=== PATIENT | female | born 1970 | race African-American/Black ===

== ENCOUNTER 2023-01-16 00:21 | Emergency (ER) | payer MEDICAID ==
[~2023-01-16] VITALS: Ht 162.6 cm; Wt 96.1 kg
[2023-01-16 01:05] LABS: Basophils # (auto) 0.1 10 ^3/uL (0-0.2); Eosinophils # (auto) 0.2 10 ^3/uL (0-0.8); Eosinophils % (auto) 2.4 % (0.0-7.0); Hematocrit 39.3 % (36.0-46.0); Hemoglobin 13.2 g/dL (12.2-16.2); Lymphocytes # (auto) 3.9 10 ^3/uL (0.4-5.4); Lymphocytes % (auto) 50.2 % (10.0-50.0); Mean Corpuscular Hemoglobin 31.1 pg (28.0-32.0); Mean Corpuscular Hgb Conc. 33.5 g/dL (32.0-36.0); Mean Corpuscular Volume 92.9 fL (80.0-100.0); Monocytes # (auto) 0.5 10 ^3/uL (0-1.3); Neutrophils # (auto) 3.2 10 ^3/uL (1.6-8.6); Neutrophils % (auto) 40.4 % (37.0-80.0); Nucleated Red Blood Cells % 0.2 %; Red Blood Cells 4.23 10^6/uL (4.0-5.20); Red Cell Distribution Width 13.4 % (11.8-14.3); White Blood Cell 7.8 10^3/uL (4.4-10.8)
[2023-01-16 01:20] LABS: Urine Bacteria FEW /hpf (None Seen); Urine Blood Negative /uL (Negative); Urine Specific Gravity 1.006 (1.001-1.035); Urine WBC <1 /hpf (0 - 5)
[2023-01-16 01:30] LABS: Albumin 3.7 g/dL (3.4-5.0); Calcium 9.8 mg/dL (8.5-10.1); Potassium 3.7 mmol/L (3.5-5.1)
[2023-01-16 01:33] LABS: BUN/Creatinine Ratio 14.3 (10.0-20.0); Magnesium 2.1 mg/dL (1.6-2.6)
[2023-01-16 02:08] LABS: Bilirubin, Total 0.4 mg/dL (0.2-1.0)
[2023-01-16 02:13] LABS: Total Protein 7.2 g/dL (6.4-8.2)
[2023-01-16] MEDS ORDERED: MORPHINE SULFATE INJ 2 MG/ml SYRG IM ONE (05:15)
[2023-01-16] MEDS ORDERED: ONDANSETRON ODT 4 MG TAB PO ONE (05:15)
[2023-01-16 05:49] VITALS: BP 140/88; PULSE 61; RESP 16; TEMP 98.1; O2SAT 99
== END 2023-01-16 06:32 | disposition home or self-care (01) ==
LOC: ER 00:21
DX: R07.89 Other chest pain (principal); J45.909 Unspecified asthma, uncomplicated; I10 Essential (primary) hypertension; F20.9 Schizophrenia, unspecified; Z88.5 Allergy status to narcotic agent; Z98.51 Tubal ligation status; Z98.890 Other specified postprocedural states
CPT/HCPCS: 36415; 71045; 80053; 81001; 83735; 84484; 85025; 93005; 96372; 99285; J2270; Q0162

== ENCOUNTER 2023-03-06 22:28 | Emergency (ER) | payer MEDICAID ==
[~2023-03-06] VITALS: Ht 160 cm; Wt 98.1 kg
[2023-03-06] MEDS ORDERED: diphenhdrAMINE HCL 25 MG CAP PO ONE (23:15)
[2023-03-06] MEDS ORDERED: DexAMETHasone SOD PHOS 10MG/1ML VIAL INJ IM ONE (23:15)
[2023-03-06] MEDS ORDERED: CEPH500C PO ×3 (23:15→23:34)
[2023-03-06] MEDS ORDERED: MUPI2OIN2 EX ×3 (23:15→23:34)
[2023-03-06] MEDS ORDERED: FAMOTIDINE 20 MG TAB PO ONE (23:15)
[2023-03-06] MEDS ORDERED: DIPH25CA66 PO ×3 (23:15→23:34)
[2023-03-06 23:30] VITALS: BP 133/88; PULSE 87; RESP 20; TEMP 97.9; O2SAT 99
== END 2023-03-06 23:38 | disposition home or self-care (01) ==
LOC: ER 22:28
DX: S60.562A Insect bite (nonvenomous) of left hand, initial encounter (principal); S60.561A Insect bite (nonvenomous) of right hand, initial encounter; S80.862A Insect bite (nonvenomous), left lower leg, initial encounter; S80.861A Insect bite (nonvenomous), right lower leg, initial encounter; B96.89 Other specified bacterial agents as the cause of diseases classified elsewhere; J45.909 Unspecified asthma, uncomplicated; I10 Essential (primary) hypertension; F20.9 Schizophrenia, unspecified; Z79.899 Other long term (current) drug therapy; Z98.51 Tubal ligation status; Z98.890 Other specified postprocedural states; W57.XXXA Bitten or stung by nonvenomous insect and other nonvenomous arthropods, initial encounter; Y93.89 Activity, other specified; Y92.89 Other specified places as the place of occurrence of the external cause; Y99.8 Other external cause status; Z88.5 Allergy status to narcotic agent
CPT/HCPCS: 96372; 99283; J1100

== ENCOUNTER 2023-05-17 00:07 | Emergency (ER) | payer MEDICAID ==
[~2023-05-17] VITALS: Ht 162.6 cm; Wt 95.0 kg
[~2023-05-17 00:07] MED LIST: CEPH500C PO; DIPH25CA66 PO; MUPI2OIN2 EX
[2023-05-17 00:36] LABS: Basophils # (auto) 0.1 10 ^3/uL (0-0.2); Eosinophils # (auto) 0.2 10 ^3/uL (0-0.8); Eosinophils % (auto) 1.9 % (0.0-7.0); Hematocrit 40.1 % (36.0-46.0); Hemoglobin 13.7 g/dL (12.2-16.2); Lymphocytes # (auto) 3.8 10 ^3/uL (0.4-5.4); Lymphocytes % (auto) 46.4 % (10.0-50.0); Mean Corpuscular Hemoglobin 31.3 pg (28.0-32.0); Mean Corpuscular Hgb Conc. 34.1 g/dL (32.0-36.0); Mean Corpuscular Volume 91.9 fL (80.0-100.0); Monocytes # (auto) 0.4 10 ^3/uL (0-1.3); Monocytes % (auto) 5.3 % (0.0-12.0); Neutrophils # (auto) 3.7 10 ^3/uL (1.6-8.6); Neutrophils % (auto) 45.4 % (37.0-80.0); Nucleated Red Blood Cells % 0.2 %; Red Blood Cells 4.36 10^6/uL (4.0-5.20); Red Cell Distribution Width 13.8 % (11.8-14.3); White Blood Cell 8.2 10^3/uL (4.4-10.8)
[2023-05-17 00:50] LABS: INR 0.94 (0.9-1.15); Partial Thromboplastin Time 26.2 SEC (24.5-34.5); Prothrombin Time 9.9 sec (9.3-11.8)
[2023-05-17 00:54] LABS: Alanine Aminotransferase 23 U/L (7-40); Albumin 4.5 g/dL (3.2-4.8); Alkaline Phosphatase 98 U/L (46-116); Anion Gap 4 (5-15); Aspartate Aminotransferase 20 U/L (13-40); BUN/Creatinine Ratio 8.4 (10.0-20.0); Blood Urea Nitrogen 7 mg/dL (9-23); Calcium 9.5 mg/dL (8.7-10.4); Carbon Dioxide 29 mmol/L (20-30); Chloride 107 mmol/L (98-107); Glucose 110 mg/dL (74-106); Magnesium 1.6 mg/dL (1.6-2.6); Potassium 3.5 mmol/L (3.5-5.1); Sodium 140 mmol/L (136-145)
[2023-05-17 00:55] LABS: Bilirubin, Total 0.5 mg/dL (0.2-1.0); Total Protein 7.1 g/dL (5.7-8.2)
[2023-05-17 03:50] VITALS: BP 131/85; PULSE 75; RESP 18; TEMP 98.2; O2SAT 98
== END 2023-05-17 03:55 | disposition home or self-care (01) ==
LOC: ER 00:07
DX: R07.89 Other chest pain (principal); I10 Essential (primary) hypertension; J44.9 Chronic obstructive pulmonary disease, unspecified; F17.210 Nicotine dependence, cigarettes, uncomplicated; Z98.890 Other specified postprocedural states; Z88.8 Allergy status to other drugs, medicaments and biological substances; Z79.899 Other long term (current) drug therapy
CPT/HCPCS: 36415; 71045; 80053; 83735; 83880; 84484; 85025; 85610; 85730; 93005

== ENCOUNTER 2023-07-25 21:54 | Emergency (ER) | payer MEDICAID ==
[~2023-07-25] VITALS: Ht 162.6 cm; Wt 97.3 kg
[2023-07-25 22:31] LABS: Basophils # (auto) 0.1 10 ^3/uL (0-0.2); Basophils % (auto) 1.3 % (0.0-2.0); Eosinophils # (auto) 0.1 10 ^3/uL (0-0.8); Eosinophils % (auto) 1.6 % (0.0-7.0); Hematocrit 40.7 % (36.0-46.0); Hemoglobin 13.7 g/dL (12.2-16.2); Lymphocytes # (auto) 3.4 10 ^3/uL (0.4-5.4); Lymphocytes % (auto) 41.5 % (10.0-50.0); Mean Corpuscular Hemoglobin 31.1 pg (28.0-32.0); Mean Corpuscular Hgb Conc. 33.7 g/dL (32.0-36.0); Mean Corpuscular Volume 92.2 fL (80.0-100.0); Monocytes # (auto) 0.4 10 ^3/uL (0-1.3); Monocytes % (auto) 5.1 % (0.0-12.0); Neutrophils # (auto) 4.1 10 ^3/uL (1.6-8.6); Neutrophils % (auto) 50.5 % (37.0-80.0); Nucleated Red Blood Cells % 0.1 %; Red Blood Cells 4.41 10^6/uL (4.0-5.20); Red Cell Distribution Width 13.5 % (11.8-14.3); White Blood Cell 8.2 10^3/uL (4.4-10.8)
[2023-07-25 22:48] LABS: Alanine Aminotransferase 31 U/L (7-40); Albumin 4.5 g/dL (3.2-4.8); Alkaline Phosphatase 103 U/L (46-116); Anion Gap 5 (5-15); Aspartate Aminotransferase 23 U/L (13-40); BUN/Creatinine Ratio 9.1 (10.0-20.0); Blood Urea Nitrogen 7 mg/dL (9-23); Calcium 10.2 mg/dL (8.5-10.1); Carbon Dioxide 28 mmol/L (20-30); Chloride 106 mmol/L (98-107); Glucose 115 mg/dL (74-106); Potassium 3.4 mmol/L (3.5-5.1); Sodium 139 mmol/L (136-145)
[2023-07-25 22:49] LABS: Bilirubin, Total 0.4 mg/dL (0.2-1.0); Total Protein 7.1 g/dL (5.7-8.2)
[2023-07-26 02:00] VITALS: BP 105/72; PULSE 80; RESP 18; TEMP 98; O2SAT 97
== END 2023-07-26 02:14 | disposition home or self-care (01) ==
LOC: ER 21:54
DX: R07.89 Other chest pain (principal); I10 Essential (primary) hypertension; J44.9 Chronic obstructive pulmonary disease, unspecified; F17.210 Nicotine dependence, cigarettes, uncomplicated; Z79.899 Other long term (current) drug therapy
CPT/HCPCS: 36415; 71045; 80053; 83880; 84484; 85025; 93005

== ENCOUNTER 2023-08-23 01:59 | Emergency (ER) | payer MEDICAID ==
[~2023-08-23] VITALS: Ht 162.6 cm; Wt 95.0 kg
[2023-08-23 01:59] VITALS: BP 128/87; PULSE 68; RESP 20; O2SAT 98
[2023-08-23] MEDS: KETOROLAC TROMETH 60MG/2ML VIAL IM ONE (03:43)
== END 2023-08-23 03:51 | disposition home or self-care (01) ==
LOC: ER 01:59
DX: S46.912A Strain of unspecified muscle, fascia and tendon at shoulder and upper arm level, left arm, initial encounter (principal); J44.9 Chronic obstructive pulmonary disease, unspecified; I10 Essential (primary) hypertension; F17.210 Nicotine dependence, cigarettes, uncomplicated; Z98.51 Tubal ligation status; Z88.6 Allergy status to analgesic agent; X50.0XXA Overexertion from strenuous movement or load, initial encounter; Y93.89 Activity, other specified; Y92.89 Other specified places as the place of occurrence of the external cause; Y99.8 Other external cause status
CPT/HCPCS: 73030; 96372; 99283; J1885

== ENCOUNTER 2023-10-10 22:19 | Emergency (ER) | payer MEDICAID ==
[~2023-10-10] VITALS: Ht 162.6 cm; Wt 97.5 kg
[2023-10-11 00:33] VITALS: BP 131/74; PULSE 91; RESP 16; TEMP 98.4; O2SAT 98
[2023-10-11] MEDS: HYDROcodone-ACET 10/325MG TAB PO ONE (01:13)
== END 2023-10-11 01:37 | disposition home or self-care (01) ==
LOC: ER 22:19
DX: S83.92XA Sprain of unspecified site of left knee, initial encounter (principal); M17.12 Unilateral primary osteoarthritis, left knee; J44.9 Chronic obstructive pulmonary disease, unspecified; I10 Essential (primary) hypertension; M54.30 Sciatica, unspecified side; F17.210 Nicotine dependence, cigarettes, uncomplicated; Z88.6 Allergy status to analgesic agent; Z98.51 Tubal ligation status; X58.XXXA Exposure to other specified factors, initial encounter; Y93.89 Activity, other specified; Y92.89 Other specified places as the place of occurrence of the external cause; Y99.8 Other external cause status
CPT/HCPCS: 29505; 73562

== ENCOUNTER 2023-12-27 03:31 | Inpatient (IN) | payer MEDICAID ==
[~2023-12-27] VITALS: Ht 160 cm; Wt 93.0 kg
[2023-12-27 04:19] LABS: Anion Gap 9 (5-15); Carbon Dioxide 24 mmol/L (20-30); Chloride 106 mmol/L (98-107); Potassium 3.7 mmol/L (3.5-5.1); Sodium 139 mmol/L (136-145)
[2023-12-27 04:20] LABS: Basophils # (auto) 0.1 10 ^3/uL (0-0.2); Basophils % (auto) 1.1 % (0.0-2.0); Calcium 10.9 mg/dL (8.7-10.4); Eosinophils # (auto) 0.2 10 ^3/uL (0-0.8); Eosinophils % (auto) 2.6 % (0.0-7.0); Hematocrit 41.3 % (36.0-46.0); Hemoglobin 14.1 g/dL (12.2-16.2); Lymphocytes # (auto) 3.9 10 ^3/uL (0.4-5.4); Mean Corpuscular Hemoglobin 31.2 pg (28.0-32.0); Mean Corpuscular Hgb Conc. 34.1 g/dL (32.0-36.0); Mean Corpuscular Volume 91.6 fL (80.0-100.0); Monocytes # (auto) 0.4 10 ^3/uL (0-1.3); Monocytes % (auto) 4.2 % (0.0-12.0); Neutrophils # (auto) 4.3 10 ^3/uL (1.6-8.6); Neutrophils % (auto) 48.1 % (37.0-80.0); Nucleated Red Blood Cells % 0.1 %; Red Blood Cells 4.51 10^6/uL (4.0-5.20); Red Cell Distribution Width 13.5 % (11.8-14.3); White Blood Cell 8.9 10^3/uL (4.4-10.8)
[2023-12-27 04:25] LABS: BUN/Creatinine Ratio 8.8 (10.0-20.0); Blood Urea Nitrogen 6 mg/dL (9-23); Glucose 100 mg/dL (74-106)
[2023-12-27] MEDS: ASPirin 81 mg TAB PO ONE (05:43)
[2023-12-27 06:45] VITALS: PULSE 73; RESP 16; O2SAT 98
[2023-12-27 07:35] VITALS: PULSE 69; RESP 13; O2SAT 99
[2023-12-27] MEDS: MORPHINE SULFATE 4 MG/ML SYR/VIAL IV ONE (07:40)
[2023-12-27] MEDS ORDERED: diphenhdrAMINE HCL 50 MG/1 ML VL IV PRN (09:15)
[2023-12-27] MEDS ORDERED: ACETAMINOPHEN 325 MG TAB PO PRN (09:15)
[2023-12-27] MEDS ORDERED: MORPHINE SULFATE INJ 2 MG/ml SYRG IV PRN (09:15)
[2023-12-27] MEDS ORDERED: FLUO40CA (10:13)
[2023-12-27] MEDS ORDERED: OXCA300T50 (10:13)
[2023-12-27] MEDS ORDERED: QUET300T24 PO (10:13)
[2023-12-27] MEDS ORDERED: RISP2TAB62 (10:13)
[2023-12-27] MEDS ORDERED: NITR0.4S29 (10:13)
[2023-12-27] MEDS ORDERED: GABA-1250 PO (10:13)
[2023-12-27] MEDS ORDERED: NICO14DI29 TOP (10:13)
[2023-12-27] MEDS ORDERED: CHOL20003 PO (10:13)
[2023-12-27] MEDS ORDERED: FLUT110A8 INH (10:13)
[2023-12-27] MEDS: ENOXAPARIN SOD 40 MG/0.4 ML SYRINGE SC SCH (10:33)
[2023-12-27] MEDS: InsuLIN REG 1unit/0.01ml Soln (100units/ml) SC ONE (10:58)
[2023-12-27] MEDS: ACCU-CHEK COMFORT CURVE STRIP VI ONE (10:58)
[2023-12-27] MEDS: DEXTROSE (50%) 50ML SYRG IV ONE (11:00)
[2023-12-27 11:30] LABS: LDL Cholesterol 69 mg/dL (< 100); Triglycerides 57 mg/dL (< 150)
[2023-12-27 11:32] LABS: Cholesterol 134 mg/dL (< 200); HDL Cholesterol 50 mg/dL (40-59)
[2023-12-27] MEDS: FLUoxetine HCL 20 MG CAP PO SCH (12:17)
[2023-12-27] MEDS: NITROGLYCERIN 0.4 MG SL TAB SL PRN (12:18)
[2023-12-27] MEDS: CHOLECALCIFEROL (VITD3) 1,000UNIT=25mCg TAB PO SCH (12:18)
[2023-12-27 18:40] VITALS: PULSE 74
[2023-12-27 18:45] VITALS: PULSE 76; RESP 16; O2SAT 98
[2023-12-27 20:00] VITALS: PULSE 71; PULSE 74; RESP 18; O2SAT 97
[2023-12-27] MEDS: LOSARTAN POTASSIUM 50 MG TAB PO SCH (21:14)
[2023-12-27] MEDS: QUEtiapine FUMARATE 100 MG TAB PO SCH (21:16)
[2023-12-27] MEDS: HYDROcodone-ACET 5/325MG TAB PO PRN (21:16)
[2023-12-27] MEDS: risperiDONE 1 MG TAB PO SCH (21:16)
[2023-12-27] MEDS ORDERED: METF-370 PO (21:25)
[2023-12-27] MEDS ORDERED: HYDR-4798 PO (21:25)
[2023-12-27] MEDS ORDERED: LOSA100T25 PO (21:25)
[2023-12-27 22:00] VITALS: BP 111/72; PULSE 68; RESP 19; TEMP 98.4; O2SAT 94
[2023-12-27] MEDS ORDERED: BUDESONIDE (INHALATION) 0.5 MG/2 ML NEB NEB SCH (22:00)
[2023-12-28] VITALS (10 sets, daily range): BP systolic 109–116; BP diastolic 58–70; PULSE 61–68; RESP 16–19; TEMP 37.1; O2SAT 95–100
[2023-12-28] MEDS: MORPHINE SULFATE INJ 2 MG/ml SYRG IV PRN (08:28)
[2023-12-28] MEDS: GABAPENTIN 300 MG CAP PO SCH (08:59)
[2023-12-28] MEDS: NICOTINE 14 MG/24HR TOPICAL PATCH TD SCH (10:00)
== END 2023-12-28 15:00 | disposition home or self-care (01) | DRG 203 ==
LOC: ER 03:31 → TELE 09:11 → TELE-EAST 18:41
PROVIDERS: ADMIT Nurse Practitioner; ATTEND Nurse Practitioner
DX: M94.0 Chondrocostal junction syndrome [Tietze] (principal); E11.65 Type 2 diabetes mellitus with hyperglycemia; E66.01 Morbid (severe) obesity due to excess calories; F17.210 Nicotine dependence, cigarettes, uncomplicated; I10 Essential (primary) hypertension; J44.9 Chronic obstructive pulmonary disease, unspecified; F31.9 Bipolar disorder, unspecified; Z88.5 Allergy status to narcotic agent; Z98.51 Tubal ligation status; Z98.891 History of uterine scar from previous surgery; Z79.899 Other long term (current) drug therapy; Z82.49 Family history of ischemic heart disease and other diseases of the circulatory system; Z68.36 Body mass index [BMI] 36.0-36.9, adult
CPT/HCPCS: 36415; 71046; 80048; 80061; 82962; 83036; 83880; 84484; 85025; 93005; 93306; 94640; 96372; 96374; G0378

== ENCOUNTER 2024-01-30 01:31 | Inpatient (IN) | payer MEDICAID ==
[~2024-01-30] VITALS: Ht 160 cm; Wt 91.3 kg
[~2024-01-30 01:31] MED LIST changes: -CEPH500C PO; +CHOL20003 PO; -DIPH25CA66 PO; +FLUO40CA; +GABA-1250 PO; +HYDR-4798 PO; +LOSA100T25 PO; +METF-370 PO; -MUPI2OIN2 EX; +NITR0.4S29; +OXCA300T50; +QUET300T24 PO; +RISP2TAB62
[2024-01-30 02:15] LABS: Chloride 107 mmol/L (98-107); Potassium 3.9 mmol/L (3.5-5.1); Sodium 140 mmol/L (136-145)
[2024-01-30 02:16] LABS: Anion Gap 5 (5-15); Calcium 10.2 mg/dL (8.7-10.4); Carbon Dioxide 28 mmol/L (20-30)
[2024-01-30 02:21] LABS: Glucose 105 mg/dL (74-106)
[2024-01-30 02:32] LABS: BUN/Creatinine Ratio 6.8 (10.0-20.0); Blood Urea Nitrogen < 5 mg/dL (9-23)
[2024-01-30 02:38] LABS: Basophils # (auto) 0.1 10 ^3/uL (0-0.2); Basophils % (auto) 0.9 % (0.0-2.0); Eosinophils # (auto) 0.2 10 ^3/uL (0-0.8); Eosinophils % (auto) 2.2 % (0.0-7.0); Hematocrit 43.2 % (36.0-46.0); Hemoglobin 14.2 g/dL (12.2-16.2); Lymphocytes # (auto) 4.7 10 ^3/uL (0.4-5.4); Lymphocytes % (auto) 53.6 % (10.0-50.0); Mean Corpuscular Hemoglobin 31.1 pg (28.0-32.0); Mean Corpuscular Hgb Conc. 32.9 g/dL (32.0-36.0); Mean Corpuscular Volume 94.5 fL (80.0-100.0); Monocytes # (auto) 0.4 10 ^3/uL (0-1.3); Monocytes % (auto) 4.5 % (0.0-12.0); Neutrophils # (auto) 3.4 10 ^3/uL (1.6-8.6); Neutrophils % (auto) 38.8 % (37.0-80.0); Nucleated Red Blood Cells % 0.2 %; Platelet Count (auto) 329 10^3/uL (140-450); Red Blood Cells 4.57 10^6/uL (4.0-5.20); Red Cell Distribution Width 13.9 % (11.8-14.3); White Blood Cell 8.8 10^3/uL (4.4-10.8)
[2024-01-30 04:09] VITALS: PULSE 66; RESP 16; O2SAT 97
[2024-01-30] MEDS: ACETAMINOPHEN 325 MG TAB PO ONE (04:25)
[2024-01-30] MEDS: NITROGLYCERIN 0.4 MG SL TAB SL ONE (04:25)
[2024-01-30 05:41] LABS: Urine Bacteria None Seen /hpf (None Seen)
[2024-01-30 05:48] LABS: Urine Blood Negative /uL (Negative); Urine Clarity Clear (Clear); Urine Color Colorless (Yellow); Urine Protein, UAD Negative (Negative); Urine Specific Gravity 1.005 (1.001-1.035); Urine Urobilinogen Normal (Negative); Urine WBC <1 /hpf (0 - 5); Urine pH 6.5 (5.0-9.0)
[2024-01-30] MEDS: IBUPROFEN 600 MG TAB PO ONE (06:23)
[2024-01-30] MEDS ORDERED: HYDROcodone-ACET 5/325MG TAB PO PRN (07:30)
[2024-01-30] MEDS ORDERED: NITROGLYCERIN 0.4 MG SL TAB SL PRN ×2 (07:30)
[2024-01-30] MEDS ORDERED: DEXTROSE (50%) 50ML SYRG IV PRN (07:30)
[2024-01-30] MEDS ORDERED: ONDANSETRON HCL 4 MG/2 ML VIAL IV PRN (07:30)
[2024-01-30] MEDS ORDERED: MORPHINE SULFATE INJ 2 MG/ml SYRG IV PRN ×2 (07:30)
[2024-01-30] MEDS ORDERED: TEMAZEPAM 15 MG CAP PO PRN (07:30)
[2024-01-30] MEDS ORDERED: ACETAMINOPHEN 325 MG TAB PO PRN (07:30)
[2024-01-30] MEDS ORDERED: DOCUSATE SOD 100 MG CAP PO PRN (07:30)
[2024-01-30 07:57] LABS: Triglycerides 101 mg/dL (< 150)
[2024-01-30 07:58] LABS: LDL Cholesterol 98 mg/dL (< 100)
[2024-01-30 07:59] LABS: Cholesterol 164 mg/dL (< 200); HDL Cholesterol 55 mg/dL (40-59)
[2024-01-30] MEDS: LOSARTAN POTASSIUM PO SCH (10:00)
[2024-01-30] MEDS: HYDROCHLO PO SCH (10:00)
[2024-01-30] MEDS: ENOXAPARIN SOD 40 MG/0.4 ML SYRINGE SC SCH (10:00)
[2024-01-30] MEDS: GABAPENTIN 300 MG CAP PO SCH (10:37)
[2024-01-30] MEDS: metFORMIN HYDROCHLORIDE 500 MG TAB PO SCH (10:37)
[2024-01-30] MEDS: risperiDONE 1 MG TAB PO SCH (10:38)
[2024-01-30] MEDS: FLUoxetine HCL 20 MG CAP PO SCH (10:38)
[2024-01-30] MEDS: CHOLECALCIFEROL (VITD3) 1,000UNIT=25mCg TAB PO SCH (10:39)
[2024-01-30 10:59] VITALS: BP 94/52; PULSE 66; RESP 18; TEMP 97.3; O2SAT 99
[2024-01-30] MEDS: PANTOPRAZOLE 40 MG/10 ML VIAL INJ IV SCH (11:00)
[2024-01-30] MEDS ORDERED: InsuLIN REG 1unit/0.01ml Soln (100units/ml) SC SCH ×2 (11:30→22:00)
[2024-01-30] MEDS ORDERED: ACCU-CHEK COMFORT CURVE STRIP VI SCH (11:30)
== END 2024-01-30 23:33 | disposition left against medical advice (07) | DRG 203 ==
LOC: ER 01:31 → TELE 07:20
PROVIDERS: ADMIT Nurse Practitioner; ATTEND Nurse Practitioner
DX: R07.89 Other chest pain (principal); E11.65 Type 2 diabetes mellitus with hyperglycemia; F17.210 Nicotine dependence, cigarettes, uncomplicated; F41.9 Anxiety disorder, unspecified; Z53.29 Procedure and treatment not carried out because of patient's decision for other reasons; I10 Essential (primary) hypertension; R55 Syncope and collapse; J44.89 Other specified chronic obstructive pulmonary disease
CPT/HCPCS: 36415; 71045; 80048; 80061; 81001; 83036; 84484; 85025; 93005; 93886; 96374; G0378; J2470

== ENCOUNTER 2024-02-16 00:25 | Emergency (ER) | payer MEDICAID ==
[~2024-02-16] VITALS: Ht 160 cm; Wt 88.2 kg
[2024-02-16 01:09] LABS: Basophils # (auto) 0.1 10 ^3/uL (0-0.2); Basophils % (auto) 1.1 % (0.0-2.0); Eosinophils # (auto) 0.2 10 ^3/uL (0-0.8); Hematocrit 40.7 % (36.0-46.0); Hemoglobin 14.1 g/dL (12.2-16.2); Lymphocytes % (auto) 41.9 % (10.0-50.0); Mean Corpuscular Hemoglobin 31.7 pg (28.0-32.0); Mean Corpuscular Hgb Conc. 34.6 g/dL (32.0-36.0); Mean Corpuscular Volume 91.7 fL (80.0-100.0); Monocytes # (auto) 0.5 10 ^3/uL (0-1.3); Monocytes % (auto) 5.3 % (0.0-12.0); Neutrophils # (auto) 4.8 10 ^3/uL (1.6-8.6); Neutrophils % (auto) 49.7 % (37.0-80.0); Platelet Count (auto) 330 10^3/uL (140-450); Red Blood Cells 4.44 10^6/uL (4.0-5.20); Red Cell Distribution Width 13.8 % (11.8-14.3); White Blood Cell 9.6 10^3/uL (4.4-10.8)
[2024-02-16 01:24] LABS: Alanine Aminotransferase 26 U/L (7-40); Albumin 4.5 g/dL (3.2-4.8); Alkaline Phosphatase 88 U/L (46-116); Anion Gap 6 (5-15); Aspartate Aminotransferase 16 U/L (13-40); BUN/Creatinine Ratio 8.4 (10.0-20.0); Bilirubin, Total 0.4 mg/dL (0.2-1.0); Blood Urea Nitrogen 7 mg/dL (9-23); Calcium 10.3 mg/dL (8.7-10.4); Carbon Dioxide 29 mmol/L (20-30); Chloride 105 mmol/L (98-107); Glucose 119 mg/dL (74-106); Potassium 3.4 mmol/L (3.5-5.1); Sodium 140 mmol/L (136-145)
[2024-02-16 01:29] LABS: INR 0.94 (0.9-1.15); Partial Thromboplastin Time 25.6 SEC (24.5-34.5)
[2024-02-16 03:11] VITALS: O2SAT 97
[2024-02-16 03:21] VITALS: BP 120/74; PULSE 78; RESP 16; TEMP 97.6; O2SAT 97
== END 2024-02-16 03:21 | disposition home or self-care (01) ==
LOC: ER 00:25
DX: R07.9 Chest pain, unspecified (principal); J44.9 Chronic obstructive pulmonary disease, unspecified; I10 Essential (primary) hypertension; E78.5 Hyperlipidemia, unspecified; E11.9 Type 2 diabetes mellitus without complications; F17.210 Nicotine dependence, cigarettes, uncomplicated; Z98.51 Tubal ligation status
CPT/HCPCS: 36415; 71045; 80053; 83880; 84484; 85025; 85610; 85730; 93005

== ENCOUNTER 2024-03-19 00:10 | Inpatient (IN) | payer MEDICAID ==
[~2024-03-19] VITALS: Ht 160 cm; Wt 88.2 kg
[2024-03-19] MEDS: NITROGLYCERIN 2% OINT 1GM PKG TD STA (00:28)
[2024-03-19 00:45] LABS: Basophils # (auto) 0.1 10 ^3/uL (0-0.2); Eosinophils # (auto) 0.2 10 ^3/uL (0-0.8); Eosinophils % (auto) 2.3 % (0.0-7.0); Hematocrit 40.8 % (36.0-46.0); Hemoglobin 13.9 g/dL (12.2-16.2); Lymphocytes % (auto) 49.4 % (10.0-50.0); Mean Corpuscular Hemoglobin 31.3 pg (28.0-32.0); Mean Corpuscular Volume 91.9 fL (80.0-100.0); Monocytes # (auto) 0.5 10 ^3/uL (0-1.3); Monocytes % (auto) 5.8 % (0.0-12.0); Neutrophils # (auto) 3.4 10 ^3/uL (1.6-8.6); Neutrophils % (auto) 41.5 % (37.0-80.0); Platelet Count (auto) 372 10^3/uL (140-450); Red Blood Cells 4.44 10^6/uL (4.0-5.20); Red Cell Distribution Width 13.5 % (11.8-14.3); White Blood Cell 8.2 10^3/uL (4.4-10.8)
[2024-03-19 00:55] LABS: Alanine Aminotransferase 21 U/L (7-40); Albumin 4.6 g/dL (3.2-4.8); Alkaline Phosphatase 96 U/L (46-116); Anion Gap 3 (5-15); Aspartate Aminotransferase 14 U/L (13-40); BUN/Creatinine Ratio 7.4 (10.0-20.0); Bilirubin, Total 0.5 mg/dL (0.2-1.0); Blood Urea Nitrogen 6 mg/dL (9-23); Calcium 10.3 mg/dL (8.7-10.4); Carbon Dioxide 30 mmol/L (20-31); Chloride 107 mmol/L (98-107); Glucose 109 mg/dL (74-106); Potassium 3.7 mmol/L (3.5-5.1); Sodium 140 mmol/L (136-145)
[2024-03-19 00:56] LABS: Total Protein 7.3 g/dL (5.7-8.2)
[2024-03-19 03:45] LABS: INR 0.91 (0.9-1.15); Partial Thromboplastin Time 26.4 SEC (24.5-34.5); Prothrombin Time 9.7 sec (9.3-11.8)
[2024-03-19 04:54] VITALS: BP 116/76; PULSE 79; RESP 18; TEMP 98.2; O2SAT 99
[2024-03-19] MEDS: ASPirin 81 mg TAB PO ONE (05:01)
[2024-03-19] MEDS ORDERED: NITROGLYCERIN 0.4 MG SL TAB SL PRN (05:45)
[2024-03-19] MEDS ORDERED: HYDROcodone-ACET 5/325MG TAB PO PRN (05:45)
[2024-03-19] MEDS ORDERED: TEMAZEPAM 15 MG CAP PO PRN (05:45)
[2024-03-19] MEDS ORDERED: ACETAMINOPHEN 325 MG TAB PO PRN (05:45)
[2024-03-19] MEDS ORDERED: ONDANSETRON HCL 4 MG/2 ML VIAL IV PRN (05:45)
[2024-03-19] MEDS ORDERED: MORPHINE SULFATE INJ 2 MG/ml SYRG IV PRN ×2 (05:45)
[2024-03-19] MEDS ORDERED: ENOXAPARIN SOD 40 MG/0.4 ML SYRINGE SC SCH (10:00)
== END 2024-03-19 07:21 | disposition left against medical advice (07) | DRG 203 ==
LOC: ER 00:10 → TELE 05:41
PROVIDERS: ADMIT Internal Medicine; ATTEND Internal Medicine
DX: R07.9 Chest pain, unspecified (principal); E11.9 Type 2 diabetes mellitus without complications; J44.89 Other specified chronic obstructive pulmonary disease; I10 Essential (primary) hypertension; F17.210 Nicotine dependence, cigarettes, uncomplicated; M17.12 Unilateral primary osteoarthritis, left knee; Z53.29 Procedure and treatment not carried out because of patient's decision for other reasons; Z98.51 Tubal ligation status; Z82.49 Family history of ischemic heart disease and other diseases of the circulatory system
CPT/HCPCS: 36415; 71045; 80053; 83880; 84484; 85025; 85610; 85730; G0378

== ENCOUNTER 2024-04-02 21:22 | Inpatient (IN) | payer MEDICAID ==
[~2024-04-02] VITALS: Ht 160 cm; Wt 87.7 kg
[2024-04-02 22:01] LABS: Basophils # (auto) 0.1 10 ^3/uL (0-0.2); Basophils % (auto) 1.1 % (0.0-2.0); Eosinophils # (auto) 0.2 10 ^3/uL (0-0.8); Eosinophils % (auto) 1.7 % (0.0-7.0); Hematocrit 41.5 % (36.0-46.0); Lymphocytes % (auto) 43.8 % (10.0-50.0); Mean Corpuscular Hemoglobin 31.2 pg (28.0-32.0); Mean Corpuscular Hgb Conc. 33.8 g/dL (32.0-36.0); Mean Corpuscular Volume 92.3 fL (80.0-100.0); Monocytes # (auto) 0.3 10 ^3/uL (0-1.3); Monocytes % (auto) 3.7 % (0.0-12.0); Neutrophils # (auto) 4.5 10 ^3/uL (1.6-8.6); Neutrophils % (auto) 49.7 % (37.0-80.0); Nucleated Red Blood Cells % 0.1 %; Platelet Count (auto) 343 10^3/uL (140-450); Red Blood Cells 4.49 10^6/uL (4.0-5.20); Red Cell Distribution Width 13.7 % (11.8-14.3); White Blood Cell 9.1 10^3/uL (4.4-10.8)
[2024-04-02] MEDS ORDERED: ACETAMINOPHEN 325 MG TAB PO PRN (23:15)
[2024-04-02] MEDS ORDERED: MORPHINE SULFATE INJ 2 MG/ml SYRG IV PRN ×2 (23:15)
[2024-04-02] MEDS ORDERED: DOCUSATE SOD 100 MG CAP PO PRN (23:15)
[2024-04-02] MEDS ORDERED: NITROGLYCERIN 0.4 MG SL TAB SL PRN (23:15)
[2024-04-02] MEDS ORDERED: TEMAZEPAM 15 MG CAP PO PRN (23:15)
[2024-04-02] MEDS ORDERED: ONDANSETRON HCL 4 MG/2 ML VIAL IV PRN (23:15)
[2024-04-02 23:22] LABS: Alanine Aminotransferase 27 U/L (7-40); Albumin 4.6 g/dL (3.2-4.8); Alkaline Phosphatase 85 U/L (46-116); Anion Gap 6 (5-15); Aspartate Aminotransferase 19 U/L (13-40); Bilirubin, Total 0.4 mg/dL (0.2-1.0); Blood Urea Nitrogen 9 mg/dL (9-23); Calcium 10.4 mg/dL (8.7-10.4); Carbon Dioxide 28 mmol/L (20-31); Chloride 108 mmol/L (98-107); Glucose 90 mg/dL (74-106); Potassium 3.7 mmol/L (3.5-5.1); Sodium 142 mmol/L (136-145)
[2024-04-02 23:23] LABS: Total Protein 7.1 g/dL (5.7-8.2)
[2024-04-02 23:30] LABS: Triglycerides 101 mg/dL (< 150)
[2024-04-02 23:31] LABS: LDL Cholesterol 92 mg/dL (< 100)
[2024-04-02 23:32] LABS: Cholesterol 163 mg/dL (< 200); HDL Cholesterol 57 mg/dL (40-59)
[2024-04-03] VITALS (8 sets, daily range): BP systolic 98–130; BP diastolic 58–75; PULSE 61–79; RESP 15–19; TEMP 36.7; O2SAT 93–98
[2024-04-03] MEDS: ONDANSETRON HCL 4 MG/2 ML VIAL IV ONE (00:04)
[2024-04-03] MEDS: ASPirin 81 mg TAB PO ONE (00:07)
[2024-04-03] MEDS: MORPHINE SULFATE 4 MG/ML SYR/VIAL IV ONE (00:07)
[2024-04-03] MEDS: HYDROcodone-ACET 5/325MG TAB PO PRN (03:15)
[2024-04-03 05:46] LABS: Basophils # (auto) 0.1 10 ^3/uL (0-0.2); Basophils % (auto) 1.3 % (0.0-2.0); Eosinophils # (auto) 0.2 10 ^3/uL (0-0.8); Eosinophils % (auto) 2.2 % (0.0-7.0); Hematocrit 38.7 % (36.0-46.0); Hemoglobin 13.3 g/dL (12.2-16.2); Lymphocytes # (auto) 4.2 10 ^3/uL (0.4-5.4); Lymphocytes % (auto) 49.4 % (10.0-50.0); Mean Corpuscular Hemoglobin 31.7 pg (28.0-32.0); Mean Corpuscular Hgb Conc. 34.4 g/dL (32.0-36.0); Mean Corpuscular Volume 92.1 fL (80.0-100.0); Monocytes # (auto) 0.3 10 ^3/uL (0-1.3); Monocytes % (auto) 3.5 % (0.0-12.0); Neutrophils # (auto) 3.7 10 ^3/uL (1.6-8.6); Neutrophils % (auto) 43.6 % (37.0-80.0); Nucleated Red Blood Cells % 0.2 %; Platelet Count (auto) 313 10^3/uL (140-450); Red Blood Cells 4.21 10^6/uL (4.0-5.20); Red Cell Distribution Width 13.7 % (11.8-14.3); White Blood Cell 8.4 10^3/uL (4.4-10.8)
[2024-04-03 06:25] LABS: Alanine Aminotransferase 25 U/L (7-40); Albumin 4.3 g/dL (3.2-4.8); Alkaline Phosphatase 83 U/L (46-116); Anion Gap 6 (5-15); Aspartate Aminotransferase 18 U/L (13-40); BUN/Creatinine Ratio 11.8 (10.0-20.0); Blood Urea Nitrogen 8 mg/dL (9-23); Carbon Dioxide 27 mmol/L (20-31); Chloride 108 mmol/L (98-107); Glucose 81 mg/dL (74-106); Potassium 3.5 mmol/L (3.5-5.1); Sodium 141 mmol/L (136-145)
[2024-04-03 06:26] LABS: Bilirubin, Total 0.5 mg/dL (0.2-1.0); Total Protein 6.7 g/dL (5.7-8.2)
[2024-04-03] MEDS: ENOXAPARIN SOD 40 MG/0.4 ML SYRINGE SC SCH (08:41)
[2024-04-03] MEDS ORDERED: PANT40TA2 PO (15:10)
== END 2024-04-03 17:15 | disposition home or self-care (01) | DRG 203 ==
LOC: ER 21:22 → TELE 23:05 → TELE-WESTW 04-03 02:02
PROVIDERS: ADMIT Nurse Practitioner; ATTEND Nurse Practitioner
DX: M94.0 Chondrocostal junction syndrome [Tietze] (principal); E11.9 Type 2 diabetes mellitus without complications; I25.9 Chronic ischemic heart disease, unspecified; J44.9 Chronic obstructive pulmonary disease, unspecified; R42 Dizziness and giddiness; J45.909 Unspecified asthma, uncomplicated; I10 Essential (primary) hypertension; J44.89 Other specified chronic obstructive pulmonary disease; F17.210 Nicotine dependence, cigarettes, uncomplicated; E66.01 Morbid (severe) obesity due to excess calories; Z95.0 Presence of cardiac pacemaker; Z98.51 Tubal ligation status; Z82.49 Family history of ischemic heart disease and other diseases of the circulatory system; Z98.891 History of uterine scar from previous surgery; Z79.84 Long term (current) use of oral hypoglycemic drugs; Z79.899 Other long term (current) drug therapy; Z68.34 Body mass index [BMI] 34.0-34.9, adult
CPT/HCPCS: 36415; 71046; 80053; 80061; 83880; 84484; 85025; 87081; 93005; 93306; 99291; G0378; J2405

== ENCOUNTER 2024-05-13 23:10 | Emergency (ER) | payer MEDICAID ==
[~2024-05-13] VITALS: Ht 160 cm; Wt 87.0 kg
[~2024-05-13 23:10] MED LIST changes: +PANT40TA2 PO
[2024-05-13 23:21] VITALS: BP 130/91; PULSE 89; RESP 16; TEMP 98.1; O2SAT 98
[2024-05-13] MEDS ORDERED: IBUP-1456 PO (23:49)
[2024-05-13] MEDS ORDERED: PRED20TA2 PO (23:49)
--- NOTE | 2024-05-13 23:49 | ED.PDOC ---
Musculoskeletal HPI Comments 53 year old female presents to ER with complaints of left shoulder pain x 2 days. Patient with PMH of chronic left shoulder pain states she has been experiencing worsening left shoulder pain x 2 days. Denies any trauma/injury/heavy lifting and states she does have history of left shoulder surgery in 2020. She rates her current pain a tender 10/10 to left shoulder with radiation towards left side of neck. Reports that she has been taking [place] and tizanidine as prescribed for chronic left shoulder pain with slight relief. States her pain is worse with movement and better with rest. Denies skin changes, sob, chest pain, numbness/tingling or any further symptoms/complaints Chief Complaint: Upper Extremity Time Seen by MD: 23:27 Primary Care Provider: EJT Wei Notes: Nurses Notes, Medications, Allergies Allergies: Coded Allergies: No Known Drug Allergy (Verified Allergy, Unknown, 12/27/23) Home Meds Active Scripts Ibuprofen (Ibuprofen) 800 Mg Tab, 1 TAB PO TID PRN, #30 TAB 0 Refills Prov:CHARLINE NIEVES 05/13/24 Prednisone (Prednisone) 20 Mg Tab, 20 MG PO BID for 5 Days, #10 TAB 0 Refills Prov:CHARLINE NIEVES 05/13/24 Pantoprazole Sodium Sesquihydr (Protonix) 40 Mg Tab, 40 MG PO DAILY, #30 TAB Prov:JAVY BOSE NP 04/03/24 Reported Medications Hydrocodone-Acetaminophen (Hydrocodone Bitartrate/AC 10-325 mg) 1 Tab Tab, 1 TAB PO, TAB 12/27/23 Hydrocodone-Acetaminophen (Hydrocodone Bitartrate/AC 10-325 mg) 1 Tab Tab, 1 TAB PO, TAB 12/27/23 Losartan Potassium & Hydrochlo (Hyzaar) 1 Tab Tab, 1 TAB PO DAILY, #30 TAB 5 Refills 12/27/23 Metformin Hydrochloride (Metformin Hcl) 500 Mg Tab, 1 TAB PO BID, #60 TAB 3 Refills 12/27/23 Nitroglycerin (NTROSTAT SUBLINGUAL) 0.4 Mg Sl 12/27/23 Gabapentin (Gabapentin) 300 Mg Cap, 1 CAP PO DAILY 12/27/23 Cholecalciferol (Vitamin D-3 Super Strengt) 2,000 Unit Tab, 1 TAB PO DAILY 12/27/23 Oxcarbazepine (OXTELLAR XR) 300 Mg Tab 12/27/23 Quetiapine Fumerate (QUETIAPINE FUMARATE) 300 Mg Tab, 2 TAB PO 12/27/23 Risperidone (Risperidone) 2 Mg Tab, 1 TAB BID 12/27/23 Fluoxetine Hcl (Fluoxetine Hcl) 40 Mg Cap, 1 TAB DAILY 12/27/23 Mode of Arrival: Ambulatory Past Medical History PAST MEDICAL HISTORY: Asthma, COPD, HTN Past Medical History (Other): Chronic left shoulder pain Surgical History: , Tubal Ligation Surgical History (Other): Bilateral shoulder surgery 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 PLASTIC TUBING INSULATION SUPERVISOR History Family History Family History: No family hx of Cancer, No family hx of DM, No family hx of HTN, No family hx ofKidney veronica, No family hx of Liver veronica, No family hx of Lung veronica, No family hx of Stroke, Family hx of heart veronica Social History Smoker: Cigarettes, Less Than 1 Pack/Day Alcohol: Denies ETOH Use Drugs: Denies Drug Use Lives In: Home Constitutional: denies: chills, diaphoresis, fatigue, fever, malaise, sweats, weakness, others EENTM: denies: blurred vision, double vision, ear bleeding, ear discharge, ear drainage, ear pain, ear ringing, eye pain, eye redness, hearing loss, mouth pain, mouth swelling, nasal discharge, nose bleeding, nose congestion, nose p ain, photophobia, tearing, throat pain, throat swelling, voice changes, others Respiratory: denies: cough, hemoptysis, orthopnea, SOB at rest, shortness of breath, SOB with excertion, stridor, wheezing, others Cardiovascular: denies: chest pain, dizzy spells, diaphoresis, Dyspnea on exertion, edema, irregular heart beat, left arm pain, lightheadedness, palpitations, PND, syncope, others Gastrointestinal: denies: abdomen distended, abdominal pain, blood streaked bowels, constipated, diarrhea, dysphagia, difficulty swallowing, hematemesis, melena, nausea, poor appetite, poor fluid intake, rectal bleeding, rectal pain, vomiting, others Genitourinary: denies: abnormal vagina bleeding, burning, dyspareunia, dysuria, flank pain, frequency, hematuria, incontinence, pain, , vagina discharge, urgency, others Neurological: denies: dizziness, fainting, headache, left sided numbness, left sided weakness, numbness, paresthesia, pre-existing deficit, right sided numbness, right sided weakness, seizure, speech problems, tingling, tremors, weakness, others Musculoskeletal: reports: others (As stated in HPI) Integumetry: denies: bruises, change in color, change in hair/nails, dryness, laceration, lesions, lumps, rash, wounds, others Allergic/Immunocompromised: denies: Difficulty Healing, Frequent Infections, Hives, Itching, others Hematologic/Lymphatic: denies: anemia, blood clots, easy bleeding, easy bruising, swollen glands, others Endocrine: denies: excessive hunger, excessive sweating, excessive thirst, excessive urination, flushing, intolerance to cold, intolerance to heat, unexplained weight gain, unexplained weight loss, others Psychiatric: denies: anxiety, bipolar disorder, depression, hopeless, panic disorder, schizophrenia, sleepless, suicidal, others Physical Exam General Appearance: No Apparent Distress, Obese HEENT: PERRL/EOMI Neck: Full Range of Motion, Other (Slight TTP to left cervical paraspinals noted. No skin changes appreciated) Respiratory: Chest Non-Tender, Lungs Clear, No Accessory Muscle Use, No Respiratory Distress, Normal Breath Sounds Cardiovascular: No Murmur, No Gallop, Regular Rate/Rhythm Breast Exam: Deferred Gastrointestinal: NOT DONE Genitalia: Deferred Pelvic: Deferred Rectal: Deferred Extremities: Normal capillary refill, Normal range of motion Musculoskeletal : Extremity Location: Shoulder (Slight TTP to left GH joint noted. Scars noted to left shoulder from previous/shoulder surgery. No deformity/further skin changes noted. Negative Apley scratch test left shoulder. Pulses intact) Neurologic: Alert, manager performance II-XII nml as Tested, No Motor Deficits, Normal Affect, Normal Mood, No Sensory Deficits Cerebellar Function: Normal Reflexes: Normal Skin: Dry, Normal Color, Warm Peripheral Pulses: 2+ Radial (R), 2+ Radial (L), 2+ Brachial (R), 2+ Brachial (L) Lymphatic: No Adenopathy Was a procedure done? Was a procedure done?: No Sedation Sedation?: No Differential Diagnosis EXT Differential Diagnosis: Fracture, Dislocation, Neurovascular injury X-Ray, Labs, Meds, VS Vital Signs Date Time Temp Pulse Resp B/P (MAP) Pulse Ox O2 Delivery O2 Flow Rate FiO2 05/13/24 23:21 98.1 89 16 130/91 (104) 98 Toradol 60 mg IM ordered Solu-Medrol 125 mg IM ordered Smoking cessation discussed and advised Patient neurovascularly intact and reported improvement in symptoms prior to discharge Advised to continue [place] as currently prescribed p.r.n. pain Advised on rest/ no strenuous activity Advised to follow up with PCP and orthopedics in 1-2 days Patient verbalized understanding and agreeable with current plan of care Advised to return to ER immediately if symptoms worsen Time of 1ST Reevaluation: 23:20 Reevaluation 1ST: N/A Patient Education/Counseling: Diagnosis, Treatment, Prognosis, Need For Follow Up Family Education/Counseling: No Family Present Departure 1 Departure Time of Disposition: 23:42 Impression: Primary Impression: Chronic left shoulder pain Additional Impression: Cervical strain Qualified Codes: S16.1XXA - Strain of muscle, fascia and tendon at neck level, initial encounter Disposition: HOME / SELF CARE / HOMELESS Condition: Stable e-Prescriptions Ibuprofen (Ibuprofen) 800 Mg Tab 1 TAB PO TID PRN, #30 TAB 0 Refills Prov: CHARLINE NIEVES 05/13/24 Prednisone (Prednisone) 20 Mg Tab 20 MG PO BID for 5 Days, #10 TAB 0 Refills Prov: CHARLINE NIEVES 05/13/24 Discharged With: Self Critical Care Note Critical Care Time?: No Stability Stability form required: No Heart Score Heart Score: Heart Score Response (Comments) Value History N/A 0 EKG N/A 0 Age N/A 0 Risk Factors N/A 0 Troponin N/A 0 Total 0 CHARLINE NIEVES May 13, 2024 23:49
[2024-05-14] MEDS: KETOROLAC TROMETH 60MG/2ML VIAL IM ONE (00:41)
[2024-05-14] MEDS: methylPREDNISolone SOD SUCC 125 MG/2 ML VL IM ONE (00:41)
== END 2024-05-14 00:49 | disposition home or self-care (01) ==
LOC: ER 23:10
DX: S16.1XXA Strain of muscle, fascia and tendon at neck level, initial encounter (principal); G89.29 Other chronic pain; M25.512 Pain in left shoulder; J44.89 Other specified chronic obstructive pulmonary disease; F17.210 Nicotine dependence, cigarettes, uncomplicated; I10 Essential (primary) hypertension; Z79.52 Long term (current) use of systemic steroids; Z79.84 Long term (current) use of oral hypoglycemic drugs; Z79.899 Other long term (current) drug therapy; Z98.51 Tubal ligation status
CPT/HCPCS: 96372; 99284; J1885; J2919

== ENCOUNTER 2024-06-14 21:05 | Emergency (ER) | payer MEDICAID ==
[~2024-06-14] VITALS: Ht 160 cm; Wt 87.2 kg
[~2024-06-14 21:05] MED LIST changes: +IBUP-1456 PO; +PRED20TA2 PO
--- NOTE | 2024-06-14 22:02 | ED.PDOC ---
History of Present Illness HPI Comments 53 y/o F, Hx of asthma, COPD, HTN, and obesity, presents with c/o right-flank pain and nausea, today. Patient endorses on unprovoked onset of progressively worsening right-sided flank pain that radiates his RLQ abdominal area for the past 2x days. Patient denies any injuries, sick contact, Hx of kidney stones, or other additional relevant or pertinent Hx. He denies having any vomiting, diarrhea, urinary symptoms, fever, chills, or other associated symptoms or modifiers at this time. Vital signs were stable at arrival. Chief Complaint: Flank Pain Time Seen by MD: 21:50 Primary Care Provider: JET Reviewed Notes: Nurses Notes, Medications, Allergies Allergies: Coded Allergies: No Known Drug Allergy (Verified Allergy, Unknown, 12/27/23) Home Meds Active Scripts Ibuprofen (Ibuprofen) 800 Mg Tab, 1 TAB PO TID PRN, #30 TAB 0 Refills Prov:CHARLINE NIEVES 05/13/24 Prednisone (Prednisone) 20 Mg Tab, 20 MG PO BID for 5 Days, #10 TAB 0 Refills Prov:CHARLINE NIEVES 05/13/24 Pantoprazole Sodium Sesquihydr (Protonix) 40 Mg Tab, 40 MG PO DAILY, #30 TAB Prov:JAVY BOSE NP 04/03/24 Reported Medications Hydrocodone-Acetaminophen (Hydrocodone Bitartrate/AC 10-325 mg) 1 Tab Tab, 1 TAB PO, TAB 12/27/23 Hydrocodone-Acetaminophen (Hydrocodone Bitartrate/AC 10-325 mg) 1 Tab Tab, 1 TAB PO, TAB 12/27/23 Losartan Potassium & Hydrochlo (Hyzaar) 1 Tab Tab, 1 TAB PO DAILY, #30 TAB 5 Refills 12/27/23 Metformin Hydrochloride (Metformin Hcl) 500 Mg Tab, 1 TAB PO BID, #60 TAB 3 Refills 12/27/23 Nitroglycerin (NTROSTAT SUBLINGUAL) 0.4 Mg Sl 12/27/23 Gabapentin (Gabapentin) 300 Mg Cap, 1 CAP PO DAILY 12/27/23 Cholecalciferol (Vitamin D-3 Super Strengt) 2,000 Unit Tab, 1 TAB PO DAILY 12/27/23 Oxcarbazepine (OXTELLAR XR) 300 Mg Tab 12/27/23 Quetiapine Fumerate (QUETIAPINE FUMARATE) 300 Mg Tab, 2 TAB PO 12/27/23 Risperidone (Risperidone) 2 Mg Tab, 1 TAB BID 12/27/23 Fluoxetine Hcl (Fluoxetine Hcl) 40 Mg Cap, 1 TAB DAILY 12/27/23 Information Source: Patient Mode of Arrival: Ambulatory Severity: Moderate Timing: Days Duration: Since onset Prehospital treatment: None Past Medical History PAST MEDICAL HISTORY: Asthma, COPD, HTN Past Medical History (Other): obesity Surgical History: , Tubal Ligation 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 Pertinent JAVA APPLICATION DEVELOPER History Family History Family History: No family hx of Cancer, No family hx of DM, No family hx of HTN, No family hx ofKidney veronica, No family hx of Liver veronica, No family hx of Lung veronica, No family hx of Stroke, Family hx of heart veronica Social History Smoker: Cigarettes, Less Than 1 Pack/Day Alcohol: Denies ETOH Use Drugs: Denies Drug Use Lives In: Home Constitutional: denies: chills, diaphoresis, fatigue, fever, malaise, sweats, weakness, others EENTM: denies: blurred vision, double vision, ear bleeding, ear discharge, ear drainage, ear pain, ear ringing, eye pain, eye redness, hearing loss, mouth pain, mouth swelling, nasal discharge, nose bleeding, nose congestion, nose pain, photophobia, tearing, throat pain, throat swelling, voice changes, others Respiratory: denies: cough, hemoptysis, orthopnea, SOB at rest, shortness of breath, SOB with excertion, stridor, wheezing, others Cardiovascular: denies: chest pain, dizzy spells, diaphoresis, Dyspnea on exertion, edema, irregular heart beat, left arm pain, lightheadedness, palpita tions, PND, syncope, others Gastrointestinal: reports: abdominal pain, nausea; denies: abdomen distended, blood streaked bowels, constipated, diarrhea, dysphagia, difficulty swallowing, hematemesis, melena, poor appetite, poor fluid intake, rectal bleeding, rectal pain, vomiting, others Genitourinary: reports: flank pain; denies: abnormal vagina bleeding, burning, dyspareunia, dysuria, frequency, hematuria, incontinence, pain, , vagina discharge, urgency, others Neurological: denies: dizziness, fainting, headache, left sided numbness, left sided weakness, numbness, paresthesia, pre-existing deficit, right sided numbness, right sided weakness, seizure, speech problems, tingling, tremors, weakness, others Musculoskeletal: denies: back pain, gout, joint pain, joint swelling, muscle pain, muscle stiffness, neck pain, others Integumetry: denies: bruises, change in color, change in hair/nails, dryness, laceration, lesions, lumps, rash, wounds, others Allergic/Immunocompromised: denies: Difficulty Healing, Frequent Infections, Hives, Itching, others Hematologic/Lymphatic: denies: anemia, blood clots, easy bleeding, easy bruising, swollen glands, others Endocrine: denies: excessive hunger, excessive sweating, excessive thirst, excessive urination, flushing, intolerance to cold, intolerance to heat, unexplained weight gain, unexplained weight loss, others Psychiatric: denies: anxiety, bipolar disorder, depression, hopeless, panic disorder, schizophrenia, sleepless, suicidal, others All Other Systems: Reviewed and Negative (negative unless otherwise stated above or in HPI) Physical Exam General Appearance: Moderate Distress (Due to right-sided flank pain concerns.), Normal HEENT: Normal ENT Inspection, Pharynx Normal, TMs Normal Neck: Full Range of Motion, Non-Tender, Normal, Normal Inspection Respiratory: Chest Non-Tender, Lungs Clear, No Accessory Muscle Use, No Respiratory Distress, Normal Breath Sounds Cardiovascular: No Edema, No JVD, No Murmur, No Gallop, Normal Peripheral Pulses, Regular Rate/Rhythm Breast Exam: Deferred Gastrointestinal: Other (Diffuse right-sided flank pain he was not specific to the CVA region and extends actually towards this finding. Patient complains the pain radiating towards the abdomen, but unable to elicit any additional pain on palpation. Difficult to assess due to body habitus. No signs of trauma.) Genitalia: Deferred Pelvic: Deferred Rectal: Deferred Extremities: No calf tenderness, Normal capillary refill, Normal inspection, Normal range of motion, Non-tender, No pedal edema Neurologic: Alert, butadiene converter utility operator II-XII nml as Tested, No Motor Deficits, Normal Affect, Normal Mood, No Sensory Deficits Cerebellar Function: Normal Reflexes: Normal Skin: Dry, Normal Color, Warm Lymphatic: No Adenopathy Was a procedure done? Was a procedure done?: No Differential Dx Considerations may include: nephrolithiasis, cystitis, pyelonephritis, ovarian cysts, ovarian torsion , intra-abdominal process X-Ray, Labs, Meds, VS Vital Signs Date Time Temp Pulse Resp B/P (MAP) Pulse Ox O2 Delivery O2 Flow Rate FiO2 06/14/24 23:40 98.4 79 16 122/77 (92) 99 98.4 06/14/24 23:40 79 16 99 Room Air 06/14/24 21:12 98.1 84 18 125/85 (98) 100 Lab Test 06/14/24 21:44 Range/Units Urine Color Light-yellow Yellow Urine Clarity Turbid H Clear Urine pH 6.5 5.0-9.0 Urine Specific [place] 1.017 1.001-1.035 Urine Protein Negative Negative Urine Ketones Negative Negative Urine Blood Negative Negative /uL Urine Nitrite Negative Negative Urine Bilirubin Negative Negative Urine Urobilinogen Normal Negative mg/dL Urine Leukocyte Esterase Negative Negative /uL Urine RBC 1 0 - 4 /hpf Urine WBC <1 0 - 5 /hpf Urine Squamous Epithelial Cells Few <5 /hpf Urine Bacteria Few H None Seen /hpf Urine Hyaline Casts Few 0 - 2 /lpf Urine Glucose Normal Normal mg/dL Current Medications Medications (Trade) Dose Ordered Sig/Jose J Route Start Time Stop Time Status Last Admin Acetaminophen/ Hydrocodone Bitart ([place] 10/325MG Tab) 1 tab ONCE ONCE PO 06/14/24 22:00 06/14/24 22:01 DC 06/14/24 23:34 Ketorolac Tromethamine (Toradol Injection) 30 mg ONCE ONCE IM 06/14/24 22:00 06/14/24 22:01 DC 06/14/24 23:34 Ondansetron HCl (Zofran Po) 4 mg ONCE ONCE PO 06/14/24 22:00 06/14/24 22:01 DC 06/14/24 23:34 X-Ray, Labs, Meds, VS Comment While studies performed the ED today were evaluated by me personally. Urine was unremarkable for any urinary tract infection or signs of kidney stone. The CT without contrast as ordered to evaluate kidney function. Results ruled out any kidney involvement or hydronephrosis, but did display diffuse annular bulge of the disc at L5-S1 with moderately severe spinal stenosis. Patient may be suffering some referred pain from that concern. Advised patient to follow up with her primary care provider for continued conversation is related to today's finding. Patient may require an orthopedic referral and evaluation. Time of 1ST Reevaluation: 23:49 Reevaluation 1ST: Improved Consultation: PCP, Other (Orthopedist) Patient Education/Counseling: Diagnosis, Treatment Family Education/Counseling: Diagnosis, Treatment, No Family Present Departure 1 Departure Time of Disposition: 23:49 Impression: Primary Impression: Flank pain Additional Impression: Spinal stenosis Disposition: HOME / SELF CARE / HOMELESS Condition: Stable Additional Instructions: Advised patient utilize medication as needed for pain relief and additionally, patient should follow up with the primary care provider for continued evaluation and possible orthopedic referral. e-Prescriptions Hydrocodone-Acetaminophen (Hydrocodone Bitartrate/AC 5-325 mg) 1 Tab Tab 1 TAB PO Q6HP PRN, #15 TAB Prov: JOSE QUINTERO PAC 06/14/24 Ibuprofen Micronized (Ibuprofen) 800 Mg Tab 800 MG PO Q8HP PRN, #20 TAB Prov: JOSE QUINTERO PAC 06/14/24 Discharged With: Self, Friend Critical Care Note Critical Care Time?: No Stability Stability form required: No Heart Score Heart Score: Heart Score Response (Comments) Value History N/A 0 EKG N/A 0 Age N/A 0 Risk Factors N/A 0 Troponin N/A 0 Total 0 I personally scribed for JOSE QUINTERO PAC ([email or web address]) on 06/14/24 at 22:02. Electronically submitted by Orlin Chua ([email or web address]). I personally scribed for JOSE QUINTERO PAC ([email or web address]) on 06/14/24 at 22:09. Electronically submitted by Orlin Chua ([email or web address]). JOSE QUINTERO PAC Jun 14, 2024 22:02
[2024-06-14 22:08] LABS: Urine Bacteria FEW /hpf (None Seen); Urine Blood Negative /uL (Negative); Urine Clarity Turbid (Clear); Urine Color Light-Yellow (Yellow); Urine Hyaline Cast FEW /lpf (0 - 2); Urine Protein, UAD Negative (Negative); Urine Specific Gravity 1.017 (1.001-1.035); Urine Urobilinogen Normal (Negative); Urine WBC <1 /hpf (0 - 5); Urine pH 6.5 (5.0-9.0)
--- NOTE | 2024-06-14 23:23 | DVH ---
Exam: CT CT AB PEL WO CON-NO ORAL OR IV History: flank pain radiating to abdomen Comparison Study: None available at time of dictation. TECHNIQUE: Multidetector CT of the abdomen was performed from lung bases to pubic symphysis. Imaging was performed without IV contrast. Axial, coronal and sagittal multiplanar reformats were obtained fr om the axial data set by the technologist. Radiation Dose Information: CT Dose: CTDI volume is 13.68 mGy. Dose-length product is 783 0.4 mGy*cm FINDINGS: Evaluation of solid organs is limited due to lack of intravenous contrast use. Findings: Lung Bases: No acute or significant lung base finding. Normal heart size. No pleural or pericardial effusion. Liver: The liver is normal in size. No focal lesions. Gallbladder and Biliary Tree: Unremarkable Spleen: Unremarkable Pancreas: The pancreas is grossly normal in appearance. Adrenal Glands: Unremarkable Kidneys: Kidneys are grossly normal without calculi or hydronephrosis. Bladder: Grossly unremarkable for degree of distention. Bowel: The stomach is grossly normal in appearance. Small bowel and colon are normal in caliber and d istribution. The appendix is not visualized; however, no secondary findings of acute appendicitis id entified. Ascites: Absent Lymphadenopathy: No mesenteric, retroperitoneal or periportal lymphadenopathy. Abdominal Wall and Mesentery: Unremarkable. Vasculature: The visualized abdominal aorta is normal in size and caliber. Evaluation of abdominal a nd pelvic vessels is limited due to lack of intravenous contrast. Pelvic Organs: Unremarkable Musculoskeletal: No aggressive focal bony lesions, acute fractures or dislocation. Soft tissues: Unremarkable IMPRESSION: 1. No calcified gallstones 2. No nephrolithiasis or hydronephrosis. 3. No CT findings to suggest bowel obstruction. 4. No free air or free fluid. 5. Diffuse annular bulge of the disc at L5-S1 with moderately severe spinal stenosis.. Radiation optimization: All CT scans at this facility use at least one of these dose optimization marilynn hniques: automated exposure control mA and/or kV adjustment per patient size (includes targeted exam s where dose is matched to clinical indication) or iterative reconstruction. HS:Y
[2024-06-14] MEDS: HYDROcodone-ACET 10/325MG TAB PO ONE (23:34)
[2024-06-14] MEDS: ONDANSETRON ODT 4 MG TAB PO ONE (23:34)
[2024-06-14] MEDS: KETOROLAC TROMETH 60MG/2ML VIAL IM ONE (23:34)
[2024-06-14 23:40] VITALS: BP 122/77; PULSE 79; RESP 16; TEMP 98.4; O2SAT 99
[2024-06-14] MEDS ORDERED: IBUP-1455 PO (23:51)
[2024-06-14] MEDS ORDERED: HYDR-4902 PO (23:51)
== END 2024-06-15 00:13 | disposition home or self-care (01) ==
LOC: ER 21:05
DX: M48.061 Spinal stenosis, lumbar region without neurogenic claudication (principal); R10.9 Unspecified abdominal pain; I10 Essential (primary) hypertension; J44.9 Chronic obstructive pulmonary disease, unspecified; E66.9 Obesity, unspecified; F17.210 Nicotine dependence, cigarettes, uncomplicated; Z68.34 Body mass index [BMI] 34.0-34.9, adult; Z98.890 Other specified postprocedural states; Z79.52 Long term (current) use of systemic steroids; Z79.84 Long term (current) use of oral hypoglycemic drugs; Z79.899 Other long term (current) drug therapy
CPT/HCPCS: 74176; 81001; 96372; 99285; J1885; Q0162

== ENCOUNTER 2024-06-24 17:48 | Emergency (ER) | payer MEDICAID ==
[~2024-06-24] VITALS: Ht 160 cm; Wt 90.0 kg
[~2024-06-24 17:48] MED LIST changes: +HYDR-4902 PO; +IBUP-1455 PO
[2024-06-24 18:18] LABS: Basophils # (auto) 0.1 10 ^3/uL (0-0.2); Basophils % (auto) 0.9 % (0.0-2.0); Eosinophils # (auto) 0.1 10 ^3/uL (0-0.8); Eosinophils % (auto) 1.7 % (0.0-7.0); Hematocrit 43.3 % (36.0-46.0); Hemoglobin 14.7 g/dL (12.2-16.2); Lymphocytes % (auto) 43.2 % (10.0-50.0); Mean Corpuscular Hemoglobin 31.2 pg (28.0-32.0); Mean Corpuscular Hgb Conc. 33.9 g/dL (32.0-36.0); Mean Corpuscular Volume 91.9 fL (80.0-100.0); Monocytes # (auto) 0.4 10 ^3/uL (0-1.3); Monocytes % (auto) 5.2 % (0.0-12.0); Neutrophils # (auto) 3.4 10 ^3/uL (1.6-8.6); Nucleated Red Blood Cells % 0.1 %; Platelet Count (auto) 358 10^3/uL (140-450); Red Blood Cells 4.71 10^6/uL (4.0-5.20); Red Cell Distribution Width 13.6 % (11.8-14.3)
[2024-06-24 18:38] LABS: Alanine Aminotransferase 22 U/L (7-40); Albumin 4.7 g/dL (3.2-4.8); Alkaline Phosphatase 99 U/L (46-116); Anion Gap 5 (5-15); Aspartate Aminotransferase 19 U/L (13-40); Bilirubin, Total 0.7 mg/dL (0.2-1.0); Carbon Dioxide 31 mmol/L (20-31); Chloride 106 mmol/L (98-107); Glucose 92 mg/dL (74-106); Potassium 3.7 mmol/L (3.5-5.1); Sodium 142 mmol/L (136-145); Total Protein 7.6 g/dL (5.7-8.2)
[2024-06-24 18:40] LABS: Blood Urea Nitrogen 9 mg/dL (9-23)
--- NOTE | 2024-06-24 18:48 | ED.PDOC ---
HPI Comments 53 y.o female with PMHx of COPD, sciatica, HTN, DM, and pacemaker, presents to the ED for a chief complaint of left sided chest pain radiating to her left shoulder that started today around 1545. Patient describes pain as a pressure sensation, states it is constant, and rating a 8/10 on the pain scale. Patient denies any nausea, vomiting, SOB, fever or chills. Patient has had similar pain in the past. Chief Complaint: Chest Pain Time Seen by MD: 18:39 Primary Care Provider: MANDI Reviewed Notes: Nurses Notes, Medications, Allergies Allergies: Coded Allergies: No Known Drug Allergy (Verified Allergy, Unknown, 12/27/23) Home Meds Active Scripts Hydrocodone-Acetaminophen (Hydrocodone Bitartrate/AC 5-325 mg) 1 Tab Tab, 1 TAB PO Q6HP PRN, #15 TAB Prov:JOSE QUINTERO PAC 06/14/24 Ibuprofen Micronized (Ibuprofen) 800 Mg Tab, 800 MG PO Q8HP PRN, #20 TAB Prov:JOSE QUINTERO PAC 06/14/24 Ibuprofen (Ibuprofen) 800 Mg Tab, 1 TAB PO TID PRN, #30 TAB 0 Refills Prov:CHARLINE NIEVES 05/13/24 Prednisone (Prednisone) 20 Mg Tab, 20 MG PO BID for 5 Days, #10 TAB 0 Refills Prov:CHARLINE NIEVES 05/13/24 Pantoprazole Sodium Sesquihydr (Protonix) 40 Mg Tab, 40 MG PO DAILY, #30 TAB Prov:JAVY BOSE DIE DRAWING CHECKER 04/03/24 Reported Medications Hydrocodone-Acetaminophen (Hydrocodone Bitartrate/AC 10-325 mg) 1 Tab Tab, 1 TAB PO, TAB 12/27/23 Hydrocodone-Acetaminophen (Hydrocodone Bitartrate/AC 10-325 mg) 1 Tab Tab, 1 TAB PO, TAB 12/27/23 Losartan Potassium & Hydrochlo (Hyzaar) 1 Tab Tab, 1 TAB PO DAILY, #30 TAB 5 Refills 12/27/23 Metformin Hydrochloride (Metformin Hcl) 500 Mg Tab, 1 TAB PO BID, #60 TAB 3 Refills 12/27/23 Nitroglycerin (NTROSTAT SUBLINGUAL) 0.4 Mg Sl 12/27/23 Gabapentin (Gabapentin) 300 Mg Cap, 1 CAP PO DAILY 12/27/23 Cholecalciferol (Vitamin D-3 Super Strengt) 2,000 Unit Tab, 1 TAB PO DAILY 12/27/23 Oxcarbazepine (OXTELLAR XR) 300 Mg Tab 12/27/23 Quetiapine Fumerate (QUETIAPINE FUMARATE) 300 Mg Tab, 2 TAB PO 12/27/23 Risperidone (Risperidone) 2 Mg Tab, 1 TAB BID 12/27/23 Fluoxetine Hcl (Fluoxetine Hcl) 40 Mg Cap, 1 TAB DAILY 12/27/23 Information Source: Patient Mode of Arrival: Ambulatory Severity: Moderate Timing: Hours Duration: Since onset Location: Chest (L) Radiation: Shoulder (L) Quality: Pressure Onset: At Rest Cardiac Risk Factors: HTN, Diabetes PE Risk Factors: None History of: Similar pain in past Modifying Factors: Nothing Past Medical History PAST MEDICAL HISTORY: Asthma, COPD, DM, HTN Past Medical History (Other): sciatica Surgical History: , Pacemaker, Tubal Ligation IT 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 AND ASSURANCE MANAGER History: No Pertinent IT RISK AND ASSURANCE MANAGER History Family History Family History: No family hx of Cancer, No family hx of DM, No family hx of HTN, No family hx ofKidney veronica, No family hx of Liver veronica, No family hx of Lung veornica, No family hx of Stroke, Family hx of heart veronica Social History Smoker: Cigarettes, Less Than 1 Pack/Day Alcohol: Denies ETOH Use Drugs: Denies Drug Use Lives In: Home Constitutional: denies: chills, diaphoresis, fatigue, fever, malaise, sweats, weakness, others EENTM: denies: blurred vision, double vision, ear bleeding, ear discharge, ear drainage, ear pain, ear ringing, eye pain, eye redness, hearing loss, mouth pain, mouth swelling, nasal discharge, nose bleeding, nose congestion, nose pain, photophobia, tearing, throat pain, throat swelling, voice changes, others Respiratory: denies: cough, hemoptysis, orthopnea, SOB at rest, shortness of breath, SOB with excertion, stridor, wheezing, others Cardiovascular: reports: chest pain; denies: dizzy spells, diaphoresis, Dyspnea on exertion, edema, irregular heart beat, left arm pain, lightheadedness, palpitations, PND, syncope, others Gastrointestinal: denies: abdomen distended, abdominal pain, blood streaked bowels, constipated, diarrhea, dysphagia, difficulty swallowing, hematemesis, melena, nausea, poor appetite, poor fluid intake, rectal bleeding, rectal pain, vomiting, others Genitourinary: denies: abnormal vagina bleeding, burning, dyspareunia, dysuria, flank pain, frequency, hematuria, incontinence, pain, , vagina discharge, urgency, others Neurological: denies: dizziness, fainting, headache, left sided numbness, left sided weakness, numbness, paresthesia, pre-existing deficit, right sided numbness, right sided weakness, seizure, speech problems, tingling, tremors, weakness, others Musculoskeletal: denies: back pain, gout, joint pain, joint swelling, muscle pain, muscle stiffness, neck pain, others Integumetry: denies: bruises, change in color, change in hair/nails, dryness, laceration, lesions, lumps, rash, wounds, others Allergic/Immunocompromised: denies: Difficulty Healing, Frequent Infections, Hives, Itching, others Hematologic/Lymphatic: denies: anemia, blood clots, easy bleeding, easy bruising, swollen glands, others Endocrine: denies: excessive hunger, excessive sweating, excessive thirst, excessive urination, flushing, intolerance to cold, intolerance to heat, unexplained weight gain, unexplained weight loss, others Psychiatric: denies: anxiety, bipolar disorder, depression, hopeless, panic disorder, schizophrenia, sleepless, suicidal, others All Other Systems: Reviewed and Negative Physical Exam General Appearance: No Apparent Distress HEENT: Normal ENT Inspection, Pharynx Normal, TMs Normal Neck: Full Range of Motion, Non-Tender, Normal, Normal Inspection Respiratory: Chest Non-Tender, Lungs Clear, No Accessory Muscle Use, No Respiratory Distress, Normal Breath Sounds Cardiovascular: No Edema, No JVD, No Murmur, No Gallop, Normal Peripheral Pulses, Regular Rate/Rhythm Breast Exam: Deferred Gastrointestinal: No Organomegaly, Non Tender, No Pulsatile Mass, Normal Bowel Sounds, Soft Genitalia: Deferred Pelvic: Deferred Rectal: Deferred Extremities: No calf tenderness, Normal capillary refill, Normal inspection, Normal range of motion, Non-tender, No pedal edema Musculoskeletal : Apperance: Normal Neurologic: Alert, section chief II-XII nml as Tested, No Motor Deficits, Normal Affect, Normal Mood, No Sensory Deficits Cerebellar Function: Normal Reflexes: Normal Skin: Dry, Normal Color, Warm Lymphatic: No Adenopathy EKG EKG : Pulse Rate (adult): 85 Cardiac Rhythm: NSR Was a procedure done? Was a procedure done?: No CP Differential Dx Differential Diagnosis: N/A Differential Diagnosis: Angina, Chest Wall Pain, Costochondritis, Myocardial Infarction, Pericarditis X-Ray, Labs, Meds, VS Vital Signs Date Time Temp Pulse Resp B/P (MAP) Pulse Ox O2 Delivery O2 Flow Rate FiO2 06/24/24 18:47 85 06/24/24 17:56 85 06/24/24 17:48 97.0 95 15 127/85 (99) 97 Lab Test 06/24/24 18:40 06/24/24 17:55 Range/Units Troponin I High Sensitivity < 3 L < 3 L </=34 ng/L White Blood Count 7.0 4.4-10.8 10^3/uL Red Blood Count 4.71 4.0-5.20 10^6/uL Hemoglobin 14.7 12.2-16.2 g/dL Hematocrit 43.3 36.0-46.0 % Mean Corpuscular Volume 91.9 80.0-100.0 fL Mean Corpuscular Hemoglobin 31.2 28.0-32.0 pg Mean Corpuscular Hemoglobin Concent 33.9 32.0-36.0 g/dL Red Cell Distribution Width 13.6 11.8-14.3 % Platelet Count 358 140-450 10^3/uL Mean Platelet Volume 7.8 6.9-10.8 fL Neutrophils (%) (Auto) 49.0 37.0-80.0 % Lymphocytes (%) (Auto) 43.2 10.0-50.0 % Monocytes (%) (Auto) 5.2 0.0-12.0 % Eosinophils (%) (Auto) 1.7 0.0-7.0 % Basophils (%) (Auto) 0.9 0.0-2.0 % Neutrophils # (Auto) 3.4 1.6-8.6 10 ^3/uL Lymphocytes # (Auto) 3.0 0.4-5.4 10 ^3/uL Monocytes # (Auto) 0.4 0-1.3 10 ^3/uL Eosinophils # (Auto) 0.1 0-0.8 10 ^3/uL Basophils # (Auto) 0.1 0-0.2 10 ^3/uL Nucleated Red Blood Cells 0.1 % Sodium Level 142 136-145 mmol/L Potassium Level 3.7 3.5-5.1 mmol/L Chloride Level 106 98-107 mmol/L Carbon Dioxide Level 31 20-31 mmol/L Anion Gap 5 5-15 Blood Urea Nitrogen 9 9-23 mg/dL Creatinine 0.82 0.550-1.02 mg/dL Glomerular Filtration Rate Calc 85 >90 mL/min BUN/Creatinine Ratio 11.0 10.0-20.0 Serum Glucose 92 74-106 mg/dL Calcium Level 11.0 H 8.7-10.4 mg/dL Total Bilirubin 0.7 0.2-1.0 mg/dL Aspartate Amino Transferase (AST) 19 13-40 U/L Alanine Aminotransferase (ALT) 22 7-40 U/L Alkaline Phosphatase 99 46-116 U/L Total Protein 7.6 5.7-8.2 g/dL Albumin 4.7 3.2-4.8 g/dL The chest x-ray is negative The CBC and chemistry panel is within normal limits The troponin level x2 is negative The patient was being discharged at this time The patient will follow up with the primary care doctor The patient will return to the emergency department's the condition worsens. Images Reviewed?: Images reviewed and evaluated by me Time of 1ST Reevaluation: 18:47 Reevaluation 1ST: Unchanged Patient Education/Counseling: Diagnosis, Treatment, Prognosis, Need For Follow Up Family Education/Counseling: No Family Present Departure 1 Departure Time of Disposition: 20:44 Impression: Primary Impression: Non-cardiac chest pain Disposition: 01 HOME / SELF CARE / HOMELESS Condition: Fair Discharged With: Self Critical Care Note Critical Care Time?: No Stability Stability form required: No Heart Score Heart Score: Heart Score Response (Comments) Value History Slightly Suspicious 0 EKG Normal 0 Age 45-64 1 Risk Factors >3 or Hx ASHD 2 Troponin Normal limit 0 Total 3 I personally scribed for CUONG PARRISH MD ([email or web address]) on 06/24/24 at 18:47. Electronically submitted by Irina Duran ([facility]). CUONG PARRISH MD Jun 24, 2024 18:47
--- NOTE | 2024-06-24 20:13 | DVH ---
CHEST RADIOGRAPH Indication: cp Technique: Frontal and lateral view of the chest was obtained Comparison: XY CHEST TWO VIEWS ROUTINE on DOS: 04/02/24, XY CHEST TWO VIEWS ROUTINE on DOS: 12/27/23 FINDINGS: Lines and Tubes: None Lungs: Clear Pleura: No effusion. No pneumothorax. Cardiomediastinal contours: Unremarkable Bones: Unremarkable IMPRESSION: No evidence of acute disease.
[2024-06-24] MEDS: ASPirin 81 mg TAB PO ONE (20:43)
[2024-06-24] MEDS: MORPHINE SULFATE 4 MG/ML SYR/VIAL IV ONE (20:44)
[2024-06-24] MEDS: ONDANSETRON HCL 4 MG/2 ML VIAL IV ONE (20:44)
[2024-06-24 21:10] VITALS: TEMP 98.4; O2SAT 99
[2024-06-24 21:11] VITALS: PULSE 77
[2024-06-24 21:12] VITALS: BP 129/77; PULSE 77; RESP 20
--- NOTE | 2024-06-27 09:41 | ECG ---
[facility] Test Date: 2024-06-24 Test Time: 17:56:08 Pat Name: EDUAR HERRERA Department: ER Room: Gender: F Windows Desktop Support: GP : 1970 Requested By: CUONG PARRISH Order Number: [id number] Reading MD: Jorge Perry Measurements Intervals [place] Rate: 85 P: 73 MO: 159 QRS: 83 QRSD: 87 T: 10 QT: 356 QTc: 424 Interpretive Statements Sinus rhythm Low voltage, precordial leads abnormal ST segment changes consider inferior lateral ischemia Electronically Signed On 06-28-2024 10:15:37 PST by Jorge Perry Please click the below link to view image of tracing.
== END 2024-06-24 21:13 | disposition home or self-care (01) ==
LOC: ER 17:48
DX: R07.89 Other chest pain (principal); E11.9 Type 2 diabetes mellitus without complications; F17.210 Nicotine dependence, cigarettes, uncomplicated; I10 Essential (primary) hypertension; J44.9 Chronic obstructive pulmonary disease, unspecified; Z79.52 Long term (current) use of systemic steroids; Z79.84 Long term (current) use of oral hypoglycemic drugs; Z79.899 Other long term (current) drug therapy; Z98.890 Other specified postprocedural states; Z95.0 Presence of cardiac pacemaker; Z98.51 Tubal ligation status
CPT/HCPCS: 36415; 71046; 80053; 84484; 85025; 93005; 96374; 96375; 99285; J2270; J2405

== ENCOUNTER 2024-07-04 21:17 | Emergency (ER) | payer MEDICAID ==
[~2024-07-04] VITALS: Ht 160 cm; Wt 87.9 kg
[2024-07-04] MEDS: ONDANSETRON HCL 4 MG/2 ML VIAL IV ONE (00:08)
[2024-07-04] MEDS: MORPHINE SULFATE 4 MG/ML SYR/VIAL IV ONE (00:08)
--- NOTE | 2024-07-04 21:41 | ED.PDOC ---
History of Present Illness HPI Comments 53 year old female presents to the ED with a chief complaint of LLQ pain onset today. Patient states she began experiencing LLQ pain that radiates to her back as well as bilateral thigh pain, constipation, nausea and urinary difficulty. Patient states she has Sciatica and thigh and back pain is similar to previous sciatica pain but LLQ pain is new. She states she was seen in this ED 06/14/2024, had CT scan and was told she had bulging disc. PMHx asthma, HTN, COPD sciatica. Denies chest pain, shortness of breath, dizziness, headache, dysuria, hematuria, fever, vomiting, diarrhea. No other symptoms or modifying factors present at this time. Chief Complaint: Abdominal Pain Time Seen by MD: 21:30 Primary Care Provider: MANDI Reviewed Notes: Medications, Allergies Allergies: Coded Allergies: No Known Drug Allergy (Verified Allergy, Unknown, 12/27/23) Home Meds Active Scripts Ibuprofen Micronized (Ibuprofen) 800 Mg Tab, 800 MG PO Q8HP PRN, #30 TAB prn pain, take with food Prov:YEHUDA CONTRERAS MD 07/04/24 Dicyclomine Hcl (BENTYL CAPSULE) 10 Mg Cp, 2 CAP PO Q6HP PRN, #30 CAP 11 Refills prn abdominal pain Prov:YEHUDA CONTRERAS MD 07/04/24 Ondansetron Odt 4MG Tab (ZOFRAN PO) 4 Mg Tb, 4 MG PO TID PRN, #30 TAB prn nausea/vomiting ODT TAB-DISSOLVE IN MOUTH, THEN SWALLOW Prov:YEHUDA CONTRERAS MD 07/04/24 Gabapentin (Gabapentin) 300 Mg Cap, 1 CAP PO TID PRN, #30 CAP prn sciatic nerve pain Prov:YEHUDA CONTRERAS MD 07/04/24 Hydrocodone-Acetaminophen (Hydrocodone Bitartrate/AC 5-325 mg) 1 Tab Tab, 1 TAB PO Q6HP PRN, #15 TAB Prov:JOSE QIUNTERO PAC 06/14/24 Ibuprofen Micronized (Ibuprofen) 800 Mg Tab, 800 MG PO Q8HP PRN, #20 TAB Prov:JOSE QUINTERO PAC 06/14/24 Ibuprofen (Ibuprofen) 800 Mg Tab, 1 TAB PO TID PRN, #30 TAB 0 Refills Prov:CHARLINE NIEVES 05/13/24 Prednisone (Prednisone) 20 Mg Tab, 20 MG PO BID for 5 Days, #10 TAB 0 Refills Prov:CHARLINE NIEVES 05/13/24 Pantoprazole Sodium Sesquihydr (Protonix) 40 Mg Tab, 40 MG PO DAILY, #30 TAB Prov:JAVY BOES LUCIEN 04/03/24 Reported Medications Hydrocodone-Acetaminophen (Hydrocodone Bitartrate/AC 10-325 mg) 1 Tab Tab, 1 TAB PO, TAB 12/27/23 Hydrocodone-Acetaminophen (Hydrocodone Bitartrate/AC 10-325 mg) 1 Tab Tab, 1 TAB PO, TAB 12/27/23 Losartan Potassium & Hydrochlo (Hyzaar) 1 Tab Tab, 1 TAB PO DAILY, #30 TAB 5 Refills 12/27/23 Metformin Hydrochloride (Metformin Hcl) 500 Mg Tab, 1 TAB PO BID, #60 TAB 3 Refills 12/27/23 Nitroglycerin (NTROSTAT SUBLINGUAL) 0.4 Mg Sl 12/27/23 Cholecalciferol (Vitamin D-3 Super Strengt) 2,000 Unit Tab, 1 TAB PO DAILY 12/27/23 Oxcarbazepine (OXTELLAR XR) 300 Mg Tab 12/27/23 Quetiapine Fumerate (QUETIAPINE FUMARATE) 300 Mg Tab, 2 TAB PO 12/27/23 Risperidone (Risperidone) 2 Mg Tab, 1 TAB BID 12/27/23 Fluoxetine Hcl (Fluoxetine Hcl) 40 Mg Cap, 1 TAB DAILY 12/27/23 Information Source: Patient Mode of Arrival: Ambulatory Severity: Moderate Timing: Hours Duration: Since onset Prehospital treatment: None Past Medical History PAST MEDICAL HISTORY: Asthma, COPD, DM, HTN Past Medical History (Other): sciatica Surgical History: , Pacemaker, Tubal Ligation Surgical History (Other): knee replacement, ankle surgery, bilateral shoulders surgery BUGGY RUNNER History: No Pertinent BUGGY RUNNER History Family History Family History: No family hx of Cancer, No family hx of DM, No family hx of HTN, No family hx ofKidney veronica, No family hx of Liver veronica, No family hx of Lung veronica, No family hx of Stroke, Family hx of heart veronica Social History Smoker: Cigarettes, Less Than 1 Pack/Day Alcohol: Denies ETOH Use Drugs: Denies Drug Use Lives In: Home Constitutional: denies: chills, diaphoresis, fatigue, fever, malaise, sweats, weakness, others Respiratory: denies: cough, hemoptysis, orthopnea, SOB at rest, shortness of breath, SOB with excertion, stridor, wheezing, others Cardiovascular: denies: chest pain, dizzy spells, diaphoresis, Dyspnea on exertion, edema, irregular heart beat, left arm pain, lightheadedness, palpitations, PND, syncope, others Gastrointestinal: reports: abdominal pain, constipated; denies: abdomen distended, blood streaked bowels, diarrhea, dysphagia, difficulty swallowing, hematemesis, melena, nausea, poor appetite, poor fluid intake, rectal bleeding, rectal pain, vomiting, others Genitourinary: reports: others (retention ); denies: abnormal vagina bleeding, burning, dyspareunia, dysuria, flank pain, frequency, hematuria, incontinence, pain, , vagina discharge, urgency Neurological: denies: dizziness, fainting, headache, left sided numbness, left sided weakness, numbness, paresthesia, pre-existing deficit, right sided numbness, right sided weakness, seizure, speech problems, tingling, tremors, weakness, others Musculoskeletal: reports: back pain, others (bilateral thigh pain); denies: gout, joint pain, joint swelling, muscle pain, muscle stiffness, neck pain Integumetry: denies: bruises, change in color, change in hair/nails, dryness, laceration, lesions, lumps, rash, wounds, others Allergic/Immunocompromised: denies: Difficulty Healing, Frequent Infections, Hives, Itching, others Hematologic/Lymphatic: denies: anemia, blood clots, easy bleeding, easy bruising, swollen glands, others Endocrine: denies: excessive hunger, excessive sweating, excessive thirst, excessive urination, flushing, intolerance to cold, intolerance to heat, unexplained weight gain, unexplained weight loss, others Psychiatric: denies: anxiety, bipolar disorder, depression, hopeless, panic disorder, schizophrenia, sleepless, suicidal, others All Other Systems: Reviewed and Negative Physical Exam General Appearance: Mild Distress HEENT: Other (Pupils symmetric, moist mucous membranes) Neck: Full Range of Motion, Normal Inspection Respiratory: Lungs Clear, No Accessory Muscle Use, No Respiratory Distress, Normal Breath Sounds Cardiovascular: No Edema, No JVD, Regular Rate/Rhythm Breast Exam: Deferred Gastrointestinal: LLQ, Soft, Tenderness Genitalia: Deferred Pelvic: Deferred Rectal: Deferred Extremities: Normal inspection, Normal range of motion, Non-tender, No pedal edema Neurologic: Alert (Oriented x4), No Motor Deficits, Normal Affect, Normal Mood, No Sensory Deficits Cerebellar Function: NOT DONE Reflexes: NOT DONE Skin: Dry, Normal Color, Warm Lymphatic: NOT DONE (Ambulatory without difficulty. No gross focal deficit.) Was a procedure done? Was a procedure done?: No Differential Dx Considerations may include: Diverticulitis, colitis, enteritis, bowel obstruction, UTI, kidney stone, sciatica, viral syndrome, among others X-Ray, Labs, Meds, VS Vital Signs Date Time Temp Pulse Resp B/P (MAP) Pulse Ox O2 Delivery O2 Flow Rate FiO2 07/05/24 01:10 75 18 112/79 07/05/24 00:03 98.1 77 16 125/78 (94) 99 98.1 07/05/24 00:03 77 16 99 Room Air* 0 21 07/04/24 21:18 98.0 92 16 132/79 (96) 94 07/04/24 00:08 77 16 125/78 Lab Test 07/04/24 21:45 07/04/24 21:34 Range/Units White Blood Count 7.7 4.4-10.8 10^3/uL Red Blood Count 4.63 4.0-5.20 10^6/uL Hemoglobin 14.5 12.2-16.2 g/dL Hematocrit 42.4 36.0-46.0 % Mean Corpuscular Volume 91.7 80.0-100.0 fL Mean Corpuscular Hemoglobin 31.5 28.0-32.0 pg Mean Corpuscular Hemoglobin Concent 34.3 32.0-36.0 g/dL Red Cell Distribution Width 13.6 11.8-14.3 % Platelet Count 360 140-450 10^3/uL Mean Platelet Volume 8.0 6.9-10.8 fL Neutrophils (%) (Auto) 42.6 37.0-80.0 % Lymphocytes (%) (Auto) 48.2 10.0-50.0 % Monocytes (%) (Auto) 5.9 0.0-12.0 % Eosinophils (%) (Auto) 1.9 0.0-7.0 % Basophils (%) (Auto) 1.4 0.0-2.0 % Neutrophils # (Auto) 3.3 1.6-8.6 10 ^3/uL Lymphocytes # (Auto) 3.7 0.4-5.4 10 ^3/uL Monocytes # (Auto) 0.5 0-1.3 10 ^3/uL Eosinophils # (Auto) 0.1 0-0.8 10 ^3/uL Basophils # (Auto) 0.1 0-0.2 10 ^3/uL Nucleated Red Blood Cells 0.1 % Sodium Level 143 136-145 mmol/L Potassium Level 3.9 3.5-5.1 mmol/L Chloride Level 109 H 98-107 mmol/L Carbon Dioxide Level 30 20-31 mmol/L Anion Gap 4 L 5-15 Blood Urea Nitrogen 10 9-23 mg/dL Creatinine 0.82 0.550-1.02 mg/dL Glomerular Filtration Rate Calc 85 >90 mL/min BUN/Creatinine Ratio 12.2 10.0-20.0 Serum Glucose 133 H 74-106 mg/dL Lactic Acid Level 1.4 0.4-2.0 mmol/L Calcium Level 10.5 H 8.7-10.4 mg/dL Beta HCG, Quantitative 0.5 L 1.5-4.2 mIU/mL Urine Color Light-yellow Yellow Urine Clarity Clear Clear Urine pH 6.5 5.0-9.0 Urine Specific [place] 1.019 1.001-1.035 Urine Protein Negative Negative Urine Ketones Negative Negative Urine Blood Negative Negative /uL Urine Nitrite Negative Negative Urine Bilirubin Negative Negative Urine Urobilinogen 2 H Negative mg/dL Urine Leukocyte Esterase Negative Negative /uL Urine RBC 2 0 - 4 /hpf Urine WBC 1 0 - 5 /hpf Urine Squamous Epithelial Cells Few <5 /hpf Urine Bacteria None seen None Seen /hpf Urine Glucose Normal Normal mg/dL Current Medications Medications (Trade) Dose Ordered Sig/Jose J Route Start Time Stop Time Status Last Admin Morphine Sulfate 4 mg ONCE ONCE IV 07/04/24 21:45 07/04/24 21:46 DC 07/04/24 00:08 Ondansetron HCl (Zofran) 4 mg ONCE ONCE IV 07/04/24 21:45 07/04/24 21:46 DC 07/04/24 00:08 PROCEDURE(s): ABPL - CT AB PEL WO CON-NO ORAL OR IV REASON: LLQ pain ORDER NUMBER(s): [id number], ACCESSION NUMBER(s): [id number] Exam: CT CT AB PEL WO CON-NO ORAL OR IV History: LLQ pain Comparison Study: CT CT AB PEL WO CON-NO ORAL OR IV on DOS: 06/14/24 Technique: Multidetector spiral CT of the abdomen was performed from lung bases to pubic symphysis. Imaging was performed without IV contrast. Axial, coronal and sagittal multiplanar reformats were obtained from the axial data set by the technologist. Radiation Dose : 1. Abdomen/Pelvis: CTDIvol 12.7 mGy, DLP 684.84 mGy*cm. Findings: Evaluation of solid organs is limited due to lack of intravenous contrast use. Lung Bases: No acute or significant lung base finding. Normal heart size. No p leural or pericardial effusion. Liver: The liver is normal in size. No focal lesions. Gallbladder and Biliary Tree: Unremarkable Spleen: Unremarkable Pancreas: The pancreas is grossly normal in appearance. Adrenal Glands: Unremarkable Kidneys: Kidneys are grossly normal without calculi or hydronephrosis. Bladder: Grossly unremarkable for degree of distention. Bowel: The stomach is grossly normal in appearance. Mild wall thickening of multiple loops of small bowel in the mid abdomen may reflect mild enteritis. Normal appendix is visualized in the right lower quadrant without findings of appendicitis. Ascites: Absent Lymphadenopathy: No mesenteric, retroperitoneal or periportal lymphadenopathy. Abdominal Wall and Mesentery: Unremarkable. Vasculature: The visualized abdominal aorta is normal in size and caliber. Evaluation of abdominal and pelvic vessels is limited due to lack of intravenous contrast. Pelvic Organs: Unremarkable Musculoskeletal: No aggressive focal bony lesions, acute fractures or dislocation. IMPRESSION: 1. Mild wall thickening of multiple loops of small bowel in the mid abdomen may reflect mild enteritis. 2. Normal appendix Radiation optimization: All CT scans at this facility use at least one of these dose optimization techniques: automated exposure control mA and/or kV adjustment per patient size (includes targeted exams where dose is matched to clinical indication) or iterative reconstruction. ATED BY: EDWIN OVALLES MD DICTATED DATE/TIME: 07/04/242156 SIGNED BY: EDWIN OVALLES MD SIGNED DATE/TIME: 07/04/242156 CC: X-Ray, Labs, Meds, VS Comment 53-year-old female with a history of hypertension, prediabetes, sciatica and COPD complaining of left lower quadrant pain and bilateral thigh and low back pain consistent with prior episodes of sciatic nerve pain. Vitals remarkable for oxygen saturation 94% on room air Exam remarkable for left lower quadrant tenderness to palpation Rhythm strip independently interpreted by me: Sinus rhythm, rate 92, no ectopy. CT abdomen and pelvis: IMPRESSION: 1. Mild wall thickening of multiple loops of small bowel in the mid abdomen may reflect mild enteritis. 2. Normal appendix CBC unremarkable, metabolic panel unremarkable, lactate normal, hCG negative , UA unremarkable Patient treated with the following in the ED: 1 L 0.9 normal saline IV bolus, morphine 4 mg IV, Zofran 4 mg IV On re-evaluation, patient states pain has improved. Vitals are stable. Abdominal exam benign. Hospitalization was considered, however patient had rapid improvement of symptoms with treatment in the ED, and I no longer feel hospitalization is necessary. Patient appears stable for outpatient treatment with close follow-up with her primary physician. Rx Zofran, Bentyl, ibuprofen Time of 1ST Reevaluation: 22:00 Reevaluation 1ST: Unchanged Patient Education/Counseling: Diagnosis, Treatment, Prognosis Family Education/Counseling: No Family Present Additional Information I reviewed the following notes from patient's past medical encounters: The following tests were ordered, and results were reviewed by me: CBC, BETA HCG, UA, CT ABD PEL WO CON, URINE BACTERIAL CULTURE, BMP, LA W/ REFLEX I reviewed and agreed with the following test results read by other providers: CT ABD PEL WO CON, I discussed treatment and results with medical personnel and: patient Departure 1 Departure Time of Disposition: 22:29 Impression: Primary Impression: Enteritis Additional Impression: Sciatic nerve pain Qualified Codes: M54.30 - Sciatica, unspecified side Disposition: HOME / SELF CARE / HOMELESS Condition: Stable Additional Instructions: Your blood tests were unremarkable. Your urine test was normal. Your CT scan was unremarkable. Your symptoms may be due to a viral illness. I have prescribed medication for pain and nausea. Follow-up with your primary doctor in 1-2 days. e-Prescriptions Ibuprofen Micronized (Ibuprofen) 800 Mg Tab 800 MG PO Q8HP PRN, #30 TAB prn pain, take with food Prov: YEHUDA CONTRERAS MD 07/04/24 Dicyclomine Hcl (BENTYL CAPSULE) 10 Mg Cp 2 CAP PO Q6HP PRN, #30 CAP 11 Refills prn abdominal pain Prov: YEHUDA CONTRERSA MD 07/04/24 Ondansetron Odt 4MG Tab (ZOFRAN PO) 4 Mg Tb 4 MG PO TID PRN, #30 TAB prn nausea/vomiting ODT TAB-DISSOLVE IN MOUTH, THEN SWALLOW Prov: YEHUDA CONTRERAS MD 07/04/24 Gabapentin (Gabapentin) 300 Mg Cap 1 CAP PO TID PRN, #30 CAP prn sciatic nerve pain Prov: YEHUDA CONTRERAS MD 07/04/24 Discharged With: Relative Critical Care Note Critical Care Time?: No Stability Stability form required: No I personally scribed for YEHUDA CONTRERAS MD ([email or web address]) on 07/04/24 at 21:41. Electronically submitted by Delilah Watt ([email or web address]). I personally scribed for YEHUDA CONTRERAS MD ([email or web address]) on 07/04/24 at 21:43. Electronically submitted by Delilah Watt ([email or web address]). I personally scribed for YEHUDA CONTRERAS MD ([email or web address]) on 07/04/24 at 22:01. Electronically submitted by Delilah Watt ([email or web address]). YEHUDA CONTRERAS MD Jul 04, 2024 21:41
[2024-07-04 21:46] LABS: Urine Bacteria None Seen /hpf (None Seen)
[2024-07-04 21:59] LABS: Urine Blood Negative /uL (Negative); Urine Clarity Clear (Clear); Urine Color Light-Yellow (Yellow); Urine Protein, UAD Negative (Negative); Urine Specific Gravity 1.019 (1.001-1.035); Urine Squamous Epithelial Cell FEW /hpf (<5); Urine Urobilinogen 2 mg/dL (Negative); Urine WBC 1 /hpf (0 - 5); Urine pH 6.5 (5.0-9.0)
--- NOTE | 2024-07-04 21:59 | DVH ---
Exam: CT CT AB PEL WO CON-NO ORAL OR IV History: LLQ pain Comparison Study: CT CT AB PEL WO CON-NO ORAL OR IV on DOS: 06/14/24 Technique: Multidetector spiral CT of the abdomen was performed from lung bases to pubic symphysis. Imaging was performed without IV contrast. Axial, coronal and sagittal multiplanar reformats were ob tained from the axial data set by the technologist. Radiation Dose : 1. Abdomen/Pelvis: CTDIvol 12.7 mGy, DLP 684.84 mGy*cm. Findings: Evaluation of solid organs is limited due to lack of intravenous contrast use. Lung Bases: No acute or significant lung base finding. Normal heart size. No pleural or pericardial effusion. Liver: The liver is normal in size. No focal lesions. Gallbladder and Biliary Tree: Unremarkable Spleen: Unremarkable Pancreas: The pancreas is grossly normal in appearance. Adrenal Glands: Unremarkable Kidneys: Kidneys are grossly normal without calculi or hydronephrosis. Bladder: Grossly unremarkable for degree of distention. Bowel: The stomach is grossly normal in appearance. Mild wall thickening of multiple loops of small b owel in the mid abdomen may reflect mild enteritis. Normal appendix is visualized in the right lower quadrant without findings of appendicitis. Ascites: Absent Lymphadenopathy: No mesenteric, retroperitoneal or periportal lymphadenopathy. Abdominal Wall and Mesentery: Unremarkable. Vasculature: The visualized abdominal aorta is normal in size and caliber. Evaluation of abdominal a nd pelvic vessels is limited due to lack of intravenous contrast. Pelvic Organs: Unremarkable Musculoskeletal: No aggressive focal bony lesions, acute fractures or dislocation. IMPRESSION: 1. Mild wall thickening of multiple loops of small bowel in the mid abdomen may reflect mild enteriti s. 2. Normal appendix Radiation optimization: All CT scans at this facility use at least one of these dose optimization marilynn hniques: automated exposure control mA and/or kV adjustment per patient size (includes targeted exam s where dose is matched to clinical indication) or iterative reconstruction.
[2024-07-04 22:04] LABS: Basophils # (auto) 0.1 10 ^3/uL (0-0.2); Basophils % (auto) 1.4 % (0.0-2.0); Eosinophils # (auto) 0.1 10 ^3/uL (0-0.8); Eosinophils % (auto) 1.9 % (0.0-7.0); Hematocrit 42.4 % (36.0-46.0); Hemoglobin 14.5 g/dL (12.2-16.2); Lymphocytes # (auto) 3.7 10 ^3/uL (0.4-5.4); Lymphocytes % (auto) 48.2 % (10.0-50.0); Mean Corpuscular Hemoglobin 31.5 pg (28.0-32.0); Mean Corpuscular Hgb Conc. 34.3 g/dL (32.0-36.0); Mean Corpuscular Volume 91.7 fL (80.0-100.0); Monocytes # (auto) 0.5 10 ^3/uL (0-1.3); Monocytes % (auto) 5.9 % (0.0-12.0); Neutrophils # (auto) 3.3 10 ^3/uL (1.6-8.6); Neutrophils % (auto) 42.6 % (37.0-80.0); Nucleated Red Blood Cells % 0.1 %; Platelet Count (auto) 360 10^3/uL (140-450); Red Blood Cells 4.63 10^6/uL (4.0-5.20); Red Cell Distribution Width 13.6 % (11.8-14.3); White Blood Cell 7.7 10^3/uL (4.4-10.8)
[2024-07-04 22:14] LABS: Potassium 3.9 mmol/L (3.5-5.1); Sodium 143 mmol/L (136-145)
[2024-07-04 22:15] LABS: Anion Gap 4 (5-15); Carbon Dioxide 30 mmol/L (20-31)
[2024-07-04 22:20] LABS: BUN/Creatinine Ratio 12.2 (10.0-20.0); Blood Urea Nitrogen 10 mg/dL (9-23)
[2024-07-04] MEDS ORDERED: GABA-1250 PO (22:35)
[2024-07-04] MEDS ORDERED: DICY10CA PO (22:35)
[2024-07-04] MEDS ORDERED: IBUP-1455 PO (22:35)
[2024-07-04] MEDS ORDERED: ZOFR4T PO (22:35)
[2024-07-04 22:43] LABS: Calcium 10.5 mg/dL (8.7-10.4); Chloride 109 mmol/L (98-107); Glucose 133 mg/dL (74-106)
[2024-07-05 00:03] VITALS: PULSE 77; RESP 16; TEMP 98.1; O2SAT 99
[2024-07-05] MEDS: SODIUM CHLORIDE 0.9% 1,000 ML IV ONE (00:08)
[2024-07-05 01:10] VITALS: BP 112/79; PULSE 75; RESP 18
== END 2024-07-05 00:30 | disposition home or self-care (01) ==
LOC: ER 21:17
DX: K52.9 Noninfective gastroenteritis and colitis, unspecified (principal); R10.2 Pelvic and perineal pain; M54.30 Sciatica, unspecified side; J45.909 Unspecified asthma, uncomplicated; E11.9 Type 2 diabetes mellitus without complications; I10 Essential (primary) hypertension; F17.210 Nicotine dependence, cigarettes, uncomplicated; Z79.899 Other long term (current) drug therapy; Z98.890 Other specified postprocedural states
CPT/HCPCS: 36415; 74176; 80048; 81001; 83605; 84702; 85025; 87086; 96374; 96375; 99285; J2270; J2405

== ENCOUNTER 2024-07-23 03:10 | Emergency (ER) | payer MEDICAID ==
[~2024-07-23] VITALS: Ht 160 cm; Wt 88.8 kg
[~2024-07-23 03:10] MED LIST changes: +DICY10CA PO; +ZOFR4T PO
--- NOTE | 2024-07-23 03:57 | ED.PDOC ---
Back pain HPI HPI Comments This is a 54-year-old female presents to the ED chief complaint right shoulder pain that starting last night while laying down denies any injury but reports having surgery on that shoulder in 2022. Denies numbness, weakness or known injury. Chief Complaint: Upper Extremity Time Seen by MD: 03:12 Primary Care Provider: MANDI Reviewed Notes: Nurses Notes, Medications, Allergies Allergies: Coded Allergies: No Known Drug Allergy (Verified Allergy, Unknown, 12/27/23) Home Meds Active Scripts Ibuprofen Micronized (Ibuprofen) 800 Mg Tab, 800 MG PO Q8HP PRN, #30 TAB prn pain, take with food Prov:YEHUDA CONTRERAS MD 07/04/24 Dicyclomine Hcl (BENTYL CAPSULE) 10 Mg Cp, 2 CAP PO Q6HP PRN, #30 CAP 11 Refills prn abdominal pain Prov:YEHUDA CONTRERAS MD 07/04/24 Ondansetron Odt 4MG Tab (ZOFRAN PO) 4 Mg Tb, 4 MG PO TID PRN, #30 TAB prn nausea/vomiting ODT TAB-DISSOLVE IN MOUTH, THEN SWALLOW Prov:YEHUDA CONTRERAS MD 07/04/24 Gabapentin (Gabapentin) 300 Mg Cap, 1 CAP PO TID PRN, #30 CAP prn sciatic nerve pain Prov:YEHUDA CONTRERAS MD 07/04/24 Hydrocodone-Acetaminophen (Hydrocodone Bitartrate/AC 5-325 mg) 1 Tab Tab, 1 TAB PO Q6HP PRN, #15 TAB Prov:JOSE QUINTERO PAC 06/14/24 Ibuprofen Micronized (Ibuprofen) 800 Mg Tab, 800 MG PO Q8HP PRN, #20 TAB Prov:JOSE QUINTERO PAC 06/14/24 Ibuprofen (Ibuprofen) 800 Mg Tab, 1 TAB PO TID PRN, #30 TAB 0 Refills Prov:CHARLINE NIEVES 05/13/24 Prednisone (Prednisone) 20 Mg Tab, 20 MG PO BID for 5 Days, #10 TAB 0 Refills Prov:CHARLINE NIEVES 05/13/24 Pantoprazole Sodium Sesquihydr (Protonix) 40 Mg Tab, 40 MG PO DAILY, #30 TAB Prov:JAVY BOSE NP 04/03/24 Reported Medications Hydrocodone-Acetaminophen (Hydrocodone Bitartrate/AC 10-325 mg) 1 Tab Tab, 1 TAB PO, TAB 12/27/23 Hydrocodone-Acetaminophen (Hydrocodone Bitartrate/AC 10-325 mg) 1 Tab Tab, 1 TAB PO, TAB 12/27/23 Losartan Potassium & Hydrochlo (Hyzaar) 1 Tab Tab, 1 TAB PO DAILY, #30 TAB 5 Refills 12/27/23 Metformin Hydrochloride (Metformin Hcl) 500 Mg Tab, 1 TAB PO BID, #60 TAB 3 Refills 12/27/23 Nitroglycerin (NTROSTAT SUBLINGUAL) 0.4 Mg Sl 12/27/23 Cholecalciferol (Vitamin D-3 Super Strengt) 2,000 Unit Tab, 1 TAB PO DAILY 12/27/23 Oxcarbazepine (OXTELLAR XR) 300 Mg Tab 12/27/23 Quetiapine Fumerate (QUETIAPINE FUMARATE) 300 Mg Tab, 2 TAB PO 12/27/23 Risperidone (Risperidone) 2 Mg Tab, 1 TAB BID 12/27/23 Fluoxetine Hcl (Fluoxetine Hcl) 40 Mg Cap, 1 TAB DAILY 12/27/23 Mode of Arrival: Ambulatory Past Medical History PAST MEDICAL HISTORY: Asthma, COPD, DM, HTN Surgical History: , Pacemaker, Tubal Ligation DRAW STRING KNOTTER History: No Pertinent DRAW STRING KNOTTER History Family History Family History: No family hx of Cancer, No family hx of DM, No family hx of HTN, No family hx ofKidney veronica, No family hx of Liver veronica, No family hx of Lung veronica, No family hx of Stroke, Family hx of heart veronica Social History Smoker: Cigarettes, Less Than 1 Pack/Day Alcohol: Denies ETOH Use Drugs: Denies Drug Use Lives In: Home Constitutional: denies: chills, diaphoresis, fatigue, fever, malaise, sweats, weakness, others EENTM: denies: blurred vision, double vision, ear bleeding, ear discharge, ear drainage, ear pain, ear ringing, eye pain, eye redness, hearing loss, mouth pain, mouth swelling, nasal discharge, nose bleeding, nose congestion, nose pain, photophobia, tearing, throat pain, throat swelling, voice changes, others Respiratory: denies: cough, hemoptysis, orthopnea, SOB at rest, shortness of breath, SOB with excertion, stridor, wheezing, others Cardiovascular: denies: chest pain, dizzy spells, diaphoresis, Dyspnea on exertion, edema, irregular heart beat, left arm pain, lightheadedness, palpitations, PND, syncope, others Gastrointestinal: denies: abdomen distended, abdominal pain, blood streaked bowels, constipated, diarrhea, dysphagia, difficulty swallowing, hematemesis, melena, nausea, poor appetite, poor fluid intake, rectal bleeding, rectal pain, vomiting, others Genitourinary: denies: abnormal vagina bleeding, burning, dyspareunia, dysuria, flank pain, frequency, hematuria, incontinence, pain, , vagina discharge, urgency, others Neurological: denies: dizziness, fainting, headache, left sided numbness, left sided weakness, numbness, paresthesia, pre-existing deficit, right sided numbness, right sided weakness, seizure, speech problems, tingling, tremors, weakness, others Musculoskeletal: denies: back pain, gout, joint pain, joint swelling, muscle pain, muscle stiffness, neck pain, others Integumetry: denies: bruises, change in color, change in hair/nails, dryness, laceration, lesions, lumps, rash, wounds, others Allergic/Immunocompromised: denies: Difficulty Healing, Frequent Infections, Hives, Itching, others Hematologic/Lymphatic: denies: anemia, blood clots, easy bleeding, easy bruising, swollen glands, others Endocrine: denies: excessive hunger, excessive sweating, excessive thirst, excessive urination, flushing, intolerance to cold, intolerance to heat, unexplained weight gain, unexplained weight loss, others Psychiatric: denies: anxiety, bipolar disorder, depression, hopeless, panic disorder, schizophrenia, sleepless, suicidal, others Physical Exam General Appearance: No Apparent Distress, Normal HEENT: Pharynx Normal Neck: Full Range of Motion, Non-Tender Respiratory: Lungs Clear, No Respiratory Distress, Normal Breath Sounds Cardiovascular: No Murmur, Normal Peripheral Pulses, Regular Rate/Rhythm Breast Exam: Deferred Gastrointestinal: Non Tender, Soft Genitalia: Deferred Pelvic: Deferred Rectal: Deferred Extremities: Normal capillary refill, Normal inspection, Normal range of motion, Non-tender, No pedal edema Musculoskeletal : Location: Right Extremity Location: Shoulder (Tenderness palpated along right shoulder girdle. Strength sensory and motion intact no noted crepitus on full range of motion with mild discomfort. Positive radial pulse) Apperance: Normal Neurologic: Alert, media production manager II-XII nml as Tested, No Motor Deficits, Normal Affect, Normal Mood, No Sensory Deficits Cerebellar Function: Normal Reflexes: Normal Skin: Dry, Normal Color, Warm Lymphatic: No Adenopathy Was a procedure done? Was a procedure done?: No Back Pain Differential Dx Differential Diagnosis: Fracture, Musculoskeletal Pain X-Ray, Labs, Meds, VS Vital Signs Date Time Temp Pulse Resp B/P (MAP) Pulse Ox O2 Delivery O2 Flow Rate FiO2 07/23/24 05:14 98.2 89 12 133/85 (101) 99 98.2 07/23/24 04:34 93 18 98 Room Air 07/23/24 04:34 98.0 93 18 151/101 (118) 98 98.0 07/23/24 03:22 98.0 93 18 151/101 (118) 98 X-Ray, Labs, Meds, VS Comment Right shoulder x-ray shows no acute fractures osseous lesions. Patient placed i n arm sling for comfort. Patient given morphine 1 mg IM and Toradol 60 mg IM reports improvement in pain and function requesting discharge at this time. Advised to follow up with her primary care doctor in 2-3 days as necessary, and follow up with pain management consider MRI for continued symptoms. ER return precautions given patient indicates understanding agrees with discharge plan of care. Time of 1ST Reevaluation: 05:21 Reevaluation 1ST: Improved Patient Education/Counseling: Diagnosis, Treatment, Prognosis, Need For Follow Up Family Education/Counseling: No Family Present Departure 1 Departure Time of Disposition: 05:21 Impression: Primary Impression: Strain of shoulder, right Qualified Codes: S46.911A - Strain of unspecified muscle, fascia and tendon at shoulder and upper arm level, right arm, initial encounter Disposition: HOME / SELF CARE / HOMELESS Condition: Stable Discharged With: Self Critical Care Note Critical Care Time?: No Stability Stability form required: KATELYNN Yeh Jul 23, 2024 03:57
--- NOTE | 2024-07-23 05:10 | DVH ---
EXAM: XR Right Shoulder Complete, 2 or More Views CLINICAL INDICATION: pain/hx of surgery TECHNIQUE: Two or more views of the right shoulder. COMPARISON: XY L SHOULDER 2+ VIEW XRAY on DOS: 08/23/23 FINDINGS: BONES/JOINTS: Unremarkable. No acute fracture. No dislocation. SOFT TISSUES: Unremarkable. OTHER FINDINGS: . None. . IMPRESSION: No acute fracture.
[2024-07-23 05:14] VITALS: TEMP 98.2
[2024-07-23] MEDS ORDERED: MORPHINE SULFATE INJ 2 MG/ml SYRG IM ONE (05:15)
[2024-07-23] MEDS: KETOROLAC TROMETH 60MG/2ML VIAL IM ONE (05:24)
[2024-07-23] MEDS: MORPHINE SULFATE INJ 2 MG/ml SYRG IM ONE (05:26)
[2024-07-23 05:59] VITALS: BP 108/73; PULSE 79; RESP 22; O2SAT 97
== END 2024-07-23 06:00 | disposition home or self-care (01) ==
LOC: ER 03:10
DX: S46.911A Strain of unspecified muscle, fascia and tendon at shoulder and upper arm level, right arm, initial encounter (principal); E11.9 Type 2 diabetes mellitus without complications; J44.9 Chronic obstructive pulmonary disease, unspecified; I10 Essential (primary) hypertension; Z98.890 Other specified postprocedural states; Z95.0 Presence of cardiac pacemaker; F17.210 Nicotine dependence, cigarettes, uncomplicated; X58.XXXA Exposure to other specified factors, initial encounter; Y93.89 Activity, other specified; Y92.89 Other specified places as the place of occurrence of the external cause; Y99.8 Other external cause status
CPT/HCPCS: 73030; 96372; 99285; J1885; J2270

== ENCOUNTER 2024-08-05 21:30 | Emergency (ER) | payer MEDICAID ==
[~2024-08-05] VITALS: Ht 160 cm; Wt 89.8 kg
--- NOTE | 2024-08-05 22:30 | DVH ---
INDICATION: PAIN R/O COMPRESSION FX COMPARISON: None TECHNIQUE:2 views of the thoracic spine were obtained. FINDINGS: The thoracic vertebral alignment is normal. The intervertebral disc spaces are well-maintained. No significant facet arthropathy is noted. No acute fracture, vertebral compression deformity or aggressive osseous lesions. The imaged thorax and abdomen are grossly unremarkable. IMPRESSION: No acute fracture.
--- NOTE | 2024-08-05 23:22 | ED.PDOC ---
Back pain HPI HPI Comments 64-YEAR-OLD FEMALE PRESENTS IN THE ED ACUTE ON CHRONIC MID BACK PAIN. PATIENT STATES HAS A PENDING REFERRAL FOR PAIN MANAGEMENT. PATIENT WAS SEEN HERE APPROXIMATELY TWO WEEKS AGO BY THIS PROVIDER WAS GIVING SOME INJECTIONS FOR THE PAIN AND SHE STATED RELIEF FOR APPROXIMATELY TWO WEEKS AND PAIN HAS STARTED TO CREEP BACK THE PAST THREE DAYS. SHE REPORTS NO NEW INJURY. REQUESTING MEDICATION FOR PAIN RELIEF. DENIES NUMBNESS, WEAKNESS, FEVER, CHILLS, DIFFICULTY BREATHING, CHEST PAIN, SHORTNESS OF BREATH, NAUSEA, VOMITING, WEAKNESS/NUMBNESS, SADDLE ANESTHESIA, LOSS OF BOWEL BLADDER CONTROL. Chief Complaint: Back Pain Time Seen by MD: 21:48 Primary Care Provider: MANDI Reviewed Notes: Nurses Notes, Medications, Allergies Allergies: Coded Allergies: No Known Drug Allergy (Verified Allergy, Unknown, 12/27/23) Home Meds Active Scripts Ibuprofen Micronized (Ibuprofen) 800 Mg Tab, 800 MG PO Q8HP PRN, #30 TAB prn pain, take with food Prov:YEHUDA CONTRERAS MD 07/04/24 Dicyclomine Hcl (BENTYL CAPSULE) 10 Mg Cp, 2 CAP PO Q6HP PRN, #30 CAP 11 Refills prn abdominal pain Prov:YEHUDA CONTRERAS MD 07/04/24 Ondansetron Odt 4MG Tab (ZOFRAN PO) 4 Mg Tb, 4 MG PO TID PRN, #30 TAB prn nausea/vomiting ODT TAB-DISSOLVE IN MOUTH, THEN SWALLOW Prov:YEHUDA CONTRERAS MD 07/04/24 Gabapentin (Gabapentin) 300 Mg Cap, 1 CAP PO TID PRN, #30 CAP prn sciatic nerve pain Prov:YEHUDA CONTRERAS MD 07/04/24 Hydrocodone-Acetaminophen (Hydrocodone Bitartrate/AC 5-325 mg) 1 Tab Tab, 1 TAB PO Q6HP PRN, #15 TAB Prov:JOSE QUINTERO PAC 06/14/24 Ibuprofen Micronized (Ibuprofen) 800 Mg Tab, 800 MG PO Q8HP PRN, #20 TAB Prov:JOSE QUINTERO PAC 06/14/24 Ibuprofen (Ibuprofen) 800 Mg Tab, 1 TAB PO TID PRN, #30 TAB 0 Refills Prov:CHARLINE NIEVES 05/13/24 Prednisone (Prednisone) 20 Mg Tab, 20 MG PO BID for 5 Days, #10 TAB 0 Refills Prov:CHARLINE NIEVES 05/13/24 Pantoprazole Sodium Sesquihydr (Protonix) 40 Mg Tab, 40 MG PO DAILY, #30 TAB Prov:JAVY BOSE Jeanmarie LOCKSTITCH WAISTBAND SETTER 04/03/24 Reported Medications Hydrocodone-Acetaminophen (Hydrocodone Bitartrate/AC 10-325 mg) 1 Tab Tab, 1 TAB PO, TAB 12/27/23 Hydrocodone-Acetaminophen (Hydrocodone Bitartrate/AC 10-325 mg) 1 Tab Tab, 1 TAB PO, TAB 12/27/23 Losartan Potassium & Hydrochlo (Hyzaar) 1 Tab Tab, 1 TAB PO DAILY, #30 TAB 5 Refills 12/27/23 Metformin Hydrochloride (Metformin Hcl) 500 Mg Tab, 1 TAB PO BID, #60 TAB 3 Refills 12/27/23 Nitroglycerin (NTROSTAT SUBLINGUAL) 0.4 Mg Sl 12/27/23 Cholecalciferol (Vitamin D-3 Super Strengt) 2,000 Unit Tab, 1 TAB PO DAILY 12/27/23 Oxcarbazepine (OXTELLAR XR) 300 Mg Tab 12/27/23 Quetiapine Fumerate (QUETIAPINE FUMARATE) 300 Mg Tab, 2 TAB PO 12/27/23 Risperidone (Risperidone) 2 Mg Tab, 1 TAB BID 12/27/23 Fluoxetine Hcl (Fluoxetine Hcl) 40 Mg Cap, 1 TAB DAILY 12/27/23 Mode of Arrival: Ambulatory Past Medical History PAST MEDICAL HISTORY: Asthma, COPD, DM, HTN Surgical History: , Pacemaker, Tubal Ligation REAL ESTATE SPECIALIST History: No Pertinent REAL ESTATE SPECIALIST History Family History Family History: No family hx of Cancer, No family hx of DM, No family hx of HTN, No family hx ofKidney veronica, No family hx of Liver veronica, No family hx of Lung veronica, No family hx of Stroke, Family hx of heart veronica Social History Smoker: Cigarettes, Less Than 1 Pack/Day Alcohol: Denies ETOH Use Drugs: Denies Drug Use Lives In: Home Constitutional: denies: chills, diaphoresis, fatigue, fever, malaise, sweats, w eakness, others EENTM: denies: blurred vision, double vision, ear bleeding, ear discharge, ear drainage, ear pain, ear ringing, eye pain, eye redness, hearing loss, mouth pain, mouth swelling, nasal discharge, nose bleeding, nose congestion, nose pain, photophobia, tearing, throat pain, throat swelling, voice changes, others Respiratory: denies: cough, hemoptysis, orthopnea, SOB at rest, shortness of breath, SOB with excertion, stridor, wheezing, others Cardiovascular: denies: chest pain, dizzy spells, diaphoresis, Dyspnea on exertion, edema, irregular heart beat, left arm pain, lightheadedness, palpitations, PND, syncope, others Gastrointestinal: denies: abdomen distended, abdominal pain, blood streaked bowels, constipated, diarrhea, dysphagia, difficulty swallowing, hematemesis, melena, nausea, poor appetite, poor fluid intake, rectal bleeding, rectal pain, vomiting, others Genitourinary: denies: abnormal vagina bleeding, burning, dyspareunia, dysuria, flank pain, frequency, hematuria, incontinence, pain, , vagina di scharge, urgency, others Neurological: denies: dizziness, fainting, headache, left sided numbness, left sided weakness, numbness, paresthesia, pre-existing deficit, right sided numbness, right sided weakness, seizure, speech problems, tingling, tremors, weakness, others Musculoskeletal: reports: back pain; denies: gout, joint pain, joint swelling, muscle pain, muscle stiffness, neck pain, others Integumetry: denies: bruises, change in color, change in hair/nails, dryness, laceration, lesions, lumps, rash, wounds, others Allergic/Immunocompromised: denies: Difficulty Healing, Frequent Infections, Hives, Itching, others Hematologic/Lymphatic: denies: anemia, blood clots, easy bleeding, easy bruising, swollen glands, others Endocrine: denies: excessive hunger, excessive sweating, excessive thirst, excessive urination, flushing, intolerance to cold, intolerance to heat, unexplained weight gain, unexplained weight loss, others Psychiatric: denies: anxiety, bipolar disorder, depression, hopeless, panic disorder, schizophrenia, sleepless, suicidal, others Physical Exam General Appearance: No Apparent Distress, Normal HEENT: Pharynx Normal Neck: Full Range of Motion, Non-Tender Respiratory: Lungs Clear, No Respiratory Distress, Normal Breath Sounds Cardiovascular: No Edema, No JVD, No Murmur, No Gallop, Normal Peripheral Pulses, Regular Rate/Rhythm Breast Exam: Deferred Gastrointestinal: No Organomegaly, Non Tender, No Pulsatile Mass, Normal Bowel Sounds, Soft Genitalia: Deferred Pelvic: Deferred Rectal: Deferred Extremities: Normal capillary refill, Normal inspection, Normal range of motion, Non-tender, No pedal edema Musculoskeletal : Location: Left Extremity Location: Back (TENDERNESS PALPATED T8 THROUGH l5 SPINE WITHOUT CREPITUS OR STEP-OFFS. NEGATIVE STRAIGHT LEG RAISE BILATERAL. STRENGTH SENSORY MOTION INTACT POSITIVE PEDAL PULSES) Apperance: Normal Neurologic: Alert, program specialist II-XII nml as Tested, No Motor Deficits, Normal Affect, Normal Mood, No Sensory Deficits Cerebellar Function: Normal Reflexes: Normal Skin: Dry, Normal Color, Warm Lymphatic: No Adenopathy Was a procedure done? Was a procedure done?: No Back Pain Differential Dx Differential Diagnosis: Fracture, Musculoskeletal Pain, Strain X-Ray, Labs, Meds, VS Vital Signs Date Time Temp Pulse Resp B/P (MAP) Pulse Ox O2 Delivery O2 Flow Rate FiO2 08/05/24 23:46 83 20 138/81 08/05/24 23:25 98.8 83 20 138/81 (100) 98 98.8 08/05/24 23:25 83 20 98 Room Air 08/05/24 21:45 98.8 86 18 145/90 (108) 98 Current Medications Medications (Trade) Dose Ordered Sig/Jose J Route Start Time Stop Time Status Last Admin Morphine Sulfate 1 mg ONCE ONCE IM 08/05/24 23:30 08/05/24 23:31 DC 08/05/24 23:46 Ketorolac Tromethamine (Toradol Injection) 60 mg ONCE ONCE IM 08/05/24 23:30 08/05/24 23:31 DC 08/05/24 23:45 Dexamethasone Sodium Phosphate (Decadron Injection) 10 mg ONCE ONCE IM 08/05/24 23:30 08/05/24 23:31 DC 08/05/24 23:46 X-Ray, Labs, Meds, VS Comment THORACIC SPINE X-RAY SHOWS NO ACUTE FINDINGS OSSEOUS LESIONS. LUMBAR SPINE. BASED ON THE PATIENT'S PERSISTENCE OF SYMPTOMS, THE PATIENT SOUGHT OUT ED CONSULT. BASED ON MY PHYSICAL EXAMINATION AND PATIENT'S HISTORY OF CHRONIC BACK PAIN, THERE IS NO NEW INJURY TO THE PATIENT'S LOWER BACK. THE PATIENT DENIES ANY NUMBNESS, WEAKNESS, TINGLING SENSATION, URINARY/BOWEL INCONTINENCE. THERE ARE NO SIGNS AND SYMPTOMS OF CAUDA EQUINA. THE PATIENT STATES THAT THE PAIN IS THE SAME WHEN THEY HAVE BACK PAIN FLARE-UP AND THAT THEY ONLY NEED PAIN MEDICATION IN THE ER. AT THIS POINT, THERE IS NO INDICATION FOR ANY IMAGING. THE PATIENT WAS ADVISED TO FOLLOW UP WITH ORTHO SPECIALIST FOR THEIR CHRONIC LOWER BACK PAIN AND PAIN MANAGEMENT DOCTOR FOR PAIN CONTROL. PATIENT WAS GIVEN MORPHINE 1 MG IM, TORADOL 60 MG IM, AND DECADRON 10 MG IM FOR PAIN MEDICATION WITH IMPROVEMENT IN PAIN AND FUNCTION PATIENT REQUESTING DISCHARGE AT THIS TIME. OVERALL PATIENT'S VITAL SIGNS ARE STABLE AND THE PATIENT WILL BE DISCHARGED HOME. Time of 1ST Reevaluation: 00:16 Reevaluation 1ST: Improved Patient Education/Counseling: Diagnosis, Treatment, Prognosis, Need For Follow Up Family Education/Counseling: Diagnosis, Treatment, Prognosis, Need For Follow Up Departure 1 Departure Time of Disposition: 00:16 Impression: Primary Impression: Lumbar sprain Qualified Codes: S33.5XXA - Sprain of ligaments of lumbar spine, initial encounter Additional Impressions: Musculoskeletal pain Lumbar radiculopathy Strain of muscle and tendon of back wall of thorax, initial encounter Disposition: 01 HOME / SELF CARE / HOMELESS Condition: Stable Discharged With: Significant Other Critical Care Note Critical Care Time?: No Stability Stability form required: KATELYNN Yeh Aug 05, 2024 23:22
[2024-08-05 23:25] VITALS: TEMP 98.8; O2SAT 98
[2024-08-05] MEDS: KETOROLAC TROMETH 60MG/2ML VIAL IM ONE (23:45)
[2024-08-05] MEDS: MORPHINE SULFATE INJ 2 MG/ml SYRG IM ONE (23:46)
[2024-08-05] MEDS: DexAMETHasone SOD PHOS 10MG/1ML VIAL INJ IM ONE (23:46)
[2024-08-06 00:20] VITALS: BP 141/89; PULSE 81; RESP 20
== END 2024-08-06 00:24 | disposition home or self-care (01) ==
LOC: ER 21:30
DX: S33.5XXA Sprain of ligaments of lumbar spine, initial encounter (principal); S29.012A Strain of muscle and tendon of back wall of thorax, initial encounter; M54.16 Radiculopathy, lumbar region; M54.6 Pain in thoracic spine; I10 Essential (primary) hypertension; E11.9 Type 2 diabetes mellitus without complications; J44.9 Chronic obstructive pulmonary disease, unspecified; F17.210 Nicotine dependence, cigarettes, uncomplicated; Z95.0 Presence of cardiac pacemaker; Z98.890 Other specified postprocedural states; Z79.52 Long term (current) use of systemic steroids; Z79.84 Long term (current) use of oral hypoglycemic drugs; Z79.899 Other long term (current) drug therapy; X58.XXXA Exposure to other specified factors, initial encounter; Y93.89 Activity, other specified; Y92.89 Other specified places as the place of occurrence of the external cause; Y99.8 Other external cause status
CPT/HCPCS: 72070; 96372; 99284; J1100; J1885; J2270

== ENCOUNTER 2024-09-14 10:27 | Emergency (ER) | payer MEDICAID ==
[~2024-09-14] VITALS: Ht 172.7 cm; Wt 91.0 kg
[2024-09-14 11:05] VITALS: PULSE 64; RESP 17; O2SAT 96
--- NOTE | 2024-09-14 11:26 | ED.PDOC ---
Back pain HPI HPI Comments 54Y F with PMHx DM, HTN, COPD, scoliosis, and chronic back pain presents to ED via EMS for chief complaint back pain s/p interlaminar lumbar epidural steroid injection of L5/S1 at a surgery center. Pt states she woke up with 10/10 pain to the right buttock. She denies numbness, tingling or weakness to either lower extremity. Sensation continues to be intact and normal to bilateral lower extremity. EMS provided pt with Fentanyl 50mcg and Dilaudid 0.5mg but pt did not experience relief from symptoms. No other symptoms reported. Chief Complaint: Back Pain Time Seen by MD: 10:55 Primary Care Provider: MANDI Reviewed Notes: Nurses Notes, Transfer Agent Notes, Medications, Allergies Allergies: Coded Allergies: No Known Drug Allergy (Verified Allergy, Unknown, 12/27/23) Home Meds Active Scripts Ibuprofen Micronized (Ibuprofen) 800 Mg Tab, 800 MG PO Q8HP PRN, #30 TAB prn pain, take with food Prov:YEUHDA CONTRERAS MD 07/04/24 Dicyclomine Hcl (BENTYL CAPSULE) 10 Mg Cp, 2 CAP PO Q6HP PRN, #30 CAP 11 Refills prn abdominal pain Prov:YEHUDA CONTRERAS MD 07/04/24 Ondansetron Odt 4MG Tab (ZOFRAN PO) 4 Mg Tb, 4 MG PO TID PRN, #30 TAB prn nausea/vomiting ODT TAB-DISSOLVE IN MOUTH, THEN SWALLOW Prov:YEHUDA CONTRERAS MD 07/04/24 Gabapentin (Gabapentin) 300 Mg Cap, 1 CAP PO TID PRN, #30 CAP prn sciatic nerve pain Prov:YEHUDA CONTRERAS MD 07/04/24 Hydrocodone-Acetaminophen (Hydrocodone Bitartrate/AC 5-325 mg) 1 Tab Tab, 1 TAB PO Q6HP PRN, #15 TAB Prov:JOSE QUINTERO PAC 06/14/24 Ibuprofen Micronized (Ibuprofen) 800 Mg Tab, 800 MG PO Q8HP PRN, #20 TAB Prov:JOSE QUINTERO PAC 06/14/24 Ibuprofen (Ibuprofen) 800 Mg Tab, 1 TAB PO TID PRN, #30 TAB 0 Refills Prov:CHARLINE NIEVES 05/13/24 Prednisone (Prednisone) 20 Mg Tab, 20 MG PO BID for 5 Days, #10 TAB 0 Refills Prov:CHARLINE NIEVES 05/13/24 Pantoprazole Sodium Sesquihydr (Protonix) 40 Mg Tab, 40 MG PO DAILY, #30 TAB Prov:JAVY BOSE Jeanmarie AIRPLANE DESIGNER 04/03/24 Reported Medications Hydrocodone-Acetaminophen (Hydrocodone Bitartrate/AC 10-325 mg) 1 Tab Tab, 1 TAB PO, TAB 12/27/23 Hydrocodone-Acetaminophen (Hydrocodone Bitartrate/AC 10-325 mg) 1 Tab Tab, 1 TAB PO, TAB 12/27/23 Losartan Potassium & Hydrochlo (Hyzaar) 1 Tab Tab, 1 TAB PO DAILY, #30 TAB 5 Refills 12/27/23 Metformin Hydrochloride (Metformin Hcl) 500 Mg Tab, 1 TAB PO BID, #60 TAB 3 Refills 12/27/23 Nitroglycerin (NTROSTAT SUBLINGUAL) 0.4 Mg Sl 12/27/23 Cholecalciferol (Vitamin D-3 Super Strengt) 2,000 Unit Tab, 1 TAB PO DAILY 12/27/23 Oxcarbazepine (OXTELLAR XR) 300 Mg Tab 12/27/23 Quetiapine Fumerate (QUETIAPINE FUMARATE) 300 Mg Tab, 2 TAB PO 12/27/23 Risperidone (Risperidone) 2 Mg Tab, 1 TAB BID 12/27/23 Fluoxetine Hcl (Fluoxetine Hcl) 40 Mg Cap, 1 TAB DAILY 12/27/23 Information Source: Patient, Emergency Med Personnel Mode of Arrival: EMS Brought in by: EMS Timing: Hours Duration: Since onset Location of Back pain: (R) Buttocks, (R) Lower back Severity: Severe Prehospital treatment: Pain Meds Quality: Other Onset: Other (post op) Circumstance: Other (post op) History of: Chronic Back Pain Modifying Factors: Nothing Associated signs and symptoms: Other Past Medical History PAST MEDICAL HISTORY: Asthma, COPD, DM, HTN Surgical History: , Pacemaker, Tubal Ligation SR. MEDIA MANAGER History: No Pertinent SR. MEDIA MANAGER History Family History Family History: No family hx of Cancer, No family hx of DM, No family hx of HTN, No family hx ofKidney veronica, No family hx of Liver veronica, No family hx of Lung veronica, No family hx of Stroke, Family hx of heart veronica Social History Smoker: Cigarettes, Less Than 1 Pack/Day Alcohol: Denies ETOH Use Drugs: Denies Drug Use Lives In: Home Constitutional: denies: chills, diaphoresis, fatigue, fever, malaise, sweats, weakness, others EENTM: denies: blurred vision, double vision, ear bleeding, ear discharge, ear drainage, ear pain, ear ringing, eye pain, eye redness, hearing loss, mouth pain, mouth swelling, nasal discharge, nose bleeding, nose congestion, nose pain, photophobia, tearing, throat pain, throat swelling, voice changes, others Respiratory: denies: cough, hemoptysis, orthopnea, SOB at rest, shortness of breath, SOB with excertion, stridor, wheezing, others Cardiovascular: denies: chest pain, dizzy spells, diaphoresis, Dyspnea on exertion, edema, irregular heart beat, left arm pain, lightheadedness, palpitations, PND, syncope, others Gastrointestinal: denies: abdomen distended, abdominal pain, blood streaked bowels, constipated, diarrhea, dysphagia, difficulty swallowing, hematemesis, melena, nausea, poor appetite, poor fluid intake, rectal bleeding, rectal pain, vomiting, others Genitourinary: denies: abnormal vagina bleeding, burning, dyspareunia, dysuria, flank pain, frequency, hematuria, incontinence, pain, , vagina discharge, urgency, others Neurological: denies: dizziness, fainting, headache, left sided numbness, left sided weakness, numbness, paresthesia, pre-existing deficit, right sided numbness, right sided weakness, seizure, speech problems, tingling, tremors, weakness, others Musculoskeletal: reports: back pain, others (rt buttock pain); denies: gout, joint pain, joint swelling, muscle pain, muscle stiffness, neck pain Integumetry: denies: bruises, change in color, change in hair/nails, dryness, laceration, lesions, lumps, rash, wounds, others Allergic/Immunocompromised: denies: Difficulty Healing, Frequent Infections, Hives, Itching, others Hematologic/Lymphatic: denies: anemia, blood clots, easy bleeding, easy bruising, swollen glands, others Endocrine: denies: excessive hunger, excessive sweating, excessive thirst, excessive urination, flushing, intolerance to cold, intolerance to heat, unexpl ained weight gain, unexplained weight loss, others Psychiatric: denies: anxiety, bipolar disorder, depression, hopeless, panic disorder, schizophrenia, sleepless, suicidal, others All Other Systems: Reviewed and Negative Physical Exam General Appearance: Moderate Distress, Obese HEENT: Normal ENT Inspection, Pharynx Normal, TMs Normal Neck: Full Range of Motion, Non-Tender, Normal, Normal Inspection Respiratory: Chest Non-Tender, Lungs Clear, No Accessory Muscle Use, No Respiratory Distress, Normal Breath Sounds Cardiovascular: No Edema, No Murmur, No Gallop, Normal Peripheral Pulses, Regular Rate/Rhythm Breast Exam: Deferred Gastrointestinal: No Organomegaly, Non Tender, Normal Bowel Sounds, Soft Genitalia: Deferred Pelvic: Deferred Rectal: Deferred Extremities: No calf tenderness, Normal capillary refill, Normal inspection, Normal range of motion, Non-tender Musculoskeletal : Location: Right Extremity Location: Back, Other (buttock) Apperance: Tenderness: Severe Neurologic: Alert, business broker II-XII nml as Tested, No Motor Deficits, Normal Affect, Normal Mood, No Sensory Deficits Cerebellar Function: NOT DONE Reflexes: NOT DONE Skin: Dry, Normal Color, Warm Lymphatic: No Adenopathy Was a procedure done? Was a procedure done?: No Back Pain Differential Dx Differential Diagnosis: Musculoskeletal Pain X-Ray, Labs, Meds, VS Vital Signs Date Time Temp Pulse Resp B/P (MAP) Pulse Ox O2 Delivery O2 Flow Rate FiO2 09/14/24 12:00 76 09/14/24 11:05 97.3 64 17 119/68 (85) 96 97.3 09/14/24 11:05 64 17 96 Room Air* 0 21 09/14/24 10:42 98.0 63 20 134/78 (96) 97 98.0 Lab Test 09/14/24 12:54 Range/Units White Blood Count Pending Red Blood Count Pending Hemoglobin Pending Hematocrit Pending Mean Corpuscular Volume Pending Mean Corpuscular Hemoglobin Pending Mean Corpuscular Hemoglobin Concent Pending Red Cell Distribution Width Pending Platelet Count Pending Mean Platelet Volume Pending Neutrophils (%) (Auto) Pending Lymphocytes (%) (Auto) Pending Monocytes (%) (Auto) Pending Basophils (%) (Auto) Pending Neutrophils # (Auto) Pending Lymphocytes # (Auto) Pending Monocytes # (Auto) Pending Sodium Level Pending Potassium Level Pending Chloride Level Pending Carbon Dioxide Level Pending Anion Gap Pending Blood Urea Nitrogen Pending Creatinine Pending Glomerular Filtration Rate Calc Pending BUN/Creatinine Ratio Pending Serum Glucose Pending Calcium Level Pending Total Bilirubin Pending Aspartate Amino Transferase (AST) Pending Alanine Aminotransferase (ALT) Pending Alkaline Phosphatase Pending Total Protein Pending Albumin Pending [place] [id number] Ph: [phone] DIAGNOSTIC IMAGING Diagnostic Imaging Report : [id number] Signed PATIENT: EDUAR HERRERA ACCT: [id number] UNIT: [id number] : 1970 LOC: ER ROOM / BED: / AGE / SEX: 54 / F ADM STATUS: REG ER SERVICE 1136 ORDERING PHYSICIAN: WILLIAM ARMAS MD PROCEDURE(s): LS2CT - LS SPINE WO CONTRAST REASON: back pain s/p steriod injection ORDER NUMBER(s): [id number], ACCESSION NUMBER(s): [id number] EXAM: CT LS SPINE WO CONTRAST INDICATION: back pain s/p steriod injection COMPARISON: None TECHNIQUE: Multiple axial CT images of the lumbar spine were obtained using bone algorithm. Axial and coronal reformatting was done. Bone and soft tissue windows were reviewed. Radiation Dose Information: CT Dose: CTDI volume is 26.98 mGy. Dose-length product is 826.14 mGy*cm FINDINGS: No CT evidence of acute fracture or traumatic mal-alignment. The visualized paraspinal soft tissues are grossly unremarkable. There is multilevel degenerative change of the spine, with disc space narrowing, subchondral sclerosis, and marginal osteophyte formation worse at L4-L5 and L5- S1. IMPRESSION: No CT evidence of acute fracture or traumatic mal-alignment of the bony lumbar spine. There is multilevel degenerative change of the spine, with disc space narrowing, subchondral sclerosis, and marginal osteophyte formation worse at L4-L5 and L5- S1. Radiation optimization: All CT scans at this facility use at least one of these dose optimization techniques: automated exposure control mA and/or kV adjustment per patient size (includes targeted exams where dose is matched to clinical indication) or iterative reconstruction. ATED BY: ABDIRIZAK RIVERA MD DICTATED DATE/TIME: 09/14/24 1250 SIGNED BY: ABDIRIZAK RIVERA MD SIGNED DATE/TIME: 09/14/24 1250 CC: X-Ray, Labs, Meds, VS Comment This 54-year-old female presents secondary to right gluteal pain after having a lumbar injection. She denies any numbness, tingling or weakness to her extremities. Denies incontinence retention feces or urine. The patient had a CT of the lumbar spine which was negative. Upon reassessment at 1:20 p.m., she states her pain has largely resolved. She continues to have no neurological complaints. As such, she will be discharged home. She was asked to very well hydrated. She will follow up with PCP in 1 2 days. She was to return to the ER for any new/worse/worsening symptoms. She states her understanding. is at bedside who also agrees. Time of 1ST Reevaluation: 11:25 Reevaluation 1ST: Unchanged Time of 2ND Reevaluation: 13:25 Reevaluation 2ND: Improved Patient Education/Counseling: Diagnosis, Treatment, Need For Follow Up Family Education/Counseling: Diagnosis, Treatment, Need For Follow Up Departure 1 Departure Time of Disposition: 13:22 Impression: Primary Impression: Lumbar sprain Disposition: 01 HOME / SELF CARE / HOMELESS Condition: Good Critical Care Note Critical Care Time?: No Stability Stability form required: No Heart Score Heart Score: Heart Score Response (Comments) Value History N/A 0 EKG N/A 0 Age N/A 0 Risk Factors N/A 0 Troponin N/A 0 Total 0 I personally scribed for WILLIAM ARMAS MD ([email or web address]) on 09/14/24 at 11:26. Electronically submitted by Lorna Tapia ([facility]). I personally scribed for WILLIAM ARMAS MD ([email or web address]) on 09/14/24 at 13:00. Electr onically submitted by Lorna Tapia ([facility]). WILLIAM ARMAS MD Sep 14, 2024 11:26
--- NOTE | 2024-09-14 12:52 | DVH ---
EXAM: CT LS SPINE WO CONTRAST INDICATION: back pain s/p steriod injection COMPARISON: None TECHNIQUE: Multiple axial CT images of the lumbar spine were obtained using bone algorithm. Axial an d coronal reformatting was done. Bone and soft tissue windows were reviewed. Radiation Dose Information: CT Dose: CTDI volume is 26.98 mGy. Dose-length product is 826.14 mGy*cm FINDINGS: No CT evidence of acute fracture or traumatic mal-alignment. The visualized paraspinal soft tissues a re grossly unremarkable. There is multilevel degenerative change of the spine, with disc space narrowing, subchondral sclerosi s, and marginal osteophyte formation worse at L4-L5 and L5-S1. IMPRESSION: No CT evidence of acute fracture or traumatic mal-alignment of the bony lumbar spine. There is multilevel degenerative change of the spine, with disc space narrowing, subchondral sclerosi s, and marginal osteophyte formation worse at L4-L5 and L5-S1. Radiation optimization: All CT scans at this facility use at least one of these dose optimization marilynn hniques: automated exposure control mA and/or kV adjustment per patient size (includes targeted exam s where dose is matched to clinical indication) or iterative reconstruction.
[2024-09-14 13:32] LABS: Basophils # (auto) 0 10 ^3/uL (0-0.2); Basophils % (auto) 0.5 % (0.0-2.0); Eosinophils # (auto) 0 10 ^3/uL (0-0.8); Eosinophils % (auto) 0.2 % (0.0-7.0); Hematocrit 43.5 % (36.0-46.0); Hemoglobin 14.8 g/dL (12.2-16.2); Lymphocytes % (auto) 17.5 % (10.0-50.0); Mean Corpuscular Hemoglobin 31.7 pg (28.0-32.0); Mean Corpuscular Hgb Conc. 34.1 g/dL (32.0-36.0); Monocytes # (auto) 0.1 10 ^3/uL (0-1.3); Monocytes % (auto) 1.3 % (0.0-12.0); Neutrophils # (auto) 4.7 10 ^3/uL (1.6-8.6); Neutrophils % (auto) 80.5 % (37.0-80.0); Nucleated Red Blood Cells % 0.2 %; Platelet Count (auto) 335 10^3/uL (140-450); Red Blood Cells 4.67 10^6/uL (4.0-5.20); Red Cell Distribution Width 13.5 % (11.8-14.3); White Blood Cell 5.8 10^3/uL (4.4-10.8)
[2024-09-14 13:42] LABS: Alanine Aminotransferase 17 U/L (7-40); Alkaline Phosphatase 89 U/L (46-116); Anion Gap 2 (5-15); Aspartate Aminotransferase 16 U/L (13-40); BUN/Creatinine Ratio 12.5 (10.0-20.0); Bilirubin, Total 0.6 mg/dL (0.2-1.0); Blood Urea Nitrogen 10 mg/dL (9-23); Potassium 4.2 mmol/L (3.5-5.1); Sodium 142 mmol/L (136-145); Total Protein 7.7 g/dL (5.7-8.2)
[2024-09-14 13:43] LABS: Albumin 4.9 g/dL (3.2-4.8); Calcium 10.8 mg/dL (8.7-10.4); Carbon Dioxide 32 mmol/L (20-31); Chloride 108 mmol/L (98-107); Glucose 118 mg/dL (74-106)
[2024-09-14 13:48] VITALS: BP 116/76; PULSE 75; RESP 15; TEMP 97.6; O2SAT 98
== END 2024-09-14 13:52 | disposition home or self-care (01) ==
LOC: EDBD 10:27 → ER 10:32
DX: S33.5XXA Sprain of ligaments of lumbar spine, initial encounter (principal); I10 Essential (primary) hypertension; E11.9 Type 2 diabetes mellitus without complications; J44.9 Chronic obstructive pulmonary disease, unspecified; F17.210 Nicotine dependence, cigarettes, uncomplicated; Z95.0 Presence of cardiac pacemaker; Z98.51 Tubal ligation status; Z79.84 Long term (current) use of oral hypoglycemic drugs; Z79.52 Long term (current) use of systemic steroids; Z79.899 Other long term (current) drug therapy; X58.XXXA Exposure to other specified factors, initial encounter; Y93.89 Activity, other specified; Y92.89 Other specified places as the place of occurrence of the external cause; Y99.8 Other external cause status
CPT/HCPCS: 36415; 72131; 80053; 85025

== ENCOUNTER 2024-09-20 02:28 | Inpatient (IN) | payer MEDICAID ==
[~2024-09-20] VITALS: Ht 160 cm; Wt 86.4 kg
[2024-09-20] MEDS: MORPHINE SULFATE 4 MG/ML SYR/VIAL IV ONE (02:45)
[2024-09-20] MEDS: ONDANSETRON HCL 4 MG/2 ML VIAL IV ONE (02:45)
--- NOTE | 2024-09-20 02:49 | ED.PDOC ---
HPI Comments 54-year-old female with PMHx COPD, DM, HTN, Asthma presents with a chief complaint of chest pain x onset 2200 this evening. Patient states that her pain is localized to her left chest wall, radiates to her left shoulder and left arm, describes as sharp/burning sensation. Patient reports that she is seeing driller's offsider about a possible pacemaker, but has to have a sleep study done prior to that. Patient is anxious appearing in bed at this time. No other symptoms or modifying factors present at this time. Chief Complaint: Chest Pain Time Seen by MD: 02:42 Primary Care Provider: MANDI Reviewed Notes: Medications, Allergies Allergies: Coded Allergies: No Known Drug Allergy (Verified Allergy, Unknown, 12/27/23) Home Meds Active Scripts Ibuprofen Micronized (Ibuprofen) 800 Mg Tab, 800 MG PO Q8HP PRN, #30 TAB prn pain, take with food Prov:YEHUDA CONTRERAS MD 07/04/24 Dicyclomine Hcl (BENTYL CAPSULE) 10 Mg Cp, 2 CAP PO Q6HP PRN, #30 CAP 11 Refills prn abdominal pain Prov:YEHUDA CONTRERAS MD 07/04/24 Ondansetron Odt 4MG Tab (ZOFRAN PO) 4 Mg Tb, 4 MG PO TID PRN, #30 TAB prn nausea/vomiting ODT TAB-DISSOLVE IN MOUTH, THEN SWALLOW Prov:YEHUDA CONTRERAS MD 07/04/24 Gabapentin (Gabapentin) 300 Mg Cap, 1 CAP PO TID PRN, #30 CAP prn sciatic nerve pain Prov:YEHUDA CONTRERAS MD 07/04/24 Hydrocodone-Acetaminophen (Hydrocodone Bitartrate/AC 5-325 mg) 1 Tab Tab, 1 TAB PO Q6HP PRN, #15 TAB Prov:JOSE QUINTERO PAC 06/14/24 Ibuprofen Micronized (Ibuprofen) 800 Mg Tab, 800 MG PO Q8HP PRN, #20 TAB Prov:JOSE QUINTERO PAC 06/14/24 Ibuprofen (Ibuprofen) 800 Mg Tab, 1 TAB PO TID PRN, #30 TAB 0 Refills Prov:CHARLINE NIEVES 05/13/24 Prednisone (Prednisone) 20 Mg Tab, 20 MG PO BID for 5 Days, #10 TAB 0 Refills Prov:CHARLINE NIEVES 05/13/24 Pantoprazole Sodium Sesquihydr (Protonix) 40 Mg Tab, 40 MG PO DAILY, #30 TAB Prov:JAVY BOSE Jeanmarie HOGSHEAD STOCK CLERK 04/03/24 Reported Medications Hydrocodone-Acetaminophen (Hydrocodone Bitartrate/AC 10-325 mg) 1 Tab Tab, 1 TAB PO, TAB 12/27/23 Hydrocodone-Acetaminophen (Hydrocodone Bitartrate/AC 10-325 mg) 1 Tab Tab, 1 TAB PO, TAB 12/27/23 Losartan Potassium & Hydrochlo (Hyzaar) 1 Tab Tab, 1 TAB PO DAILY, #30 TAB 5 Refills 12/27/23 Metformin Hydrochloride (Metformin Hcl) 500 Mg Tab, 1 TAB PO BID, #60 TAB 3 Refills 12/27/23 Nitroglycerin (NTROSTAT SUBLINGUAL) 0.4 Mg Sl 12/27/23 Cholecalciferol (Vitamin D-3 Super Strengt) 2,000 Unit Tab, 1 TAB PO DAILY 12/27/23 Oxcarbazepine (OXTELLAR XR) 300 Mg Tab 12/27/23 Quetiapine Fumerate (QUETIAPINE FUMARATE) 300 Mg Tab, 2 TAB PO 12/27/23 Risperidone (Risperidone) 2 Mg Tab, 1 TAB BID 12/27/23 Fluoxetine Hcl (Fluoxetine Hcl) 40 Mg Cap, 1 TAB DAILY 12/27/23 Information Source: Patient Mode of Arrival: Ambulatory Severity: Moderate Timing: Hours Duration: Since onset Prehospital treatment: None Location: Chest (L) Radiation: Shoulder (L), Arm (L) Quality: Sharp, Burning Onset: At Rest Cardiac Risk Factors: None PE Risk Factors: None History of: None Past Medical History PAST MEDICAL HISTORY: Asthma, COPD, DM, HTN Surgical History: , Pacemaker, Tubal Ligation SCHOOL BUS ATTENDANT History: No Pertinent SCHOOL BUS ATTENDANT History Family History Family History: No family hx of Cancer, No family hx of DM, No family hx of HTN, No family hx ofKidney veronica, No family hx of Liver veronica, No family hx of Lung veronica, No family hx of Stroke, Family hx of heart veronica Social History Smoker: Cigarettes, Less Than 1 Pack/Day Alcohol: Denies ETOH Use Drugs: Denies Drug Use Lives In: Home Constitutional: denies: chills, diaphoresis, fatigue, fever, malaise, sweats, weakness, others EENTM: denies: blurred vision, double vision, ear bleeding, ear discharge, ear drainage, ear pain, ear ringing, eye pain, eye redness, hearing loss, mouth pain, mouth swelling, nasal discharge, nose bleeding, nose congestion, nose pain, photophobia, tearing, throat pain, throat swelling, voice changes, others Respiratory: denies: cough, hemoptysis, orthopnea, SOB at rest, shortness of breath, SOB with excertion, stridor, wheezing, others Cardiovascular: reports: chest pain; denies: dizzy spells, diaphoresis, Dyspnea on exertion, edema, irregular heart beat, left arm pain, lightheadedness, palpitations, PND, syncope, others Gastrointestinal: denies: abdomen distended, abdominal pain, blood streaked bowels, constipated, diarrhea, dysphagia, difficulty swallowing, hematemesis, melena, nausea, poor appetite, poor fluid intake, rectal bleeding, rectal pain, vomiting, others Genitourinary: denies: abnormal vagina bleeding, burning, dyspareunia, dysuria, flank pain, frequency, hematuria, incontinence, pain, , vagina discharge, urgency, others Neurological: denies: dizziness, fainting, headache, left sided numbness, left sided weakness, numbness, paresthesia, pre-existing deficit, right sided num bness, right sided weakness, seizure, speech problems, tingling, tremors, weakness, others Musculoskeletal: denies: back pain, gout, joint pain, joint swelling, muscle pain, muscle stiffness, neck pain, others Integumetry: denies: bruises, change in color, change in hair/nails, dryness, laceration, lesions, lumps, rash, wounds, others Allergic/Immunocompromised: denies: Difficulty Healing, Frequent Infections, Hives, Itching, others Hematologic/Lymphatic: denies: anemia, blood clots, easy bleeding, easy bruising, swollen glands, others Endocrine: denies: excessive hunger, excessive sweating, excessive thirst, excessive urination, flushing, intolerance to cold, intolerance to heat, unexplained weight gain, unexplained weight loss, others Psychiatric: denies: anxiety, bipolar disorder, depression, hopeless, panic disorder, schizophrenia, sleepless, suicidal, others All Other Systems: Reviewed and Negative Physical Exam General Appearance: No Apparent Distress, Normal HEENT: Normal ENT Inspection, Pharynx Normal, TMs Normal Neck: Full Range of Motion, Non-Tender, Normal, Normal Inspection Respiratory: Chest Non-Tender, Lungs Clear, No Accessory Muscle Use, No Respiratory Distress, Normal Breath Sounds Cardiovascular: No Edema, No JVD, No Murmur, No Gallop, Normal Peripheral Pulses, Regular Rate/Rhythm Breast Exam: Deferred Gastrointestinal: No Organomegaly, Non Tender, No Pulsatile Mass, Normal Bowel Sounds, Soft Genitalia: Deferred Pelvic: Deferred Rectal: Deferred Extremities: No calf tenderness, Normal capillary refill, Normal inspection, Normal range of motion, Non-tender, No pedal edema Musculoskeletal : Apperance: Normal Neurologic: Alert, drum drier operator II-XII nml as Tested, No Motor Deficits, Normal Affect, Normal Mood, No Sensory Deficits Cerebellar Function: Normal Reflexes: Normal Skin: Dry, Normal Color, Warm Lymphatic: No Adenopathy Was a procedure done? Was a procedure done?: No CP Differential Dx Differential Diagnosis: A-Flutter, Angina, PAC's, Pacemaker Malfunction, Ventricular Dysrhythmia, V-Fib, V-Tach Differential Diagnosis: Other X-Ray, Labs, Meds, VS Vital Signs Date Time Temp Pulse Resp B/P (MAP) Pulse Ox O2 Delivery O2 Flow Rate FiO2 09/20/24 03:23 98.4 78 22 110/70 (83) 99 98.4 09/20/24 02:45 78 22 110/70 09/20/24 02:44 98.4 86 18 124/73 (90) 99 98.4 Lab Test 09/20/24 03:30 09/20/24 03:14 09/20/24 02:35 Range/Units Troponin I High Sensitivity Pending < 3 L </=34 ng/L Urine Color Light-yellow Yellow Urine Clarity Clear Clear Urine pH 5.0 5.0-9.0 Urine Specific [place] 1.008 1.001-1.035 Urine Protein Negative Negative Urine Ketones Negative Negative Urine Blood Negative Negative /uL Urine Nitrite Negative Negative Urine Bilirubin Negative Negative Urine Urobilinogen Normal Negative mg/dL Urine Leukocyte Esterase Negative Negative /uL Urine RBC <1 0 - 4 /hpf Urine Microscopic WBC < 1 0-5 /HPF Urine Squamous Epithelial Cells Few <5 /hpf Urine Bacteria None seen None Seen /hpf Urine Glucose Normal Normal mg/dL White Blood Count 9.9 # 4.4-10.8 10^3/uL Red Blood Count 4.29 4.0-5.20 10^6/uL Hemoglobin 13.5 12.2-16.2 g/dL Hematocrit 39.9 36.0-46.0 % Mean Corpuscular Volume 93.0 80.0-100.0 fL Mean Corpuscular Hemoglobin 31.6 28.0-32.0 pg Mean Corpuscular Hemoglobin Concent 33.9 32.0-36.0 g/dL Red Cell Distribution Width 13.1 11.8-14.3 % Platelet Count 324 140-450 10^3/uL Mean Platelet Volume 7.6 6.9-10.8 fL Neutrophils (%) (Auto) 49.2 37.0-80.0 % Lymphocytes (%) (Auto) 43.1 10.0-50.0 % Monocytes (%) (Auto) 4.0 0.0-12.0 % Eosinophils (%) (Auto) 2.1 0.0-7.0 % Basophils (%) (Auto) 1.6 0.0-2.0 % Neutrophils # (Auto) 4.9 1.6-8.6 10 ^3/uL Lymphocytes # (Auto) 4.3 0.4-5.4 10 ^3/uL Monocytes # (Auto) 0.4 0-1.3 10 ^3/uL Eosinophils # (Auto) 0.2 0-0.8 10 ^3/uL Basophils # (Auto) 0.2 0-0.2 10 ^3/uL Nucleated Red Blood Cells 0.1 % Prothrombin Time 9.9 9.3-11.8 sec Prothrombin Time INR 0.93 0.9-1.15 Activated Partial Thromboplast Time 25.1 24.5-34.5 SEC Sodium Level 141 136-145 mmol/L Potassium Level 3.3 L 3.5-5.1 mmol/L Chloride Level 107 98-107 mmol/L Carbon Dioxide Level 28 20-31 mmol/L Anion Gap 6 5-15 Blood Urea Nitrogen 9 9-23 mg/dL Creatinine 0.76 0.550-1.02 mg/dL Glomerular Filtration Rate Calc 93 >90 mL/min BUN/Creatinine Ratio 11.8 10.0-20.0 Serum Glucose 132 H 74-106 mg/dL Calcium Level 10.2 8.7-10.4 mg/dL Total Bilirubin 0.5 0.2-1.0 mg/dL Aspartate Amino Transferase (AST) 12 L 13-40 U/L Alanine Aminotransferase (ALT) 19 7-40 U/L Alkaline Phosphatase 90 46-116 U/L Total Protein 6.9 5.7-8.2 g/dL Albumin 4.4 3.2-4.8 g/dL Current Medications Medications (Trade) Dose Ordered Sig/Jose J Route Start Time Stop Time Status Last Admin Ondansetron HCl (Zofran) 4 mg ONCE ONCE IV 09/20/24 02:45 09/20/24 02:46 DC 09/20/24 02:45 Morphine Sulfate 4 mg ONCE ONCE IV 09/20/24 02:45 09/20/24 02:46 DC 09/20/24 02:45 Time of 1ST Reevaluation: 03:12 Reevaluation 1ST: Unchanged Patient Education/Counseling: Diagnosis, Treatment Family Education/Counseling: No Family Present Departure 1 Departure Time of Disposition: 04:00 Impression: Primary Impression: Chest pain Disposition: 01 HOME / SELF CARE / HOMELESS Condition: Stable Discharged With: Self Critical Care Note Critical Care Time?: No Stability Stability form required: No Heart Score Heart Score: Heart Score Response (Comments) Value History Slightly Suspicious 0 EKG Normal 0 Age 45-64 1 Risk Factors 1 or 2 risk factors 1 Troponin Normal limit 0 Total 2 I personally scribed for CHARLES BIRMINGHAM MD ([email or web address]) on 09/20/24 at 02:49. Electronically submitted by Marcial Cardona ([email or web address]). CHARLES BIRMINGHAM MD Sep 20, 2024 02:49
[2024-09-20 02:57] LABS: Basophils # (auto) 0.2 10 ^3/uL (0-0.2); Basophils % (auto) 1.6 % (0.0-2.0); Eosinophils # (auto) 0.2 10 ^3/uL (0-0.8); Eosinophils % (auto) 2.1 % (0.0-7.0); Hematocrit 39.9 % (36.0-46.0); Hemoglobin 13.5 g/dL (12.2-16.2); Lymphocytes # (auto) 4.3 10 ^3/uL (0.4-5.4); Lymphocytes % (auto) 43.1 % (10.0-50.0); Mean Corpuscular Hemoglobin 31.6 pg (28.0-32.0); Mean Corpuscular Hgb Conc. 33.9 g/dL (32.0-36.0); Monocytes # (auto) 0.4 10 ^3/uL (0-1.3); Neutrophils # (auto) 4.9 10 ^3/uL (1.6-8.6); Neutrophils % (auto) 49.2 % (37.0-80.0); Nucleated Red Blood Cells % 0.1 %; Platelet Count (auto) 324 10^3/uL (140-450); Red Blood Cells 4.29 10^6/uL (4.0-5.20); Red Cell Distribution Width 13.1 % (11.8-14.3); White Blood Cell 9.9 10^3/uL (4.4-10.8)
[2024-09-20 03:14] LABS: Alanine Aminotransferase 19 U/L (7-40); Albumin 4.4 g/dL (3.2-4.8); Alkaline Phosphatase 90 U/L (46-116); Anion Gap 6 (5-15); BUN/Creatinine Ratio 11.8 (10.0-20.0); Calcium 10.2 mg/dL (8.7-10.4); Carbon Dioxide 28 mmol/L (20-31); Sodium 141 mmol/L (136-145); Total Protein 6.9 g/dL (5.7-8.2)
[2024-09-20 03:15] LABS: Bilirubin, Total 0.5 mg/dL (0.2-1.0)
[2024-09-20 03:17] LABS: Aspartate Aminotransferase 12 U/L (13-40); Blood Urea Nitrogen 9 mg/dL (9-23); Chloride 107 mmol/L (98-107); Glucose 132 mg/dL (74-106); Potassium 3.3 mmol/L (3.5-5.1)
[2024-09-20 03:20] LABS: INR 0.93 (0.9-1.15); Partial Thromboplastin Time 25.1 SEC (24.5-34.5); Prothrombin Time 9.9 sec (9.3-11.8)
[2024-09-20 03:21] LABS: Urine Bacteria None Seen /hpf (None Seen)
[2024-09-20 03:26] LABS: Urine Blood Negative /uL (Negative); Urine Clarity Clear (Clear); Urine Color Light-Yellow (Yellow); Urine Protein, UAD Negative (Negative); Urine Specific Gravity 1.008 (1.001-1.035); Urine Squamous Epithelial Cell FEW /hpf (<5); Urine Urobilinogen Normal (Negative); Urine WBC < 1 /HPF (0-5)
--- NOTE | 2024-09-20 04:23 | DVH ---
CHEST RADIOGRAPH Indication: chest pain Technique: Single frontal view of the chest was obtained Comparison: 06/24/24 FINDINGS: Lines and Tubes: None Lungs: No focal consolidation. Pleura: No effusion. No pneumothorax. Cardiomediastinal contours: Unremarkable Bones: No acute osseous abnormality. IMPRESSION: 1. No acute cardiopulmonary disease.
[2024-09-20] MEDS: POTASSIUM CHL 20 Meq TABLET PO ONE (05:00)
[2024-09-20] MEDS: ASPirin 81 mg TAB PO ONE (05:33)
--- NOTE | 2024-09-20 05:51 | DVHHP2 ---
Admitting Diagnosis: L sided chest pain History of Present Illness Patient is a 54-year-old female with numerous cardiovascular risk such as diabetes, COPD, and hypertension who presents for left-sided chest pain. During the ED observation the patient's pain improved. Patient was administered aspirin during the evaluation. While in the emergency department the patient was evaluated by the provider, As per provider: Labs, vital signs, and imagining monitored. Patient will be admitted for further evaluation and treatment. I discussed admission with the patient/family and is in agreement to treatment plan Patient Family History: Hypertension G8 MOTHER Allergies: Coded Allergies: No Known Drug Allergy (Verified Allergy, Unknown, 12/27/23) Home Meds Active Scripts Dicyclomine Hcl (BENTYL CAPSULE) 10 Mg Cp, 2 CAP PO Q6HP PRN, #30 CAP 11 Refills prn abdominal pain Prov:YEHUDA CONTRERAS MD 07/04/24 Gabapentin (Gabapentin) 300 Mg Cap, 1 CAP PO TID PRN, #30 CAP prn sciatic nerve pain Prov:YEHUDA CONTRERAS MD 07/04/24 Pantoprazole Sodium Sesquihydr (Protonix) 40 Mg Tab, 40 MG PO DAILY, #30 TAB Prov:JAVY BOSE HAND BRAILLE TRANSCRIBER 04/03/24 Reported Medications Losartan Potassium & Hydrochlo (Hyzaar) 1 Tab Tab, 1 TAB PO DAILY, #30 TAB 5 Refills 12/27/23 Metformin Hydrochloride (Metformin Hcl) 500 Mg Tab, 1 TAB PO BID, #60 TAB 3 Refills 12/27/23 Nitroglycerin (NTROSTAT SUBLINGUAL) 0.4 Mg Sl 12/27/23 Cholecalciferol (Vitamin D-3 Super Strengt) 2,000 Unit Tab, 1 TAB PO DAILY 12/27/23 Oxcarbazepine (OXTELLAR XR) 300 Mg Tab 12/27/23 Quetiapine Fumerate (QUETIAPINE FUMARATE) 300 Mg Tab, 2 TAB PO 12/27/23 Risperidone (Risperidone) 2 Mg Tab, 1 TAB BID 12/27/23 Fluoxetine Hcl (Fluoxetine Hcl) 40 Mg Cap, 1 TAB DAILY 12/27/23 Discontinued Reported Medications Hydrocodone-Acetaminophen (Hydrocodone Bitartrate/AC 10-325 mg) 1 Tab Tab, 1 TAB PO, TAB 12/27/23 Hydrocodone-Acetaminophen (Hydrocodone Bitartrate/AC 10-325 mg) 1 Tab Tab, 1 TAB PO, TAB 12/27/23 Discontinued Scripts Ibuprofen Micronized (Ibuprofen) 800 Mg Tab, 800 MG PO Q8HP PRN, #30 TAB prn pain, take with food Prov:YEHUDA CONTRERAS MD 07/04/24 Ondansetron Odt 4MG Tab (ZOFRAN PO) 4 Mg Tb, 4 MG PO TID PRN, #30 TAB prn nausea/vomiting ODT TAB-DISSOLVE IN MOUTH, THEN SWALLOW Prov:YEHUDA CONTRERAS MD 07/04/24 Hydrocodone-Acetaminophen (Hydrocodone Bitartrate/AC 5-325 mg) 1 Tab Tab, 1 TAB PO Q6HP PRN, #15 TAB Prov:JOSE QUINTERO PAC 06/14/24 Ibuprofen Micronized (Ibuprofen) 800 Mg Tab, 800 MG PO Q8HP PRN, #20 TAB Prov:JOSE QUINTERO PAC 06/14/24 Ibuprofen (Ibuprofen) 800 Mg Tab, 1 TAB PO TID PRN, #30 TAB 0 Refills Prov:CHARLINE NIEVES 05/13/24 Prednisone (Prednisone) 20 Mg Tab, 20 MG PO BID for 5 Days, #10 TAB 0 Refills Prov:CHARLINE NIEVES 05/13/24 Current Medications Current Medications Medications (Trade) Dose Ordered Sig/Jose J Route PRN Reason Start Time Stop Time Status Last Admin Acetaminophen/ Hydrocodone Bitart (Paron 5/325MG Tab) 1 tab Q4HP PRN PO MODERATE PAIN (4-6 PAIN SCALE) 09/20/24 06:00 09/20/24 12:43 DC Temazepam (Restoril) 15 mg QHSP PRN PO FOR INSOMNIA 09/20/24 06:00 09/20/24 12:43 DC Ondansetron HCl (Zofran) 4 mg Q4HP PRN IV NAUSEA / VOMITING 09/20/24 06:00 09/20/24 12:43 DC 09/20/24 07:17 Docusate Sodium (Colace Capsule) 100 mg BIDPRN PRN PO FOR CONSTIPATION 09/20/24 06:00 09/20/24 12:43 DC Enoxaparin Sodium (Lovenox) 40 mg DAILY SC 09/20/24 10:00 09/20/24 12:43 DC Acetaminophen (Tylenol Tablet) 650 mg Q6HP PRN PO PAIN SCALE 1-3 OR TEMP>100.4 09/20/24 06:00 09/20/24 12:43 DC Morphine Sulfate 2 mg Q4HPRN PRN IV SEVERE PAIN (7-10 PAIN SCALE) 09/20/24 06:00 09/20/24 12:43 DC 09/20/24 07:18 Nitroglycerin (Ntrostat Sublingual) 0.4 mg Q5MINP PRN SL FOR CHEST PAIN 09/20/24 06:00 09/20/24 12:43 DC Morphine Sulfate 2 mg Q30M PRN IV FOR CHEST PAIN 09/20/24 06:00 09/20/24 12:43 DC Review of Systems Constitutional: denies chills, denies fever, denies malaise Eyes: denies eye pain, denies vision change ENT: denies ear pain, denies headache, denies nasal congestion, denies painful swallowing, denies voice change Cardiovascular: denies chest pain, denies edema, denies orthopnea, denies palpitations, denies paroxysmal nocturnal dyspnea Respiratory: denies cough, denies shortness of breath Gastrointestinal: denies constipation, denies diarrhea, denies nausea, denies vomiting Genitourinary: denies dysuria, denies frequent urination, denies urethral discharge Musculoskeletal: denies back pain, denies joint pain, denies muscle pain Skin: denies bruising, denies itching, denies rash Neurological: denies focal weakness, denies headache, denies sensory changes Psychiatric: denies anxiety, denies depression Endocrine: denies polydipsia, denies polyuria Hematologic/Lymphatic: denies easy bleeding, denies easy bruising, denies enlarged lymph nodes Allergic/Immunologic: denies allergy, denies hives Vital Signs Vital Signs Date Time Temp Pulse Resp B/P (MAP) Pulse Ox O2 Delivery O2 Flow Rate FiO2 09/20/24 10:49 97.9 64 19 97 09/20/24 09:26 111/67 (82) 09/20/24 09:26 Room Air* 0 21 Physical Exam General Appearance: alert, no distress HEENT: EOMI, PERRLA, normal external inspect of ears, no icterus, no nasal drainage Neck: no carotid bruit, no jugular venous distention (JVD), no lymphadenopathy Chest: normal thorax Respiratory: clear to auscultation, normal air movement Cardiovascular: regular rate and rhythm, no diastolic murmur, no jugular venous distention (JVD), no rub, no systolic murmur Abdominal: soft, no hepatomegaly, no mass, no splenomegaly, no tenderness Genitourinary: grossly normal external Musculoskeletal: no joint tenderness, no swelling Extremities: normal pulses, no calf tenderness, no clubbing, no cyanosis, no edema Skin: no bruising, no jaundice, no rash Neurological: alert, No focal deficit Results Labs Test 09/20/24 05:14 09/20/24 03:14 09/20/24 02:35 Range/Units Troponin I High Sensitivity < 3 L </=34 ng/L Urine Color Light-yellow Yellow Urine Clarity Clear Clear Urine pH 5.0 5.0-9.0 Urine Specific [place] 1.008 1.001-1.035 Urine Protein Negative Negative Urine Ketones Negative Negative Urine Blood Negative Negative /uL Urine Nitrite Negative Negative Urine Bilirubin Negative Negative Urine Urobilinogen Normal Negative mg/dL Urine Leukocyte Esterase Negative Negative /uL Urine RBC <1 0 - 4 /hpf Urine Microscopic WBC < 1 0-5 /HPF Urine Squamous Epithelial Cells Few <5 /hpf Urine Bacteria None seen None Seen /hpf Urine Glucose Normal Normal mg/dL White Blood Count 9.9 # 4.4-10.8 10^3/uL Red Blood Count 4.29 4.0-5.20 10^6/uL Hemoglobin 13.5 12.2-16.2 g/dL Hematocrit 39.9 36.0-46.0 % Mean Corpuscular Volume 93.0 80.0-100.0 fL Mean Corpuscular Hemoglobin 31.6 28.0-32.0 pg Mean Corpuscular Hemoglobin Concent 33.9 32.0-36.0 g/dL Red Cell Distribution Width 13.1 11.8-14.3 % Platelet Count 324 140-450 10^3/uL Mean Platelet Volume 7.6 6.9-10.8 fL Neutrophils (%) (Auto) 49.2 37.0-80.0 % Lymphocytes (%) (Auto) 43.1 10.0-50.0 % Monocytes (%) (Auto) 4.0 0.0-12.0 % Eosinophils (%) (Auto) 2.1 0.0-7.0 % Basophils (%) (Auto) 1.6 0.0-2.0 % Neutrophils # (Auto) 4.9 1.6-8.6 10 ^3/uL Lymphocytes # (Auto) 4.3 0.4-5.4 10 ^3/uL Monocytes # (Auto) 0.4 0-1.3 10 ^3/uL Eosinophils # (Auto) 0.2 0-0.8 10 ^3/uL Basophils # (Auto) 0.2 0-0.2 10 ^3/uL Nucleated Red Blood Cells 0.1 % Prothrombin Time 9.9 9.3-11.8 sec Prothrombin Time INR 0.93 0.9-1.15 Activated Partial Thromboplast Time 25.1 24.5-34.5 SEC Sodium Level 141 136-145 mmol/L Potassium Level 3.3 L 3.5-5.1 mmol/L Chloride Level 107 98-107 mmol/L Carbon Dioxide Level 28 20-31 mmol/L Anion Gap 6 5-15 Blood Urea Nitrogen 9 9-23 mg/dL Creatinine 0.76 0.550-1.02 mg/dL Glomerular Filtration Rate Calc 93 >90 mL/min BUN/Creatinine Ratio 11.8 10.0-20.0 Serum Glucose 132 H 74-106 mg/dL Calcium Level 10.2 8.7-10.4 mg/dL Total Bilirubin 0.5 0.2-1.0 mg/dL Aspartate Amino Transferase (AST) 12 L 13-40 U/L Alanine Aminotransferase (ALT) 19 7-40 U/L Alkaline Phosphatase 90 46-116 U/L Total Protein 6.9 5.7-8.2 g/dL Albumin 4.4 3.2-4.8 g/dL Plan 1. Atypical chest pain Monitor, cardiology consult, monitor EKG 2. DM 2+ hyperglycemia Monitor, PPI, DVT prophylaxis 3. Benign essential hypertension Monitor, antihypertensives 4. Smoker Monitor 5. COPD Monitor 6. Hypokalemia Monitor, replace electrolytes Plan discussed with: Patient, Other LIDYAJAVYJUDITH Murry NP Sep 20, 2024 05:51
[2024-09-20] MEDS ORDERED: TEMAZEPAM 15 MG CAP PO PRN (06:00)
[2024-09-20] MEDS ORDERED: ACETAMINOPHEN 325 MG TAB PO PRN (06:00)
[2024-09-20] MEDS ORDERED: MORPHINE SULFATE INJ 2 MG/ml SYRG IV PRN (06:00)
[2024-09-20] MEDS ORDERED: NITROGLYCERIN 0.4 MG SL TAB SL PRN (06:00)
[2024-09-20] MEDS ORDERED: DOCUSATE SOD 100 MG CAP PO PRN (06:00)
[2024-09-20] MEDS ORDERED: HYDROcodone-ACET 5/325MG TAB PO PRN (06:00)
[2024-09-20] MEDS: ONDANSETRON HCL 4 MG/2 ML VIAL IV PRN (07:17)
[2024-09-20] MEDS: MORPHINE SULFATE INJ 2 MG/ml SYRG IV PRN (07:18)
[2024-09-20 08:00] VITALS: PULSE 66; RESP 14; O2SAT 97
--- NOTE | 2024-09-20 08:14 | DVHINCON2 ---
Date of service: Sep 20, 2024 History of Present Illness HPI Patient is a 54-year-old female who presented to the hospital with atypical chest discomfort. Cardiology is involved for cardiac aspects of care. Patient is known to our practice from before. Serial troponin has been negative. Does have reproducible chest discomfort by pressing the chest. Home Meds Active Scripts Ibuprofen Micronized (Ibuprofen) 800 Mg Tab, 800 MG PO Q8HP PRN, #30 TAB prn pain, take with food Prov:YEHUDA CONTRERAS MD 07/04/24 Dicyclomine Hcl (BENTYL CAPSULE) 10 Mg Cp, 2 CAP PO Q6HP PRN, #30 CAP 11 Refills prn abdominal pain Prov:YEHUDA CONTRERAS MD 07/04/24 Ondansetron Odt 4MG Tab (ZOFRAN PO) 4 Mg Tb, 4 MG PO TID PRN, #30 TAB prn nausea/vomiting ODT TAB-DISSOLVE IN MOUTH, THEN SWALLOW Prov:YEHUDA CONTRERAS MD 07/04/24 Gabapentin (Gabapentin) 300 Mg Cap, 1 CAP PO TID PRN, #30 CAP prn sciatic nerve pain Prov:YEHUDA CONTRERAS MD 07/04/24 Hydrocodone-Acetaminophen (Hydrocodone Bitartrate/AC 5-325 mg) 1 Tab Tab, 1 TAB PO Q6HP PRN, #15 TAB Prov:JOSE QUINTERO PAC 06/14/24 Ibuprofen Micronized (Ibuprofen) 800 Mg Tab, 800 MG PO Q8HP PRN, #20 TAB Prov:JOSE QUINTERO PAC 06/14/24 Ibuprofen (Ibuprofen) 800 Mg Tab, 1 TAB PO TID PRN, #30 TAB 0 Refills Prov:CHARLINE NIEVES 05/13/24 Prednisone (Prednisone) 20 Mg Tab, 20 MG PO BID for 5 Days, #10 TAB 0 Refills Prov:HCARLINE NIEVES 05/13/24 Pantoprazole Sodium Sesquihydr (Protonix) 40 Mg Tab, 40 MG PO DAILY, #30 TAB Prov:JAVY BOSE NP 04/03/24 Reported Medications Hydrocodone-Acetaminophen (Hydrocodone Bitartrate/AC 10-325 mg) 1 Tab Tab, 1 TAB PO, TAB 12/27/23 Hydrocodone-Acetaminophen (Hydrocodone Bitartrate/AC 10-325 mg) 1 Tab Tab, 1 TAB PO, TAB 12/27/23 Losartan Potassium & Hydrochlo (Hyzaar) 1 Tab Tab, 1 TAB PO DAILY, #30 TAB 5 Refills 12/27/23 Metformin Hydrochloride (Metformin Hcl) 500 Mg Tab, 1 TAB PO BID, #60 TAB 3 Refills 12/27/23 Nitroglycerin (NTROSTAT SUBLINGUAL) 0.4 Mg Sl 12/27/23 Cholecalciferol (Vitamin D-3 Super Strengt) 2,000 Unit Tab, 1 TAB PO DAILY 12/27/23 Oxcarbazepine (OXTELLAR XR) 300 Mg Tab 12/27/23 Quetiapine Fumerate (QUETIAPINE FUMARATE) 300 Mg Tab, 2 TAB PO 12/27/23 Risperidone (Risperidone) 2 Mg Tab, 1 TAB BID 12/27/23 Fluoxetine Hcl (Fluoxetine Hcl) 40 Mg Cap, 1 TAB DAILY 12/27/23 Past Medical History Others Past medical history includes hypertension, diabetes mellitus, COPD/Asthma, obesity, history of sciatica, history of hernia, old history of /tubal ligation and shoulder/knee surgeries. She smokes cigarettes. Brother of VT at age of 45. Father of VT at age of 67. There is question about MARCO A and Arrhythmia at night during sleep. Patient Family History: Hypertension G8 MOTHER Alocohol: None Drugs: None Lives with: With family Review of Systems Constitutional: No symptom reported Ears, Nose, & Throat: No symptom reported Eyes: No symptom reported Cardiovascular: Chest Pain Gastrointestinal: No symptom reported Genitourinary: No symptom reported All Other Systems Fourteen point review of system was performed. Relevant findings as per above and as per HPI. Otherwise negative . H&P Exam Vital Signs Vital Signs Date Time Temp Pulse Resp B/P (MAP) Pulse Ox O2 Delivery O2 Flow Rate FiO2 09/20/24 07:18 82 16 116/64 09/20/24 03:23 98.4 99 98.4 General Appeara: Well developed, Well nourished Head Exam: Normal inspection Neck Exam: Normal inspection Eye Exam: bilateral eye PERRL Nasal Exam: Normal inspection Mouth: Normal Inspection Pulmonary/Respiratory: Lungs clear Cardiovascular/Chest: Normal inspection, Regular rate, Normal Rhythm Peripheral Pulses: 2+ carotid (R), 2+ carotid (L), 2+ femoral (R), 2+ femoral (L), 2+ dorsalis pedis (R), 2+ dorsalis pedis (L), 2+ Radial (R), 2+ Radial (L) Abdominal Exam: Normal bowel sounds, Soft Neuro/Mental St: Alert, Oriented Appearance: Appropriate appearance Eye contact/ Speech: Cooperative Labs/Xrays Labs Test 09/20/24 05:14 09/20/24 03:14 09/20/24 02:35 Range/Units Troponin I High Sensitivity < 3 L </=34 ng/L Urine Color Light-yellow Yellow Urine Clarity Clear Clear Urine pH 5.0 5.0-9.0 Urine Specific [place] 1.008 1.001-1.035 Urine Protein Negative Negative Urine Ketones Negative Negative Urine Blood Negative Negative /uL Urine Nitrite Negative Negative Urine Bilirubin Negative Negative Urine Urobilinogen Normal Negative mg/dL Urine Leukocyte Esterase Negative Negative /uL Urine RBC <1 0 - 4 /hpf Urine Microscopic WBC < 1 0-5 /HPF Urine Squamous Epithelial Cells Few <5 /hpf Urine Bacteria None seen None Seen /hpf Urine Glucose Normal Normal mg/dL White Blood Count 9.9 # 4.4-10.8 10^3/uL Red Blood Count 4.29 4.0-5.20 10^6/uL Hemoglobin 13.5 12.2-16.2 g/dL Hematocrit 39.9 36.0-46.0 % Mean Corpuscular Volume 93.0 80.0-100.0 fL Mean Corpuscular Hemoglobin 31.6 28.0-32.0 pg Mean Corpuscular Hemoglobin Concent 33.9 32.0-36.0 g/dL Red Cell Distribution Width 13.1 11.8-14.3 % Platelet Count 324 140-450 10^3/uL Mean Platelet Volume 7.6 6.9-10.8 fL Neutrophils (%) (Auto) 49.2 37.0-80.0 % Lymphocytes (%) (Auto) 43.1 10.0-50.0 % Monocytes (%) (Auto) 4.0 0.0-12.0 % Eosinophils (%) (Auto) 2.1 0.0-7.0 % Basophils (%) (Auto) 1.6 0.0-2.0 % Neutrophils # (Auto) 4.9 1.6-8.6 10 ^3/uL Lymphocytes # (Auto) 4.3 0.4-5.4 10 ^3/uL Monocytes # (Auto) 0.4 0-1.3 10 ^3/uL Eosinophils # (Auto) 0.2 0-0.8 10 ^3/uL Basophils # (Auto) 0.2 0-0.2 10 ^3/uL Nucleated Red Blood Cells 0.1 % Prothrombin Time 9.9 9.3-11.8 sec Prothrombin Time INR 0.93 0.9-1.15 Activated Partial Thromboplast Time 25.1 24.5-34.5 SEC Sodium Level 141 136-145 mmol/L Potassium Level 3.3 L 3.5-5.1 mmol/L Chloride Level 107 98-107 mmol/L Carbon Dioxide Level 28 20-31 mmol/L Anion Gap 6 5-15 Blood Urea Nitrogen 9 9-23 mg/dL Creatinine 0.76 0.550-1.02 mg/dL Glomerular Filtration Rate Calc 93 >90 mL/min BUN/Creatinine Ratio 11.8 10.0-20.0 Serum Glucose 132 H 74-106 mg/dL Calcium Level 10.2 8.7-10.4 mg/dL Total Bilirubin 0.5 0.2-1.0 mg/dL Aspartate Amino Transferase (AST) 12 L 13-40 U/L Alanine Aminotransferase (ALT) 19 7-40 U/L Alkaline Phosphatase 90 46-116 U/L Total Protein 6.9 5.7-8.2 g/dL Albumin 4.4 3.2-4.8 g/dL Assessment/Plan Plan Patient is a 54-year-old female who presented to the hospital with atypical chest discomfort. Cardiology is involved for cardiac aspects of care. Patient is known to our practice from before. Serial troponin has been negative. Does have reproducible chest discomfort by pressing the chest. female, not in acute distress. Lying comfortably be flattened bed. No JVD. Not using accessory muscles of breathing. There is no goiter. There is no carotid bruit. Mucosa is pink and wet. Lungs are clear to auscultation. Cardiac: Regular, no thrill/gallop/murmur. Mild chest tenderness is elicited. Abdomen is soft and obese. There is no gross mass/hepatomegaly. Bowel sounds is positive. Extremities to not reveal edema. Dorsalis pedis is 2+ bilateral Past medical history includes hypertension, diabetes mellitus, COPD/Asthma, obesity, history of sciatica, history of hernia, old history of /tubal ligation and shoulder/knee surgeries. She smokes cigarettes. Brother of VT at age of 45. Father of VT at age of 67. There is question about MARCO A and Arrhythmia at night during sleep. Echocardiogram performed in the office on December 15, 2023 revealed technically limited study, ejection fraction of 65 to 70%, no wall motion abnormality, trace MR/TR and right ventricular systolic pressure of less than 35 mm Hg. Echocardiogram of 12/27/2023 (performed in [facility]) revealed: LVEF of 60 to 65%, no wall motion abnormality, normal diastolic function, trace MR/TR and RVSP of 28 mmHg. Echocardiogram of April 03, 2024 had reported ejection fraction of 60-65%, normal diastolic, no significant valvular disease and right ventricular systolic pressure of 39 mm Hg Creatinine: 0.76 Potassium: 3.3 Troponin (high sensitive): <3 - <3 - <3 Chest x-ray revealed: IMPRESSION: 1. No acute cardiopulmonary disease. EKG (reviewed by self) revealed: sinus rhythm, No specific ST-T changes, normal EKG Tele reveals sinus rhythm Patient is a 54-year-old female who presented with atypical chest pains. Pains are reproducible by touching the mid sternal area. Serial high sensitive troponin has been negative. EKG has been unrevealing. Acute coronary syndrome is not considered at this point. Atypical chest pain Hypertension Diabetes Obesity COPD/asthma Active cigarette smoker Cardiac situation of management: Manage on telemetry Follow up electrolytes and kidney function test and correct abnormalities Stress test can be arranged as outpatient Long-term monitoring can be arranged as outpatient Sleep study can be arranged as outpatient. Patient was counseled to quit / stop smoking Cardiac quintana, can be followed as outpatient Further evaluation and management depends on the above and clinical course Thank you for consultation A total of 75 minutes was spent reviewing the patient record, examining the p atient, making a diagnostic and therapeutic plan, discussing this plan with medical personnel, following up on diagnostic studies and following the patient for clinical stability excluding any and all procedures. At least 50% of this time was spent in direct, [id number] contact. Thank you for allowing me to participate in this patient's care. Further recommendations will depend on patient's clinical course. Please do not hesitate to contact me if you have any questions or concerns. This medical document was created using electronic medical record system with [employer] computerized dictation system. Although this document has been carefully reviewed, there may still be some phonetic and typographical errors. These areas are purely typographical due to the imperfection of the software programs, and do not reflect any compromise in the patient's medical care. Plan discussed with: Patient, Other (nurse) JOSE FLAHERTY MD Sep 20, 2024 08:14
--- NOTE | 2024-09-20 09:21 | DVHDS2 ---
Discharge Summary Date of Admission Sep 20, 2024 at 05:47 Date of Discharge: Sep 20, 2024 Labs/Diagnostic Data: Laboratory Results Test 09/20/24 05:14 09/20/24 03:14 09/20/24 02:35 Troponin I High Sensitivity < 3 ng/L (</=34) Urine Color Light-yellow (Yellow) Urine Clarity Clear (Clear) Urine pH 5.0 (5.0-9.0) Urine Specific [place] 1.008 (1.001-1.035) Urine Protein Negative (Negative) Urine Ketones Negative (Negative) Urine Blood Negative /uL (Negative) Urine Nitrite Negative (Negative) Urine Bilirubin Negative (Negative) Urine Urobilinogen Normal mg/dL (Negative) Urine Leukocyte Esterase Negative /uL (Negative) Urine RBC <1 /hpf (0 - 4) Urine Microscopic WBC < 1 /HPF (0-5) Urine Squamous Epithelial Cells Few /hpf (<5) Urine Bacteria None seen /hpf (None Seen) Urine Glucose Normal mg/dL (Normal) White Blood Count 9.9 10^3/uL (4.4-10.8) Red Blood Count 4.29 10^6/uL (4.0-5.20) Hemoglobin 13.5 g/dL (12.2-16.2) Hematocrit 39.9 % (36.0-46.0) Mean Corpuscular Volume 93.0 fL (80.0-100.0) Mean Corpuscular Hemoglobin 31.6 pg (28.0-32.0) Mean Corpuscular Hemoglobin Concent 33.9 g/dL (32.0-36.0) Red Cell Distribution Width 13.1 % (11.8-14.3) Platelet Count 324 10^3/uL (140-450) Mean Platelet Volume 7.6 fL (6.9-10.8) Neutrophils (%) (Auto) 49.2 % (37.0-80.0) Lymphocytes (%) (Auto) 43.1 % (10.0-50.0) Monocytes (%) (Auto) 4.0 % (0.0-12.0) Eosinophils (%) (Auto) 2.1 % (0.0-7.0) Basophils (%) (Auto) 1.6 % (0.0-2.0) Neutrophils # (Auto) 4.9 10 ^3/uL (1.6-8.6) Lymphocytes # (Auto) 4.3 10 ^3/uL (0.4-5.4) Monocytes # (Auto) 0.4 10 ^3/uL (0-1.3) Eosinophils # (Auto) 0.2 10 ^3/uL (0-0.8) Basophils # (Auto) 0.2 10 ^3/uL (0-0.2) Nucleated Red Blood Cells 0.1 % Prothrombin Time 9.9 sec (9.3-11.8) Prothrombin Time INR 0.93 (0.9-1.15) Activated Partial Thromboplast Time 25.1 SEC (24.5-34.5) Sodium Level 141 mmol/L (136-145) Potassium Level 3.3 mmol/L (3.5-5.1) Chloride Level 107 mmol/L (98-107) Carbon Dioxide Level 28 mmol/L (20-31) Anion Gap 6 (5-15) Blood Urea Nitrogen 9 mg/dL (9-23) Creatinine 0.76 mg/dL (0.550-1.02) Glomerular Filtration Rate Calc 93 mL/min (>90) BUN/Creatinine Ratio 11.8 (10.0-20.0) Serum Glucose 132 mg/dL (74-106) Calcium Level 10.2 mg/dL (8.7-10.4) Total Bilirubin 0.5 mg/dL (0.2-1.0) Aspartate Amino Transferase (AST) 12 U/L (13-40) Alanine Aminotransferase (ALT) 19 U/L (7-40) Alkaline Phosphatase 90 U/L (46-116) Total Protein 6.9 g/dL (5.7-8.2) Albumin 4.4 g/dL (3.2-4.8) Other Laboratory Tests 09/20/24 02:35 Brief Hx & Hospital Course: Patient is a 54-year-old female with numerous cardiovascular risk such as diabetes, COPD, and hypertension who presents for left-sided chest pain. During the ED observation the patient's pain improved. Patient was administered aspirin during the evaluation. While in the emergency department the patient was evaluated by the provider, As per provider: Labs, vital signs, and imagining monitored. Patient was admitted for atypical chest pain. Patient does have a history of hypertension and diabetes. Patient was seen and evaluated by cardiology. Chest pain was not cardiac in nature most likely GERD. Patient was cleared for discharge by cardiology. They'll follow up with their PCP in one week. They'll continue all their current home medications. There were no complaints or new complaints upon discharge, all questions and concerns were answered. Patient was advised to return to the ER or call 911 if any headaches, dizziness, shortness of breath, chest pain, bleeding, fevers, or worsening of medical condition. Patient/Family was counseled about treatment plan, medications, possible side effects, patientverbalized understanding. All questions were answered to the best of my ability. The patient symptoms improved and they are okay to be DC. Condition at Discharge: Stable Final Diagnosis/Problems List Chest pain-atypical and non cardiac, acs ruled out Discharge Disposition: Home Discharge Instruct/Medications Diet: Consistent carbohydrate, Cardiac 2g Na,low cholest Activity: No Restrictions, As Tolerated Follow Up/Referral: pcp 1 week Discharge Statement: "Patient was advised to return to the ER or call 911 if any headaches, dizziness, shortness of breath, chest pain, abdominal pain, bleeding, fevers, or worsening of medical condition. Patient was counseled about treatment plan, medications, possible side effects, patientverbalized understanding. All questions were answered to the best of my ability. This discharge took greater then 30 minutes in planning, reviewing documentation, counseling the patient, and discussing with other team members." ASSESSMENT ASSESSMENT Assessment Chest pain-atypical and non cardiac, acs ruled out JAVY BOSE NP Sep 20, 2024 09:21
[2024-09-20 09:26] VITALS: BP 111/67; PULSE 64; RESP 19; TEMP 97.9; O2SAT 97
[2024-09-20] MEDS: ENOXAPARIN SOD 40 MG/0.4 ML SYRINGE SC SCH (10:00)
[2024-09-20 10:49] VITALS: BP 111/67; PULSE 64; RESP 19; TEMP 97.9; O2SAT 97
[2024-09-20] MEDS: POTASSIUM EFFERVESENT TAB 25 MEQ PO ONE (11:05)
--- NOTE | 2024-09-21 10:05 | ECG ---
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
== END 2024-09-20 12:21 | disposition home or self-care (01) | DRG 243 ==
LOC: ER 02:28 → OVERFLOW 05:47 → TELE-EAST 08:52
PROVIDERS: ADMIT Nurse Practitioner; ATTEND Nurse Practitioner
DX: K21.9 Gastro-esophageal reflux disease without esophagitis (principal); E11.9 Type 2 diabetes mellitus without complications; I10 Essential (primary) hypertension; J44.89 Other specified chronic obstructive pulmonary disease; F17.210 Nicotine dependence, cigarettes, uncomplicated; E87.6 Hypokalemia; Z79.899 Other long term (current) drug therapy; Z82.49 Family history of ischemic heart disease and other diseases of the circulatory system; Z98.891 History of uterine scar from previous surgery; Z98.51 Tubal ligation status; Z79.84 Long term (current) use of oral hypoglycemic drugs; Z79.1 Long term (current) use of non-steroidal anti-inflammatories (NSAID)
CPT/HCPCS: 36415; 71045; 80053; 81001; 84484; 85025; 85610; 85730; 93005; 96374; 96375; G0378; J2405

== ENCOUNTER 2024-10-27 18:32 | Emergency (ER) | payer MEDICAID ==
[~2024-10-27] VITALS: Ht 160 cm; Wt 87.1 kg
[~2024-10-27 18:32] MED LIST changes: -HYDR-4798 PO; -HYDR-4902 PO; -IBUP-1455 PO; -IBUP-1456 PO; -PRED20TA2 PO; -ZOFR4T PO
[2024-10-27 20:30] LABS: Urine Bacteria None Seen /hpf (None Seen)
[2024-10-27] MEDS: SODIUM CHLORIDE 0.9% 1,000 ML IV ONE (20:30)
--- NOTE | 2024-10-27 20:41 | ED.PDOC ---
GI ASSESSMENT HPI Comments C/C of right sided flank pain x2 hours. Pt denies dysuria, admits to feeling bloated and nausea. Pt states she has had a normal BM in two days. Reports intermittent nausea with the pain does deny diarrhea, vomiting, fever, chills, chest pain, shortness breath or difficulty breathing. No dysuria, burning or frequency or urgency. Chief Complaint: Flank Pain Time Seen by MD: 18:38 Primary Care Provider: MANDI Wei Notes: Nurses Notes, Medications, Allergies Allergies: Coded Allergies: No Known Drug Allergy (Verified Allergy, Unknown, 12/27/23) Home Meds Active Scripts Dicyclomine Hcl (BENTYL CAPSULE) 10 Mg Cp, 2 CAP PO Q6HP PRN, #30 CAP 11 Refills prn abdominal pain Prov:YEHUDA CONTRERAS MD 07/04/24 Gabapentin (Gabapentin) 300 Mg Cap, 1 CAP PO TID PRN, #30 CAP prn sciatic nerve pain Prov:YEHUDA CONTRERAS MD 07/04/24 Pantoprazole Sodium Sesquihydr (Protonix) 40 Mg Tab, 40 MG PO DAILY, #30 TAB Prov:JAVY BOSE REPAIRER SWITCHGEAR 04/03/24 Reported Medications Losartan Potassium & Hydrochlo (Hyzaar) 1 Tab Tab, 1 TAB PO DAILY, #30 TAB 5 Refills 12/27/23 Metformin Hydrochloride (Metformin Hcl) 500 Mg Tab, 1 TAB PO BID, #60 TAB 3 Refills 12/27/23 Nitroglycerin (NTROSTAT SUBLINGUAL) 0.4 Mg Sl 12/27/23 Cholecalciferol (Vitamin D-3 Super Strengt) 2,000 Unit Tab, 1 TAB PO DAILY 12/27/23 Oxcarbazepine (OXTELLAR XR) 300 Mg Tab 12/27/23 Quetiapine Fumerate (QUETIAPINE FUMARATE) 300 Mg Tab, 2 TAB PO 12/27/23 Risperidone (Risperidone) 2 Mg Tab, 1 TAB BID 12/27/23 Fluoxetine Hcl (Fluoxetine Hcl) 40 Mg Cap, 1 TAB DAILY 12/27/23 Information Source: Patient Mode of Arrival: Ambulatory Past Medical History PAST MEDICAL HISTORY: Asthma, COPD, DM, HTN Surgical History: , Pacemaker, Tubal Ligation MINISTER History: No Pertinent MINISTER History Family History Family History: No family hx of Cancer, No family hx of DM, No family hx of HTN, No family hx ofKidney veronica, No family hx of Liver veronica, No family hx of Lung veronica, No family hx of Stroke, Family hx of heart veronica Social History Smoker: Cigarettes, Less Than 1 Pack/Day Alcohol: Denies ETOH Use Drugs: Denies Drug Use Lives In: Home Constitutional: denies: chills, diaphoresis, fatigue, fever, malaise, sweats, weakness, others EENTM: denies: blurred vision, double vision, ear bleeding, ear discharge, ear drainage, ear pain, ear ringing, eye pain, eye redness, hearing loss, mouth pain, mouth swelling, nasal discharge, nose bleeding, nose congestion, nose pain, photophobia, tearing, throat pain, throat swelling, voice changes, others Respiratory: denies: cough, hemoptysis, orthopnea, SOB at rest, shortness of breath, SOB with excertion, stridor, wheezing, others Cardiovascular: denies: chest pain, dizzy spells, diaphoresis, Dyspnea on exertion, edema, irregular heart beat, left arm pain, lightheadedness, palpitations, PND, syncope, others Gastrointestinal: reports: abdomen distended, abdominal pain, nausea; denies: blood streaked bowels, constipated, diarrhea, dysphagia, difficulty swallowing, hematemesis, melena, poor appetite, poor fluid intake, rectal bleeding, rectal pain, vomiting, others Genitourinary: reports: flank pain; denies: abnormal vagina bleeding, burning, dyspareunia, dysuria, frequency, hematuria, incontinence, pain, , vagina discharge, urgency, others Neurological: denies: dizziness, fainting, headache, left sided numbness, left sided weakness, numbness, paresthesia, pre-existing deficit, right sided numbness, right sided weakness, seizure, speech problems, tingling, tremors, weakness, others Musculoskeletal: denies: back pain, gout, joint pain, joint swelling, muscle pain, muscle stiffness, neck pain, others Integumetry: denies: bruises, change in color, change in hair/nails, dryness, laceration, lesions, lumps, rash, wounds, others Allergic/Immunocompromised: denies: Difficulty Healing, Frequent Infections, Hives, Itching, others Hematologic/Lymphatic: denies: anemia, blood clots, easy bleeding, easy bruising, swollen glands, others Endocrine: denies: excessive hunger, excessive sweating, excessive thirst, excessive urination, flushing, intolerance to cold, intolerance to heat, u nexplained weight gain, unexplained weight loss, others Psychiatric: denies: anxiety, bipolar disorder, depression, hopeless, panic disorder, schizophrenia, sleepless, suicidal, others Physical Exam General Appearance: No Apparent Distress, Normal HEENT: Pharynx Normal Neck: Full Range of Motion, Non-Tender Respiratory: Lungs Clear, No Respiratory Distress, Normal Breath Sounds Cardiovascular: No Edema, No JVD, No Murmur, No Gallop, Normal Peripheral Pulses, Regular Rate/Rhythm Breast Exam: Deferred Gastrointestinal: Distended, Guarding, No Organomegaly, No Pulsatile Mass, Normal Bowel Sounds, Soft, Tenderness (Lower mid abdomen and right upper quadrant/flank aspect) Genitalia: Deferred Pelvic: Deferred Rectal: Deferred Extremities: No calf tenderness, Normal capillary refill, Normal inspection, Normal range of motion, Non-tender, No pedal edema Musculoskeletal : Apperance: Normal Neurologic: Alert, manager academic II-XII nml as Tested, No Motor Deficits, Normal Affect, Normal Mood, No Sensory Deficits Cerebellar Function: Normal Reflexes: Normal Skin: Dry, Normal Color, Warm Lymphatic: No Adenopathy Was a procedure done? Was a procedure done?: No GI differential Dx Differential Diagnosis: Bowel Obstruction, Cholangitis, Cholecystitis, Constipation, Pancreatitis, Urinary Obstruction, Urolithiasis X-Ray, Labs, Meds, VS Vital Signs Date Time Temp Pulse Resp B/P (MAP) Pulse Ox O2 Delivery O2 Flow Rate FiO2 10/27/24 22:47 80 22 98 Room Air* 0 21 21 10/27/24 22:30 76 18 116/72 10/27/24 22:30 76 18 116/72 10/27/24 21:10 80 22 110/75 10/27/24 21:00 98.5 80 22 110/75 (87) 98 98.5 10/27/24 19:24 97.2 97 18 142/85 (104) 98 97.2 Lab Test 10/27/24 21:00 10/27/24 20:30 Range/Units White Blood Count 8.3 4.4-10.8 10^3/uL Red Blood Count 4.50 4.0-5.20 10^6/uL Hemoglobin 14.2 12.2-16.2 g/dL Hematocrit 41.5 36.0-46.0 % Mean Corpuscular Volume 92.3 80.0-100.0 fL Mean Corpuscular Hemoglobin 31.6 28.0-32.0 pg Mean Corpuscular Hemoglobin Concent 34.3 32.0-36.0 g/dL Red Cell Distribution Width 13.5 11.8-14.3 % Platelet Count 322 140-450 10^3/uL Mean Platelet Volume 7.7 6.9-10.8 fL Neutrophils (%) (Auto) 43.3 37.0-80.0 % Lymphocytes (%) (Auto) 48.0 10.0-50.0 % Monocytes (%) (Auto) 5.9 0.0-12.0 % Eosinophils (%) (Auto) 1.8 0.0-7.0 % Basophils (%) (Auto) 1.0 0.0-2.0 % Neutrophils # (Auto) 3.6 1.6-8.6 10 ^3/uL Lymphocytes # (Auto) 4.0 0.4-5.4 10 ^3/uL Monocytes # (Auto) 0.5 0-1.3 10 ^3/uL Eosinophils # (Auto) 0.1 0-0.8 10 ^3/uL Basophils # (Auto) 0.1 0-0.2 10 ^3/uL Nucleated Red Blood Cells 0.1 % Sodium Level 142 136-145 mmol/L Potassium Level 3.7 3.5-5.1 mmol/L Chloride Level 108 H 98-107 mmol/L Carbon Dioxide Level 29 20-31 mmol/L Anion Gap 5 5-15 Blood Urea Nitrogen 8 L 9-23 mg/dL Creatinine 0.79 0.550-1.02 mg/dL Glomerular Filtration Rate Calc 89 >90 mL/min BUN/Creatinine Ratio 10.1 10.0-20.0 Serum Glucose 91 74-106 mg/dL Calcium Level 10.4 8.7-10.4 mg/dL Total Bilirubin 0.5 0.2-1.0 mg/dL Aspartate Amino Transferase (AST) 17 13-40 U/L Alanine Aminotransferase (ALT) 16 7-40 U/L Alkaline Phosphatase 84 46-116 U/L Total Protein 7.2 5.7-8.2 g/dL Albumin 4.5 3.2-4.8 g/dL Lipase 65 H 12-53 U/L Urine Color Light-yellow Yellow Urine Clarity Clear Clear Urine pH 5.5 5.0-9.0 Urine Specific [place] 1.014 1.001-1.035 Urine Protein Negative Negative Urine Ketones Negative Negative Urine Blood Negative Negative /uL Urine Nitrite Negative Negative Urine Bilirubin Negative Negative Urine Urobilinogen Normal Negative mg/dL Urine Leukocyte Esterase Negative Negative /uL Urine RBC 1 0 - 4 /hpf Urine Microscopic WBC 1 0-5 /HPF Urine Squamous Epithelial Cells Few <5 /hpf Urine Bacteria None seen None Seen /hpf Urine Glucose Normal Normal mg/dL Current Medications Medications (Trade) Dose Ordered Sig/Jose J Route Start Time Stop Time Status Last Admin Sodium Chloride 1,000 ml @ 250 mls/hr Q4H ONCE IV 10/27/24 20:15 10/28/24 00:14 10/27/24 20:30 Ketorolac Tromethamine (Toradol Injection) 30 mg ONCE ONCE IV 10/27/24 20:15 10/27/24 20:16 DC 10/27/24 21:10 Ondansetron HCl (Zofran) 4 mg ONCE ONCE IV 10/27/24 20:15 10/27/24 20:16 DC 10/27/24 21:10 Morphine Sulfate 1 mg ONCE ONCE IV 10/27/24 21:00 10/27/24 21:01 DC 10/27/24 21:10 Methylprednisolone Sodium Succinate (Solu Medrol) 125 mg ONCE ONCE IV 10/27/24 22:00 10/27/24 22:01 DC 10/27/24 22:29 Morphine Sulfate 2 mg ONCE ONCE IV 10/27/24 22:00 10/27/24 22:01 DC 10/27/24 22:30 X-Ray, Labs, Meds, VS Comment CT abdomen and pelvis Musculoskeletal: No bony lesions or fracture. Multilevel thoracolumbar spondylosis with evidence of uzsvymyv-[id number] spinal canal stenosis at L5-S1 and from T8-T9 to T10-T11. IMPRESSION: No acute abdominal or pelvic findings. Likely secondary to patient's chronic low back pain she states 2 months ago she received an epidural for the pain her lower back. History of moderate to severe spinal canal stenosis at L5-S1 and also at T8, through T11. Patient was given morphine a total of 3 mg IV, Solu-Medrol 125 mg IV push and Toradol 30 mg IV push. Does state improvement in her pain is requesting discharge at this time. Lab work CBC, CMP as well as the UA were within normal limits. Her lipase slight increase a 60, negative on CT scan. Advised patient to follow up with her PCP in 2 days we discussed ER return precautions patient indicates understanding and agrees with discharge plan of care. Time of 1ST Reevaluation: 19:20 Reevaluation 1ST: Unchanged Time of 2ND Reevaluation: 23:11 Reevaluation 2ND: Improved Patient Education/Counseling: Diagnosis, Treatment, Prognosis, Need For Follow Up Family Education/Counseling: No Family Present Departure 1 Departure Time of Disposition: 23:11 Impression: Primary Impression: Central stenosis of spinal canal Additional Impression: Abdominal pain Qualified Codes: R10.84 - Generalized abdominal pain Disposition: 01 HOME / SELF CARE / HOMELESS Condition: Stable Discharged With: Self Critical Care Note Critical Care Time?: No Stability Stability form required: KATELYNN Yeh October 27, 2024 20:41
[2024-10-27 20:46] LABS: Urine Blood Negative /uL (Negative); Urine Clarity Clear (Clear); Urine Color Light-Yellow (Yellow); Urine Protein, UAD Negative (Negative); Urine Specific Gravity 1.014 (1.001-1.035); Urine Squamous Epithelial Cell FEW /hpf (<5); Urine Urobilinogen Normal (Negative); Urine WBC 1 /HPF (0-5); Urine pH 5.5 (5.0-9.0)
[2024-10-27 21:00] VITALS: TEMP 98.5
[2024-10-27] MEDS: KETOROLAC TROMETH 30 MG/ML 1ML VIAL IV ONE (21:10)
[2024-10-27] MEDS: ONDANSETRON HCL 4 MG/2 ML VIAL IV ONE (21:10)
[2024-10-27] MEDS: MORPHINE SULFATE INJ 2 MG/ml SYRG IV ONE ×2 (21:10→22:30)
[2024-10-27 21:29] LABS: Basophils # (auto) 0.1 10 ^3/uL (0-0.2); Eosinophils # (auto) 0.1 10 ^3/uL (0-0.8); Eosinophils % (auto) 1.8 % (0.0-7.0); Hematocrit 41.5 % (36.0-46.0); Hemoglobin 14.2 g/dL (12.2-16.2); Mean Corpuscular Hemoglobin 31.6 pg (28.0-32.0); Mean Corpuscular Hgb Conc. 34.3 g/dL (32.0-36.0); Mean Corpuscular Volume 92.3 fL (80.0-100.0); Monocytes # (auto) 0.5 10 ^3/uL (0-1.3); Monocytes % (auto) 5.9 % (0.0-12.0); Neutrophils # (auto) 3.6 10 ^3/uL (1.6-8.6); Neutrophils % (auto) 43.3 % (37.0-80.0); Nucleated Red Blood Cells % 0.1 %; Platelet Count (auto) 322 10^3/uL (140-450); Red Cell Distribution Width 13.5 % (11.8-14.3); White Blood Cell 8.3 10^3/uL (4.4-10.8)
[2024-10-27 21:41] LABS: Alanine Aminotransferase 16 U/L (7-40); Albumin 4.5 g/dL (3.2-4.8); Alkaline Phosphatase 84 U/L (46-116); Anion Gap 5 (5-15); Aspartate Aminotransferase 17 U/L (13-40); BUN/Creatinine Ratio 10.1 (10.0-20.0); Bilirubin, Total 0.5 mg/dL (0.2-1.0); Carbon Dioxide 29 mmol/L (20-31); Glucose 91 mg/dL (74-106); Potassium 3.7 mmol/L (3.5-5.1); Sodium 142 mmol/L (136-145); Total Protein 7.2 g/dL (5.7-8.2)
[2024-10-27 21:42] LABS: Blood Urea Nitrogen 8 mg/dL (9-23); Calcium 10.4 mg/dL (8.7-10.4); Chloride 108 mmol/L (98-107)
--- NOTE | 2024-10-27 21:46 | DVH ---
Exam: CT CT AB PEL WO CON-NO ORAL OR IV History: RIGHT FLANK PAIN Comparison Study: CT CT AB PEL WO CON-NO ORAL OR IV on DOS: 07/04/24, CT CT AB PEL WO CON-NO ORAL OR I V on DOS: 06/14/24 Technique: Multidetector spiral CT of the abdomen was performed from lung bases to pubic symphysis. Imaging was performed without IV contrast. Axial, coronal and sagittal multiplanar reformats were ob tained from the axial data set by the technologist. Radiation Dose : 1. Abdomen/Pelvis: CTDIvol mGy, DLP mGy*cm. Findings: Evaluation of solid organs is limited due to lack of intravenous contrast use. Lung Bases: No abnormality demonstrated. Liver: Liver is normal in size. No focal lesions noted. Gallbladder and Biliary Tree: No abnormality demonstrated. Spleen: No abnormality demonstrated. Pancreas: No abnormality demonstrated. Adrenal Glands: No abnormality demonstrated. Kidneys: No abnormality demonstrated. Bladder: Grossly unremarkable for degree of distention. Bowel: Stomach appears grossly unremarkable. No abnormally dilated loops of large or small bowel note d. Appendix is not visualized; however, no secondary findings of acute appendicitis identified. Ascites: Absent Lymphadenopathy: No evidence of lymphadenopathy. Abdominal Wall and Mesentery: Unremarkable. Vasculature: Unremarkable given lack of intravenous contrast. Pelvic Organs: Unremarkable Musculoskeletal: No bony lesions or fracture. Multilevel thoracolumbar spondylosis with evidence of m [id number]-[id number] spinal canal stenosis at L5-S1 and from T8-T9 to T10-T11. IMPRESSION: No acute abdominal or pelvic findings. Radiation optimization: All CT scans at this facility use at least one of these dose optimization marilynn hniques: automated exposure control mA and/or kV adjustment per patient size (includes targeted exam s where dose is matched to clinical indication) or iterative reconstruction.
[2024-10-27] MEDS: methylPREDNISolone SOD SUCC 125 MG/2 ML VL IV ONE (22:29)
[2024-10-27 22:47] VITALS: PULSE 80; RESP 22; O2SAT 98
[2024-10-27 23:43] VITALS: BP 124/79; PULSE 104; RESP 16; O2SAT 100
== END 2024-10-27 23:46 | disposition home or self-care (01) ==
LOC: ER 18:32
DX: M48.00 Spinal stenosis, site unspecified (principal); R10.84 Generalized abdominal pain; I10 Essential (primary) hypertension; J44.89 Other specified chronic obstructive pulmonary disease; E11.9 Type 2 diabetes mellitus without complications; F17.210 Nicotine dependence, cigarettes, uncomplicated; Z79.84 Long term (current) use of oral hypoglycemic drugs; Z79.899 Other long term (current) drug therapy; Z95.0 Presence of cardiac pacemaker; Z98.51 Tubal ligation status
CPT/HCPCS: 36415; 74176; 80053; 81001; 83690; 85025; 96361; 96374; 96375; 96376; 99285; J1885; J2270; J2405; J2919; J7030

== ENCOUNTER 2024-11-14 00:25 | Emergency (ER) | payer MEDICAID ==
[~2024-11-14] VITALS: Ht 160 cm; Wt 86.9 kg
[2024-11-14 01:06] VITALS: BP 121/85; PULSE 94; RESP 16; TEMP 97.3; O2SAT 98
[2024-11-14] MEDS: ONDANSETRON ODT 4 MG TAB PO ONE (01:30)
[2024-11-14] MEDS: HYDROcodone-ACET 5/325MG TAB PO ONE (01:30)
--- NOTE | 2024-11-14 01:57 | ED.PDOC ---
Musculoskeletal HPI Comments 54 year old female presents to ER with complaints of left ankle pain x 3 days. Patient states she had left ankle surgery with pin placement in 2022 and x 3 days has been experiencing pain/swelling to left lateral ankle. She rates her current pain a 8/10 to left lateral ankle with radiation towards left foot and notes she has been taking [place] 10/325 mg for her pain with some relief. Patient presents to ER ambulatory, favoring right leg on ambulation and reports she does have chronic numbness/tingling to left leg from "sciatica". Denies any recent trauma/falls, calf pain, fever or any further symptoms/complaints Chief Complaint: Lower Extremity Time Seen by MD: 00:44 Primary Care Provider: MANDI Wei Notes: Nurses Notes, Medications, Allergies Allergies: Coded Allergies: No Known Drug Allergy (Verified Allergy, Unknown, 12/27/23) Home Meds Active Scripts Dicyclomine Hcl (BENTYL CAPSULE) 10 Mg Cp, 2 CAP PO Q6HP PRN, #30 CAP 11 Refills prn abdominal pain Prov:YEHUDA CONTRERAS MD 07/04/24 Gabapentin (Gabapentin) 300 Mg Cap, 1 CAP PO TID PRN, #30 CAP prn sciatic nerve pain Prov:YEHUDA CONTRERAS MD 07/04/24 Pantoprazole Sodium Sesquihydr (Protonix) 40 Mg Tab, 40 MG PO DAILY, #30 TAB Prov:JAYV BOSE SOLE PAINTER 04/03/24 Reported Medications Losartan Potassium & Hydrochlo (Hyzaar) 1 Tab Tab, 1 TAB PO DAILY, #30 TAB 5 Refills 12/27/23 Metformin Hydrochloride (Metformin Hcl) 500 Mg Tab, 1 TAB PO BID, #60 TAB 3 Refills 12/27/23 Nitroglycerin (NTROSTAT SUBLINGUAL) 0.4 Mg Sl 12/27/23 Cholecalciferol (Vitamin D-3 Super Strengt) 2,000 Unit Tab, 1 TAB PO DAILY 12/27/23 Oxcarbazepine (OXTELLAR XR) 300 Mg Tab 12/27/23 Quetiapine Fumerate (QUETIAPINE FUMARATE) 300 Mg Tab, 2 TAB PO 12/27/23 Risperidone (Risperidone) 2 Mg Tab, 1 TAB BID 12/27/23 Fluoxetine Hcl (Fluoxetine Hcl) 40 Mg Cap, 1 TAB DAILY 12/27/23 Information Source: Patient Mode of Arrival: Ambulatory Past Medical History PAST MEDICAL HISTORY: Asthma, COPD, DM, HTN Past Medical History (Other): Chronic back pain/sciatica Surgical History: , Pacemaker, Tubal Ligation Surgical History (Other): Left ankle surgery with pin placement - 2022 STITCHING MACHINE FEEDER OR OFFBEARER History: No Pertinent STITCHING MACHINE FEEDER OR OFFBEARER History Family History Family History: No family hx of Cancer, No family hx of DM, No family hx of HTN, No family hx ofKidney veronica, No family hx of Liver veronica, No family hx of Lung veronica, No family hx of Stroke, Family hx of heart veronica Social History Smoker: Cigarettes, Less Than 1 Pack/Day Alcohol: Denies ETOH Use Drugs: Denies Drug Use Lives In: Home Constitutional: denies: chills, diaphoresis, fatigue, fever, malaise, sweats, weakness, others EENTM: denies: blurred vision, double vision, ear bleeding, ear discharge, ear drainage, ear pain, ear ringing, eye pain, eye redness, hearing loss, mouth pain, mouth swelling, nasal discharge, nose bleeding, nose congestion, nose pain, photophobia, tearing, throat pain, throat swelling, voice changes, others Respiratory: denies: cough, hemoptysis, orthopnea, SOB at rest, shortness of breath, SOB with excertion, stridor, wheezing, others Cardiovascular: denies: chest pain, dizzy spells, diaphoresis, Dyspnea on exertion, edema, irregular heart beat, left arm pain, lightheadedness, palpitations, PND, syncope, others Gastrointestinal: denies: abdomen distended, abdominal pain, blood streaked bowels, constipated, diarrhea, dysphagia, difficulty swallowing, hematemesis, melena, nausea, poor appetite, poor fluid intake, rectal bleeding, rectal pain, vomiting, others Genitourinary: denies: abnormal vagina bleeding, burning, dyspareunia, dysuria, flank pain, frequency, hematuria, incontinence, pain, , vagina discharge, urgency, others Neurological: denies: dizziness, fainting, headache, left sided numbness, left sided weakness, numbness, paresthesia, pre-existing deficit, right sided numbness, right sided weakness, seizure, speech problems, tingling, tremors, weakness, others Musculoskeletal: reports: others (As stated in HPI) Integumetry: reports: others (As stated in HPI) Allergic/Immunocompromised: denies: Difficulty Healing, Frequent Infections, Hives, Itching, others Hematologic/Lymphatic: denies: anemia, blood clots, easy bleeding, easy bruising, swollen glands, others Endocrine: denies: excessive hunger, excessive sweating, excessive thirst, excessive urination, flushing, intolerance to cold, intolerance to heat, unexplained weight gain, unexplained weight loss, others Psychiatric: denies: anxiety, bipolar disorder, depression, hopeless, panic disorder, schizophrenia, sleepless, suicidal, others Physical Exam General Appearance: Mild Distress (Due to left ankle pain) HEENT: PERRL/EOMI Neck: Full Range of Motion, Non-Tender, Normal Respiratory: Chest Non-Tender, Lungs Clear, No Accessory Muscle Use, No Respiratory Distress, Normal Breath Sounds Cardiovascular: No Murmur, No Gallop, Regular Rate/Rhythm Breast Exam: Deferred Gastrointestinal: NOT DONE Genitalia: Deferred Pelvic: Deferred Rectal: Deferred Extremities: No calf tenderness, Normal capillary refill, Normal range of motion Musculoskeletal : Extremity Location: Ankle (TTP/mild swelling noted to left lateral malleolus, no other TTP to left ankle noted. Scars noted to left ankle from previous left ankle surgery. No erythema/further skin changes noted. No TTP to left foot noted. Patient favors right leg on ambulation due to pain localized to left lateral malleolus) Neurologic: Alert, learning support services director II-XII nml as Tested, No Motor Deficits, No Sensory Deficits Cerebellar Function: Normal Reflexes: Normal Skin: Dry, Normal Color, Warm Peripheral Pulses: 2+ femoral (R), 2+ femoral (L), 2+ dorsalis pedis (R), 2+ dorsalis pedis (L), 2+ Radial (R), 2+ Radial (L), 2+ Brachial (R), 2+ Brachial (L) Lymphatic: No Adenopathy Was a procedure done? Was a procedure done?: No Sedation Sedation?: No Differential Diagnosis EXT Differential Diagnosis: Cellulitis, Deep Vein Thrombosis, Fracture, Dislocation, Neurovascular injury X-Ray, Labs, Meds, VS Vital Signs Date Time Temp Pulse Resp B/P (MAP) Pulse Ox O2 Delivery O2 Flow Rate FiO2 11/14/24 01:06 98 Room Air* 0 21 11/14/24 01:06 97.3 94 16 121/85 (97) 98 97.3 11/14/24 00:40 97.3 94 16 121/85 (97) 98 97.3 Current Medications Medications (Trade) Dose Ordered Sig/Jose J Route Start Time Stop Time Status Last Admin Acetaminophen/ Hydrocodone Bitart ([place] 5/325MG Tab) 1 tab ONCE ONCE PO 11/14/24 01:30 11/14/24 01:31 DC 11/14/24 01:30 Ondansetron HCl (Zofran Po) 4 mg ONCE ONCE PO 11/14/24 01:30 11/14/24 01:31 DC 11/14/24 01:30 PATIENT: EDUAR HERRERACCT: [id number]: [id number] : 1970 LOC: ER ROOM / BED: / AGE / SEX: 54 / F ADM STATUS: REG ER SERVICE 8 ORDERING PHYSICIAN: CHARLINE NIEVES PROCEDURE(s): LANKL - L ANKLE 3 VIEW REASON: left ankle pain ORDER NUMBER(s): [id number], ACCESSION NUMBER(s): [id number] CLINICAL INDICATION: left ankle pain TECHNIQUE: XY L ANKLE 3 VIEW Comparison: None FINDINGS/IMPRESSION: : There is no evidence of acute fracture or dislocation. Well corticated osseous density projects inferior to the medial malleolus which may be sequelae of remote trauma. Soft tissue swelling overlies the lateral malleolus. Hardware are anchors in the distal fibula and in the talus. ATED BY: FANI HANNA MD DICTATED DATE/TIME: 11/14/24223 SIGNED BY: FANI HANNA MD SIGNED DATE/TIME: 11/14/24223 CC: Left ankle x-ray reviewed [place] 5/325 mg p.o. ordered Zofran 4 mg p.o. ordered Patient neurovascularly intact and reported improvement in symptoms prior to discharge Advised on rest/no strenuous activity, elevation and alternate ice on/off as needed for pain/swelling Edward wrap applied Crutches ordered - patient refused Advised to continue [place] as currently prescribed p.r.n. pain Advised to follow up with PCP and orthopedics in 1-2 days Patient verbalized understanding and agreeable with current plan of care Advised to return to ER immediately if symptoms worsen Images Reviewed?: Images reviewed and evaluated by me Time of 1ST Reevaluation: 01:32 Reevaluation 1ST: N/A Patient Education/Counseling: Diagnosis, Treatment, Prognosis, Need For Follow Up Family Education/Counseling: No Family Present Departure 1 Departure Time of Disposition: 02:30 Impression: Primary Impression: Left ankle sprain Qualified Codes: S93.402A - Sprain of unspecified ligament of left ankle, initial encounter Disposition: 01 HOME / SELF CARE / HOMELESS Condition: Stable Discharged With: Friend Critical Care Note Critical Care Time?: No Stability Stability form required: No Heart Score Heart Score: Heart Score Response (Comments) Value History N/A 0 EKG N/A 0 Age N/A 0 Risk Factors N/A 0 Troponin N/A 0 Total 0 CHARLINE NIEVES November 14, 2024 01:57
--- NOTE | 2024-11-14 02:26 | DVH ---
CLINICAL INDICATION: left ankle pain TECHNIQUE: XY L ANKLE 3 VIEW Comparison: None FINDINGS/IMPRESSION: : There is no evidence of acute fracture or dislocation. Well corticated osseous density projects inferior to the medial malleolus which may be sequelae of re mote trauma. Soft tissue swelling overlies the lateral malleolus. Hardware are anchors in the distal fibula and in the talus.
== END 2024-11-14 02:40 | disposition home or self-care (01) ==
LOC: ER 00:30
DX: S93.402A Sprain of unspecified ligament of left ankle, initial encounter (principal); J44.9 Chronic obstructive pulmonary disease, unspecified; I10 Essential (primary) hypertension; E11.9 Type 2 diabetes mellitus without complications; F17.210 Nicotine dependence, cigarettes, uncomplicated; Z98.51 Tubal ligation status; Z95.0 Presence of cardiac pacemaker; Z98.890 Other specified postprocedural states; Z79.84 Long term (current) use of oral hypoglycemic drugs; Z79.899 Other long term (current) drug therapy; X58.XXXA Exposure to other specified factors, initial encounter; Y93.89 Activity, other specified; Y92.89 Other specified places as the place of occurrence of the external cause; Y99.8 Other external cause status
CPT/HCPCS: 73610; 99283; Q0162

== ENCOUNTER 2024-11-25 19:14 | Inpatient (IN) | payer MEDICAID ==
[~2024-11-25] VITALS: Ht 161.3 cm; Wt 88.0 kg
[2024-11-25 19:38] LABS: Basophils # (auto) 0.1 10 ^3/uL (0-0.2); Eosinophils # (auto) 0.1 10 ^3/uL (0-0.8); Eosinophils % (auto) 1.7 % (0.0-7.0); Hematocrit 40.3 % (36.0-46.0); Lymphocytes # (auto) 3.4 10 ^3/uL (0.4-5.4); Lymphocytes % (auto) 46.6 % (10.0-50.0); Mean Corpuscular Hemoglobin 31.6 pg (28.0-32.0); Mean Corpuscular Hgb Conc. 34.7 g/dL (32.0-36.0); Mean Corpuscular Volume 90.9 fL (80.0-100.0); Monocytes # (auto) 0.4 10 ^3/uL (0-1.3); Monocytes % (auto) 4.8 % (0.0-12.0); Neutrophils # (auto) 3.4 10 ^3/uL (1.6-8.6); Neutrophils % (auto) 45.9 % (37.0-80.0); Nucleated Red Blood Cells % 0.1 %; Platelet Count (auto) 334 10^3/uL (140-450); Red Blood Cells 4.44 10^6/uL (4.0-5.20); Red Cell Distribution Width 13.6 % (11.8-14.3); White Blood Cell 7.4 10^3/uL (4.4-10.8)
[2024-11-25 19:55] VITALS: PULSE 72; RESP 17; O2SAT 93
--- NOTE | 2024-11-25 19:57 | DVH ---
CHEST RADIOGRAPH Indication: Chest pain Technique: Single frontal view of the chest was obtained Comparison: XY CHEST PORTABLE on DOS: 09/20/24, XY CHEST PORTABLE on DOS: 03/19/24, XY CHEST PORTABLE on DOS: 02/16/24 FINDINGS: Lines and Tubes: None Lungs: No focal consolidation. Pleura: No effusion. No pneumothorax. Cardiomediastinal contours: Unremarkable Bones: No acute osseous abnormality. IMPRESSION: 1. No acute cardiopulmonary disease. HS:Y
[2024-11-25] MEDS: NITROGLYCERIN 0.4 MG SL TAB SL ONE (20:00)
[2024-11-25 20:01] LABS: Alanine Aminotransferase 10 U/L (7-40); Albumin 4.6 g/dL (3.2-4.8); Alkaline Phosphatase 82 U/L (46-116); Anion Gap 9 (5-15); BUN/Creatinine Ratio 12.2 (10.0-20.0); Bilirubin, Total 0.5 mg/dL (0.2-1.0); Blood Urea Nitrogen 10 mg/dL (9-23); Carbon Dioxide 29 mmol/L (20-31); Chloride 105 mmol/L (98-107); Glucose 106 mg/dL (74-106); Potassium 4.2 mmol/L (3.5-5.1); Sodium 143 mmol/L (136-145)
[2024-11-25 20:02] LABS: Aspartate Aminotransferase 10 U/L (13-40); Calcium 10.7 mg/dL (8.7-10.4)
[2024-11-25 20:33] LABS: Lipase 77 U/L (12-53)
[2024-11-25 20:34] LABS: Urine Bacteria FEW /hpf (None Seen); Urine Blood Negative /uL (Negative); Urine Clarity Clear (Clear); Urine Color Light-Yellow (Yellow); Urine Protein, UAD Negative (Negative); Urine Specific Gravity 1.012 (1.001-1.035); Urine Squamous Epithelial Cell FEW /hpf (<5); Urine Urobilinogen Normal (Negative); Urine WBC 1 /HPF (0-5); Urine pH 5.5 (5.0-9.0)
[2024-11-25 20:42] LABS: Opiate Scree,Urine Neg (NEGATIVE)
[2024-11-25 20:44] LABS: Amphetamine Screen, Urine Neg (NEGATIVE); Barbiturate Scree,Urine Neg (NEGATIVE); Benzodiazephine Screen, Urine Neg (NEGATIVE); Cannabinoid Screen, Urine Neg (NEGATIVE); Cocaine Screen, Urine Neg (NEGATIVE); Phencyclidine Screen, Urine Neg (NEGATIVE)
--- NOTE | 2024-11-25 20:53 | ED.PDOC ---
HPI Comments 54 y.o female with PMHx of HTN, COPD, and anxiety, presents to the ED for a chief complaint of left sided chest pain associated with nausea and a headache that started 45 minutes prior to arrival. Patient reports symptoms presented at rest, have been constant and have no alleviating factors. Patient states the pain moves towards her back. Patient mentions awaiting a stress test and echocardiogram with product inspection supervisor. No other symptoms or pain reported. Vital signs were stable at arrival. Chief Complaint: Chest Pain Time Seen by MD: 20:45 Primary Care Provider: MANDI Reviewed Notes: Nurses Notes, Medications, Allergies Allergies: Coded Allergies: No Known Drug Allergy (Verified Allergy, Unknown, 12/27/23) Home Meds Active Scripts Dicyclomine Hcl (BENTYL CAPSULE) 10 Mg Cp, 2 CAP PO Q6HP PRN, #30 CAP 11 Refills prn abdominal pain Prov:YEHUDA CONTRERAS MD 07/04/24 Gabapentin (Gabapentin) 300 Mg Cap, 1 CAP PO TID PRN, #30 CAP prn sciatic nerve pain Prov:YEHUDA CONTRERAS MD 07/04/24 Pantoprazole Sodium Sesquihydr (Protonix) 40 Mg Tab, 40 MG PO DAILY, #30 TAB Prov:JAVY BOSE NP 04/03/24 Reported Medications Losartan Potassium & Hydrochlo (Hyzaar) 1 Tab Tab, 1 TAB PO DAILY, #30 TAB 5 Refills 12/27/23 Metformin Hydrochloride (Metformin Hcl) 500 Mg Tab, 1 TAB PO BID, #60 TAB 3 Refills 12/27/23 Nitroglycerin (NTROSTAT SUBLINGUAL) 0.4 Mg Sl 12/27/23 Cholecalciferol (Vitamin D-3 Super Strengt) 2,000 Unit Tab, 1 TAB PO DAILY 12/27/23 Oxcarbazepine (OXTELLAR XR) 300 Mg Tab 12/27/23 Quetiapine Fumerate (QUETIAPINE FUMARATE) 300 Mg Tab, 2 TAB PO 12/27/23 Risperidone (Risperidone) 2 Mg Tab, 1 TAB BID 12/27/23 Fluoxetine Hcl (Fluoxetine Hcl) 40 Mg Cap, 1 TAB DAILY 12/27/23 Information Source: Patient Mode of Arrival: Ambulatory Severity: Moderate Timing: Minutes Duration: Since onset Location: Chest (L) Radiation: No Radiation Quality: Sharp Onset: At Rest Cardiac Risk Factors: HTN PE Risk Factors: None History of: Similar pain in past Modifying Factors: Nothing Associated Signs and Symptoms: N/V Past Medical History PAST MEDICAL HISTORY: Asthma, COPD, DM, HTN Surgical History: , Pacemaker, Tubal Ligation LAN SUPPORT SPECIALIST History: No Pertinent LAN SUPPORT SPECIALIST History Family History Family History: No family hx of Cancer, No family hx of DM, No family hx of HTN, No family hx ofKidney veronica, No family hx of Liver veronica, No family hx of Lung veronica, No family hx of Stroke, Family hx of heart veronica Social History Smoker: Cigarettes, Less Than 1 Pack/Day Alcohol: Denies ETOH Use Drugs: Denies Drug Use Lives In: Home Constitutional: denies: chills, diaphoresis, fatigue, fever, malaise, sweats, weakness, others EENTM: denies: blurred vision, double vision, ear bleeding, ear discharge, ear drainage, ear pain, ear ringing, eye pain, eye redness, hearing loss, mouth pain, mouth swelling, nasal discharge, nose bleeding, nose congestion, nose pain, photophobia, tearing, throat pain, throat swelling, voice changes, others Respiratory: denies: cough, hemoptysis, orthopnea, SOB at rest, shortness of breath, SOB with excertion, stridor, wheezing, others Cardiovascular: reports: chest pain; denies: dizzy spells, diaphoresis, Dyspnea on exertion, edema, irregular heart beat, left arm pain, lightheadedness, palp itations, PND, syncope, others Gastrointestinal: reports: nausea; denies: abdomen distended, abdominal pain, blood streaked bowels, constipated, diarrhea, dysphagia, difficulty swallowing, hematemesis, melena, poor appetite, poor fluid intake, rectal bleeding, rectal pain, vomiting, others Genitourinary: denies: abnormal vagina bleeding, burning, dyspareunia, dysuria, flank pain, frequency, hematuria, incontinence, pain, , vagina disch arge, urgency, others Neurological: reports: headache; denies: dizziness, fainting, left sided numbness, left sided weakness, numbness, paresthesia, pre-existing deficit, right sided numbness, right sided weakness, seizure, speech problems, tingling, tremors, weakness, others Musculoskeletal: denies: back pain, gout, joint pain, joint swelling, muscle pain, muscle stiffness, neck pain, others Integumetry: denies: bruises, change in color, change in hair/nails, dryness, laceration, lesions, lumps, rash, wounds, others Allergic/Immunocompromised: denies: Difficulty Healing, Frequent Infections, Hives, Itching, others Hematologic/Lymphatic: denies: anemia, blood clots, easy bleeding, easy bruising, swollen glands, others Endocrine: denies: excessive hunger, excessive sweating, excessive thirst, excessive urination, flushing, intolerance to cold, intolerance to heat, unexplained weight gain, unexplained weight loss, others Psychiatric: denies: anxiety, bipolar disorder, depression, hopeless, panic disorder, schizophrenia, sleepless, suicidal, others All Other Systems: Reviewed and Negative Physical Exam General Appearance: Moderate Distress (Patient presents in moderate distress due to chest and radiating pain concerns.), Obese HEENT: Normal ENT Inspection, Pharynx Normal, TMs Normal Neck: Full Range of Motion, Non-Tender, Normal, Normal Inspection Respiratory: Chest Non-Tender, Lungs Clear, No Accessory Muscle Use, No Respiratory Distress, Normal Breath Sounds, Other (Unremarkable auscultation bilateral lung tomlin.) Cardiovascular: No Edema, No JVD, No Murmur, No Gallop, Normal Peripheral Pulses, Regular Rate/Rhythm, Other (Unremarkable cardiac evaluation.) Breast Exam: Deferred Gastrointestinal: Other (Diffuse epigastric tenderness to palpation bilaterally extending towards the back. No pulsatile masses. Difficult to assess due to body habitus.) Genitalia: Deferred Pelvic: Deferred Rectal: Deferred Extremities: No calf tenderness, Normal capillary refill, Normal inspection, Normal range of motion, Non-tender, No pedal edema Neurologic: Alert, No Motor Deficits, Normal Affect, Normal Mood, No Sensory Deficits Cerebellar Function: Normal Reflexes: Normal Skin: Dry, Normal Color, Warm Lymphatic: No Adenopathy Was a procedure done? Was a procedure done?: No CP Differential Dx Differential Diagnosis: A-fib, AV Block 1st Degree, CT, N/A Differential Diagnosis: Angina, Chest Wall Pain, Cholelithiasis, Costochondritis, Myocardial Infarction, Pericarditis, Other (Sepsis, electrolyte abnormality, pancreatitis) X-Ray, Labs, Meds, VS Vital Signs Date Time Temp Pulse Resp B/P (MAP) Pulse Ox O2 Delivery O2 Flow Rate FiO2 6/8/25 21:42 97.9 70 18 126/74 (91) 98 97.9 11/25/24 21:08 107/74 11/25/24 20:00 105/75 11/25/24 19:55 98.2 72 17 105/75 (85) 93 98.2 11/25/24 19:55 72 17 93 Room Air* 0 21 11/25/24 19:15 98.4 80 24 119/73 (88) 97 98.4 Lab Test 11/25/24 20:30 11/25/24 19:30 Range/Units Troponin I High Sensitivity < 3 L < 3 L </=34 ng/L White Blood Count 7.4 4.4-10.8 10^3/uL Red Blood Count 4.44 4.0-5.20 10^6/uL Hemoglobin 14.0 12.2-16.2 g/dL Hematocrit 40.3 36.0-46.0 % Mean Corpuscular Volume 90.9 80.0-100.0 fL Mean Corpuscular Hemoglobin 31.6 28.0-32.0 pg Mean Corpuscular Hemoglobin Concent 34.7 32.0-36.0 g/dL Red Cell Distribution Width 13.6 11.8-14.3 % Platelet Count 334 140-450 10^3/uL Mean Platelet Volume 7.9 6.9-10.8 fL Neutrophils (%) (Auto) 45.9 37.0-80.0 % Lymphocytes (%) (Auto) 46.6 10.0-50.0 % Monocytes (%) (Auto) 4.8 0.0-12.0 % Eosinophils (%) (Auto) 1.7 0.0-7.0 % Basophils (%) (Auto) 1.0 0.0-2.0 % Neutrophils # (Auto) 3.4 1.6-8.6 10 ^3/uL Lymphocytes # (Auto) 3.4 0.4-5.4 10 ^3/uL Monocytes # (Auto) 0.4 0-1.3 10 ^3/uL Eosinophils # (Auto) 0.1 0-0.8 10 ^3/uL Basophils # (Auto) 0.1 0-0.2 10 ^3/uL Nucleated Red Blood Cells 0.1 % Urine Color Light-yellow Yellow Urine Clarity Clear Clear Urine pH 5.5 5.0-9.0 Urine Specific [place] 1.012 1.001-1.035 Urine Protein Negative Negative Urine Ketones Negative Negative Urine Blood Negative Negative /uL Urine Nitrite Negative Negative Urine Bilirubin Negative Negative Urine Urobilinogen Normal Negative mg/dL Urine Leukocyte Esterase Negative Negative /uL Urine RBC <1 0 - 4 /hpf Urine Microscopic WBC 1 0-5 /HPF Urine Squamous Epithelial Cells Few <5 /hpf Urine Bacteria Few H None Seen /hpf Urine Glucose Normal Normal mg/dL Sodium Level 143 136-145 mmol/L Potassium Level 4.2 3.5-5.1 mmol/L Chloride Level 105 98-107 mmol/L Carbon Dioxide Level 29 20-31 mmol/L Anion Gap 9 5-15 Blood Urea Nitrogen 10 9-23 mg/dL Creatinine 0.82 0.550-1.02 mg/dL Glomerular Filtration Rate Calc 85 >90 mL/min BUN/Creatinine Ratio 12.2 10.0-20.0 Serum Glucose 106 74-106 mg/dL Calcium Level 10.7 H 8.7-10.4 mg/dL Total Bilirubin 0.5 0.2-1.0 mg/dL Aspartate Amino Transferase (AST) 10 L 13-40 U/L Alanine Aminotransferase (ALT) 10 7-40 U/L Alkaline Phosphatase 82 46-116 U/L Total Protein 7.0 5.7-8.2 g/dL Albumin 4.6 3.2-4.8 g/dL Lipase 77 H 12-53 U/L Urine Opiates Screen Neg NEGATIVE Urine Fentanyl Screen Neg NEGATIVE Urine Barbiturates Screen Neg NEGATIVE Urine Phencyclidine Screen Neg NEGATIVE Urine Amphetamines Screen Neg NEGATIVE Urine Benzodiazepines Screen Neg NEGATIVE Urine Cocaine Screen Neg NEGATIVE Urine Cannabinoids Screen Neg NEGATIVE Current Medications Medications (Trade) Dose Ordered Sig/Jose J Route Start Time Stop Time Status Last Admin Nitroglycerin (Ntrostat Sublingual) 0.4 mg ONCE ONCE SL 11/25/24 19:30 11/25/24 19:31 DC 11/25/24 20:00 X-Ray, Labs, Meds, VS Comment All studies performed the ED were evaluated by me personally. Patient's laboratories were remarkable for an elevated lipase indicative of a pancreatitis event. Cardiac markers were unremarkable and EKG revealed a sinus rhythm with a rate of 88. Low voltage in precordial leads noted. AK interval 165 and QT interval of 356. Patient had moderate response to medication dispensed. Due to the elevated lipase, patient will be admitted for pain management and continued evaluation. Additional imaging studies will be ordered by hospitalist as mandated by our facility. Dr. Lemus's group contacted the facility and stated they will take over patient care in the a.m.. Patient will be managed by our hospitalist overnight. Time of 1ST Reevaluation: 21:23 Reevaluation 1ST: Improved Consultation: PCP Patient Education/Counseling: Diagnosis, Treatment, Prognosis Family Education/Counseling: Diagnosis, Treatment, No Family Present Departure 1 Departure Time of Disposition: 21:23 Impression: Primary Impression: Pancreatitis Additional Impression: Chest pain Disposition: ADMITTED INPATIENT Condition: Fair Discharged With: Self Critical Care Note Critical Care Time?: No Stability Stability form required: No Heart Score Heart Score: Heart Score Response (Comments) Value History Slightly Suspicious 0 EKG Normal 0 Age 45-64 1 Risk Factors >3 or Hx ASHD 2 Troponin Normal limit 0 Total 3 I personally scribed for JOSE QUINTERO PAC ([email or web address]) on 11/25/24 at 20:53. Electronically submitted by Irina Duran ([facility]). JOSE QUINTERO PAC Nov 25, 2024 20:53
[2024-11-26] VITALS (8 sets, daily range): BP systolic 107–133; BP diastolic 73–85; PULSE 58–72; RESP 16–20; TEMP 97.2–97.8; O2SAT 96–100
[2024-11-26] MEDS ORDERED: NITROGLYCERIN 0.4 MG SL TAB SL PRN
--- NOTE | 2024-11-26 00:28 | DVHHP2 ---
History of Present Illness Reason for Visit: Chest pain History of Present Illness 64-year-old female presents for evaluation of chest pain. Patient reports a one day history of left-sided sharp nonradiating chest pain with associated nausea. Currently denies shortness for breath. Patient reports awaiting a stress test. Past Medical History Hypertension, diabetes mellitus, COPD Past Surgical History Tubal ligation, pacemaker, Family History Noncontributory Smoke: <1 pack per day ALCOHOL: none Drugs: None Lives: with Family Review of Systems Review of Systems Review of systems are currently negative otherwise addressed in HPI. Allergies: Coded Allergies: No Known Drug Allergy (Verified Allergy, Unknown, 12/27/23) Medications Current Medications Medications Dose Ordered Sig/Jose J Route Start Time Stop Time Status Last Admin Dose Admin Nitroglycerin 0.4 mg Q5MINP PRN SL 11/26/24 00:00 Morphine Sulfate 2 mg Q30M PRN IV 11/26/24 00:15 Exam Vital Signs Vital Signs Date Time Temp Pulse Resp B/P (MAP) Pulse Ox O2 Delivery O2 Flow Rate FiO2 11/25/24 23:50 97.6 78 16 116/75 (89) 97 97.6 11/25/24 19:55 Room Air* 0 21 Exam Gen: 57-year-old female in no apparent distress Skin: Warm, dry, normal color and texture, no rash. HEENT: Normocephalic atraumatic, mucous membranes moist and pink. Neck: Cervical and supraclavicular nodes normal without enlargement, trachea is midline, thyroid gland is normal without masses. Pulmonary: Clear to auscultation and percussion bilaterally. Cardiac: Regular rate and rhythm. No murmur Abdomen: Soft, nontender, nondistended, bowel sounds present all 4 quadrants, no guarding, no rigidity, no organomegaly. Extremities: No cyanosis, clubbing, no edema Neuro: Cranial nerves II through XII grossly intact, normal affect and speech, no focal motor deficits. Labs/Xrays ORDERING PHYSICIAN: JAVY BOSE NP PROCEDURE(s): ECIDC - ECHO 2D MODE CARDIAC DOP REASON: eval ORDER NUMBER(s): [id number], ACCESSION NUMBER(s): [id number] APPROVED REPORT EXAM: Two-dimensional and M-mode echocardiogram with Doppler and color Doppler. Blood Pressure: 109/58 mmHg INDICATION Eval RISK FACTORS Height: 63, Weight: 193 DIMENSIONS LVDd 4.1 (3.8-5.7cm) LA (2D) 3.3 (1.9-4.0cm) Aortic Root 2.8 (2.0- 3.7cm) LVDs 2.8 (2.5-4.0cm) LA (MM) (1.9-4.0cm) Aortic Cusp Exc 1.7 (1.5- 2.0cm) EF (%) 60.0 (55-70%) Rt. Atrium 3.7 (1.9-4.0cm) Asc. Aorta cm IVSd 1.0 (0.7-1.1cm) RV (D) (1.8-2.4cm) PWd 1.1 (0.7-1.1cm) Mitral Valve Mitral Mitral Stenosis E wave 0.98m/s MV Mean GR. mmHg A wave 0.78m/s MV Peak GR. mmHg E/A ratio 1.3 2D MVA cm2 DECEL Time 270ms PRESS 1/2 Time 71ms IVRT ms Dop MVA 3.10cm2 Aortic Valve Aortic Valve Aortic Stenosis V1 1.26m/s AO Mean GR. 5mmHg V2 1.53m/s AO Peak GR. 9mmHg LVOT Diameter 1.8 (1.8-2.4cm) Doppler KELSY 2.09cm2 Pulmonic Valve V2 0.94m/s Tricuspid Valve TR Velocity 2.46m/s RVSP 38mmHg Conclusion Left ventricle: Mild concentric left ventricular hypertrophy was seen. LVEF was 60-65%. Diastolic function was considered normal for age. There was no wall motion abnormality. Right ventricle was normal size with normal systolic function. Both atria were normal size. Aortic valve: There was no aortic insufficiency/stenosis. There was mild mitral/tricuspid regurgitation. Pulmonary valve was not well visualized. Right ventricular systolic pressure was assessed at 39 mm Hg. There was no pericardial effusion. ORDERING PHYSICIAN: JOSE QUINTERO PAC PROCEDURE(s): CXRP - CHEST PORTABLE REASON: Chest pain ORDER NUMBER(s): [id number], ACCESSION NUMBER(s): [id number] CHEST RADIOGRAPH Indication: Chest pain Technique: Single frontal view of the chest was obtained Comparison: XY CHEST PORTABLE on DOS: 09/20/24, XY CHEST PORTABLE on DOS: 03/19/24, XY CHEST PORTABLE on DOS: 02/16/24 FINDINGS: Lines and Tubes: None Lungs: No focal consolidation. Pleura: No effusion. No pneumothorax. Cardiomediastinal contours: Unremarkable Bones: No acute osseous abnormality. IMPRESSION: 1. No acute cardiopulmonary disease. HS:Y ATED BY: LENIN GOLDEN Jr. DO Labs Test 11/25/24 20:30 11/25/24 19:30 Range/Units Troponin I High Sensitivity < 3 L </=34 ng/L White Blood Count 7.4 4.4-10.8 10^3/uL Red Blood Count 4.44 4.0-5.20 10^6/uL Hemoglobin 14.0 12.2-16.2 g/dL Hematocrit 40.3 36.0-46.0 % Mean Corpuscular Volume 90.9 80.0-100.0 fL Mean Corpuscular Hemoglobin 31.6 28.0-32.0 pg Mean Corpuscular Hemoglobin Concent 34.7 32.0-36.0 g/dL Red Cell Distribution Width 13.6 11.8-14.3 % Platelet Count 334 140-450 10^3/uL Mean Platelet Volume 7.9 6.9-10.8 fL Neutrophils (%) (Auto) 45.9 37.0-80.0 % Lymphocytes (%) (Auto) 46.6 10.0-50.0 % Monocytes (%) (Auto) 4.8 0.0-12.0 % Eosinophils (%) (Auto) 1.7 0.0-7.0 % Basophils (%) (Auto) 1.0 0.0-2.0 % Neutrophils # (Auto) 3.4 1.6-8.6 10 ^3/uL Lymphocytes # (Auto) 3.4 0.4-5.4 10 ^3/uL Monocytes # (Auto) 0.4 0-1.3 10 ^3/uL Eosinophils # (Auto) 0.1 0-0.8 10 ^3/uL Basophils # (Auto) 0.1 0-0.2 10 ^3/uL Nucleated Red Blood Cells 0.1 % Urine Color Light-yellow Yellow Urine Clarity Clear Clear Urine pH 5.5 5.0-9.0 Urine Specific [place] 1.012 1.001-1.035 Urine Protein Negative Negative Urine Ketones Negative Negative Urine Blood Negative Negative /uL Urine Nitrite Negative Negative Urine Bilirubin Negative Negative Urine Urobilinogen Normal Negative mg/dL Urine Leukocyte Esterase Negative Negative /uL Urine RBC <1 0 - 4 /hpf Urine Microscopic WBC 1 0-5 /HPF Urine Squamous Epithelial Cells Few <5 /hpf Urine Bacteria Few H None Seen /hpf Urine Glucose Normal Normal mg/dL Sodium Level 143 136-145 mmol/L Potassium Level 4.2 3.5-5.1 mmol/L Chloride Level 105 98-107 mmol/L Carbon Dioxide Level 29 20-31 mmol/L Anion Gap 9 5-15 Blood Urea Nitrogen 10 9-23 mg/dL Creatinine 0.82 0.550-1.02 mg/dL Glomerular Filtration Rate Calc 85 >90 mL/min BUN/Creatinine Ratio 12.2 10.0-20.0 Serum Glucose 106 74-106 mg/dL Calcium Level 10.7 H 8.7-10.4 mg/dL Total Bilirubin 0.5 0.2-1.0 mg/dL Aspartate Amino Transferase (AST) 10 L 13-40 U/L Alanine Aminotransferase (ALT) 10 7-40 U/L Alkaline Phosphatase 82 46-116 U/L Total Protein 7.0 5.7-8.2 g/dL Albumin 4.6 3.2-4.8 g/dL Lipase 77 H 12-53 U/L Urine Opiates Screen Neg NEGATIVE Urine Fentanyl Screen Neg NEGATIVE Urine Barbiturates Screen Neg NEGATIVE Urine Phencyclidine Screen Neg NEGATIVE Urine Amphetamines Screen Neg NEGATIVE Urine Benzodiazepines Screen Neg NEGATIVE Urine Cocaine Screen Neg NEGATIVE Urine Cannabinoids Screen Neg NEGATIVE Assessment/Plan Assessment/Plan Assessment Chest pain Diabetes mellitus Hypertension Active smoker Plan Admit the patient to telemetry to the hospitalist Cardiology consultation Resume home medications Continue treatment per orders Plan discussed with: Patient My Orders Orders - GARRETT BONILLA AGACNP Procedure Category Date Status Time Admit ADMIT 11/25/24 Transmitted 23:58 Nitroglycerin PHA 11/26/24 In Process Sublingual (Ntrostat 00:00 Stat Ekg For Chest MEI 11/25/24 In Process Pain 23:58 Notify Md Of Changes [facility] 11/25/24 In Process From Base 23:58 Makeup Artist For [facility] 11/25/24 In Process 24 Hours 23:58 Emergency Dysrhythmia [facility] 11/25/24 In Process Protocol 23:58 Rhythm Strips Once [facility] 11/25/24 In Process Every Shift 23:58 Oxygen By Nasal RT 11/25/24 Transmitted Cannula 23:58 Morphine Sulfate PHA 11/26/24 In Process Injection 00:15 Date of Service: Nov 25, 2024 Billing Provider: GARRETT BONILLA Common Visit Codes: [id number] INP/OBS CARE (HIGH) GARRETT BONILLA Nov 26, 2024 00:28
[2024-11-26 01:32] LABS: LDL Cholesterol 93 mg/dL (< 100)
[2024-11-26 01:33] LABS: HDL Cholesterol 53 mg/dL (40-59)
[2024-11-26 01:34] LABS: Cholesterol 163 mg/dL (< 200)
[2024-11-26] MEDS: MORPHINE SULFATE 4 MG/ML SYR/VIAL IV PRN (01:41)
[2024-11-26 01:46] LABS: Triglycerides 171 mg/dL (< 150)
[2024-11-26] MEDS ORDERED: HYDR-4072 PO (03:24)
[2024-11-26] MEDS ORDERED: LOSA100T33 PO (03:24)
[2024-11-26] MEDS ORDERED: SEMA7TAB2 PO (03:24)
[2024-11-26] MEDS ORDERED: TIZA-142 PO (03:27)
--- NOTE | 2024-11-26 04:58 | ECG ---
[facility] Test Date: 2024-11-25 Test Time: 19:20:47 Pat Name: EDUAR HERRERA Department: ER Room: 0215T A Gender: F Radius Grinder: LUCIEN : 1970 Requested By: JOSE QUINTERO Order Number: [id number] Reading MD: Jorge Perry Measurements Intervals [place] Rate: 88 P: 49 VA: 165 QRS: 79 QRSD: 100 T: 31 QT: 356 QTc: 431 Interpretive Statements Sinus rhythm Low voltage, precordial leads Electronically Signed On 11-28-2024 20:55:59 PDT by Jorge Perry Please click the below link to view image of tracing.
--- NOTE | 2024-11-26 09:39 | DVHINCON2 ---
Date of service: Nov 26, 2024 History of Present Illness HPI Patient is a 54-year-old female who presented to the hospital for abdominal pain/headache/nausea/chest pain. She mentions that she presented few days back for abdominal pain and was discharged. She mentions right abdominal pain with lower abdominal pain. Has had diarrhea in the past few days. Did have some headache accompanied with nausea also. Chest pain has been atypical to the left side. Cardiology is involved for cardiac aspects of care. She comes to our practice from outside. Has not been compliant with followups as outpatient. Home Meds Active Scripts Gabapentin (Gabapentin) 300 Mg Cap, 1 CAP PO TID PRN, #30 CAP prn sciatic nerve pain Prov:YEHUDA CONTRERAS MD 07/04/24 Reported Medications Tizanidine Hydrochloride (Tizanidine Hcl) 4 Mg Tab, 1 TAB PO TID 11/26/24 Losartan Potassium & Hydrochlo (Losartan Potassium/Hydroc) 1 Tab Tab, 1 TAB PO DAILY, TAB 100-25mg tab 11/26/24 Semaglutide (Rybelsus) 7 Mg Tab, PO QAM 11/26/24 Hydrocodone-Acetaminophen (Hydrocodone/Acetaminophen 10-325 mg) 1 Tab Tab, 1 TAB PO Q6HP PRN for PAIN SCALE 7 THRU 10 11/26/24 Cholecalciferol (Vitamin D-3 Super Strengt) 2,000 Unit Tab, 1 TAB PO DAILY 12/27/23 Risperidone (Risperidone) 2 Mg Tab, 1 TAB BID 12/27/23 Past Medical History Others Patient is a 54-year-old female who presented to the hospital for abdominal pain/headache/nausea/chest pain. She mentions that she presented few days back for abdominal pain and was discharged. She mentions right abdominal pain with lower abdominal pain. Has had diarrhea in the past few days. Did have some headache accompanied with nausea also. Chest pain has been atypical to the left side. Cardiology is involved for cardiac aspects of care. She comes to our practice from outside. Has not been compliant with followups as outpatient. Patient Family History: Chronic obstructive pulmonary disease G8 MOTHER FH: CHF (congestive heart failure) G8 MOTHER Hypertension G8 MOTHER Smoker: Positive Alocohol: None Review of Systems Constitutional: No symptom reported Ears, Nose, & Throat: No symptom reported Pulmonary/Respiratory: Pleuritic Chest Pain Gastrointestinal: Nausea, Abdominal Pain, Diarrhea All Other Systems 14 point review of system was performed. Relevant findings as per above and as per HPI. Otherwise negative. H&P Exam Vital Signs Vital Signs Date Time Temp Pulse Resp B/P (MAP) Pulse Ox O2 Delivery O2 Flow Rate FiO2 11/26/24 07:56 67 18 118/85 11/26/24 05:00 97.8 100 97.8 11/26/24 03:30 Room Air* 0 21 General Appeara: Well developed Head Exam: Normal inspection Neck Exam: Normal inspection Eye Exam: bilateral eye PERRL Pulmonary/Respiratory: Normal inspection Cardiovascular/Chest: Normal inspection, Regular rate, Systolic murmur Peripheral Pulses: 2+ carotid (R), 2+ carotid (L), 2+ femoral (R), 2+ femoral (L), 2+ dorsalis pedis (R), 2+ dorsalis pedis (L), 2+ Radial (R), 2+ Radial (L) Abdominal Exam: Normal bowel sounds, Other (Right flank and lower abdominal tenderness is positive. No rebound tenderness.) Neuro/Mental St: Alert, Oriented Appearance: Appropriate appearance Eye contact/ Speech: Cooperative Labs/Xrays Labs Test 11/25/24 20:30 11/25/24 19:30 Range/Units Troponin I High Sensitivity < 3 L </=34 ng/L Triglycerides Level 171 H < 150 mg/dL Cholesterol Level 163 < 200 mg/dL LDL Cholesterol 93 < 100 mg/dL HDL Cholesterol 53 40-59 mg/dL Thyroid Stimulating Hormone (TSH) 0.63 0.55-4.78 uIU/mL White Blood Count 7.4 4.4-10.8 10^3/uL Red Blood Count 4.44 4.0-5.20 10^6/uL Hemoglobin 14.0 12.2-16.2 g/dL Hematocrit 40.3 36.0-46.0 % Mean Corpuscular Volume 90.9 80.0-100.0 fL Mean Corpuscular Hemoglobin 31.6 28.0-32.0 pg Mean Corpuscular Hemoglobin Concent 34.7 32.0-36.0 g/dL Red Cell Distribution Width 13.6 11.8-14.3 % Platelet Count 334 140-450 10^3/uL Mean Platelet Volume 7.9 6.9-10.8 fL Neutrophils (%) (Auto) 45.9 37.0-80.0 % Lymphocytes (%) (Auto) 46.6 10.0-50.0 % Monocytes (%) (Auto) 4.8 0.0-12.0 % Eosinophils (%) (Auto) 1.7 0.0-7.0 % Basophils (%) (Auto) 1.0 0.0-2.0 % Neutrophils # (Auto) 3.4 1.6-8.6 10 ^3/uL Lymphocytes # (Auto) 3.4 0.4-5.4 10 ^3/uL Monocytes # (Auto) 0.4 0-1.3 10 ^3/uL Eosinophils # (Auto) 0.1 0-0.8 10 ^3/uL Basophils # (Auto) 0.1 0-0.2 10 ^3/uL Nucleated Red Blood Cells 0.1 % Urine Color Light-yellow Yellow Urine Clarity Clear Clear Urine pH 5.5 5.0-9.0 Urine Specific [place] 1.012 1.001-1.035 Urine Protein Negative Negative Urine Ketones Negative Negative Urine Blood Negative Negative /uL Urine Nitrite Negative Negative Urine Bilirubin Negative Negative Urine Urobilinogen Normal Negative mg/dL Urine Leukocyte Esterase Negative Negative /uL Urine RBC <1 0 - 4 /hpf Urine Microscopic WBC 1 0-5 /HPF Urine Squamous Epithelial Cells Few <5 /hpf Urine Bacteria Few H None Seen /hpf Urine Glucose Normal Normal mg/dL Sodium Level 143 136-145 mmol/L Potassium Level 4.2 3.5-5.1 mmol/L Chloride Level 105 98-107 mmol/L Carbon Dioxide Level 29 20-31 mmol/L Anion Gap 9 5-15 Blood Urea Nitrogen 10 9-23 mg/dL Creatinine 0.82 0.550-1.02 mg/dL Glomerular Filtration Rate Calc 85 >90 mL/min BUN/Creatinine Ratio 12.2 10.0-20.0 Serum Glucose 106 74-106 mg/dL Calcium Level 10.7 H 8.7-10.4 mg/dL Total Bilirubin 0.5 0.2-1.0 mg/dL Aspartate Amino Transferase (AST) 10 L 13-40 U/L Alanine Aminotransferase (ALT) 10 7-40 U/L Alkaline Phosphatase 82 46-116 U/L Total Protein 7.0 5.7-8.2 g/dL Albumin 4.6 3.2-4.8 g/dL Lipase 77 H 12-53 U/L Urine Opiates Screen Neg NEGATIVE Urine Fentanyl Screen Neg NEGATIVE Urine Barbiturates Screen Neg NEGATIVE Urine Phencyclidine Screen Neg NEGATIVE Urine Amphetamines Screen Neg NEGATIVE Urine Benzodiazepines Screen Neg NEGATIVE Urine Cocaine Screen Neg NEGATIVE Urine Cannabinoids Screen Neg NEGATIVE Assessment/Plan Plan Patient is a 54-year-old female who presented to the hospital for abdominal pain/headache/nausea/chest pain. She mentions that she presented few days back for abdominal pain and was discharged. She mentions right abdominal pain with lower abdominal pain. Has had diarrhea in the past few days. Did have some headache accompanied with nausea also. Chest pain has been atypical to the left side. Cardiology is involved for cardiac aspects of care. She comes to our practice from outside. Has not been compliant with followups as outpatient. Not in acute distress. Not using accessory muscles of breathing. Mucosa is pink and wet. No carotid bruit. Lungs are clear to auscultation. Cardiac: Regular, no thrill/gallop. There is tenderness to the left side. Abdomen is soft. Complains of tenderness in the right flank and lower abdomen. Bowel sound is positive. No gross mass. Extremities do not reveal edema. Dorsalis pedis is 2+ bilateral. Past medical history includes hypertension, diabetes mellitus, COPD/Asthma, obesity, anxiety disorder, history of sciatica, history of hernia, old history of /tubal ligation and shoulder/knee surgeries. She smokes cigarettes. Brother of GA at age of 45. Father of GA at age of 67. There is question about MARCO A and Arrhythmia at night during sleep. Echocardiogram performed in the office on December 15, 2023 revealed technically limited study, ejection fraction of 65 to 70%, no wall motion abnormality, trace MR/TR and right ventricular systolic pressure of less than 35 mm Hg. Echocardiogram of 12/27/2023 (performed in [facility]) revealed: LVEF of 60 to 65%, no wall motion abnormality, normal diastolic function, trace MR/TR and RVSP of 28 mmHg. Echocardiogram of April 03, 2024 reported mild concentric left ventricular hypertrophy, ejection fraction of 60-65%, normal diastolic, mild MR/TR and right ventricular systolic pressure of 39 mm Hg Creatinine: 0.82 Potassium: 4.2 Lipase: 77 TSH: 0.63 Troponin (high sensitive): <3 - <3 Urine toxicology was nonrevealing Chest x-ray reported: IMPRESSION: 1. No acute cardiopulmonary disease. No EKG available to review Tele reveals sinus rhythm Patient is a 54-year-old female who presented with abdominal pain/chest pain/headache/nausea and occasions of diarrhea. Chest pain has been atypical. Serial high sensitive troponin has been negative. Acute coronary syndrome is not considered at this point. It is of note that the patient has presented to the office after missing many visits recently and as outpatient there has been a plan for elective nuclear stress test. Recognizing the presentation, ischemic workup/nuclear stress test can be performed as outpatient. Abdominal pain Abnormal amylase Pancreatitis? Anxiety disorder Obesity Diabetes mellitus Cardiac suggestion for management: Manage on telemetry Follow-up electrolytes and kidney function tests and correct abnormalities Keep potassium above 4 and magnesium above 2 Request for repeat Echocardiogram EKG Consider imaging of the abdomen (CT of the abdomen with contrast) GI evaluation is suggested Ischemic workup/nuclear stress test can be performed as outpatient Lifestyle and risk factor modifications. Patient was counseled to stop/quit smoking Further evaluation and management depends on the above and clinical course Thank you for consultation A total of 75 minutes was spent reviewing the patient record, examining the patient, making a diagnostic and therapeutic plan, discussing this plan with medical personnel, following up on diagnostic studies and following the patient for clinical stability excluding any and all procedures. At least 50% of this time was spent in direct, [id number] contact. Thank you for allowing me to participate in this patient's care. Further recommendations will depend on patient's clinical course. Please do not hesitate to contact me if you have any questions or concerns. This medical document was created using electronic medical record system with [employer] computerized dictation system. Although this document has been carefully reviewed, there may still be some phonetic and typographical errors. These areas are purely typographical due to the imperfection of the software programs, and do not reflect any compromise in the patient's medical care. Plan discussed with: Patient, Other (Nurse) JOSE FLAHERTY MD Nov 26, 2024 09:39
[2024-11-26] MEDS: ASPirin 81 mg TAB PO SCH (09:40)
[2024-11-26] MEDS: LOSARTAN POTASSIUM 50 MG TAB PO SCH (09:40)
[2024-11-26] MEDS: OXcarbazepine 300 MG TAB PO SCH (09:41)
[2024-11-26] MEDS: hydroCHLOROthiazide 25 MG TAB PO SCH (09:41)
[2024-11-26] MEDS: ENOXAPARIN SOD 40 MG/0.4 ML SYRINGE SC ONE (11:33)
--- NOTE | 2024-11-26 12:16 | DVHPN2 ---
Subjective Continues to report having right upper quadrant and intermittent right lower quadrant pain. Reviewed: Care Plan, H&P, Labs Changes from previous H/P or p: No Changes General: Per HPI Objective Vitals Vital Signs Date Time Temp Pulse Resp B/P (MAP) Pulse Ox O2 Delivery O2 Flow Rate FiO2 11/26/24 10:00 115/71 11/26/24 09:00 97.2 67 20 98 97.2 11/26/24 08:00 Room Air* 0 21 Intake/Output Intake and Output 11/26/24 07:00 Intake Total 0 ml Output Total 0 ml Balance 0 ml Intake Oral 0 ml Output Urine Total 0 ml General Appearance: Alert, Oriented X3, Cooperative, mild distress HEENT: Atraumatic, PERRLA Lungs: Clear to auscultation, Normal air movement Cardiovascular: Normal S1, Normal S2 Musculoskeletal: Normal sensory function, Normal motor function Neuro: Normal gait, Normal speech Skin: Dry, Intact Psych/Mental Status: Mental status NL, Mood NL Medications Current Medications Medications Dose Ordered Sig/Jose J Route Start Time Stop Time Status Last Admin Dose Admin Nitroglycerin 0.4 mg Q5MINP PRN SL 11/26/24 00:00 Morphine Sulfate 2 mg Q30M PRN IV 11/26/24 00:15 11/26/24 07:56 2 MG Losartan Potassium 100 mg DAILY PO 11/26/24 10:00 Hydrochlorothiazide 25 mg DAILY PO 11/26/24 10:00 Oxcarbazepine 300 mg Q12HR PO 11/26/24 10:00 Aspirin 81 mg DAILY PO 11/26/24 10:00 Enoxaparin Sodium 40 mg DAILY SC 11/27/24 10:00 Laboratory Results Laboratory Tests 11/25/24 19:30 Chemistry Test 11/25/24 19:30 Albumin 4.6 g/dL (3.2-4.8) Calcium Level 10.7 mg/dL (8.7-10.4) H Total Protein 7.0 g/dL (5.7-8.2) Coagulation Test 11/26/24 10:20 D-Dimer, Quantitative 0.49 mg/L FEU (0.0-0.49) Lipid panel Test 11/25/24 19:30 11/25/24 20:30 Lipase 77 U/L (12-53) H Cholesterol Level 163 mg/dL (< 200) HDL Cholesterol 53 mg/dL (40-59) Triglycerides Level 171 mg/dL (< 150) H Cardiac Markers Test 11/26/24 10:20 B-Type Natriuretic Peptide Pending LFT Test 11/25/24 19:30 Alanine Aminotransferase (ALT) 10 U/L (7-40) Alkaline Phosphatase 82 U/L (46-116) Aspartate Amino Transferase (AST) 10 U/L (13-40) L Total Bilirubin 0.5 mg/dL (0.2-1.0) HgA1c, TSH Test 11/25/24 20:30 Thyroid Stimulating Hormone (TSH) 0.63 uIU/mL (0.55-4.78) Urinalysis Test 11/25/24 19:30 Urine Color Light-yellow (Yellow) Urine Clarity Clear (Clear) Urine pH 5.5 (5.0-9.0) Urine Specific [place] 1.012 (1.001-1.035) Urine Protein Negative (Negative) Urine Ketones Negative (Negative) Urine Blood Negative /uL (Negative) Urine Nitrite Negative (Negative) Urine Bilirubin Negative (Negative) Urine Urobilinogen Normal mg/dL (Negative) Urine Leukocyte Esterase Negative /uL (Negative) Urine RBC <1 /hpf (0 - 4) Urine Microscopic WBC 1 /HPF (0-5) Urine Squamous Epithelial Cells Few /hpf (<5) Urine Bacteria Few /hpf (None Seen) H Urine Glucose Normal mg/dL (Normal) Labs and/or images reviewed: Labs reviewed by me, Image(s) reviewed by me Assessment/Plan Assessment/Plan Impression: -acute abdominal pain -primary hypertension -obesity -diabetes mellitus -COPD Plan: -CT abdomen and pelvis pending -Gallbladder ultrasound pending -advance diet as tolerated after CT scan -continue regular insulin sliding scale -antihypertensives -cardiology consultation for atypical chest pain Total time spent with patient discussing and formulating plan of care: 35 minutes. This medical document was created using an electronic medical record system with [employer] dictation system. Although this document has been carefully reviewed, there may still be some phonetic and typographical errors. These areas are purely typographical due to imperfections of the software programs, and do not reflect any compromise in the patient's medical care. 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
--- NOTE | 2024-11-26 13:10 | DVH ---
INDICATION: RUQ pain. , cholelithiasis TECHNIQUE: Multiple real-time sonographic images were obtained of the right upper quadrant. COMPARISON: None FINDINGS: The liver demonstrates increased echotexture without focal mass lesions. The liver measures 15 cm. There is no intrahepatic or extrahepatic ductal dilatation. The common duct measures 5 mm. The gallbladder is without evidence of stone or sludge. The gallbladder wall measures 2 mm and is wi thin normal limits. The right kidney measures 9.4 cm. The right kidney is normal in contour, size, and shape. The echog enicity is normal. There is no hydronephrosis. The pancreas is not well visualized due to overlying bowel gas. IMPRESSION: No sonographic evidence of gallstones or acute cholecystitis. Hepatic steatosis.
--- NOTE | 2024-11-26 14:52 | DVH ---
CT CT AB PELVIS W WO CON-IV ONLY INDICATION: abdominal pain EXAM DATE: 11/26/2024 01:34 PM COMPARISON: None RADIATION DOSE: CTDIvol: 13.11 mGy, DLP: 1277.72 mGy*cm PROCEDURE: Helical CT images were obtained of the abdomen and pelvis with IV contrast Sagittal and co claudia reconstructions are provided. ORAL CONTRAST: None. ADDITIONAL IMAGES / REFORMATS: None All CT s cans at this medical facility are performed using dose modulation techniques as appropriate to a perf ormed exam including the following: Automated exposure control was utilized; adjustment of the MA and /or KV according to patient size; and use of iterative reconstruction technique. FINDINGS: LUNG BASE: Normal. LIVER: Normal. GALLBLADDER AND BILIARY TREE: No calcified gallstones. Normal caliber wall. No intra- or extrahepatic biliary ductal dilation. PANCREAS: Normal. SPLEEN: Normal. BOWEL: Normal. Normal appendix. ADRENALS: Normal. KIDNEYS AND URETER: Normal. BLADDER: Normal. REPRODUCTIVE ORGANS: Normal. LYMPH NODES:No lymphadenopathy. PERITONEUM: No ascites or free air. No other fluid collection. VESSELS: Scattered atherosclerotic calcifications are noted. RETROPERITONEUM: Normal. ABDOMINAL WALL: Subcutaneous emphysema along the anterior abdominal wall subcutaneous fat. Small fat containing umbilical hernia.q BONES: Scattered osseous degenerative changes are noted. IMPRESSION: No acute intraabdominal abnormality.
--- NOTE | 2024-11-26 17:04 | DVHSR ---
APPROVED REPORT EXAM: Two-dimensional and M-mode echocardiogram with Doppler and color Doppler. Blood Pressure: 118/85 mmHg INDICATION Chest Pain RISK FACTORS Height: 63, Weight: 195 DIMENSIONS LVDd3.9 (3.8-5.7cm)LA (2D)3.5 (1.9-4.0cm)Aortic Root3.1 (2.0-3.7cm) LVDs2.6 (2.5-4.0cm)LA (MM) (1.9-4.0cm)Aortic Cusp Exc1.7 (1.5-2.0cm) EF (%) 65.0 (55-70%)Rt. Atrium3.8 (1.9-4.0cm)Asc. Aorta cm IVSd1.3 (0.7-1.1cm)RV (D) (1.8-2.4cm) PWd1.3 (0.7-1.1cm) Mitral Valve MitralMitral Stenosis E wave0.93m/sMV Mean GR.mmHg A wave0.81m/sMV Peak GR.mmHg E/A ratio1.12D MVAcm2 DECEL [id number] 1/2 [id number] IVRTmsDop MVA3.41cm2 Aortic Valve Aortic ValveAortic Stenosis V11.15m/[place] Mean GR.4mmHg V21.42m/[place] Peak GR.8mmHg LVOT Diameter1.5 (1.8-2.4cm)Doppler AVA1.43cm2 Pulmonic Valve V20.86m/s Tricuspid Valve TR Velocity2.19m/s [id number] Conclusion Left ventricle: Mild concentric left ventricular hypertrophy was seen. LVEF was around 65%. Left v entricular diastolic function was considered normal. Right ventricle was normal-sized with normal systolic function. Both atria were normal-sized. Aortic valve was trileaflet. There was no aortic insufficiency/stenosis. There was trace mitral/tri cuspid regurgitation. Pulmonary valve was not well visualized. Right ventricular systolic pressure was normal at 32 mm Hg. There was no pericardial effusion.
[2024-11-26] MEDS: POLYETHYLENE GLYCOL 17 GM PWDR PO ONE (17:09)
--- NOTE | 2024-11-26 18:02 | DVHINCON2 ---
Date of service: Nov 26, [address] Trejo Reason for Consultation Abdominal pain chest pains nausea History of Present Illness This 54-year-old female with a history of hypertension COPD and anxiety presented to the emergency room with complaints of left-sided chest pain and source nausea anorexia. No hematemesis no melena no diarrhea because of the is the reason for the GI consult because of the nausea and abdominal pain discomfort. Past Medical History Asthma COPD diabetes hypertension Past Surgical History tubal ligation pacemaker Family History: Chronic obstructive pulmonary disease G8 MOTHER FH: CHF (congestive heart failure) G8 MOTHER Hypertension G8 MOTHER Family History Noncontributory Social History history of smoking smoking , denies drinking Allergies: Coded Allergies: No Known Drug Allergy (Verified Allergy, Unknown, 12/27/23) Home Meds Active Scripts Gabapentin (Gabapentin) 300 Mg Cap, 1 CAP PO TID PRN, #30 CAP prn sciatic nerve pain Prov:YEHUDA CONTRERAS MD 07/04/24 Reported Medications Tizanidine Hydrochloride (Tizanidine Hcl) 4 Mg Tab, 1 TAB PO TID 11/26/24 Losartan Potassium & Hydrochlo (Losartan Potassium/Hydroc) 1 Tab Tab, 1 TAB PO DAILY, TAB 100-25mg tab 11/26/24 Semaglutide (Rybelsus) 7 Mg Tab, PO QAM 11/26/24 Hydrocodone-Acetaminophen (Hydrocodone/Acetaminophen 10-325 mg) 1 Tab Tab, 1 TAB PO Q6HP PRN for PAIN SCALE 7 THRU 10 11/26/24 Cholecalciferol (Vitamin D-3 Super Strengt) 2,000 Unit Tab, 1 TAB PO DAILY 12/27/23 Risperidone (Risperidone) 2 Mg Tab, 1 TAB BID 12/27/23 Current Medications Current Medications Medications (Trade) Dose Ordered Sig/Jose J Route PRN Reason Start Time Stop Time Status Last Admin Nitroglycerin (Ntrostat Sublingual) 0.4 mg Q5MINP PRN SL FOR CHEST PAIN 11/26/24 00:00 Morphine Sulfate 2 mg Q30M PRN IV FOR CHEST PAIN 11/26/24 00:15 11/26/24 07:56 Losartan Potassium (Cozaar Tablet) 100 mg DAILY PO 11/26/24 10:00 Hydrochlorothiazide (hydroCHLOROthiazide TABLET) 25 mg DAILY PO 11/26/24 10:00 Oxcarbazepine (Trileptal Tablet) 300 mg Q12HR PO 11/26/24 10:00 Aspirin 81 mg DAILY PO 11/26/24 10:00 Enoxaparin Sodium (Lovenox) 40 mg DAILY SC 11/27/24 10:00 Review of Systems Noncontributory Vital Signs Vital Signs Date Time Temp Pulse Resp B/P (MAP) Pulse Ox O2 Delivery O2 Flow Rate FiO2 11/26/24 13:00 97.6 58 20 107/76 (86) 100 97.6 11/26/24 08:00 Room Air* 0 21 Physical Exam Moderately built and nourished female in no acute distress and anxious and apprehensive Vitals stable Lungs are clear Vascular unremarkable Abdomen is soft no tenderness no rigidity no guarding Bowel sounds normal Extremities no edema no clubbing Neuro grossly intact Labs/Diagnostic Data Labs Test 11/26/24 10:20 11/25/24 20:30 11/25/24 19:30 Range/Units D-Dimer, Quantitative 0.49 0.0-0.49 mg/L FEU B-Type Natriuretic Peptide 17.63 0-100 pg/mL Troponin I High Sensitivity < 3 L </=34 ng/L Triglycerides Level 171 H < 150 mg/dL Cholesterol Level 163 < 200 mg/dL LDL Cholesterol 93 < 100 mg/dL HDL Cholesterol 53 40-59 mg/dL Thyroid Stimulating Hormone (TSH) 0.63 0.55-4.78 uIU/mL White Blood Count 7.4 4.4-10.8 10^3/uL Red Blood Count 4.44 4.0-5.20 10^6/uL Hemoglobin 14.0 12.2-16.2 g/dL Hematocrit 40.3 36.0-46.0 % Mean Corpuscular Volume 90.9 80.0-100.0 fL Mean Corpuscular Hemoglobin 31.6 28.0-32.0 pg Mean Corpuscular Hemoglobin Concent 34.7 32.0-36.0 g/dL Red Cell Distribution Width 13.6 11.8-14.3 % Platelet Count 334 140-450 10^3/uL Mean Platelet Volume 7.9 6.9-10.8 fL Neutrophils (%) (Auto) 45.9 37.0-80.0 % Lymphocytes (%) (Auto) 46.6 10.0-50.0 % Monocytes (%) (Auto) 4.8 0.0-12.0 % Eosinophils (%) (Auto) 1.7 0.0-7.0 % Basophils (%) (Auto) 1.0 0.0-2.0 % Neutrophils # (Auto) 3.4 1.6-8.6 10 ^3/uL Lymphocytes # (Auto) 3.4 0.4-5.4 10 ^3/uL Monocytes # (Auto) 0.4 0-1.3 10 ^3/uL Eosinophils # (Auto) 0.1 0-0.8 10 ^3/uL Basophils # (Auto) 0.1 0-0.2 10 ^3/uL Nucleated Red Blood Cells 0.1 % Urine Color Light-yellow Yellow Urine Clarity Clear Clear Urine pH 5.5 5.0-9.0 Urine Specific [place] 1.012 1.001-1.035 Urine Protein Negative Negative Urine Ketones Negative Negative Urine Blood Negative Negative /uL Urine Nitrite Negative Negative Urine Bilirubin Negative Negative Urine Urobilinogen Normal Negative mg/dL Urine Leukocyte Esterase Negative Negative /uL Urine RBC <1 0 - 4 /hpf Urine Microscopic WBC 1 0-5 /HPF Urine Squamous Epithelial Cells Few <5 /hpf Urine Bacteria Few H None Seen /hpf Urine Glucose Normal Normal mg/dL Sodium Level 143 136-145 mmol/L Potassium Level 4.2 3.5-5.1 mmol/L Chloride Level 105 98-107 mmol/L Carbon Dioxide Level 29 20-31 mmol/L Anion Gap 9 5-15 Blood Urea Nitrogen 10 9-23 mg/dL Creatinine 0.82 0.550-1.02 mg/dL Glomerular Filtration Rate Calc 85 >90 mL/min BUN/Creatinine Ratio 12.2 10.0-20.0 Serum Glucose 106 74-106 mg/dL Calcium Level 10.7 H 8.7-10.4 mg/dL Total Bilirubin 0.5 0.2-1.0 mg/dL Aspartate Amino Transferase (AST) 10 L 13-40 U/L Alanine Aminotransferase (ALT) 10 7-40 U/L Alkaline Phosphatase 82 46-116 U/L Total Protein 7.0 5.7-8.2 g/dL Albumin 4.6 3.2-4.8 g/dL Lipase 77 H 12-53 U/L Urine Opiates Screen Neg NEGATIVE Urine Fentanyl Screen Neg NEGATIVE Urine Barbiturates Screen Neg NEGATIVE Urine Phencyclidine Screen Neg NEGATIVE Urine Amphetamines Screen Neg NEGATIVE Urine Benzodiazepines Screen Neg NEGATIVE Urine Cocaine Screen Neg NEGATIVE Urine Cannabinoids Screen Neg NEGATIVE Assessment 54 year-old with chest pain nausea anorexia Has increased lipase levels Abdomen is soft nonspecific tenderness in the epigastrium No masses Clinical impression possibly mild pancreatitis No gallstones seen on the studies Plan/Recommendation We will treat with PPIs Follow lipase level LFTs and lipase levels keeps going up may have to consider MRCP MRI Thank you Dr. Mcdonald Plan discussed with: Patient KASSIE MCDONALD MD Nov 26, 2024 18:02
[2024-11-26] MEDS: IOHEXOL 300 MG/ML 100ML BOTTLE IJ ONE (18:45)
[2024-11-26] MEDS: HYDROcodone-ACET 5/325MG TAB PO PRN (21:09)
[2024-11-27 01:00] VITALS: BP 104/70; PULSE 66; RESP 18; TEMP 98; O2SAT 99
[2024-11-27 05:00] VITALS: BP 109/68; PULSE 75; RESP 18; TEMP 98; O2SAT 99
[2024-11-27 06:43] LABS: Anion Gap 7 (5-15); Carbon Dioxide 29 mmol/L (20-31); Chloride 107 mmol/L (98-107); Sodium 143 mmol/L (136-145)
[2024-11-27 06:44] LABS: Calcium 9.6 mg/dL (8.7-10.4)
[2024-11-27 06:47] LABS: Potassium 3.5 mmol/L (3.5-5.1)
[2024-11-27 06:49] LABS: BUN/Creatinine Ratio 12.5 (10.0-20.0); Blood Urea Nitrogen 9 mg/dL (9-23); Glucose 82 mg/dL (74-106); Lipase 52 U/L (12-53)
--- NOTE | 2024-11-27 07:22 | DVHPN2 ---
Progress Note - Dictate Date Seen: Nov 27, 2024 Medical Necessity Reason Pt with a Central, PICC or Fol: No vital signs Vital Sign Date Time Temp Pulse Resp B/P (MAP) Pulse Ox O2 Delivery O2 Flow Rate FiO2 11/27/24 05:00 98.0 75 18 109/68 (82) 99 98.0 11/26/24 20:00 Room Air* 0 21 Total Intake and Output 11/26/24 11/26/24 11/27/24 15:00 23:00 07:00 Intake Total 1240 ml 350 ml Balance 1240 ml 350 ml medications Current Medications Medications Dose Ordered Sig/Jose J Route Start Time Stop Time Status Last Admin Dose Admin Nitroglycerin 0.4 mg Q5MINP PRN SL 11/26/24 00:00 Losartan Potassium 100 mg DAILY PO 11/26/24 10:00 Hydrochlorothiazide 25 mg DAILY PO 11/26/24 10:00 Oxcarbazepine 300 mg Q12HR PO 11/26/24 10:00 Aspirin 81 mg DAILY PO 11/26/24 10:00 Enoxaparin Sodium 40 mg DAILY SC 11/27/24 10:00 Acetaminophen/ Hydrocodone Bitart 1 tab Q8HPRN PRN PO 11/26/24 20:30 11/27/24 06:04 1 TAB laboratory and microbiology Laboratory Tests 11/27/24 05:33 11/25/24 19:30 Test 11/27/24 05:33 Range/Units Serum Glucose 82 74-106 mg/dL Assessment/Plan Patient is a 54-year-old female who presented to the hospital for abdominal pain/headache/nausea/chest pain. She mentions that she presented few days back for abdominal pain and was discharged. She mentions right abdominal pain with lower abdominal pain. Has had diarrhea in the past few days. Did have some headache accompanied with nausea also. Chest pain has been atypical to the left side. Cardiology is involved for cardiac aspects of care. She comes to our practice from outside. Has not been compliant with followups as outpatient. Not in acute distress. Not using accessory muscles of breathing. Mucosa is pink and wet. No carotid bruit. Lungs are clear to auscultation. Cardiac: Regular, no thrill/gallop. There is tenderness to the left side. Abdomen is soft. Complains of tenderness in the right flank and lower abdomen. Bowel sound is positive. No gross mass. Extremities do not reveal edema. Dorsalis pedis is 2+ bilateral. Past medical history includes hypertension, diabetes mellitus, COPD/Asthma, obesity, anxiety disorder, history of sciatica, history of hernia, old history of /tubal ligation and shoulder/knee surgeries. She smokes cigarettes. Brother of [place] at age of 45. Father of [place] at age of 67. There is question about MARCO A and Arrhythmia at night during sleep. Echocardiogram performed in the office on December 15, 2023 revealed technically limited study, ejection fraction of 65 to 70%, no wall motion abnormality, trace MR/TR and right ventricular systolic pressure of less than 35 mm Hg. Echocardiogram of 12/27/2023 (performed in [facility]) revealed: LVEF of 60 to 65%, no wall motion abnormality, normal diastolic function, trace MR/TR and RVSP of 28 mmHg. Echocardiogram of April 03, 2024 reported mild concentric left ventricular hypertrophy, ejection fraction of 60-65%, normal diastolic, mild MR/TR and right ventricular systolic pressure of 39 mm Hg Creatinine: 0.82 - 0.72 Potassium: 4.2 - 3.5 Lipase: 77 - 52 TSH: 0.63 Troponin (high sensitive): <3 - <3 BNP: 17.63 D-Dimer: 0.49 Urine toxicology was nonrevealing Chest x-ray reported: IMPRESSION: 1. No acute cardiopulmonary disease. Abdomen and pelvis CT: IMPRESSION: No acute intraabdominal abnormality. Right upper abdomen sonogram revealed: IMPRESSION: No sonographic evidence of gallstones or acute cholecystitis. Hepatic steatosis. No EKG available to review Tele reveals sinus rhythm Echocardiogram revealed: Left ventricle: Mild concentric left ventricular hypertrophy was seen. LVEF was around 65%. Left ventricular diastolic function was considered normal. Right ventricle was normal-sized with normal systolic function. Both atria were normal-sized. Aortic valve was trileaflet. There was no aortic insufficiency/stenosis. There was trace mitral/tricuspid regurgitation. Pulmonary valve was not well visualized. Right ventricular systolic pressure was normal at 32 mm Hg. There was no pericardial effusion. Patient is a 54-year-old female who presented with abdominal pain/chest pain/headache/nausea and occasions of diarrhea. Chest pain has been atypical. Serial high sensitive troponin has been negative. Acute coronary syndrome is not considered at this point. It is of note that the patient has presented to the office after missing many visits recently and as outpatient there has been a plan for elective nuclear stress test. Recognizing the presentation, ischemic workup/nuclear stress test can be performed as outpatient. Seen by GI Abdominal pain Abnormal amylase Pancreatitis? Anxiety disorder Obesity Diabetes mellitus Fatty Liver Cardiac suggestion for management: Manage on telemetry Follow-up electrolytes and kidney function tests and correct abnormalities Keep potassium above 4 and magnesium above 2 EKG Ischemic workup/nuclear stress test can be performed as outpatient Cardiac quintana is stable and can be followed as outpatient Lifestyle and risk factor modifications. Patient was counseled to stop/quit smoking Further evaluation and management depends on the above and clinical course A total of 55 minutes was spent reviewing the patient record, examining the patient, making a diagnostic and therapeutic plan, discussing this plan with medical personnel, following up on diagnostic studies and following the patient for clinical stability excluding any and all procedures. At least 50% of this time was spent in direct, [id number] contact. Thank you for allowing me to participate in this patient's care. Further recommendations will depend on patient's clinical course. Please do not hesitate to contact me if you have any questions or concerns. This medical document was created using electronic medical record system with [employer] computerized dictation system. Although this document has been carefully reviewed, there may still be some phonetic and typographical errors. These areas are purely typographical due to the imperfection of the software programs, and do not reflect any compromise in the patient's medical care. Plan discussed with: Patient, Other (nurse) JOSE FLAHERTY MD Nov 27, 2024 07:22
[2024-11-27 07:39] VITALS: PULSE 60
[2024-11-27 08:20] VITALS: PULSE 61; RESP 18; O2SAT 98
[2024-11-27 08:30] VITALS: BP 121/82; PULSE 61; RESP 18; TEMP 97.6; O2SAT 98
--- NOTE | 2024-11-27 09:06 | ECG ---
[facility] Test Date: 2024-11-26 Test Time: 09:48:17 Pat Name: EDUAR HERRERA Department: Respiratoy Room: 0215T A Gender: F Substance Abuse Clinician: : 1970 Requested By: JOSE FLAHERTY Order Number: [id number] Reading MD: Jorge Perry Measurements Intervals [place] Rate: 64 P: 42 ND: 217 QRS: 31 QRSD: 93 T: 32 QT: 397 QTc: 410 Interpretive Statements Sinus rhythm Prolonged ND interval Lead(s) III were not used for morphology analysis Baseline wander in lead(s) V4 Electronically Signed On 11-28-2024 20:20:16 PDT by Jorge Perry Please click the below link to view image of tracing.
[2024-11-27] MEDS: ENOXAPARIN SOD 40 MG/0.4 ML SYRINGE SC SCH (09:31)
[2024-11-27 12:01] VITALS: BP 121/82; PULSE 61; RESP 18; TEMP 97.6; O2SAT 98
--- NOTE | 2024-11-27 12:25 | DVHDS2 ---
Discharge Summary Date of Admission Nov 25, 2024 at 23:58 Date of Discharge: Nov 27, 2024 Admitting Diagnosis Chest pain Labs/Diagnostic Data: Laboratory Results Test 11/27/24 05:33 11/26/24 10:20 11/25/24 20:30 11/25/24 19:30 Sodium Level 143 mmol/L (136-145) Potassium Level 3.5 mmol/L (3.5-5.1) Chloride Level 107 mmol/L (98-107) Carbon Dioxide Level 29 mmol/L (20-31) Anion Gap 7 (5-15) Blood Urea Nitrogen 9 mg/dL (9-23) Creatinine 0.72 mg/dL (0.550-1.02) Glomerular Filtration Rate Calc 99 mL/min (>90) BUN/Creatinine Ratio 12.5 (10.0-20.0) Serum Glucose 82 mg/dL (74-106) Calcium Level 9.6 mg/dL (8.7-10.4) Lipase 52 U/L (12-53) D-Dimer, Quantitative 0.49 mg/L FEU (0.0-0.49) B-Type Natriuretic Peptide 17.63 pg/mL (0-100) Troponin I High Sensitivity < 3 ng/L (</=34) Triglycerides Level 171 mg/dL (< 150) Cholesterol Level 163 mg/dL (< 200) LDL Cholesterol 93 mg/dL (< 100) HDL Cholesterol 53 mg/dL (40-59) Thyroid Stimulating Hormone (TSH) 0.63 uIU/mL (0.55-4.78) White Blood Count 7.4 10^3/uL (4.4-10.8) Red Blood Count 4.44 10^6/uL (4.0-5.20) Hemoglobin 14.0 g/dL (12.2-16.2) Hematocrit 40.3 % (36.0-46.0) Mean Corpuscular Volume 90.9 fL (80.0-100.0) Mean Corpuscular Hemoglobin 31.6 pg (28.0-32.0) Mean Corpuscular Hemoglobin Concent 34.7 g/dL (32.0-36.0) Red Cell Distribution Width 13.6 % (11.8-14.3) Platelet Count 334 10^3/uL (140-450) Mean Platelet Volume 7.9 fL (6.9-10.8) Neutrophils (%) (Auto) 45.9 % (37.0-80.0) Lymphocytes (%) (Auto) 46.6 % (10.0-50.0) Monocytes (%) (Auto) 4.8 % (0.0-12.0) Eosinophils (%) (Auto) 1.7 % (0.0-7.0) Basophils (%) (Auto) 1.0 % (0.0-2.0) Neutrophils # (Auto) 3.4 10 ^3/uL (1.6-8.6) Lymphocytes # (Auto) 3.4 10 ^3/uL (0.4-5.4) Monocytes # (Auto) 0.4 10 ^3/uL (0-1.3) Eosinophils # (Auto) 0.1 10 ^3/uL (0-0.8) Basophils # (Auto) 0.1 10 ^3/uL (0-0.2) Nucleated Red Blood Cells 0.1 % Urine Color Light-yellow (Yellow) Urine Clarity Clear (Clear) Urine pH 5.5 (5.0-9.0) Urine Specific [place] 1.012 (1.001-1.035) Urine Protein Negative (Negative) Urine Ketones Negative (Negative) Urine Blood Negative /uL (Negative) Urine Nitrite Negative (Negative) Urine Bilirubin Negative (Negative) Urine Urobilinogen Normal mg/dL (Negative) Urine Leukocyte Esterase Negative /uL (Negative) Urine RBC <1 /hpf (0 - 4) Urine Microscopic WBC 1 /HPF (0-5) Urine Squamous Epithelial Cells Few /hpf (<5) Urine Bacteria Few /hpf (None Seen) Urine Glucose Normal mg/dL (Normal) Total Bilirubin 0.5 mg/dL (0.2-1.0) Aspartate Amino Transferase (AST) 10 U/L (13-40) Alanine Aminotransferase (ALT) 10 U/L (7-40) Alkaline Phosphatase 82 U/L (46-116) Total Protein 7.0 g/dL (5.7-8.2) Albumin 4.6 g/dL (3.2-4.8) Urine Opiates Screen Neg (NEGATIVE) Urine Fentanyl Screen Neg (NEGATIVE) Urine Barbiturates Screen Neg (NEGATIVE) Urine Phencyclidine Screen Neg (NEGATIVE) Urine Amphetamines Screen Neg (NEGATIVE) Urine Benzodiazepines Screen Neg (NEGATIVE) Urine Cocaine Screen Neg (NEGATIVE) Urine Cannabinoids Screen Neg (NEGATIVE) Other Laboratory Tests 11/27/24 05:33 11/25/24 19:30 Brief Hx & Hospital Course: History of Present Illness 64-year-old female presents for evaluation of chest pain. Patient reports a one day history of left-sided sharp nonradiating chest pain with associated nausea. Currently denies shortness for breath. Patient reports awaiting a stress test. Course of hospitalization: Cardiology consultation was obtained. Patient no longer complains of chest pain, now reporting epigastric, right upper and right lower quadrant pain. Patient had gallbladder ultrasound which was unremarkable. Patient had CT scan of the abdomen and pelvis which was also unremarkable other than mild subcutaneous air around her periumbilical area. Patient denies any pain, with no abnormalities noted with palpation of the area. Lab work unremarkable. EKG normal sinus rhythm. Echocardiogram within normal limits. Patient will be discharged home. Patient was given laxatives with positive BM and some relief of her pain. She is instructed to follow up with her PCP in 1-2 weeks Physical examination General: Alert and Oriented x3. No acute distress. Well-nourished. Eyes: EOMI. Anicteric. HENT: Moist mucous membranes. Lungs: Clear to auscultation bilaterally. No accessory muscle use. Cardiovascular: Regular rate and rhythm. No murmur. No JVD. Abdomen: Soft, non-tender and non-distended. No palpable masses. Extremities: No edema. Non-tender. Skin: No rashes or lesions. Warm. Neurologic: No focal neurological deficits. CN II-XII grossly intact, but not individually tested. Psychiatric: Cooperative. Appropriate mood and affect. Total time spent with patient discussing and formulating plan of care: 35 minutes. This medical document was created using an electronic medical record system with [employer] dictation system. Although this document has been carefully reviewed, there may still be some phonetic and typographical errors. These areas are purely typographical due to imperfections of the software programs, and do not reflect any compromise in the patient's medical care. Consults/Reason for consult Cardiology: Chest pain Condition at Discharge: Fair Final Diagnosis/Problems List Abdominal pain secondary to constipation Secondary diagnosis: -acute abdominal pain -primary hypertension -obesity -diabetes mellitus -COPD -chest pain, atypical, probably secondary to GI distention Discharge Disposition: Home Discharge Instruct/Medications Diet: Regular Activity: No Restrictions, As Tolerated Follow Up/Referral: Follow up with PCP in 1-2 weeks Medications: continue all home medications 36 Discharge Statement: "Patient was advised to return to the ER or call 911 if any headaches, dizziness, shortness of breath, chest pain, abdominal pain, bleeding, fevers, or worsening of medical condition. Patient was counseled about treatment plan, medications, possible side effects, patientverbalized understanding. All questions were answered to the best of my ability. This discharge took greater then 30 minutes in planning, reviewing documentation, counseling the patient, and discussing with other team members." ASSESSMENT ASSESSMENT Assessment Abdominal pain secondary to constipation Date of Service: Nov 27, 2024 Billing Provider: SOLA GUTIÉRREZ NP Common Visit Codes: 05356-DIR/OBS DISCH DAY >30min SOLA GUTIÉRREZ NP Nov 27, 2024 12:25
== END 2024-11-27 13:35 | disposition home or self-care (01) | DRG 254 ==
LOC: ER 19:14 → EDBD 19:14 → OVERFLOW 23:58 → TELE-CENTR 11-26 02:40
PROVIDERS: ADMIT Nurse Practitioner Acute Care; ATTEND Nurse Practitioner Acute Care
DX: K59.00 Constipation, unspecified (principal); K76.0 Fatty (change of) liver, not elsewhere classified; E11.9 Type 2 diabetes mellitus without complications; E66.9 Obesity, unspecified; Z68.34 Body mass index [BMI] 34.0-34.9, adult; I10 Essential (primary) hypertension; R07.89 Other chest pain; J44.89 Other specified chronic obstructive pulmonary disease; F17.210 Nicotine dependence, cigarettes, uncomplicated; F41.9 Anxiety disorder, unspecified; Z98.891 History of uterine scar from previous surgery; Z91.199 Patient's noncompliance with other medical treatment and regimen due to unspecified reason; Z82.5 Family history of asthma and other chronic lower respiratory diseases; Z82.49 Family history of ischemic heart disease and other diseases of the circulatory system; Z79.899 Other long term (current) drug therapy; Z98.51 Tubal ligation status; Z95.0 Presence of cardiac pacemaker
CPT/HCPCS: 36415; 71045; 74178; 76705; 80048; 80053; 80061; 80307; 81001; 83690; 83880; 84443; 84484; 85025; 85379; 93005; 93306; G0378

== ENCOUNTER 2024-12-25 09:39 | Outpatient (CLI) | payer MEDICAID ==
[~2024-12-25] VITALS: Ht 160 cm; Wt 86.2 kg
[~2024-12-25 09:39] MED LIST changes: -DICY10CA PO; -FLUO40CA; +HYDR-4072 PO; -LOSA100T25 PO; +LOSA100T33 PO; -METF-370 PO; -NITR0.4S29; -OXCA300T50; -PANT40TA2 PO; -QUET300T24 PO; +SEMA7TAB2 PO; +TIZA-142 PO
[2024-12-25] MEDS: REGADENOSON 0.4 MG/5 ML SYRG IV ONE ×2 (12:06→12:09)
--- NOTE | 2024-12-25 15:36 | DVHSR ---
APPROVED REPORT Exam: Nuclear Stress Test BMI: 0 Stress Test Details HR Max Heart Rate (APMHR): 166.693351 bpm Target HR (85% APMHR): 141.161460 bpm BP ECG Stress ECG Conclusion normal perfusion scan no major ischemia normal lvef NM EXAM: Myocardial Perfusion REST/STRESS Imaging Protocol: Rest Tc-99m/Stress Tc-99m 1 day Resting Data Rest SPECT myocardial perfusion imaging was performed in supine position 60 minutes following the int ravenous injection of 11.9 mCi of Tc-99m Sestamibi. Time of rest injection: 10:45 Date: 12/25/2024 Time of rest imagin:45 Date: 12/25/2024 The images were gated to evaluate regional wall motion and calculate left ventricular ejection fracti on. Administration Route: IV Administration Site: Right AC Pharmacologic Stress Pharmacologic stress test was performed by injecting Regadenoson 0.4 mg IV push followed by the intra venous injection of 30.8 mCi of Tc-99m Sestamibi. Time of stress injection: 12:05 Date: 12/25/2024 Time of stress imagin:05 Date: 12/25/2024 Administration Route: IV Administration Site: Right AC The images were gated to evaluate regional wall motion and calculate left ventricular ejection fracti on. Stress only was performed in the Supine position. Nuclear Conclusion Nuclear Findings: negative for ischemia normal perfusion scan no major ischemia normal lvef
== END 2024-12-25 19:33 | disposition home or self-care (01) ==
LOC: XYW 09:39
PROVIDERS: ATTEND Specialist
DX: I10 Essential (primary) hypertension (principal); R00.1 Bradycardia, unspecified; E11.9 Type 2 diabetes mellitus without complications
CPT/HCPCS: 78452; 93017; A9500; J2785

== ENCOUNTER 2024-12-31 | Emergency (ER) | payer MEDICAID ==
[~2024-12-31] VITALS: Ht 160 cm; Wt 86.0 kg
[2024-12-31] MEDS: KETOROLAC TROMETH 30 MG/ML 1ML VIAL IM ONE (01:03)
[2024-12-31] MEDS: ACETAMINOPHEN 500 MG TAB or CAP PO ONE (01:03)
--- NOTE | 2024-12-31 01:15 | ECG ---
[facility] Test Date: 2024-12-31 Test Time: 01:13:19 Pat Name: EDUAR HERRERA Department: ED Room: Gender: F Crane Follower: CINDY : 1970 Requested By: MODESTO BLADWIN Order Number: [id number] Reading MD: Jorge Perry Measurements Intervals [place] Rate: 73 P: 54 [place]: 178 QRS: 42 QRSD: 95 T: 50 QT: 371 QTc: 409 Interpretive Statements Sinus rhythm Electronically Signed On 12-31-2024 19:34:10 PDT by Jorge Perry Please click the below link to view image of tracing.
[2024-12-31 01:21] LABS: Hematocrit 40.5 % (36.0-46.0); Hemoglobin 13.8 g/dL (12.2-16.2); Mean Corpuscular Hemoglobin 31.5 pg (28.0-32.0); Mean Corpuscular Volume 92.4 fL (80.0-100.0); Nucleated Red Blood Cells % 0.2 %
[2024-12-31 01:30] LABS: Potassium 3.6 mmol/L (3.5-5.1); Sodium 142 mmol/L (136-145)
[2024-12-31 01:31] LABS: Anion Gap 5 (5-15); Carbon Dioxide 29 mmol/L (20-31)
[2024-12-31 01:32] LABS: Calcium 9.7 mg/dL (8.7-10.4)
[2024-12-31 01:35] LABS: Chloride 108 mmol/L (98-107)
[2024-12-31 01:36] LABS: Glucose 98 mg/dL (74-106)
[2024-12-31 01:37] LABS: BUN/Creatinine Ratio 14.3 (10.0-20.0); Blood Urea Nitrogen 10 mg/dL (9-23)
[2024-12-31 02:44] VITALS: BP 102/66; RESP 20; TEMP 98.1; O2SAT 98
--- NOTE | 2024-12-31 02:52 | DVH ---
CHEST RADIOGRAPH Indication: Chest pain Technique: Single frontal view of the chest was obtained COMPARISON: XY CHEST PORTABLE on DOS: 11/25/24, XY CHEST PORTABLE on DOS: 09/20/24, XY CHEST PORTABLE on DOS: 03/19/24, XY CHEST PORTABLE on DOS: 02/16/24, XY CHEST XRAY 1 VIEW on DOS: 01/30/24 FINDINGS: Lines and Tubes: None Lungs: Clear Pleura: No effusion. No pneumothorax. Cardiomediastinal contours: Unremarkable Bones: Unremarkable IMPRESSION: 1. No acute disease.
[2024-12-31 03:42] VITALS: PULSE 73
--- NOTE | 2024-12-31 03:42 | ED.PDOC ---
History of Present Illness HPI Comments 54-year-old female presents with right head and ear pain. Patient reports onset of symptoms, suddenly unprovoked, at around 6:30 p.m., yesterday. She also reports having associated nausea symptoms, which has not subsided after taking at nausea medication prior to arrival. She states on symptoms feeling similar to when she had reactions in the past. Other significant history includes: COPD, prediabetes, hypertension, and sciatica. She denies having any further acute associated symptoms, such as chest pain, vision or speech changes, fever, chills, urinary symptoms, abdominal, or further associated symptoms. Chief Complaint: Headache Time Seen by MD: 00:20 Primary Care Provider: MANDI Wei Notes: Nurses Notes, Medications, Allergies Allergies: Coded Allergies: No Known Drug Allergy (Verified Allergy, Unknown, 12/27/23) Home Meds Active Scripts Gabapentin (Gabapentin) 300 Mg Cap, 1 CAP PO TID PRN, #30 CAP prn sciatic nerve pain Prov:YEHUDA CONTRERAS MD 07/04/24 Reported Medications Tizanidine Hydrochloride (Tizanidine Hcl) 4 Mg Tab, 1 TAB PO TID 11/26/24 Losartan Potassium & Hydrochlo (Losartan Potassium/Hydroc) 1 Tab Tab, 1 TAB PO DAILY, TAB 100-25mg tab 11/26/24 Semaglutide (Rybelsus) 7 Mg Tab, PO QAM 11/26/24 Hydrocodone-Acetaminophen (Hydrocodone/Acetaminophen 10-325 mg) 1 Tab Tab, 1 TAB PO Q6HP PRN for PAIN SCALE 7 THRU 10 11/26/24 Cholecalciferol (Vitamin D-3 Super Strengt) 2,000 Unit Tab, 1 TAB PO DAILY 12/27/23 Risperidone (Risperidone) 2 Mg Tab, 1 TAB BID 12/27/23 Information Source: Patient Mode of Arrival: Ambulatory Severity: Moderate Timing: Hours Duration: Since onset Review of Systems: REVIEW OF SYSTEMS: No fever, no chills, HEENT: Right ear pain, neck pain, no blurred vision Cardiac: No chest pain. No palpitations. Lungs: No shortness of breath, GI: No abdominal pain, no vomiting Musculoskeletal: No joint pain , no back pain Skin: No rash, no wound Neuro: Right headache, no dizziness, no syncope Vital Signs Vital Signs Date Time Temp Pulse Resp B/P (MAP) Pulse Ox O2 Delivery O2 Flow Rate FiO2 12/31/24 03:42 73 12/31/24 02:44 98.1 20 102/66 (78) 98 98.1 12/31/24 02:44 Room Air 12/31/24 01:00 0 21 Physical Exam PHYSICAL EXAM: General: Awake, alert and oriented. No acute distress. Skin: Skin in warm, dry and intact without rashes or lesions. HEENT: The head is normocephalic and atraumatic. Conjunctivae are clear without exudates or hemorrhage. Sclera is non-icteric. Bilateral TMs are normal. Neck: Normal range of motion. No JVD. Neck is supple Cardiac: Regular rate Respiratory: No signs of respiratory distress. No Stridor. Extremities: Upper and lower extremities are atraumatic in appearance without deformity. Neurological: The patient is awake, alert and oriented to person, place, and time with normal speech. Speech is clear. There is no facial asymmetry. Normal gait. Psychiatric: Appropriate mood and affect. Good judgement and insight. Past Medical History PAST MEDICAL HISTORY: Asthma, COPD, HTN Past Medical History (Other): Prediabetes Sciatica Surgical History: , Pacemaker, Tubal Ligation [employer] History: No Pertinent [employer] History Family History Family History: No family hx of Cancer, No family hx of DM, No family hx of HTN, No family hx ofKidney veronica, No family hx of Liver veronica, No family hx of Lung veronica, No family hx of Stroke, Family hx of heart veronica Social History Smoker: Cigarettes, Less Than 1 Pack/Day Alcohol: Denies ETOH Use Drugs: Denies Drug Use Lives In: Home Was a procedure done? Was a procedure done?: No EKG EKG : Pulse Rate (adult): 73 [place]: Normal Cardiac Rhythm: NSR Block: None Hypertrophy: None ST: Normal Comments No STEMI Differential Dx Considerations may include: Differential diagnoses considered include but are not limited to temporal arteritis, acute angle closure glaucoma, encephalitis, bacterial meningitis, carbon monoxide poisoning, posttraumatic headache, SAH, subdural hematoma, cervical artery dissection, venous sinus thrombosis, CVA, migraine headache, cluster headache, tension headache, TMJ disorder, frontal sinusitis, cervical spondylosis, intracranial mass, pituitary apoplexy. X-Ray, Labs, Meds, VS Vital Signs Date Time Temp Pulse Resp B/P (MAP) Pulse Ox O2 Delivery O2 Flow Rate FiO2 12/31/24 03:42 73 12/31/24 02:44 98.1 75 20 102/66 (78) 98 98.1 12/31/24 02:44 75 20 98 Room Air 12/31/24 01:13 73 12/31/24 01:00 Room Air* 0 21 12/31/24 00:57 98.1 77 16 118/78 (91) 98 98.1 12/31/24 00:13 98.1 83 20 127/70 (89) 98 98.1 Lab Test 12/31/24 01:11 Range/Units White Blood Count 8.4 4.4-10.8 10^3/uL Red Blood Count 4.38 4.0-5.20 10^6/uL Hemoglobin 13.8 12.2-16.2 g/dL Hematocrit 40.5 36.0-46.0 % Mean Corpuscular Volume 92.4 80.0-100.0 fL Mean Corpuscular Hemoglobin 31.5 28.0-32.0 pg Mean Corpuscular Hemoglobin Concent 34.1 32.0-36.0 g/dL Red Cell Distribution Width 13.3 11.8-14.3 % Platelet Count 329 140-450 10^3/uL Mean Platelet Volume 7.5 6.9-10.8 fL Neutrophils (%) (Auto) 40.9 37.0-80.0 % Lymphocytes (%) (Auto) 49.7 10.0-50.0 % Monocytes (%) (Auto) 5.3 0.0-12.0 % Eosinophils (%) (Auto) 2.4 0.0-7.0 % Basophils (%) (Auto) 1.7 0.0-2.0 % Neutrophils # (Auto) 3.4 1.6-8.6 10 ^3/uL Lymphocytes # (Auto) 4.2 0.4-5.4 10 ^3/uL Monocytes # (Auto) 0.4 0-1.3 10 ^3/uL Eosinophils # (Auto) 0.2 0-0.8 10 ^3/uL Basophils # (Auto) 0.1 0-0.2 10 ^3/uL Nucleated Red Blood Cells 0.2 % Sodium Level 142 136-145 mmol/L Potassium Level 3.6 3.5-5.1 mmol/L Chloride Level 108 H 98-107 mmol/L Carbon Dioxide Level 29 20-31 mmol/L Anion Gap 5 5-15 Blood Urea Nitrogen 10 9-23 mg/dL Creatinine 0.70 0.550-1.02 mg/dL Glomerular Filtration Rate Calc 103 >90 mL/min BUN/Creatinine Ratio 14.3 10.0-20.0 Serum Glucose 98 74-106 mg/dL Calcium Level 9.7 8.7-10.4 mg/dL Troponin I High Sensitivity < 3 L </=34 ng/L Current Medications Medications (Trade) Dose Ordered Sig/Jose J Route Start Time Stop Time Status Last Admin Acetaminophen (Tylenol Tablet Or Capsule) 1,000 mg ONCE ONCE PO 12/31/24 00:45 12/31/24 00:46 DC 12/31/24 01:03 Ketorolac Tromethamine (Toradol Injection) 30 mg ONCE ONCE IM 12/31/24 00:45 12/31/24 00:46 DC 12/31/24 01:03 [place] [id number] Ph: [phone] DIAGNOSTIC IMAGING Diagnostic Imaging Report : [id number] Signed PATIENT: EDUAR HERRERA ACCT: [id number] UNIT: [id number] : 1970 LOC: ER ROOM / BED: / AGE / SEX: 54 / F ADM STATUS: REG ER SERVICE 011 ORDERING PHYSICIAN: MODESTO BALDWIN MD PROCEDURE(s): CXR1 - CHEST XRAY 1 VIEW REASON: Chest pain ORDER NUMBER(s): [id number], ACCESSION NUMBER(s): [id number] CHEST RADIOGRAPH Indication: Chest pain Technique: Single frontal view of the chest was obtained COMPARISON: XY CHEST PORTABLE on DOS: 11/25/24, XY CHEST PORTABLE on DOS: 09/20/24, XY CHEST PORTABLE on DOS: 03/19/24, XY CHEST PORTABLE on DOS: 02/16/24, XY CHEST XRAY 1 VIEW on DOS: 01/30/24 FINDINGS: Lines and Tubes: None Lungs: Clear Pleura: No effusion. No pneumothorax. Cardiomediastinal contours: Unremarkable Bones: Unremarkable IMPRESSION: 1. No acute disease. ATED BY: CHIVO VARGHESE MD DICTATED DATE/TIME: 12/31/24248 SIGNED BY: CHIVO VARGHESE MD SIGNED DATE/TIME: 12/31/24248 CC: Time of 1ST Reevaluation: 00:50 Reevaluation 1ST: Unchanged Patient Education/Counseling: Need For Follow Up Family Education/Counseling: No Family Present SEPSIS Sepsis Screen Date sepsis recognized/suspect: Dec 31, 2024 Time Sepsis recognized/suspect: 248 Recent Procedure: No On Antibiotic Therapy: No Respiratory Rate >20: No Heart Rate >90: No Temp<36 C (96.8 F) or >38.3 C: No SBP <90 or MAP <65 mmHG: No New Acute Mental Status Change: No Is the patient on CPAP, BIPAP,: No Physician Orders Chest Xray 1 View (12/31/24 01:11) Vital Signs Date Time Temp Pulse Resp B/P (MAP) Pulse Ox O2 Delivery O2 Flow Rate FiO2 12/31/24 03:42 73 12/31/24 02:44 98.1 75 20 102/66 (78) 98 98.1 12/31/24 02:44 75 20 98 Room Air 12/31/24 01:13 73 12/31/24 01:00 Room Air* 0 21 12/31/24 00:57 98.1 77 16 118/78 (91) 98 98.1 12/31/24 00:13 98.1 83 20 127/70 (89) 98 98.1 Laboratory Tests Test 12/31/24 01:11 White Blood Count 8.4 10^3/uL (4.4-10.8) Medications Medications Dose Ordered Sig/Jose J Route Start Time Stop Time Status Last Admin Dose Admin Acetaminophen 1,000 mg ONCE ONCE PO 12/31/24 00:45 12/31/24 00:46 DC 12/31/24 01:03 Ketorolac Tromethamine 30 mg ONCE ONCE IM 12/31/24 00:45 12/31/24 00:46 DC 12/31/24 01:03 Departure 1 Departure Time of Disposition: 04:06 Impression: Primary Impression: Headache Disposition: 01 HOME / SELF CARE / HOMELESS Condition: Stable Additional Instructions: ED DISCHARGE INSTRUCTIONS INSTRUCTIONS: PLEASE READ ALL INSTRUCTIONS PROVIDED IN THIS PACKET CAREFULLY. ALTHOUGH YOU HAVE BEEN DISCHARGED FROM THE EMERGENCY DEPARTMENT, THIS DOES NOT MEAN THAT YOU HAVE A "CLEAN BILL OF HEALTH". []NO DEFINITIVE DIAGNOSIS FOR YOUR SYMPTOMS HAS BEEN MADE TODAY. IT IS POSSIBLE THAT YOU ARE IN THE PROCESS OF DEVELOPING A SERIOUS ILLNESS. THIS IS WHY YOU MUST RETURN TO THE ED WITHOUT FAIL IF ANY NEW OR WORSENING SYMPTOMS (ESPECIALLY IF YOUR SYMPTOMS INCLUDE CHEST PAIN, TROUBLE BREATHING, ABDOMINAL PAIN, FEVER, HEADACHE, CONFUSION, TROUBLE SEEING, OR TROUBLE WALKING) IT IS ALSO VERY IMPORTANT THAT YOU SEE A PRIMARY CARE PROVIDER (PCP) WITHIN THE NEXT 3-5 DAYS TO FOLLOW UP. IF YOU ARE UNABLE TO GET AN APPOINTMENT, RETURN TO THE ED FOR RE-EVALUATION. OVERVIEW HEADACHES HAVE MANY POSSIBLE CAUSES. MOST HEADACHES AREN'T A SIGN OF A MORE SERIOUS PROBLEM, AND THEY WILL GET BETTER ON THEIR OWN. HOME TREATMENT MAY HELP YOU FEEL BETTER FASTER. THE DOCTOR HAS CHECKED YOU CAREFULLY, BUT PROBLEMS CAN DEVELOP LATER. IF YOU NOTICE ANY PROBLEMS OR NEW SYMPTOMS, GET MEDICAL TREATMENT RIGHT AWAY. FOLLOW-UP CARE IS A HUTCHISON PART OF YOUR TREATMENT AND SAFETY. BE SURE TO MAKE AND GO TO ALL APPOINTMENTS, AND CALL YOUR DOCTOR IF YOU ARE HAVING PROBLEMS. IT'S ALSO A GOOD IDEA TO KNOW YOUR TEST RESULTS AND KEEP A LIST OF THE MEDICINES YOU TAKE. HOW CAN YOU CARE FOR YOURSELF AT HOME? REST IN A QUIET, DARK ROOM UNTIL YOUR HEADACHE IS GONE. CLOSE YOUR EYES AND TRY TO RELAX OR GO TO SLEEP. DON'T WATCH TV OR READ. PUT A COLD, MOIST CLOTH OR COLD PACK ON THE PAINFUL AREA FOR 10 TO 20 MINUTES AT A TIME. PUT A THIN CLOTH BETWEEN THE COLD PACK AND YOUR SKIN. USE A WARM, MOIST TOWEL OR A HEATING PAD SET ON LOW TO RELAX TIGHT SHOULDER AND NECK MUSCLES. HAVE SOMEONE GENTLY MASSAGE YOUR NECK AND SHOULDERS. TAKE PAIN MEDICINES EXACTLY DIRECTED. IF THE DOCTOR GAVE YOU A PRESCRIPTION MEDICINE FOR PAIN, TAKE IT PRESCRIBED. IF YOU ARE NOT TAKING A PRESCRIPTION PAIN MEDICINE, ASK YOUR DOCTOR IF YOU CAN TAKE AN [id number] MEDICINE. DO NOT IGNORE NEW SYMPTOMS THAT OCCUR WITH A HEADACHE, SUCH A FEVER, WEAKNESS OR NUMBNESS, VISION CHANGES, OR CONFUSION. THESE MAY BE SIGNS OF A MORE SERIOUS PROBLEM. TO PREVENT HEADACHES KEEP A HEADACHE DIARY SO YOU CAN FIGURE OUT WHAT TRIGGERS YOUR HEADACHES. AVOIDING TRIGGERS MAY HELP YOU PREVENT HEADACHES. RECORD WHEN EACH HEADACHE BEGAN, HOW LONG IT LASTED, AND WHAT THE PAIN WAS LIKE (THROBBING, ACHING, STABBING, OR DULL). WRITE DOWN ANY OTHER SYMPTOMS YOU HAD WITH THE HEADACHE, SUCH NAUSEA, FLASHING LIGHTS OR DARK SPOTS, OR SENSITIVITY TO BRIGHT LIGHT OR LOUD NOISE. NOTE IF THE HEADACHE OCCURRED NEAR YOUR PERIOD. LIST ANYTHING THAT MIGHT HAVE TRIGGERED THE HEADACHE, SUCH CERTAIN FOODS (CHOCOLATE, CHEESE, WINE) OR ODORS, SMOKE, BRIGHT LIGHT, STRESS, OR LACK OF SLEEP. FIND HEALTHY WAYS TO DEAL WITH STRESS. HEADACHES ARE MOST COMMON DURING OR RIGHT AFTER STRESSFUL TIMES. TAKE TIME TO RELAX BEFORE AND AFTER YOU DO SOMETHING THAT HAS CAUSED A HEADACHE IN THE PAST. TRY TO KEEP YOUR MUSCLES RELAXED BY KEEPING GOOD POSTURE. CHECK YOUR JAW, FACE, NECK, AND SHOULDER MUSCLES FOR TENSION, AND TRY RELAXING THEM. WHEN SITTING AT A DESK, CHANGE POSITIONS OFTEN, AND STRETCH FOR 30 SECONDS EACH HOUR. GET PLENTY OF SLEEP AND EXERCISE. EAT REGULARLY. LONG PERIODS WITHOUT FOOD CAN TRIGGER A HEADACHE. LIMIT CAFFEINE BY NOT DRINKING TOO MUCH COFFEE, TEA, OR SODA. BUT DON'T QUIT CAFFEINE SUDDENLY, BECAUSE THAT CAN ALSO GIVE YOU HEADACHES. REDUCE EYESTRAIN FROM COMPUTERS BY BLINKING FREQUENTLY AND LOOKING AWAY FROM THE COMPUTER SCREEN EVERY SO OFTEN. MAKE SURE YOU HAVE PROPER EYEWEAR AND THAT YOUR MONITOR IS SET UP PROPERLY, ABOUT AN ARM'S LENGTH AWAY. WHEN SHOULD YOU CALL FOR HELP? CALL 911 ANYTIME YOU THINK YOU MAY NEED EMERGENCY CARE. FOR EXAMPLE, CALL IF: YOU HAVE SIGNS OF A STROKE. THESE MAY INCLUDE: SUDDEN NUMBNESS, PARALYSIS, OR WEAKNESS IN YOUR FACE, ARM, OR LEG, ESPECIALLY ON ONLY ONE SIDE OF YOUR BODY. SUDDEN VISION CHANGES. SUDDEN TROUBLE SPEAKING. SUDDEN CONFUSION OR TROUBLE UNDERSTANDING SIMPLE STATEMENTS. SUDDEN PROBLEMS WITH WALKING OR BALANCE. A SUDDEN, SEVERE HEADACHE THAT IS DIFFERENT FROM PAST HEADACHES. CALL YOUR DOCTOR NOW OR SEEK IMMEDIATE MEDICAL CARE IF: YOU HAVE A FEVER AND A STIFF NECK. YOU HAVE NEW NAUSEA AND VOMITING, OR YOU CANNOT KEEP DOWN FOOD OR FLUIDS. YOUR HEADACHE GETS MUCH WORSE. WATCH CLOSELY FOR CHANGES IN YOUR HEALTH, AND BE SURE TO CONTACT YOUR DOCTOR IF: YOUR HEADACHES GET WORSE, HAPPEN MORE OFTEN, OR CHANGE IN SOME WAY. YOU HAVE NEW SYMPTOMS. YOUR LIFE IS DISRUPTED BY YOUR HEADACHES. FOR EXAMPLE, YOU OFTEN MISS WORK, SCHOOL, OR OTHER ACTIVITIES. YOU DO NOT GET BETTER EXPECTED. Comments 54-year-old female presents with headache. No focal neurological symptoms. Neuro exam is benign. Pt is nontoxic. VSS. Based on history and normal neurological exam I have low suspicion for intracranial tumor, intracranial bleed, meningitis, temporal arteritis, glaucoma, CO poisoning. Most likely patient has benign headache, recommend rest, hydration, and OTC pain control. I reviewed the following notes from the pt's past medical encounters: N/A The following tests were ordered, and results were reviewed by me: (See diagnostic results section) I reviewed and agreed with the following test results read by other providers: Chest x-ray I reviewed the following notes from the pt's past medical encounters: November 25, 2024 encounter for chest pain I discussed treatments and results with patient Decision regarding hospitalization or escalation of hospital level of care: Risks and benefits of admission for further treatment of patient's condition was considered however due to patient's stable condition patient will be discharged to follow up closely or return to care for worsening of condition or inability to follow up. Critical Care Note Critical Care Time?: No Stability Stability form required: No Heart Score Heart Score: Heart Score Response (Comments) Value History N/A 0 EKG N/A 0 Age N/A 0 Risk Factors N/A 0 Troponin N/A 0 Total 0 I personally scribed for MODESTO BALDWIN MD ([email or web address]) on 12/31/24 at 03:42. Electronically submitted by Orlin Chua ([email or web address]). MODESTO BALDWIN MD Dec 31, 2024 03:42
== END 2024-12-31 03:15 | disposition home or self-care (01) ==
LOC: ER
DX: R51.9 Headache, unspecified (principal); J44.89 Other specified chronic obstructive pulmonary disease; I10 Essential (primary) hypertension; F17.210 Nicotine dependence, cigarettes, uncomplicated; Z79.899 Other long term (current) drug therapy; Z95.0 Presence of cardiac pacemaker; Z98.51 Tubal ligation status
CPT/HCPCS: 36415; 71045; 80048; 84484; 85025; 93005; 96372; 99285; J1885

== ENCOUNTER 2025-01-31 23:26 | Emergency (ER) | payer MEDICAID ==
[~2025-01-31] VITALS: Ht 162.6 cm; Wt 85.7 kg
[2025-01-31 23:53] LABS: Hematocrit 41.0 % (36.0-46.0); Hemoglobin 14.2 g/dL (12.2-16.2); Mean Corpuscular Hemoglobin 31.9 pg (28.0-32.0); Mean Corpuscular Volume 92.3 fL (80.0-100.0); Nucleated Red Blood Cells % 0.3 %
[2025-02-01 00:01] LABS: Chloride 105 mmol/L (98-107); Potassium 3.6 mmol/L (3.5-5.1); Sodium 142 mmol/L (136-145)
[2025-02-01 00:02] LABS: Anion Gap 7 (5-15); Carbon Dioxide 30 mmol/L (20-31)
[2025-02-01 00:03] LABS: Calcium 9.9 mg/dL (8.7-10.4)
[2025-02-01 00:07] LABS: BUN/Creatinine Ratio 12.0 (10.0-20.0); Blood Urea Nitrogen 11 mg/dL (9-23); Glucose 99 mg/dL (74-106)
[2025-02-01] MEDS: NITROGLYCERIN 0.4 MG SL TAB SL ONE (01:23)
[2025-02-01 01:24] VITALS: PULSE 79; RESP 18; O2SAT 98
--- NOTE | 2025-02-01 02:23 | ED.PDOC ---
HPI Comments This is a pleasant but morbidly obese 54-year-old female who has been to our facility numerous times for similar complaints, arrives again today with continued complaints of chest pain concerns. Patient states the chest pain as central and radiates towards her left sided chest and shoulder. Patient denies any traumatic events. Patient states the symptoms came on approximately 1 hour prior to arrival and have continued. Vital signs were stable. Patient does have cardiology outpatient management that is continuing. Chief Complaint: Chest Pain Time Seen by MD: 23:35 Primary Care Provider: MANDI Reviewed Notes: Nurses Notes Allergies: Coded Allergies: No Known Drug Allergy (Verified Allergy, Unknown, 12/27/23) Home Meds Active Scripts Gabapentin (Gabapentin) 300 Mg Cap, 1 CAP PO TID PRN, #30 CAP prn sciatic nerve pain Prov:YEHUDA CONTRERAS MD 07/04/24 Reported Medications Tizanidine Hydrochloride (Tizanidine Hcl) 4 Mg Tab, 1 TAB PO TID 11/26/24 Losartan Potassium & Hydrochlo (Losartan Potassium/Hydroc) 1 Tab Tab, 1 TAB PO DAILY, TAB 100-25mg tab 11/26/24 Semaglutide (Rybelsus) 7 Mg Tab, PO QAM 11/26/24 Hydrocodone-Acetaminophen (Hydrocodone/Acetaminophen 10-325 mg) 1 Tab Tab, 1 TAB PO Q6HP PRN for PAIN SCALE 7 THRU 10 11/26/24 Cholecalciferol (Vitamin D-3 Super Strengt) 2,000 Unit Tab, 1 TAB PO DAILY 12/27/23 Risperidone (Risperidone) 2 Mg Tab, 1 TAB BID 12/27/23 Information Source: Patient Mode of Arrival: Ambulatory Severity: Moderate Timing: Minutes Duration: Since onset Prehospital treatment: None Location: Chest (L), Substernal Quality: Sharp, Stabbing, Squeezing Onset: At Rest Cardiac Risk Factors: HTN, Diabetes PE Risk Factors: None History of: Similar pain in past Past Medical History PAST MEDICAL HISTORY: Asthma, COPD, HTN Past Medical History (Other): Continued cardiac history Surgical History: , Pacemaker, Tubal Ligation WORLDWIDE CHIEF CREATIVE OFFICER History: No Pertinent WORLDWIDE CHIEF CREATIVE OFFICER History Family History Family History: No family hx of Cancer, No family hx of DM, No family hx of HTN, No family hx ofKidney veronica, No family hx of Liver veronica, No family hx of Lung veronica, No family hx of Stroke, Family hx of heart veronica Social History Smoker: Cigarettes, Less Than 1 Pack/Day Alcohol: Denies ETOH Use Drugs: Denies Drug Use Lives In: Home Constitutional: denies: chills, diaphoresis, fatigue, fever, malaise, sweats, weakness, others EENTM: denies: blurred vision, double vision, ear bleeding, ear discharge, ear drainage, ear pain, ear ringing, eye pain, eye redness, hearing loss, mouth pain, mouth swelling, nasal discharge, nose bleeding, nose congestion, nose pain, photophobia, tearing, throat pain, throat swelling, voice changes, others Respiratory: denies: cough, hemoptysis, orthopnea, SOB at rest, shortness of breath, SOB with excertion, stridor, wheezing, others Cardiovascular: reports: chest pain; denies: dizzy spells, diaphoresis, Dyspnea on exertion, edema, irregular heart beat, left arm pain, lightheadedness, palpitations, PND, syncope, others Gastrointestinal: denies: abdomen distended, abdominal pain, blood streaked bowels, constipated, diarrhea, dysphagia, difficulty swallowing, hematemesis, melena, nausea, poor appetite, poor fluid intake, rectal bleeding, rectal pain, vomiting, others Genitourinary: denies: abnormal vagina bleeding, burning, dyspareunia, dysuria, flank pain, frequency, hematuria, incontinence, pain, , vagina discharge, urgency, others Neurological: denies: dizziness, fainting, headache, left sided numbness, left sided weakness, numbness, paresthesia, pre-existing deficit, right sided numbness, right sided weakness, seizure, speech problems, tingling, tremors, weakness, others Musculoskeletal: denies: back pain, gout, joint pain, joint swelling, muscle pain, muscle stiffness, neck pain, others Integumetry: denies: bruises, change in color, change in hair/nails, dryness, laceration, lesions, lumps, rash, wounds, others Allergic/Immunocompromised: denies: Difficulty Healing, Frequent Infections, Hives, Itching, others Hematologic/Lymphatic: denies: anemia, blood clots, easy bleeding, easy bruising, swollen glands, others Endocrine: denies: excessive hunger, excessive sweating, excessive thirst, excessive urination, flushing, intolerance to cold, intolerance to heat, unexplained weight gain, unexplained weight loss, others Psychiatric: denies: anxiety, bipolar disorder, depression, hopeless, panic dis order, schizophrenia, sleepless, suicidal, others Physical Exam General Appearance: Moderate Distress ([id number] distress due to chest pain concerns), Normal HEENT: Normal ENT Inspection, Pharynx Normal, TMs Normal Neck: Full Range of Motion, Non-Tender, Normal, Normal Inspection Respiratory: Chest Non-Tender, Lungs Clear, No Accessory Muscle Use, No Respiratory Distress, Normal Breath Sounds, Other (Unremarkable auscultation bilateral lung tomlin) Cardiovascular: No Edema, No JVD, No Murmur, No Gallop, Normal Peripheral Pulses, Regular Rate/Rhythm, Other (Unremarkable cardiac evaluation.) Breast Exam: Deferred Gastrointestinal: No Organomegaly, Non Tender, No Pulsatile Mass, Normal Bowel Sounds, Soft Genitalia: Deferred Pelvic: Deferred Rectal: Deferred Extremities: No calf tenderness, Normal capillary refill, Normal inspection, Normal range of motion, Non-tender, No pedal edema Neurologic: Alert, No Motor Deficits, Normal Affect, Normal Mood, No Sensory Deficits Cerebellar Function: NOT DONE Reflexes: NOT DONE Skin: Dry, Normal Color, Warm Lymphatic: No Adenopathy Was a procedure done? Was a procedure done?: No CP Differential Dx Differential Diagnosis: A-fib, Anxiety / Panic Attack, Atrial Dysrhythmia, AV Block 1st Degree, AK Differential Diagnosis: Angina, Chest Wall Pain X-Ray, Labs, Meds, VS Vital Signs Date Time Temp Pulse Resp B/P (MAP) Pulse Ox O2 Delivery O2 Flow Rate FiO2 02/01/25 01:24 79 18 98 Room Air* 0 21 02/01/25 01:24 98.7 79 18 101/63 (76) 98 98.7 02/01/25 01:23 101/63 01/31/25 23:28 98.4 87 18 136/71 98 98.4 Lab Test 02/01/25 00:25 01/31/25 23:40 Range/Units Troponin I High Sensitivity < 3 L < 3 L </=34 ng/L White Blood Count 9.5 4.4-10.8 10^3/uL Red Blood Count 4.45 4.0-5.20 10^6/uL Hemoglobin 14.2 12.2-16.2 g/dL Hematocrit 41.0 36.0-46.0 % Mean Corpuscular Volume 92.3 80.0-100.0 fL Mean Corpuscular Hemoglobin 31.9 28.0-32.0 pg Mean Corpuscular Hemoglobin Concent 34.6 32.0-36.0 g/dL Red Cell Distribution Width 13.1 11.8-14.3 % Platelet Count 343 140-450 10^3/uL Mean Platelet Volume 7.5 6.9-10.8 fL Neutrophils (%) (Auto) 52.9 37.0-80.0 % Lymphocytes (%) (Auto) 38.6 10.0-50.0 % Monocytes (%) (Auto) 6.1 0.0-12.0 % Eosinophils (%) (Auto) 1.5 0.0-7.0 % Basophils (%) (Auto) 0.9 0.0-2.0 % Neutrophils # (Auto) 5.0 1.6-8.6 10 ^3/uL Lymphocytes # (Auto) 3.7 0.4-5.4 10 ^3/uL Monocytes # (Auto) 0.6 0-1.3 10 ^3/uL Eosinophils # (Auto) 0.1 0-0.8 10 ^3/uL Basophils # (Auto) 0.1 0-0.2 10 ^3/uL Nucleated Red Blood Cells 0.3 % Sodium Level 142 136-145 mmol/L Potassium Level 3.6 3.5-5.1 mmol/L Chloride Level 105 98-107 mmol/L Carbon Dioxide Level 30 20-31 mmol/L Anion Gap 7 5-15 Blood Urea Nitrogen 11 9-23 mg/dL Creatinine 0.92 0.550-1.02 mg/dL Glomerular Filtration Rate Calc 74 >90 mL/min BUN/Creatinine Ratio 12.0 10.0-20.0 Serum Glucose 99 74-106 mg/dL Calcium Level 9.9 8.7-10.4 mg/dL Current Medications Medications (Trade) Dose Ordered Sig/Jose J Route Start Time Stop Time Status Last Admin Nitroglycerin (Ntrostat Sublingual) 0.4 mg ONCE ONCE SL 01/31/25 23:45 01/31/25 23:46 DC 02/01/25 01:23 X-Ray, Labs, Meds, VS Comment All studies performed the ED were evaluated by me personally. Serum studies were unremarkable for any systemic concerns including unremarkable cardiac markers. EKG revealed a sinus rhythm with a rate of 78. ID interval 193 and QT interval of 380. Patient appears to continue to have what may be angina events. Patient will need to continue follow up with her publications inspector for long-term management. Time of 1ST Reevaluation: 02:22 Reevaluation 1ST: Improved Consultation: PCP, Cardiology Patient Education/Counseling: Diagnosis, Treatment Family Education/Counseling: Diagnosis, Treatment SEPSIS Sepsis Screen Date sepsis recognized/suspect: Jan 31, 2025 Time Sepsis recognized/suspect: 2327 Recent Procedure: No On Antibiotic Therapy: No Respiratory Rate >20: No Heart Rate >90: No Temp<36 C (96.8 F) or >38.3 C: No SBP <90 or MAP <65 mmHG: No New Acute Mental Status Change: No Is the patient on CPAP, BIPAP,: No Physician Orders Electrocardigram (01/31/25 23:33) Vital Signs Date Time Temp Pulse Resp B/P (MAP) Pulse Ox O2 Delivery O2 Flow Rate FiO2 02/01/25 01:24 79 18 98 Room Air* 0 21 02/01/25 01:24 98.7 79 18 101/63 (76) 98 98.7 02/01/25 01:23 101/63 01/31/25 23:28 98.4 87 18 136/71 98 98.4 Laboratory Tests Test 01/31/25 23:40 White Blood Count 9.5 10^3/uL (4.4-10.8) Medications Medications Dose Ordered Sig/Jose J Route Start Time Stop Time Status Last Admin Dose Admin Nitroglycerin 0.4 mg ONCE ONCE SL 01/31/25 23:45 01/31/25 23:46 DC 02/01/25 01:23 Departure 1 Departure Time of Disposition: 02:23 Impression: Primary Impression: Chest pain Disposition: 01 HOME / SELF CARE / HOMELESS Condition: Stable Additional Instructions: Advised patient continue follow up with her publications inspector for long-term management. Discharged With: Self, Friend Critical Care Note Critical Care Time?: No Stability Stability form required: No Heart Score Heart Score: Heart Score Response (Comments) Value History Slightly Suspicious 0 EKG Normal 0 Age 45-64 1 Risk Factors 1 or 2 risk factors 1 Troponin Normal limit 0 Total 2 JOSE QUINTERO PAC Feb 01, 2025 02:23
[2025-02-01 02:51] VITALS: BP 119/82; PULSE 80; RESP 18; TEMP 98; O2SAT 99
--- NOTE | 2025-02-01 12:00 | ECG ---
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
== END 2025-02-01 02:54 | disposition home or self-care (01) ==
LOC: ER 23:26
DX: R07.89 Other chest pain (principal); F17.210 Nicotine dependence, cigarettes, uncomplicated; I10 Essential (primary) hypertension; J44.89 Other specified chronic obstructive pulmonary disease; E66.01 Morbid (severe) obesity due to excess calories; Z98.51 Tubal ligation status; Z95.0 Presence of cardiac pacemaker; Z79.899 Other long term (current) drug therapy; Z68.32 Body mass index [BMI] 32.0-32.9, adult
CPT/HCPCS: 36415; 80048; 84484; 85025; 93005

== ENCOUNTER 2025-02-16 00:13 | Emergency (ER) | payer MEDICAID ==
[~2025-02-16] VITALS: Ht 160 cm; Wt 85.7 kg
[2025-02-16] MEDS: OXYCODONE W/ ACETAMINOPHEN 5/325MG TABLET PO ONE (01:33)
[2025-02-16] MEDS: KETOROLAC TROMETH 60MG/2ML VIAL IM ONE (01:33)
--- NOTE | 2025-02-16 02:18 | ED.PDOC ---
Back pain HPI HPI Comments PT CAME TO THE ER WITH CC OF BACK PAIN AND SCIATIC PAIN X3 DAYS. PT STATES THAT SHE RAN OUT OF HER PAIN MEDS AND CAN NOT TAKE THE PAIN D/T SLIPPED DISCS IN HER BACK. PT IS A&OX4 RR EVEN AND REGULAR NO DISTRESS NOTED AT THIS TIME,, PT DENIES N/V/D CP SOB. DENIES NUMBNESS, WEAKNESS, LOSS OF BOWEL OR BLADDER CONTROL, OR SADDLE ANESTHESIA. REPORTS NO NEW INJURY. Chief Complaint: Back Pain Time Seen by MD: 00:23 Primary Care Provider: MANDI Reviewed Notes: Nurses Notes, Medications, Allergies Allergies: Coded Allergies: No Known Drug Allergy (Verified Allergy, Unknown, 12/27/23) Home Meds Active Scripts Gabapentin (Gabapentin) 300 Mg Cap, 1 CAP PO TID PRN, #30 CAP prn sciatic nerve pain Prov:YEHUDA CONTRERAS MD 07/04/24 Reported Medications Tizanidine Hydrochloride (Tizanidine Hcl) 4 Mg Tab, 1 TAB PO TID 11/26/24 Losartan Potassium & Hydrochlo (Losartan Potassium/Hydroc) 1 Tab Tab, 1 TAB PO DAILY, TAB 100-25mg tab 11/26/24 Semaglutide (Rybelsus) 7 Mg Tab, PO QAM 11/26/24 Hydrocodone-Acetaminophen (Hydrocodone/Acetaminophen 10-325 mg) 1 Tab Tab, 1 TAB PO Q6HP PRN for PAIN SCALE 7 THRU 10 11/26/24 Cholecalciferol (Vitamin D-3 Super Strengt) 2,000 Unit Tab, 1 TAB PO DAILY 12/27/23 Risperidone (Risperidone) 2 Mg Tab, 1 TAB BID 12/27/23 Information Source: Patient Mode of Arrival: Ambulatory Past Medical History PAST MEDICAL HISTORY: Asthma, COPD, HTN Surgical History: , Pacemaker, Tubal Ligation FIELD MARKETING COORDINATOR History: No Pertinent FIELD MARKETING COORDINATOR History Family History Family History: No family hx of Cancer, No family hx of DM, No family hx of HTN, No family hx ofKidney veronica, No family hx of Liver veronica, No family hx of Lung veronica, No family hx of Stroke, Family hx of heart veronica Social History Smoker: Cigarettes, Less Than 1 Pack/Day Alcohol: Denies ETOH Use Drugs: Denies Drug Use Lives In: Home All Other Systems: Reviewed and Negative (SEE HPI) Physical Exam General Appearance: No Apparent Distress, Normal HEENT: Pharynx Normal Neck: Full Range of Motion, Non-Tender Respiratory: Lungs Clear, No Respiratory Distress, Normal Breath Sounds Cardiovascular: No Murmur, Normal Peripheral Pulses, Regular Rate/Rhythm Breast Exam: Deferred Gastrointestinal: No Organomegaly, Non Tender, No Pulsatile Mass, Normal Bowel Sounds, Soft Genitalia: Deferred Pelvic: Deferred Rectal: Deferred Extremities: Normal capillary refill, Normal range of motion, No pedal edema Musculoskeletal : Location: Bilateral Extremity Location: Back (MODERATE TENDERNESS PALPATED OVER L1 THROUGH L5 WITHOUT CREPITUS OR STEP-OFFS NOTED PARASPINAL MUSCLES SPASMS BILATERAL STRENGTH SENSORY MOTION INTACT NEGATIVE STRAIGHT LEG RAISE TEST BILATERAL POSITIVE PEDAL PULSES) Apperance: Normal Neurologic: Alert, No Motor Deficits, Normal Affect, Normal Mood, No Sensory De ficits Cerebellar Function: Normal Reflexes: Normal Skin: Dry, Normal Color, Warm Lymphatic: No Adenopathy Was a procedure done? Was a procedure done?: No Back Pain Differential Dx Differential Diagnosis: Fracture, Musculoskeletal Pain, Strain X-Ray, Labs, Meds, VS Vital Signs Date Time Temp Pulse Resp B/P (MAP) Pulse Ox O2 Delivery O2 Flow Rate FiO2 02/16/25 03:01 74 18 98 Room Air 02/16/25 03:01 98.0 74 18 126/78 (94) 98 98.0 02/16/25 00:15 98.2 97 20 145/107 97 98.2 Current Medications Medications (Trade) Dose Ordered Sig/Jose J Route Start Time Stop Time Status Last Admin Ketorolac Tromethamine (Toradol Injection) 60 mg ONCE ONCE IM 02/16/25 01:15 02/16/25 01:16 DC 02/16/25 01:33 Dexamethasone Sodium Phosphate (Decadron Injection) 10 mg ONCE ONCE IM 02/16/25 01:15 02/16/25 01:16 DC 02/16/25 01:32 Oxycodone/ Acetaminophen (Percocet 5/ 325MG Tablet) 2 tab ONCE ONCE PO 02/16/25 01:15 02/16/25 01:16 DC 02/16/25 01:33 X-Ray, Labs, Meds, VS Comment PATIENT GIVEN PERCOCET 10 MG, DECADRON 10 MG IM AND TORADOL 10 MG IM. REPORTS IMPROVEMENT IN PAIN AND FUNCTION REQUESTING DISCHARGE AT THIS TIME. ADVISED PATIENT TO REST, FOLLOW UP WITH HER PCP IN 2-3 DAYS NECESSARY CONSIDER REPEAT MRI IF SYMPTOMS PERSIST. ADVISED ON ER RETURN PRECAUTIONS FOR WEAKNESS, NUMBNESS, LOSS OF BOWEL BLADDER CONTROL, OR SADDLE ANESTHESIA, PATIENT INDICATES UNDERSTANDING AGREES WITH DISCHARGE PLAN OF CARE. Time of 1ST Reevaluation: 00:35 Reevaluation 1ST: Unchanged Time of 2ND Reevaluation: 02:16 Reevaluation 2ND: Improved Patient Education/Counseling: Diagnosis, Treatment, Prognosis, Need For Follow Up Family Education/Counseling: Diagnosis, Treatment, Prognosis, Need For Follow Up SEPSIS Sepsis Screen Date sepsis recognized/suspect: Feb 16, 2025 Time Sepsis recognized/suspect: 0019 Recent Procedure: No On Antibiotic Therapy: No Respiratory Rate >20: No Heart Rate >90: No Temp<36 C (96.8 F) or >38.3 C: No SBP <90 or MAP <65 mmHG: No New Acute Mental Status Change: No Is the patient on CPAP, BIPAP,: No Vital Signs Date Time Temp Pulse Resp B/P (MAP) Pulse Ox O2 Delivery O2 Flow Rate FiO2 02/16/25 03:01 74 18 98 Room Air 02/16/25 03:01 98.0 74 18 126/78 (94) 98 98.0 02/16/25 00:15 98.2 97 20 145/107 97 98.2 Medications Medications Dose Ordered Sig/Jose J Route Start Time Stop Time Status Last Admin Dose Admin Dexamethasone Sodium Phosphate 10 mg ONCE ONCE IM 02/16/25 01:15 02/16/25 01:16 DC 02/16/25 01:32 Ketorolac Tromethamine 60 mg ONCE ONCE IM 02/16/25 01:15 02/16/25 01:16 DC 02/16/25 01:33 Oxycodone/ Acetaminophen 2 tab ONCE ONCE PO 02/16/25 01:15 02/16/25 01:16 DC 02/16/25 01:33 Departure 1 Departure Time of Disposition: 02:16 Impression: Primary Impression: Acute exacerbation of chronic low back pain Disposition: 01 HOME / SELF CARE / HOMELESS Condition: Stable Discharged With: Significant Other Critical Care Note Critical Care Time?: No Stability Stability form required: KATELYNN Yeh Feb 16, 2025 02:18
[2025-02-16 03:01] VITALS: BP 126/78; PULSE 74; RESP 18; TEMP 98; O2SAT 98
== END 2025-02-16 03:03 | disposition home or self-care (01) ==
LOC: ER 00:13
DX: M54.40 Lumbago with sciatica, unspecified side (principal); J44.89 Other specified chronic obstructive pulmonary disease; I10 Essential (primary) hypertension; F17.210 Nicotine dependence, cigarettes, uncomplicated; Z98.51 Tubal ligation status; Z79.899 Other long term (current) drug therapy; Z95.0 Presence of cardiac pacemaker
CPT/HCPCS: 96372; 99284; J1100; J1885

== ENCOUNTER 2025-03-06 03:28 | Emergency (ER) | payer MEDICAID ==
[~2025-03-06] VITALS: Ht 160 cm; Wt 89.1 kg
[2025-03-06 04:08] VITALS: BP 129/80; PULSE 97; RESP 18; TEMP 97.6; O2SAT 94
--- NOTE | 2025-03-06 04:11 | ED.PDOC ---
Back pain HPI HPI Comments 54 year old female presents to ER with complaints of back pain x 1 day. Patient with PMH of chronic lumbar back pain and left sided sciatica reports that she has been experiencing a "flare-up" of left sided sciatic back pain x 1 day. She rates her current pain a 10/10 with radiation down posterior left leg. Notes she's been taking [place] 10/325 mg as prescribed by her pain management doctor with slight relief. States she is awaiting a referral by her pain management doctor to see an orthopedic spinal surgeon and reports chronic numbness/tingling down posterior left leg. Patient presents to ER ambulatory on arrival, with steady gait, in no distress. Denies fever, body aches, chills, night sweats, tra rosemarie/falls, abdominal/pelvic pain, extremity weakness, changes in urination/bm or any further symptoms/complaints Chief Complaint: Back Pain Time Seen by MD: 03:53 Primary Care Provider: MANDI Wei Notes: Nurses Notes, Medications, Allergies Allergies: Coded Allergies: No Known Drug Allergy (Verified Allergy, Unknown, 12/27/23) Home Meds Active Scripts Cyclobenzaprine Hcl (Cyclobenzaprine Hcl) 5 Mg Tab, 1 TAB PO QHSP, #14 TAB 0 Refills Prov:CHARLINE NIEVES 03/06/25 Gabapentin (Gabapentin) 300 Mg Cap, 1 CAP PO TID PRN, #30 CAP prn sciatic nerve pain Prov:YEHUDA CONTRERAS MD 07/04/24 Reported Medications Tizanidine Hydrochloride (Tizanidine Hcl) 4 Mg Tab, 1 TAB PO TID 11/26/24 Losartan Potassium & Hydrochlo (Losartan Potassium/Hydroc) 1 Tab Tab, 1 TAB PO DAILY, TAB 100-25mg tab 11/26/24 Semaglutide (Rybelsus) 7 Mg Tab, PO QAM 11/26/24 Hydrocodone-Acetaminophen (Hydrocodone/Acetaminophen 10-325 mg) 1 Tab Tab, 1 TAB PO Q6HP PRN for PAIN SCALE 7 THRU 10 11/26/24 Cholecalciferol (Vitamin D-3 Super Strengt) 2,000 Unit Tab, 1 TAB PO DAILY 12/27/23 Risperidone (Risperidone) 2 Mg Tab, 1 TAB BID 12/27/23 Information Source: Patient Mode of Arrival: Ambulatory Past Medical History PAST MEDICAL HISTORY: Asthma, COPD, HTN Past Medical History (Other): Chronic lumbar back pain Left sided sciatica Surgical History: , Pacemaker, Tubal Ligation SURVIVAL EQUIPMENT REPAIRER History: No Pertinent SURVIVAL EQUIPMENT REPAIRER History Family History Family History: No family hx of Cancer, No family hx of DM, No family hx of HTN, No family hx ofKidney veronica, No family hx of Liver veronica, No family hx of Lung veronica, No family hx of Stroke, Family hx of heart veronica Social History Smoker: Cigarettes, Less Than 1 Pack/Day Alcohol: Denies ETOH Use Drugs: Denies Drug Use Lives In: Home Constitutional: denies: chills, diaphoresis, fatigue, fever, malaise, sweats, weakness, others EENTM: denies: blurred vision, double vision, ear bleeding, ear discharge, ear drainage, ear pain, ear ringing, eye pain, eye redness, hearing loss, mouth pain, mouth swelling, nasal discharge, nose bleeding, nose congestion, nose pain, photophobia, tearing, throat pain, throat swelling, voice changes, others Respiratory: denies: cough, hemoptysis, orthopnea, SOB at rest, shortness of breath, SOB with excertion, stridor, wheezing, others Cardiovascular: denies: chest pain, dizzy spells, diaphoresis, Dyspnea on exertion, edema, irregular heart beat, left arm pain, lightheadedness, palpitations, PND, syncope, others Gastrointestinal: denies: abdomen distended, abdominal pain, blood streaked bowels, constipated, diarrhea, dysphagia, difficulty swallowing, hematemesis, melena, nausea, poor appetite, poor fluid intake, rectal bleeding, rectal pain, vomiting, others Genitourinary: denies: abnormal vagina bleeding, burning, dyspareunia, dysuria, flank pain, frequency, hematuria, incontinence, pain, , vagina discharge, urgency, others Neurological: denies: dizziness, fainting, headache, left sided numbness, left sided weakness, numbness, paresthesia, pre-existing deficit, right sided numbness, right sided weakness, seizure, speech problems, tingling, tremors, weakness, others Musculoskeletal: reports: others (As stated in HPI) Integumetry: denies: bruises, change in color, change in hair/nails, dryness, laceration, lesions, lumps, rash, wounds, others Allergic/Immunocompromised: denies: Difficulty Healing, Frequent Infections, Hives, Itching, others Hematologic/Lymphatic: denies: anemia, blood clots, easy bleeding, easy bruising, swollen glands, others Endocrine: denies: excessive hunger, excessive sweating, excessive thirst, excessive urination, flushing, intolerance to cold, intolerance to heat, unexplained weight gain, unexplained weight loss, others Psychiatric: denies: anxiety, bipolar disorder, depression, hopeless, panic disorder, schizophrenia, sleepless, suicidal, others Physical Exam General Appearance: No Apparent Distress, Obese HEENT: PERRL/EOMI Neck: Full Range of Motion, Non-Tender, Normal Respiratory: Chest Non-Tender, Lungs Clear, No Accessory Muscle Use, No Respiratory Distress, Normal Breath Sounds Cardiovascular: No Murmur, No Gallop, Regular Rate/Rhythm Breast Exam: Deferred Gastrointestinal: No Organomegaly, Non Tender, No Pulsatile Mass, Normal Bowel Sounds, Soft Genitalia: Deferred Pelvic: Deferred Rectal: Deferred Extremities: No calf tenderness, Normal capillary refill, Normal range of motion Musculoskeletal : Extremity Location: Back (TTP to left lower lumbar paraspinals and TTP centralized to left buttock noted. No bony tenderness to spine appreciated. Steady gait noted) Neurologic: Alert, No Motor Deficits, Normal Affect, Normal Mood, No Sensory Deficits Cerebellar Function: Normal Reflexes: Normal Skin: Dry, Normal Color, Warm Peripheral Pulses: 2+ femoral (R), 2+ femoral (L), 2+ dorsalis pedis (R), 2+ dorsalis pedis (L), 2+ Radial (R), 2+ Radial (L), 2+ Brachial (R), 2+ Brachial (L) Lymphatic: No Adenopathy Was a procedure done? Was a procedure done?: No Sedation Sedation?: No Back Pain Differential Dx Differential Diagnosis: AAA, Fracture, Urolithiasis, Other (UTI) X-Ray, Labs, Meds, VS Vital Signs Date Time Temp Pulse Resp B/P (MAP) Pulse Ox O2 Delivery O2 Flow Rate FiO2 03/06/25 04:08 Room Air* 0 21 03/06/25 04:08 97.6 97 18 129/80 (96) 94 97.6 03/06/25 03:30 97.6 97 18 129/80 94 97.6 Cyclobenzaprine 10 mg p.o. ordered Patient neurovascularly intact and reported improvement in symptoms prior to discharge Advised on rest/no strenuous activity Advised to [place] as prescribed PRN pain Smoking cessation discussed and advised Advised to follow up with PCP and pain management/orthopedic spinal surgeon in 1-2 days Patient verbalized understanding and agreeable with current plan of care Advised to return to ER immediately if symptoms worsen Time of 1ST Reevaluation: 03:53 Reevaluation 1ST: N/A Patient Education/Counseling: Diagnosis, Treatment, Prognosis, Need For Follow Up Family Education/Counseling: No Family Present SEPSIS Sepsis Screen Date sepsis recognized/suspect: Mar 06, 2025 Time Sepsis recognized/suspect: 329 Recent Procedure: No On Antibiotic Therapy: No Respiratory Rate >20: No Heart Rate >90: Yes Temp<36 C (96.8 F) or >38.3 C: No SBP <90 or MAP <65 mmHG: No New Acute Mental Status Change: No Is the patient on CPAP, BIPAP,: No Physician Orders Cyclobenzaprine Tablet (Flexeril Tablet) (03/06/25 04:15) Vital Signs Date Time Temp Pulse Resp B/P (MAP) Pulse Ox O2 Delivery O2 Flow Rate FiO2 03/06/25 04:08 Room Air* 0 21 03/06/25 04:08 97.6 97 18 129/80 (96) 94 97.6 03/06/25 03:30 97.6 97 18 129/80 94 97.6 Departure 1 Departure Time of Disposition: 04:10 Impression: Primary Impression: Acute exacerbation of chronic low back pain Additional Impression: Left sided sciatica Disposition: 01 HOME / SELF CARE / HOMELESS Condition: Stable e-Prescriptions Cyclobenzaprine Hcl (Cyclobenzaprine Hcl) 5 Mg Tab 1 TAB PO QHSP, #14 TAB 0 Refills Prov: CHARLINE NIEVES 03/06/25 Discharged With: Friend Critical Care Note Critical Care Time?: No Stability Stability form required: No Heart Score Heart Score: Heart Score Response (Comments) Value History N/A 0 EKG N/A 0 Age N/A 0 Risk Factors N/A 0 Troponin N/A 0 Total 0 CHARLINE NIEVES Mar 06, 2025 04:11
[2025-03-06] MEDS ORDERED: CYCL-837 PO (04:12)
[2025-03-06] MEDS: CYCLOBENZAPRINE HCL 10 MG TAB PO ONE (04:17)
== END 2025-03-06 04:18 | disposition home or self-care (01) ==
LOC: ER 03:34
DX: M54.42 Lumbago with sciatica, left side (principal); G89.29 Other chronic pain; F17.210 Nicotine dependence, cigarettes, uncomplicated; I10 Essential (primary) hypertension; J44.89 Other specified chronic obstructive pulmonary disease; J45.909 Unspecified asthma, uncomplicated; Z79.899 Other long term (current) drug therapy; Z95.0 Presence of cardiac pacemaker; Z98.51 Tubal ligation status

== ENCOUNTER 2025-03-20 06:44 | Emergency (ER) | payer MEDICAID ==
[~2025-03-20] VITALS: Ht 160 cm; Wt 88.2 kg
[~2025-03-20 06:44] MED LIST changes: +CYCL-837 PO
--- NOTE | 2025-03-20 07:33 | ED.PDOC ---
General HPI Comments HPI: This is a 54 year old female presenting to the ED with chief complaint of abdominal pain. Patient reports that she has been experiencing lower abdominal pain since yesterday with associated nausea, vomiting, and burning dysuria since this morning. Patient relays that her symptoms today feel like previous UTIs she has had in the past. Patient denies any diarrhea, hematuria, vaginal bleeding, fever, or chills. Initial Vitals BP: 134/86 HR: 84 RR: 20 O2: 96% Temp: 97.7F Past Medical History: HTN, Asthma, Sciatica, UTIs Past Surgical History: , Pacemaker, Tubal Ligation, Left knee replacement, Bilateral shoulder surgery Social History: Denies ETOH, smoking, and drug use. Medications: Reviewed Allergies: NKDA HERRERA: uti, pelvic pain, dysuria, nausea HPI: Poor Historian. REVIEW OF SYSTEMS: CONSTITUTIONAL: Denies acute: fever, diaphoresis, chills, generalized weakness. HEAD: Denies acute: headache, photophobia Eyes: Denies acute: Double vision, vision loss, eye pain, eye discharge. EARS: Denies acute: tinnitus, hearing loss, ear discharge, ear pain, THROAT: Denies acute: sore throat, swelling, difficulty swallowing , pain with swallowing, change in voice. NECK: Denies acute: neck pain, neck swelling, stiff neck. HEART: Denies acute : chest pain, palpitations, LUNGS: Denies acute: SOB, wheezing, cough, hemoptysis ABDOMEN: Denies acute: , diarrhea, melena , hematemesis, hematochezia SKIN: Denies acute: rash, redness, lesions, itchiness. EXTREMITIES: Denies acute: calf pain, numbness, tingling, weakness, denies pain in extremity. Denies acute: Low back pain. Neuro: Denies acute: focal neurological deficit, motor or sensory focal neurological deficit, tremors, seizure like activity, confusion, dizziness, change in mental status, loss of bowel or bladder function, cauda equina like symptoms. : Denies acute: , hematuria, flank pain, increase in urinary frequency. PSYCH: Denies acute: hallucination, suicidal ideation, homicidal ideation. FEMALE: Denies acute: abnormal vaginal bleeding, foul odor, unusual discharge. PHYSICAL EXAM: General: -----mild---acute distress, awake and alert. Head: normocephalic, atraumatic. Neck: supple, trachea is midline, no swelling. Throat: Normal phonation. Eyes:, no erythema, no purulent discharge, no proptosis, no icterus. Heart: regular rate, regular rhythm, no significant murmur appreciated. Lungs: no apparent respiratory distress, Able to speak in full sentences. No wheezing, no rhonchi, no crackles. No stridors Clear to auscultation bilaterally. Abdomen: Lower abdominal tender to palpation, non distended, soft, no guarding, no rebound, + bowel sounds. Neuro: Awake, Alert, oriented to name, self, situation, follows commands GCS=15. Speech is normal. Skin: no petechia, no purpura, no cyanosis, non-pale, not jaundice. Lower extremities: --no - Pitting edema no deformity, no focal swelling, no calf TTP. Makes eye contact. moves all four extremities. Face: no apparent facial droop. Ambulating in the ED independently. ED COURSE: DISCLAIMER: This medical document was created using an electronic medical record system with voice recognition software and computerized dictation system. Although this document has been carefully reviewed, there might still be some phonetic and typographical errors. Occasional wrong-word or "sound-alike" substitutions may have occurred due to the inherent limitations of voice recognition software. These areas are purely typographical due to imperfections of the software programs and do not reflect any compromise in the patient's medical care. Please read the chart carefully and recognize, using context, where these substitutions have occurred. Chief Complaint: Pelvic Pain Time Seen by MD: 06:50 Primary Care Provider: MANDI Wei notes: Medications, Allergies Allergies: Coded Allergies: No Known Drug Allergy (Verified Allergy, Unknown, 12/27/23) Home Meds Active Scripts Nitrofurantoin Monohydrate Mac (Macrobid) 100 Mg Cap, 100 MG PO BID for 7 Days, #14 CAP Prov:VANDANA TOBAR DO 03/20/25 Cyclobenzaprine Hcl (Cyclobenzaprine Hcl) 5 Mg Tab, 1 TAB PO QHSP, #14 TAB 0 Refills Prov:CHARLINE NIEVES 03/06/25 Gabapentin (Gabapentin) 300 Mg Cap, 1 CAP PO TID PRN, #30 CAP prn sciatic nerve pain Prov:YHEUDA CONTRERAS MD 07/04/24 Reported Medications Tizanidine Hydrochloride (Tizanidine Hcl) 4 Mg Tab, 1 TAB PO TID 11/26/24 Losartan Potassium & Hydrochlo (Losartan Potassium/Hydroc) 1 Tab Tab, 1 TAB PO D AILY, TAB 100-25mg tab 11/26/24 Semaglutide (Rybelsus) 7 Mg Tab, PO QAM 11/26/24 Hydrocodone-Acetaminophen (Hydrocodone/Acetaminophen 10-325 mg) 1 Tab Tab, 1 TAB PO Q6HP PRN for PAIN SCALE 7 THRU 10 11/26/24 Cholecalciferol (Vitamin D-3 Super Strengt) 2,000 Unit Tab, 1 TAB PO DAILY 12/27/23 Risperidone (Risperidone) 2 Mg Tab, 1 TAB BID 12/27/23 Information Source: Patient Mode of Arrival: Ambulatory Was a procedure done? Was a procedure done?: No Differential Diagnosis Kidney stone (Female): Musculoskeletal pain, Pyelonephritis, Strain, Urinary obstruction, N/A Urinary Problem (Female): AAA, PID, Pyelonephritis, Urinary retention, Urolithiasis, UTI, Vaginitis, Other (DDX include Diverticulitis, colitis, gastroenteritis, acute abdomen, SBO, enteritis, constipation, volvulus, appendicitis, Gallbladder disease, choledocolithiasis, ascending cholangitis, pancreatitis, intraAbdominal mass/neoplasm, hepatitis, UTI, pylonephritis, kidney stone, aneurysm, dissection, Inflammatory bowel disease, gastroparesis, ischemic bowel,,,,,,ovarian torsion, ovarian cyst/mass, tubo-ovarian abscess, , ectopic , PID, STD.) X-Ray, Labs, Meds, VS Vital Signs Date Time Temp Pulse Resp B/P (MAP) Pulse Ox O2 Delivery O2 Flow Rate FiO2 03/20/25 10:14 98.0 70 18 108/84 (92) 99 98.0 03/20/25 08:26 75 20 98 Room Air 03/20/25 08:26 98.3 75 20 110/81 (91) 98 98.3 03/20/25 06:46 97.7 84 20 134/86 96 97.7 Lab Test 03/20/25 07:55 03/20/25 07:08 Range/Units White Blood Count 8.6 4.4-10.8 10^3/uL Red Blood Count 4.49 4.0-5.20 10^6/uL Hemoglobin 14.2 12.2-16.2 g/dL Hematocrit 40.9 36.0-46.0 % Mean Corpuscular Volume 91.2 80.0-100.0 fL Mean Corpuscular Hemoglobin 31.6 28.0-32.0 pg Mean Corpuscular Hemoglobin Concent 34.7 32.0-36.0 g/dL Red Cell Distribution Width 12.8 11.8-14.3 % Platelet Count 347 140-450 10^3/uL Mean Platelet Volume 7.4 6.9-10.8 fL Neutrophils (%) (Auto) 56.1 37.0-80.0 % Lymphocytes (%) (Auto) 36.4 10.0-50.0 % Monocytes (%) (Auto) 4.8 0.0-12.0 % Eosinophils (%) (Auto) 1.9 0.0-7.0 % Basophils (%) (Auto) 0.8 0.0-2.0 % Neutrophils # (Auto) 4.8 1.6-8.6 10 ^3/uL Lymphocytes # (Auto) 3.1 0.4-5.4 10 ^3/uL Monocytes # (Auto) 0.4 0-1.3 10 ^3/uL Eosinophils # (Auto) 0.2 0-0.8 10 ^3/uL Basophils # (Auto) 0.1 0-0.2 10 ^3/uL Nucleated Red Blood Cells 0.1 % Sodium Level 141 136-145 mmol/L Potassium Level 3.4 L 3.5-5.1 mmol/L Chloride Level 107 98-107 mmol/L Carbon Dioxide Level 27 20-31 mmol/L Anion Gap 7 5-15 Blood Urea Nitrogen 9 9-23 mg/dL Creatinine 0.76 0.550-1.02 mg/dL Glomerular Filtration Rate Calc 93 >90 mL/min BUN/Creatinine Ratio 11.8 10.0-20.0 Serum Glucose 93 74-106 mg/dL Lactic Acid Level 0.8 0.4-2.0 mmol/L Calcium Level 9.7 8.7-10.4 mg/dL Total Bilirubin 0.8 0.2-1.0 mg/dL Aspartate Amino Transferase (AST) 18 13-40 U/L Alanine Aminotransferase (ALT) 17 7-40 U/L Alkaline Phosphatase 91 46-116 U/L Total Protein 7.3 5.7-8.2 g/dL Albumin 4.4 3.2-4.8 g/dL Urine Color Colorless Yellow Urine Clarity Clear Clear Urine pH 6.5 5.0-9.0 Urine Specific [place] 1.006 1.001-1.035 Urine Protein Negative Negative Urine Ketones Negative Negative Urine Blood Trace H Negative /uL Urine Nitrite Negative Negative Urine Bilirubin Negative Negative Urine Urobilinogen Normal Negative mg/dL Urine Leukocyte Esterase 3+ Negative /uL Urine RBC 3 0 - 4 /hpf Urine Microscopic WBC 81 H 0-5 /HPF Urine Squamous Epithelial Cells Few <5 /hpf Urine Bacteria None seen None Seen /hpf Urine Glucose Normal Normal mg/dL [place] [id number] DIAGNOSTIC IMAGING Diagnostic Imaging Report : [id number] Signed PATIENT: EDUAR HERRERA ACCT: [id number] UNIT: [id number] : 1970 LOC: ER ROOM / BED: / AGE / SEX: 54 / F ADM STATUS: REG ER SERVICE [id number] ORDERING PHYSICIAN: VANDANA TOBAR DO PROCEDURE(s): ABPL - CT AB PEL WO CON-NO ORAL OR IV REASON: Pelvic pain ORDER NUMBER(s): [id number], ACCESSION NUMBER(s): [id number] Exam: CT CT AB PEL WO CON-NO ORAL OR IV History: Pelvic pain. Comparison Study: CT scan of the abdomen pelvis dated 11/26/2024 Technique: Multidetector spiral CT of the abdomen and pelvis was performed from lung bases to pubic symphysis. Imaging was performed without intravenous contrast. Coronal and sagittal multiplanar reformats were obtained from the axial data set by the technologist. Radiation Dose : 1. Abdomen/Pelvis: CTDIvol 15.02 mGy, DLP 844.2 mGy*cm. Findings: Evaluation of vasculature and solid organs is limited due to lack of intravenous contrast use. Lung Bases: Lung bases are clear. Visualized portions of the heart and pericardium are unremarkable. Liver: The liver is normal in size. No focal lesions. Gallbladder and Biliary Tree: The gallbladder is unremarkable. No intrahepatic or extrahepatic biliary ductal dilatation. Spleen: Unremarkable Pancreas: The pancreas is grossly unremarkable. Adrenal Glands: Unremarkable Kidneys: Kidneys are unremarkable without calculi or hydronephrosis. GI tract: The stomach is grossly normal in appearance. No evidence of small bowel wall thickening or abnormal dilatation to suggest bowel obstruction. The colon is unremarkable. The appendix is visualized and is normal. Peritoneum/mesentery/retroperitoneum. No evidence of free intraperitoneal air. No ascites. No evidence of suspicious lymphadenopathy. Abdominal Wall: Unremarkable. Vasculature: The visualized abdominal aorta is normal in size and caliber. Evaluation of abdominal and pelvic vessels is limited due to lack of intravenous contrast. Urinary Bladder: There is wall thickening of the urinary bladder. Pelvic Organs: Unremarkable Musculoskeletal: No aggressive focal bony lesions, acute fractures or dislocation. Multilevel lumbar spondylosis. IMPRESSION: 1. Wall thickening of the urinary bladder, nonspecific but may reflect cystitis in the appropriate clinical setting. ATED BY: MARIE BECKER MD DICTATED DATE/TIME: 03/20/25809 SIGNED BY: MARIE BECKER MD SIGNED DATE/TIME: 03/20/25809 CC: Time of 1ST Reevaluation: 08:02 Reevaluation 1ST: Unchanged Patient Education/Counseling: Diagnosis, Treatment Family Education/Counseling: No Family Present Comments MDM: patient presented with the above HPI.---abdominal pain---workup was initiated. patient was found with the above mentioned diagnosis. the following medications were ordered: please refer to order lists of meds and tests obtained by myself Dr. Tobar. Patient ED course and VS have been stabilized. Patient has been reassessed in the ED and remained in a stable condition. Pertinent incidental findings were discussed with the patient and/or family. Patient/family voices understanding and is agreeable with plan. Patient has been observed in the ED adequate length of time to insure i mprovement/stability. Escalation of care considered: Consideration of escalation to observation or admission Patient was DISCHARGED home in a stable condition. All the reports of any imaging studies that were ordered by myself were reviewed by myself. Departure 1 Departure Time of Disposition: 09:29 Impression: Primary Impression: Dysuria Additional Impressions: Cystitis UTI (urinary tract infection) Disposition: HOME / SELF CARE / HOMELESS Condition: Stable Additional Instructions: Additional instructions: Please read all instructions provided in this packet carefully. You MUST follow-up with your primary care/family doctor in 1 to 2 days. If you are unable to see your primary care/family doctor, please return to our emergency room for re-assessment and re-evaluation in 1 to 2 days. Return to the emergency room here in our facility or to the nearest ER [facility] if your symptoms change or worsen. CONSULTATIONS: you MUST Follow-up for consultation as soon as possible with: Dr.-OB Benedict and urology. Please call for appointment. You MUST call the consultants office yourself to make an appointment. You may need to arrange that through your insurance and/or your primary/family doctor. If you are unable to see the apprenticeship consultant in 1 to 2 days, you must return to our emergency room (or any other ER of your choice) for re-assessment and re- evaluation. Adequate fluid hydration. Although you have been discharged from the Emergency Department, this does not mean that you have a "clean bill of health". No definitive diagnosis for your symptoms has been made today. It is possible that you are in the process of developing a serious illness. This is why you must return to the ED without fail if any new or worsening symptoms develop. Below is a copy of your radiological report for follow up: [place] [address] Ph: [phone] DIAGNOSTIC IMAGING Diagnostic Imaging Report : [id number] Signed PATIENT: EDUAR HERRERA ACCT: [id number] UNIT: [id number] : 1970 LOC: ER ROOM / BED: / AGE / SEX: 54 / F ADM STATUS: REG ER SERVICE 0657 ORDERING PHYSICIAN: VANDANA TOBAR DO PROCEDURE(s): ABPL - CT AB PEL WO CON-NO ORAL OR IV REASON: Pelvic pain ORDER NUMBER(s): [id number], ACCESSION NUMBER(s): [id number] Exam: CT CT AB PEL WO CON-NO ORAL OR IV History: Pelvic pain. Comparison Study: CT scan of the abdomen pelvis dated 11/26/2024 Technique: Multidetector spiral CT of the abdomen and pelvis was performed from lung bases to pubic symphysis. Imaging was performed without intravenous contrast. Coronal and sagittal multiplanar reformats were obtained from the axial data set by the technologist. Radiation Dose : 1. Abdomen/Pelvis: CTDIvol 15.02 mGy, DLP 844.2 mGy*cm. Findings: Evaluation of vasculature and solid organs is limited due to lack of intravenous contrast use. Lung Bases: Lung bases are clear. Visualized portions of the heart and pericardium are unremarkable. Liver: The liver is normal in size. No focal lesions. Gallbladder and Biliary Tree: The gallbladder is unremarkable. No intrahepatic or extrahepatic biliary ductal dilatation. Spleen: Unremarkable Pancreas: The pancreas is grossly unremarkable. Adrenal Glands: Unremarkable Kidneys: Kidneys are unremarkable without calculi or hydronephrosis. GI tract: The stomach is grossly normal in appearance. No evidence of small bowel wall thickening or abnormal dilatation to suggest bowel obstruction. The colon is unremarkable. The appendix is visualized and is normal. Peritoneum/mesentery/retroperitoneum. No evidence of free intraperitoneal air. No ascites. No evidence of suspicious lymphadenopathy. Abdominal Wall: Unremarkable. Vasculature: The visualized abdominal aorta is normal in size and caliber. Evaluation of abdominal and pelvic vessels is limited due to lack of intravenous contrast. Urinary Bladder: There is wall thickening of the urinary bladder. Pelvic Organs: Unremarkable Musculoskeletal: No aggressive focal bony lesions, acute fractures or dislocation. Multilevel lumbar spondylosis. IMPRESSION: 1. Wall thickening of the urinary bladder, nonspecific but may reflect cystitis in the appropriate clinical setting. ATED BY: MARIE BECKER MD DICTATED DATE/TIME: 03/20/25809 SIGNED BY: MARIE BECKER MD SIGNED DATE/TIME: 03/20/25809 CC: e-Prescriptions Nitrofurantoin Monohydrate Mac (Macrobid) 100 Mg Cap 100 MG PO BID for 7 Days, #14 CAP Prov: VANDANA TOBAR DO 03/20/25 Discharged With: Self Critical Care Note Critical Care Time?: No I personally scribed for VANDANA TOBAR DO ([email or web address]) on 03/20/25 at 07:32. Electronically submitted by Enio Sparrow ([email or web address]). VANDANA TOBAR DO Mar 20, 2025 07:32
[2025-03-20 08:13] LABS: Hematocrit 40.9 % (36.0-46.0); Hemoglobin 14.2 g/dL (12.2-16.2); Mean Corpuscular Hemoglobin 31.6 pg (28.0-32.0); Mean Corpuscular Volume 91.2 fL (80.0-100.0); Nucleated Red Blood Cells % 0.1 %
--- NOTE | 2025-03-20 08:13 | DVH ---
Exam: CT CT AB PEL WO CON-NO ORAL OR IV History: Pelvic pain. Comparison Study: CT scan of the abdomen pelvis dated 11/26/2024 Technique: Multidetector spiral CT of the abdomen and pelvis was performed from lung bases to pubic s ymphysis. Imaging was performed without intravenous contrast. Coronal and sagittal multiplanar reform ats were obtained from the axial data set by the technologist. Radiation Dose : 1. Abdomen/Pelvis: CTDIvol 15.02 mGy, DLP 844.2 mGy*cm. Findings: Evaluation of vasculature and solid organs is limited due to lack of intravenous contrast use. Lung Bases: Lung bases are clear. Visualized portions of the heart and pericardium are unremarkable. Liver: The liver is normal in size. No focal lesions. Gallbladder and Biliary Tree: The gallbladder is unremarkable. No intrahepatic or extrahepatic biliar y ductal dilatation. Spleen: Unremarkable Pancreas: The pancreas is grossly unremarkable. Adrenal Glands: Unremarkable Kidneys: Kidneys are unremarkable without calculi or hydronephrosis. GI tract: The stomach is grossly normal in appearance. No evidence of small bowel wall thickening or abnormal dilatation to suggest bowel obstruction. The colon is unremarkable. The appendix is visualiz ed and is normal. Peritoneum/mesentery/retroperitoneum. No evidence of free intraperitoneal air. No ascites. No evidenc e of suspicious lymphadenopathy. Abdominal Wall: Unremarkable. Vasculature: The visualized abdominal aorta is normal in size and caliber. Evaluation of abdominal a nd pelvic vessels is limited due to lack of intravenous contrast. Urinary Bladder: There is wall thickening of the urinary bladder. Pelvic Organs: Unremarkable Musculoskeletal: No aggressive focal bony lesions, acute fractures or dislocation. Multilevel lumbar spondylosis. IMPRESSION: 1. Wall thickening of the urinary bladder, nonspecific but may reflect cystitis in the appropriate cl inical setting.
[2025-03-20 08:34] LABS: Alanine Aminotransferase 17 U/L (7-40); Albumin 4.4 g/dL (3.2-4.8); Alkaline Phosphatase 91 U/L (46-116); Anion Gap 7 (5-15); BUN/Creatinine Ratio 11.8 (10.0-20.0); Bilirubin, Total 0.8 mg/dL (0.2-1.0); Calcium 9.7 mg/dL (8.7-10.4); Carbon Dioxide 27 mmol/L (20-31); Chloride 107 mmol/L (98-107); Glucose 93 mg/dL (74-106); Sodium 141 mmol/L (136-145); Total Protein 7.3 g/dL (5.7-8.2)
[2025-03-20 08:35] LABS: Blood Urea Nitrogen 9 mg/dL (9-23); Potassium 3.4 mmol/L (3.5-5.1)
[2025-03-20 09:22] LABS: Urine Protein, UAD Negative (Negative)
[2025-03-20] MEDS ORDERED: NITR-87 PO (09:31)
[2025-03-20 10:14] VITALS: BP 108/84; PULSE 70; RESP 18; TEMP 98; O2SAT 99
== END 2025-03-20 10:14 | disposition home or self-care (01) ==
LOC: ER 06:44
DX: N39.0 Urinary tract infection, site not specified (principal); R30.0 Dysuria; I10 Essential (primary) hypertension; J45.909 Unspecified asthma, uncomplicated; Z79.899 Other long term (current) drug therapy; Z98.51 Tubal ligation status; Z96.653 Presence of artificial knee joint, bilateral; Z87.440 Personal history of urinary (tract) infections; Z95.0 Presence of cardiac pacemaker
CPT/HCPCS: 36415; 74176; 80053; 81001; 83605; 85025

== ENCOUNTER 2025-04-15 01:02 | Inpatient (IN) | payer MEDICAID ==
[~2025-04-15] VITALS: Ht 160 cm; Wt 91.2 kg
[2025-04-15] VITALS (7 sets, daily range): BP systolic 105–122; BP diastolic 67–75; PULSE 67–82; RESP 15–18; TEMP 97.7–98.4; O2SAT 95–98
[~2025-04-15 01:02] MED LIST changes: +NITR-87 PO
[2025-04-15 02:23] LABS: Hematocrit 42.0 % (36.0-46.0); Hemoglobin 14.3 g/dL (12.2-16.2); Mean Corpuscular Hemoglobin 31.4 pg (28.0-32.0); Mean Corpuscular Volume 91.8 fL (80.0-100.0); Nucleated Red Blood Cells % 0.0 %
--- NOTE | 2025-04-15 02:27 | DVH ---
CHEST RADIOGRAPH Indication: CHEST PAIN Technique: Single frontal view of the chest was obtained COMPARISON: XY CHEST XRAY 1 VIEW on DOS: 12/31/24, XY CHEST PORTABLE on DOS: 11/25/24, XY CHEST PORTABLE on DOS: 09/20/24, XY CHEST TWO VIEWS ROUTINE on DOS: 06/24/24, XY CHEST TWO VIEWS ROUTINE on DOS: FINDINGS: Lines and Tubes: None Lungs: Clear Pleura: No effusion. No pneumothorax. Cardiomediastinal contours: Unremarkable Bones: Unremarkable IMPRESSION: 1. No acute disease.
[2025-04-15 03:05] LABS: Alanine Aminotransferase 22 U/L (7-40); Albumin 4.4 g/dL (3.2-4.8); Alkaline Phosphatase 88 U/L (46-116); Anion Gap 6 (5-15); BUN/Creatinine Ratio 9.1 (10.0-20.0); Bilirubin, Total 0.8 mg/dL (0.2-1.0); Calcium 10.2 mg/dL (8.7-10.4); Chloride 103 mmol/L (98-107); Potassium 3.5 mmol/L (3.5-5.1); Sodium 141 mmol/L (136-145); Total Protein 7.3 g/dL (5.7-8.2)
--- NOTE | 2025-04-15 03:05 | ED.PDOC ---
History of Present Illness HPI Comments 54 y/o F presents with c/c of nonradiating, left sided chest pain. Patient endorses on having on-and-off, 9/10 pain since 04/13/25. She comments on pain worsening with additional onset of nausea and vomiting, last night. Denies any shortness of breath, abdominal pain, or further acute symptoms. Significant h istory of COPD, preDM, and HTN in addition to current pacemaker candidate consultation with outpatient cardiology for nocturnal bradycardia. Last reported cardiac stress test performed 1x month ago. REVIEW OF SYSTEMS: General: No fever, no chills, or fatigue HEENT: No sore throat, no earache, no congestion, no neck pain. Cardiac: chest pain. No palpitations. Lungs: No shortness of breath, no cough. GI: Nausea or vomiting, no diarrhea, no constipation, no abdominal pain : No dysuria, frequency, or urgency. No hematuria. Musculoskeletal: No joint pain , no joint swelling, no extremity edema. Skin: No rash, no itching. Neuro: No headache, no dizziness, no weakness PHYSICAL EXAM: General: Awake, alert and oriented. No acute distress. Skin: Skin in warm, dry and intact. Appropriate color for ethnicity. HEENT: The head is normocephalic and atraumatic. Conjunctivae are clear without exudates or hemorrhage. Sclera is non-icteric. EOM are intact. No signs of nystagmus. Eyelids are normal in appearance without swelling or lesions. Oral mucosa is pink and moist Neck: The neck is supple with normal range of motion. No JVD. Cardiac: Heart rate and rhythm are normal. No murmurs, gallops, or rubs are au scultated. Respiratory: No signs of respiratory distress. Lung sounds are clear in all lobes bilaterally without rales, rhonchi, or wheezes. Abdominal: Abdomen is soft, non-tender without distention, guarding or rigidity. Bowel sounds are present and normoactive in all four quadrants. Extremities: Upper and lower extremities are atraumatic in appearance without deformity or edema. Neurological: The patient is awake, alert and oriented to person, place, and time with normal speech. Speech is clear. There is no facial asymmetry. Psychiatric: Appropriate mood and affect. Good judgement and insight. Chief Complaint: Chest Pain Time Seen by MD: 02:45 Primary Care Provider: MANDI Reviewed Notes: Nurses Notes, Medications, Allergies Allergies: Coded Allergies: No Known Drug Allergy (Verified Allergy, Unknown, 12/27/23) Home Meds Active Scripts Nitrofurantoin Monohydrate Mac (Macrobid) 100 Mg Cap, 100 MG PO BID for 7 Days, #14 CAP Prov:VANDANA TOBAR DO 03/20/25 Cyclobenzaprine Hcl (Cyclobenzaprine Hcl) 5 Mg Tab, 1 TAB PO QHSP, #14 TAB 0 Refills Prov:CHARLINE NIEVES 03/06/25 Gabapentin (Gabapentin) 300 Mg Cap, 1 CAP PO TID PRN, #30 CAP prn sciatic nerve pain Prov:YEHUDA CONTRERAS MD 07/04/24 Reported Medications Fluticasone Propionate (Fluticasone Propionate) 0.05 % Cre, 110 MCG MARTIN BID PRN for NASAL CONGESTION for 30 Days, MCG 04/15/25 Oxcarbazepine (Trileptal) 600 Mg Tab, 0.5 TAB PO BID, #60 TAB 1 Refill 04/15/25 Tizanidine Hydrochloride (Tizanidine Hcl) 4 Mg Tab, 1 TAB PO TID 11/26/24 Losartan Potassium & Hydrochlo (Losartan Potassium/Hydroc) 1 Tab Tab, 1 TAB PO DAILY, TAB 100-25mg tab 11/26/24 Semaglutide (Rybelsus) 7 Mg Tab, PO QAM 11/26/24 Hydrocodone-Acetaminophen (Hydrocodone/Acetaminophen 10-325 mg) 1 Tab Tab, 1 TAB PO Q6HP PRN for PAIN SCALE 7 THRU 10 11/26/24 Cholecalciferol (Vitamin D-3 Super Strengt) 2,000 Unit Tab, 1 TAB PO DAILY 12/27/23 Risperidone (Risperidone) 2 Mg Tab, 1 TAB BID 12/27/23 Information Source: Patient Mode of Arrival: Ambulatory Severity: Moderate Timing: Days Duration: Since onset Prehospital treatment: None Past Medical History PAST MEDICAL HISTORY: Asthma, COPD, HTN Past Medical History (Other): Prediabetic Surgical History: , Tubal 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 Was a procedure done?: No EKG EKG #1: Pulse Rate (adult): 75 [place]: Normal Cardiac Rhythm: NSR Block: None Hypertrophy: None ST: Normal EKG #2: Pulse Rate (adult): 79 [place]: Normal Cardiac Rhythm: NSR Block: None Hypertrophy: None ST: Normal Differential Dx Considerations may include: Differential diagnoses considered include acute ischemic coronary syndrome, aortic dissection, cardiac tamponade, mediastinitis, pulmonary embolus, pneumothorax, tension pneumothorax, esophageal rupture, coronary artery vasospasm, myocarditis, pericarditis, pneumonia, pulmonary edema, esophageal tear, pancreatitis, aortic stenosis, dilated cardiomyopathy, hypertrophic cardiomyopathy, mitral valve prolapse, malignancy, pleuritis, pneumomediastinum, primary pulmonary hypertension, cholecystitis, esophageal spasm, esophagus, gastritis, GERD, peptic ulcer disease, costochondritis, fibromyalgia, rib fracture, herpes zoster, radicular syndromes, thoracic outlet syndrome, somatization. X-Ray, Labs, Meds, VS Vital Signs Date Time Temp Pulse Resp B/P (MAP) Pulse Ox O2 Delivery O2 Flow Rate FiO2 04/15/25 04:56 83 18 128/79 04/15/25 04:19 97.9 76 18 124/86 (99) 99 97.9 04/15/25 04:19 76 04/15/25 04:19 76 18 124/86 04/15/25 03:06 79 04/15/25 03:05 79 04/15/25 02:10 79 04/15/25 01:17 75 04/15/25 01:13 98.1 92 18 131/95 98 98.1 Lab Test 04/15/25 05:00 04/15/25 03:30 04/15/25 02:13 Range/Units Troponin I High Sensitivity < 3 L 3 L 3 L </=34 ng/L White Blood Count 6.6 4.4-10.8 10^3/uL Red Blood Count 4.58 4.0-5.20 10^6/uL Hemoglobin 14.3 12.2-16.2 g/dL Hematocrit 42.0 36.0-46.0 % Mean Corpuscular Volume 91.8 80.0-100.0 fL Mean Corpuscular Hemoglobin 31.4 28.0-32.0 pg Mean Corpuscular Hemoglobin Concent 34.1 32.0-36.0 g/dL Red Cell Distribution Width 13.0 11.8-14.3 % Platelet Count 321 140-450 10^3/uL Mean Platelet Volume 7.5 6.9-10.8 fL Neutrophils (%) (Auto) 46.0 37.0-80.0 % Lymphocytes (%) (Auto) 45.1 10.0-50.0 % Monocytes (%) (Auto) 5.5 0.0-12.0 % Eosinophils (%) (Auto) 2.2 0.0-7.0 % Basophils (%) (Auto) 1.2 0.0-2.0 % Neutrophils # (Auto) 3.1 1.6-8.6 10 ^3/uL Lymphocytes # (Auto) 3.0 0.4-5.4 10 ^3/uL Monocytes # (Auto) 0.4 0-1.3 10 ^3/uL Eosinophils # (Auto) 0.1 0-0.8 10 ^3/uL Basophils # (Auto) 0.1 0-0.2 10 ^3/uL Nucleated Red Blood Cells 0.0 % Sodium Level 141 136-145 mmol/L Potassium Level 3.5 3.5-5.1 mmol/L Chloride Level 103 98-107 mmol/L Carbon Dioxide Level 32 H 20-31 mmol/L Anion Gap 6 5-15 Blood Urea Nitrogen 8 L 9-23 mg/dL Creatinine 0.88 0.550-1.02 mg/dL Glomerular Filtration Rate Calc 78 >90 mL/min BUN/Creatinine Ratio 9.1 L 10.0-20.0 Serum Glucose 116 H 74-106 mg/dL Calcium Level 10.2 8.7-10.4 mg/dL Total Bilirubin 0.8 0.2-1.0 mg/dL Aspartate Amino Transferase (AST) 20 13-40 U/L Alanine Aminotransferase (ALT) 22 7-40 U/L Alkaline Phosphatase 88 46-116 U/L Total Protein 7.3 5.7-8.2 g/dL Albumin 4.4 3.2-4.8 g/dL [facility] [place] [address] [address] Ph: [phone] DIAGNOSTIC IMAGING Diagnostic Imaging Report : [id number] Signed PATIENT: EDUAR HERRERA ACCT: [id number] UNIT: [id number] : 1970 LOC: ER ROOM / BED: / AGE / SEX: 54 / F ADM STATUS: REG ER SERVICE 015 ORDERING PHYSICIAN: MODESTO BALDWIN MD PROCEDURE(s): CXRP - CHEST PORTABLE REASON: CHEST PAIN ORDER NUMBER(s): [id number], ACCESSION NUMBER(s): [id number] CHEST RADIOGRAPH Indication: CHEST PAIN Technique: Single frontal view of the chest was obtained COMPARISON: XY CHEST XRAY 1 VIEW on DOS: 12/31/24, XY CHEST PORTABLE on DOS: 11/25/24, XY CHEST PORTABLE on DOS: 09/20/24, XY CHEST TWO VIEWS ROUTINE on DOS: 06/24/24, XY CHEST TWO VIEWS ROUTINE on DOS: 04/02/24 FINDINGS: Lines and Tubes: None Lungs: Clear Pleura: No effusion. No pneumothorax. Cardiomediastinal contours: Unremarkable Bones: Unremarkable IMPRESSION: 1. No acute disease. ATED BY: CHIVO VARGHESE MD DICTATED DATE/TIME: 04/15/25224 SIGNED BY: CHIVO VARGHESE MD SIGNED DATE/TIME: 04/15/25224 CC: Time of 1ST Reevaluation: 03:15 Reevaluation 1ST: Unchanged Patient Education/Counseling: Treatment, Need For Follow Up Family Education/Counseling: No Family Present SEPSIS Sepsis Screen Date sepsis recognized/suspect: Apr 15, 2025 Time Sepsis recognized/suspect: 0115 Recent Procedure: No On Antibiotic Therapy: No Respiratory Rate >20: No Heart Rate >90: No Temp<36 C (96.8 F) or >38.3 C: No SBP <90 or MAP <65 mmHG: No New Acute Mental Status Change: No Is the patient on CPAP, BIPAP,: No Physician Orders Chest Portable (04/15/25 01:57) Electrocardigram (04/15/25 01:57) Electrocardigram (04/15/25 02:57) Electrocardigram (04/15/25 04:57) Titrate Oxygen (04/15/25 02:10) Oxygen (04/15/25 ) Continous Pulse Oximetry (04/15/25 02:10) Saline Lock (04/15/25 02:10) Lead Radiation Therapist (04/15/25 ) Vital Signs Date Time Temp Pulse Resp B/P (MAP) Pulse Ox O2 Delivery O2 Flow Rate FiO2 04/15/25 04:56 83 18 128/79 04/15/25 04:19 97.9 76 18 124/86 (99) 99 97.9 04/15/25 04:19 76 04/15/25 04:19 76 18 124/86 04/15/25 03:06 79 04/15/25 03:05 79 04/15/25 02:10 79 04/15/25 01:17 75 04/15/25 01:13 98.1 92 18 131/95 98 98.1 Laboratory Tests Test 04/15/25 02:13 White Blood Count 6.6 10^3/uL (4.4-10.8) Departure 1 Departure Time of Disposition: 03:58 Impression: Primary Impression: Chest pain Disposition: ADMITTED INPATIENT Condition: Stable Comments MDM: 54-year-old female with multiple risk factors and ongoing chest pain. Patient admitted to hospitalist service for further treatment, evaluation and monitoring. Extensive evaluation was performed in attempt to identify or rule out: (See differential diagnosis section) The following tests were ordered, and results were reviewed by me and discussed with patient: (See diagnostic results section) The following test were independently interpreted by me: EKG I reviewed and agreed with the following test results read by other providers: chest x-ray I reviewed the following notes from the pt's past medical encounters: [id number] encounter for chest pain Decision regarding hospitalization or escalation of hospital level of care: Risk and benefits of admission for further treatment of patient's condition was considered. Due to patient's current clinical condition, high risk of decline and poor outcome if discharged and need for further inpatient management and monitoring, patient will be admitted to the hospital. Critical Care Note Critical Care Time?: No Stability Stability form required: No Heart Score Heart Score: Heart Score Response (Comments) Value History N/A 0 EKG N/A 0 Age N/A 0 Risk Factors N/A 0 Troponin N/A 0 Total 0 I personally scribed for MODESTO BALDWIN MD ([email or web address]) on 04/15/25 at 03:05. Electronically submitted by Orlin Chua ([email or web address]). I personally scribed for MODESTO BALDWIN MD ([email or web address]) on 04/15/25 at 03:06. Electronically submitted by Orlin Chua ([email or web address]). MODESTO BALDWIN MD Apr 15, 2025 03:05
[2025-04-15 03:06] LABS: Blood Urea Nitrogen 8 mg/dL (9-23); Carbon Dioxide 32 mmol/L (20-31); Glucose 116 mg/dL (74-106)
[2025-04-15] MEDS: HYDROmorphone HCL 2 MG/ML VL/or syr IM ONE (04:19)
[2025-04-15] MEDS: ONDANSETRON HCL 4 MG/2 ML VIAL ONE (04:37)
[2025-04-15] MEDS: ONDANSETRON HCL 4 MG/2 ML VIAL IM ONE (04:37)
[2025-04-15] MEDS ORDERED: MORPHINE SULFATE INJ 2 MG/ml SYRG IV PRN ×2 (06:15)
[2025-04-15] MEDS ORDERED: ACETAMINOPHEN 325 MG TAB PO PRN (06:15)
[2025-04-15] MEDS ORDERED: ONDANSETRON HCL 4 MG/2 ML VIAL IV PRN (06:15)
[2025-04-15] MEDS ORDERED: NITROGLYCERIN 0.4 MG SL TAB SL PRN (06:15)
[2025-04-15] MEDS ORDERED: DOCUSATE SOD 100 MG CAP PO PRN (06:15)
[2025-04-15] MEDS ORDERED: TEMAZEPAM 15 MG CAP PO PRN (06:15)
--- NOTE | 2025-04-15 06:53 | ECG ---
[facility] Test Date: 2025-04-15 Test Time: 01:17:20 Pat Name: EDUAR HERRERA Department: Room: [address] [place] [address] A Gender: F Handle Rounder Operator: OSWALDO : 1970 Requested By: MODESTO BALDWIN Order Number: [id number] Reading MD: Jorge Perry Measurements Intervals [place] Rate: 75 P: 57 MS: 177 QRS: 70 QRSD: 84 T: 8 QT: 383 QTc: 428 Interpretive Statements Sinus rhythm Low voltage, precordial leads Minimal ST depression, inferior leads Electronically Signed On 04-15-2025 15:18:32 PDT by Jorge Perry Please click the below link to view image of tracing.
--- NOTE | 2025-04-15 06:53 | ECG ---
[facility] Test Date: 2025-04-15 Test Time: 02:10:46 Pat Name: EDUAR HERRERA Department: Room: [address] [place] [address] A Gender: F Red Leader: CHRIS : 1970 Requested By: MODESTO BALDWIN Order Number: [id number] Reading MD: Jorge Perry Measurements Intervals [place] Rate: 79 P: 43 IN: 177 QRS: 57 QRSD: 86 T: -8 QT: 365 QTc: 419 Interpretive Statements Sinus rhythm Low voltage, precordial leads Probable anteroseptal infarct, old Borderline repolarization abnormality Electronically Signed On 04-15-2025 15:18:39 PDT by Jorge Perry Please click the below link to view image of tracing.
--- NOTE | 2025-04-15 06:54 | ECG ---
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
--- NOTE | 2025-04-15 09:53 | DVHINCON2 ---
Date of service: Apr 15, 2025 History of Present Illness HPI Patient is a 54-year-old female who presented with few days of atypical chest pain. It was accompanied by nausea and vomiting. There was no shortness of breath. There was no exertional component to the discomfort. Cardiology is involved for cardiac aspects of care. Patient is known to our practice from outside and before. Home Meds Active Scripts Nitrofurantoin Monohydrate Mac (Macrobid) 100 Mg Cap, 100 MG PO BID for 7 Days, #14 CAP Prov:VANDANA TOBAR DO 03/20/25 Cyclobenzaprine Hcl (Cyclobenzaprine Hcl) 5 Mg Tab, 1 TAB PO QHSP, #14 TAB 0 Refills Prov:CHARLINE NIEVES 03/06/25 Gabapentin (Gabapentin) 300 Mg Cap, 1 CAP PO TID PRN, #30 CAP prn sciatic nerve pain Prov:YEHUDA CONTRERAS MD 07/04/24 Reported Medications Tizanidine Hydrochloride (Tizanidine Hcl) 4 Mg Tab, 1 TAB PO TID 11/26/24 Losartan Potassium & Hydrochlo (Losartan Potassium/Hydroc) 1 Tab Tab, 1 TAB PO DAILY, TAB 100-25mg tab 11/26/24 Semaglutide (Rybelsus) 7 Mg Tab, PO QAM 11/26/24 Hydrocodone-Acetaminophen (Hydrocodone/Acetaminophen 10-325 mg) 1 Tab Tab, 1 TAB PO Q6HP PRN for PAIN SCALE 7 THRU 10 11/26/24 Cholecalciferol (Vitamin D-3 Super Strengt) 2,000 Unit Tab, 1 TAB PO DAILY 12/27/23 Risperidone (Risperidone) 2 Mg Tab, 1 TAB BID 12/27/23 Past Medical History Others Past medical history includes hypertension, hyperlipidemia, diabetes mellitus, COPD/Asthma, degenerative disc disease, obesity, anxiety disorder, history of sciatica, history of hernia, old history of /tubal ligation and shoulder/knee surgeries. She was diagnosed with obstructive sleep apnea recently. She does not use CPAP consistently (has not got used to it). Patient Family History: Chronic obstructive pulmonary disease G8 MOTHER FH: CHF (congestive heart failure) G8 MOTHER Hypertension G8 MOTHER Smoker: Positive Alocohol: None Review of Systems Constitutional: No symptom reported Ears, Nose, & Throat: No symptom reported Eyes: No symptom reported Pulmonary/Respiratory: No symptom reported Cardiovascular: Chest Pain Gastrointestinal: Nausea, Vomiting Genitourinary: No symptom reported All Other Systems 14 point review of system was performed. Relevant findings as per above and as per HPI. Otherwise negative. H&P Exam Vital Signs Vital Signs Date Time Temp Pulse Resp B/P (MAP) Pulse Ox O2 Delivery O2 Flow Rate FiO2 04/15/25 06:27 97.6 72 16 119/85 (96) 100 97.6 General Appeara: Well developed, Obese Head Exam: Normal inspection Neck Exam: Normal inspection Eye Exam: bilateral eye PERRL Nasal Exam: Normal inspection Mouth: Normal Inspection Pulmonary/Respiratory: Lungs clear Cardiovascular/Chest: Regular rate Peripheral Pulses: 2+ carotid (R), 2+ carotid (L), 2+ femoral (R), 2+ femoral (L) Abdominal Exam: Normal bowel sounds, Soft, No hepatospenomegaly Neuro/Mental St: Alert, Oriented Appearance: Appropriate appearance Eye contact/ Speech: Cooperative Labs/Xrays Labs Test 04/15/25 05:00 04/15/25 02:13 Range/Units Troponin I High Sensitivity < 3 L </=34 ng/L White Blood Count 6.6 4.4-10.8 10^3/uL Red Blood Count 4.58 4.0-5.20 10^6/uL Hemoglobin 14.3 12.2-16.2 g/dL Hematocrit 42.0 36.0-46.0 % Mean Corpuscular Volume 91.8 80.0-100.0 fL Mean Corpuscular Hemoglobin 31.4 28.0-32.0 pg Mean Corpuscular Hemoglobin Concent 34.1 32.0-36.0 g/dL Red Cell Distribution Width 13.0 11.8-14.3 % Platelet Count 321 140-450 10^3/uL Mean Platelet Volume 7.5 6.9-10.8 fL Neutrophils (%) (Auto) 46.0 37.0-80.0 % Lymphocytes (%) (Auto) 45.1 10.0-50.0 % Monocytes (%) (Auto) 5.5 0.0-12.0 % Eosinophils (%) (Auto) 2.2 0.0-7.0 % Basophils (%) (Auto) 1.2 0.0-2.0 % Neutrophils # (Auto) 3.1 1.6-8.6 10 ^3/uL Lymphocytes # (Auto) 3.0 0.4-5.4 10 ^3/uL Monocytes # (Auto) 0.4 0-1.3 10 ^3/uL Eosinophils # (Auto) 0.1 0-0.8 10 ^3/uL Basophils # (Auto) 0.1 0-0.2 10 ^3/uL Nucleated Red Blood Cells 0.0 % Sodium Level 141 136-145 mmol/L Potassium Level 3.5 3.5-5.1 mmol/L Chloride Level 103 98-107 mmol/L Carbon Dioxide Level 32 H 20-31 mmol/L Anion Gap 6 5-15 Blood Urea Nitrogen 8 L 9-23 mg/dL Creatinine 0.88 0.550-1.02 mg/dL Glomerular Filtration Rate Calc 78 >90 mL/min BUN/Creatinine Ratio 9.1 L 10.0-20.0 Serum Glucose 116 H 74-106 mg/dL Calcium Level 10.2 8.7-10.4 mg/dL Total Bilirubin 0.8 0.2-1.0 mg/dL Aspartate Amino Transferase (AST) 20 13-40 U/L Alanine Aminotransferase (ALT) 22 7-40 U/L Alkaline Phosphatase 88 46-116 U/L Total Protein 7.3 5.7-8.2 g/dL Albumin 4.4 3.2-4.8 g/dL Assessment/Plan Plan Patient is a 54-year-old female who presented with few days of atypical chest pain. It was accompanied by nausea and vomiting. There was no shortness of breath. There was no exertional component to the discomfort. Cardiology is involved for cardiac aspects of care. Patient is known to our practice from outside and before. She actually had a nuclear stress test in December 2024 in [facility] which the result was no ischemia (normal perfusion) and good systolic function. Not in acute distress. Not using accessory muscles of breathing. Mucosa is pin k and wet. No carotid bruit. Lungs are clear to auscultation. Cardiac: Regular, no thrill/gallop. There is tenderness to the left side. Abdomen is soft. Complains of tenderness in the right flank and lower abdomen. Bowel sound is positive. No gross mass. Extremities do not reveal edema. Dorsalis pedis is 2+ bilateral. Past medical history includes hypertension, hyperlipidemia, diabetes mellitus, COPD/Asthma, degenerative disc disease, obesity, anxiety disorder, history of sciatica, history of hernia, old history of /tubal ligation and shoulder/knee surgeries. She was diagnosed with obstructive sleep apnea rec ently. She does not use CPAP consistently (has not got used to it). She smokes cigarettes. Brother of [place] at age of 45. Father of [place] at age of 67. Echocardiogram performed in the office on December 15, 2023 revealed technically limited study, ejection fraction of 65 to 70%, no wall motion abnormality, trace MR/TR and right ventricular systolic pressure of less than 35 mm Hg. Echocardiogram of 12/27/2023 (performed in [facility]) revealed: LVEF of 60 to 65%, no wall motion abnormality, normal diastolic function, trace MR/TR and RVSP of 28 mmHg. Echocardiogram of April 03, 2024 reported mild concentric left ventricular hypertrophy, ejection fraction of 60-65%, normal diastolic, mild MR/TR and right ventricular systolic pressure of 39 mm Hg Echocardiogram of November 26, 2024 revealed mild concentric left ventricular hypertrophy, ejection fraction of 65%, normal diastolic, trace TR/MR and right ventricular systolic pressure of 32 mm Hg Nuclear stress test of December 25, 2024 revealed normal perfusion, normal ejection fraction and no evidence for ischemia. Creatinine: 0.88 Potassium: 3.5 Troponin (high sensitive): 3 - 3 - <3 Chest x-ray reported: IMPRESSION: 1. No acute cardiopulmonary disease. EKG was normal. Tele reveals sinus rhythm Patient is a 54-year-old female who presented with atypical chest discomfort. Serial high sensitive troponin has been negative. EKG has been nonrevealing. Patient has recent nuclear stress test was normal. Presentation itself was atypical. Acute coronary syndrome is not considered. Recognizing the above, repeat ischemic workup is not indicated at this point. Did have episodes of nausea and vomiting and its evaluation by primary team can be justified. Atypical chest pain Nausea/vomiting Anxiety disorder Obesity Diabetes mellitus Fatty Liver, history of Cardiac suggestion for management: Manage on telemetry Follow-up electrolytes and kidney function tests and correct abnormalities Keep potassium above 4 and magnesium above 2 Acute coronary syndrome is not considered. No repeat ischemic workup is indicated Evaluation of nausea/vomiting as per primary team Cardiac quintana is stable and can be followed as outpatient Lifestyle and risk factor modifications. Patient was counseled to stop/quit smoking Further evaluation and management depends on the above and clinical course A total of 75 minutes was spent reviewing the patient record, examining the patient, making a diagnostic and therapeutic plan, discussing this plan with medical personnel, following up on diagnostic studies and following the patient for clinical stability excluding any and all procedures. At least 50% of this time was spent in direct, [id number] contact. Thank you for allowing me to participate in this patient's care. Further recommendations will depend on patient's clinical course. Please do not hesitate to contact me if you have any questions or concerns. This medical document was created using electronic medical record system with [employer] computerized dictation system. Although this document has been carefully reviewed, there may still be some phonetic and typographical errors. These ar eas are purely typographical due to the imperfection of the software programs, and do not reflect any compromise in the patient's medical care. Plan discussed with: Patient, Other (Nurse) JOSE FLAHERTY MD Apr 15, 2025 09:53
[2025-04-15] MEDS ORDERED: FLUT0.05 NAS (10:36)
[2025-04-15] MEDS ORDERED: OXCA600T3 PO (10:36)
[2025-04-15] MEDS: ENOXAPARIN SOD 40 MG/0.4 ML SYRINGE SC SCH (10:42)
--- NOTE | 2025-04-15 11:23 | DVHHP2 ---
Admitting Diagnosis: Chest pain History of Present Illness 54 y/o female patient with history of hypertension, COPD presents with c/o left- sided chest pain. Patient also c/o nausea and vomiting. Patient states she is having outpatient cardiac workup for bradycardia and had a stress test 1 month ago. While in the emergency department the patient was evaluated by the provider, As per provider: Labs, vital signs, and imagining monitored. Patient will be admitted for further evaluation and treatment. I discussed admission with the patient/family and is in agreement to treatment plan. Patient Family History: Aneurysm Chronic obstructive pulmonary disease G8 MOTHER, Onset:Unknown FH: CHF (congestive heart failure) G8 MOTHER Hypertension G8 MOTHER Allergies: Coded Allergies: No Known Drug Allergy (Verified Allergy, Unknown, 12/27/23) Home Meds Active Scripts Nitrofurantoin Monohydrate Mac (Macrobid) 100 Mg Cap, 100 MG PO BID for 7 Days, #14 CAP Prov:VANDANA TOBAR DO 03/20/25 Cyclobenzaprine Hcl (Cyclobenzaprine Hcl) 5 Mg Tab, 1 TAB PO QHSP, #14 TAB 0 Refills Prov:CHARLINE NIEVES 03/06/25 Gabapentin (Gabapentin) 300 Mg Cap, 1 CAP PO TID PRN, #30 CAP prn sciatic nerve pain Prov:YEHUDA CONTRERAS MD 07/04/24 Reported Medications Fluticasone Propionate (Fluticasone Propionate) 0.05 % Cre, 110 MCG MARTIN BID PRN for NASAL CONGESTION for 30 Days, MCG 04/15/25 Oxcarbazepine (Trileptal) 600 Mg Tab, 0.5 TAB PO BID, #60 TAB 1 Refill 04/15/25 Tizanidine Hydrochloride (Tizanidine Hcl) 4 Mg Tab, 1 TAB PO TID 11/26/24 Losartan Potassium & Hydrochlo (Losartan Potassium/Hydroc) 1 Tab Tab, 1 TAB PO DAILY, TAB 100-25mg tab 11/26/24 Semaglutide (Rybelsus) 7 Mg Tab, PO QAM 11/26/24 Hydrocodone-Acetaminophen (Hydrocodone/Acetaminophen 10-325 mg) 1 Tab Tab, 1 TAB PO Q6HP PRN for PAIN SCALE 7 THRU 10 11/26/24 Cholecalciferol (Vitamin D-3 Super Strengt) 2,000 Unit Tab, 1 TAB PO DAILY 7/9/24 Risperidone (Risperidone) 2 Mg Tab, 1 TAB BID 12/27/23 Current Medications Current Medications Medications (Trade) Dose Ordered Sig/Jose J Route PRN Reason Start Time Stop Time Status Last Admin Acetaminophen (Tylenol Tablet) 325 mg Q4HP PRN PO MILD PAIN (1-3 PAIN SCALE) 04/15/25 06:15 Acetaminophen/ Hydrocodone Bitart (Shelby 5/325MG Tab) 1 tab Q4HP PRN PO MODERATE PAIN (4-6 PAIN SCALE) 04/15/25 06:15 04/15/25 17:07 Temazepam (Restoril) 15 mg QHSP PRN PO FOR INSOMNIA 04/15/25 06:15 Ondansetron HCl (Zofran) 4 mg Q4HP PRN IV NAUSEA / VOMITING 04/15/25 06:15 Docusate Sodium (Colace Capsule) 100 mg BIDPRN PRN PO FOR CONSTIPATION 04/15/25 06:15 Enoxaparin Sodium (Lovenox) 40 mg DAILY SC 04/15/25 10:00 04/15/25 10:42 Morphine Sulfate 2 mg Q4HPRN PRN IV SEVERE PAIN (7-10 PAIN SCALE) 04/15/25 06:15 Nitroglycerin (Ntrostat Sublingual) 0.4 mg Q5MINP PRN SL FOR CHEST PAIN 04/15/25 06:15 Morphine Sulfate 2 mg Q30M PRN IV FOR CHEST PAIN 04/15/25 06:15 Gabapentin (Neurontin Capsule) 300 mg TID PO 04/15/25 14:00 04/15/25 12:32 Losartan Potassium (Cozaar Tablet) 100 mg DAILY PO 04/16/25 10:00 Oxcarbazepine (Trileptal Tablet) 300 mg BID PO 04/15/25 22:00 Risperidone (RisperDAL TABLET) 1 mg BID PO 04/15/25 22:00 Famotidine (Pepcid Tablet) 40 mg DAILY PO 04/16/25 10:00 Hydrochlorothiazide (hydroCHLOROthiazide TABLET) 25 mg DAILY PO 04/16/25 10:00 Review of Systems Constitutional: denies chills, denies fever, denies malaise Eyes: denies eye pain, denies vision change ENT: denies ear pain, denies headache, denies nasal congestion, denies painful swallowing, denies voice change Cardiovascular: denies edema, denies orthopnea, denies palpitations, denies paroxysmal nocturnal dyspnea Respiratory: denies cough, denies shortness of breath Gastrointestinal: denies constipation, denies diarrhea denies vomiting Genitourinary: denies dysuria, denies frequent urination, denies urethral discharge Musculoskeletal: denies back pain, denies joint pain, denies muscle pain Skin: denies bruising, denies itching, denies rash Neurological: denies focal weakness, denies headache, denies sensory changes Psychiatric: denies anxiety, denies depression Endocrine: denies polydipsia, denies polyuria Hematologic/Lymphatic: denies easy bleeding, denies easy bruising, denies enlarged lymph nodes Allergic/Immunologic: denies allergy, denies hives Vital Signs Vital Signs Date Time Temp Pulse Resp B/P (MAP) Pulse Ox O2 Delivery O2 Flow Rate FiO2 04/15/25 17:00 98.2 69 15 122/75 (91) 95 98.2 04/15/25 16:10 Room Air* 0 21 Physical Exam General Appearance: alert, no distress HEENT: EOMI, PERRLA, normal external inspect of ears, no icterus, no nasal d rainage Neck: no carotid bruit, no jugular venous distention (JVD), no lymphadenopathy Chest: normal thorax Respiratory: clear to auscultation, normal air movement Cardiovascular: regular rate and rhythm, no diastolic murmur, no jugular venous distention (JVD), no rub, no systolic murmur Abdominal: soft, no hepatomegaly, no mass, no splenomegaly, no tenderness Genitourinary: grossly normal external Musculoskeletal: no joint tenderness, no swelling Extremities: normal pulses, no calf tenderness, no clubbing, no cyanosis, no edema Skin: no bruising, no jaundice, no rash Neurological: alert, No focal deficit SEPSIS Sepsis Screen Date sepsis recognized/suspect: Apr 15, 2025 Time Sepsis recognized/suspect: 011 Recent Procedure: No On Antibiotic Therapy: No Respiratory Rate >20: No Heart Rate >90: No Temp<36 C (96.8 F) or >38.3 C: No SBP <90 or MAP <65 mmHG: No New Acute Mental Status Change: No Is the patient on CPAP, BIPAP,: No Physician Orders Chest Portable (04/15/25 01:57) Electrocardigram (04/15/25 01:57) Electrocardigram (04/15/25 02:57) Electrocardigram (04/15/25 04:57) Titrate Oxygen (04/15/25 02:10) Oxygen (04/15/25 ) Continous Pulse Oximetry (04/15/25 02:10) Saline Lock (04/15/25 02:10) Can Marker (04/15/25 ) Admit (04/15/25 06:07) Acetaminophen Tablet (Tylenol Tablet) (04/15/25 06:15) Hydrocodone-Acet 5/325mg Tab (Shelby 5/32 (04/15/25 06:15) Temazepam (Restoril) (04/15/25 06:15) Ondansetron Hcl (Zofran) (04/15/25 06:15) Docusate Sodium Capsule (Colace Capsule) (04/15/25 06:15) Enoxaparin Sodium (Lovenox) (04/15/25 10:00) Complete Blood Count (04/16/25 04:00) Comprehensive Metabolic Panel (04/16/25 04:00) Cardiac Diet-2gna,Lofat,Lochol (04/15/25 Breakfast) Morphine Sulfate Injection (04/15/25 06:15) Nitroglycerin Sublingual (Ntrostat Subli (04/15/25 06:15) Morphine Sulfate Injection (04/15/25 06:15) Stat Ekg For Chest Pain (04/15/25 06:07) Notify Md Of Changes From Base (04/15/25 06:07) Leather Production Worker For 24 Hours (04/15/25 06:07) Emergency Dysrhythmia Protocol (04/15/25 06:07) Rhythm Strips Once Every Shift (04/15/25 06:07) Oxygen By Nasal Cannula (04/15/25 06:07) *Consult Dr. Nathan Irene (04/15/25 06:10) Mrsa Screen (04/15/25 09:41) Electrocardigram (04/15/25 09:00) Gabapentin Capsule (Neurontin Capsule) (04/15/25 14:00) Losartan Tablet (Cozaar Tablet) (04/16/25 10:00) Oxcarbazepine Tablet (Trileptal Tablet) (04/15/25 22:00) Risperidone Tablet (Risperdal Tablet) (04/15/25 22:00) Famotidine Tablet (Pepcid Tablet) (04/16/25 10:00) Hydrochlorothiazide Tablet (Hydrochlorot (04/16/25 10:00) Vital Signs Date Time Temp Pulse Resp B/P (MAP) Pulse Ox O2 Delivery O2 Flow Rate FiO2 04/15/25 17:00 98.2 69 15 122/75 (91) 95 98.2 04/15/25 16:20 98.2 69 15 122/75 (91) 95 98.2 04/15/25 16:10 70 15 95 Room Air* 0 21 04/15/25 13:30 98.4 68 17 117/73 (88) 96 98.4 04/15/25 08:56 97.7 67 16 116/69 (85) 97.7 04/15/25 06:27 97.6 72 16 119/85 (96) 100 97.6 04/15/25 04:56 83 18 128/79 04/15/25 04:19 97.9 76 18 124/86 (99) 99 97.9 04/15/25 04:19 76 04/15/25 04:19 76 18 124/86 04/15/25 03:06 79 04/15/25 03:05 79 04/15/25 02:10 79 04/15/25 01:17 75 04/15/25 01:13 98.1 92 18 131/95 98 98.1 Laboratory Tests Test 04/15/25 02:13 White Blood Count 6.6 10^3/uL (4.4-10.8) Medications Medications Dose Ordered Sig/Jose J Route Start Time Stop Time Status Last Admin Dose Admin Enoxaparin Sodium 40 mg DAILY SC 04/15/25 10:00 04/15/25 10:42 Gabapentin 300 mg TID PO 04/15/25 14:00 04/15/25 12:32 Results Labs Test 04/15/25 05:00 04/15/25 02:13 Range/Units Troponin I High Sensitivity < 3 L </=34 ng/L White Blood Count 6.6 4.4-10.8 10^3/uL Red Blood Count 4.58 4.0-5.20 10^6/uL Hemoglobin 14.3 12.2-16.2 g/dL Hematocrit 42.0 36.0-46.0 % Mean Corpuscular Volume 91.8 80.0-100.0 fL Mean Corpuscular Hemoglobin 31.4 28.0-32.0 pg Mean Corpuscular Hemoglobin Concent 34.1 32.0-36.0 g/dL Red Cell Distribution Width 13.0 11.8-14.3 % Platelet Count 321 140-450 10^3/uL Mean Platelet Volume 7.5 6.9-10.8 fL Neutrophils (%) (Auto) 46.0 37.0-80.0 % Lymphocytes (%) (Auto) 45.1 10.0-50.0 % Monocytes (%) (Auto) 5.5 0.0-12.0 % Eosinophils (%) (Auto) 2.2 0.0-7.0 % Basophils (%) (Auto) 1.2 0.0-2.0 % Neutrophils # (Auto) 3.1 1.6-8.6 10 ^3/uL Lymphocytes # (Auto) 3.0 0.4-5.4 10 ^3/uL Monocytes # (Auto) 0.4 0-1.3 10 ^3/uL Eosinophils # (Auto) 0.1 0-0.8 10 ^3/uL Basophils # (Auto) 0.1 0-0.2 10 ^3/uL Nucleated Red Blood Cells 0.0 % Sodium Level 141 136-145 mmol/L Potassium Level 3.5 3.5-5.1 mmol/L Chloride Level 103 98-107 mmol/L Carbon Dioxide Level 32 H 20-31 mmol/L Anion Gap 6 5-15 Blood Urea Nitrogen 8 L 9-23 mg/dL Creatinine 0.88 0.550-1.02 mg/dL Glomerular Filtration Rate Calc 78 >90 mL/min BUN/Creatinine Ratio 9.1 L 10.0-20.0 Serum Glucose 116 H 74-106 mg/dL Calcium Level 10.2 8.7-10.4 mg/dL Total Bilirubin 0.8 0.2-1.0 mg/dL Aspartate Amino Transferase (AST) 20 13-40 U/L Alanine Aminotransferase (ALT) 22 7-40 U/L Alkaline Phosphatase 88 46-116 U/L Total Protein 7.3 5.7-8.2 g/dL Albumin 4.4 3.2-4.8 g/dL Plan 1. Atypical chest pain (from nausea and vomiting) Monitor, cardiology consult, monitor on EKG, PRN antihypertensives 2. Obesity Monitor 3. COPD Monitor, medications 4. HLD Monitor, medications 5. Smoker Smoking cessation Plan discussed with: Patient, Other JAVY BOSE NP Apr 15, 2025 11:23
[2025-04-15] MEDS: GABAPENTIN 300 MG CAP PO SCH (12:32)
[2025-04-15] MEDS: HYDROcodone-ACET 5/325MG TAB PO PRN (12:34)
[2025-04-15] MEDS: risperiDONE 1 MG TAB PO SCH (21:41)
[2025-04-16] VITALS (8 sets, daily range): BP systolic 105–124; BP diastolic 65–86; PULSE 62–88; RESP 17–20; TEMP 97.1–98.7; O2SAT 98
--- NOTE | 2025-04-16 07:23 | DVHPN2 ---
Progress Note - Dictate Date Seen: Apr 16, 2025 Medical Necessity Reason Pt with a Central, PICC or Fol: No vital signs Vital Sign Date Time Temp Pulse Resp B/P (MAP) Pulse Ox O2 Delivery O2 Flow Rate FiO2 04/16/25 04:54 97.1 75 17 115/79 (91) 98 97.1 04/15/25 20:00 Room Air* 0 21 Total Intake and Output 04/15/25 04/15/25 04/16/25 15:00 23:00 07:00 Intake Total 0 ml 450 ml Balance 0 ml 450 ml medications Current Medications Medications Dose Ordered Sig/Jose J Route Start Time Stop Time Status Last Admin Dose Admin Acetaminophen 325 mg Q4HP PRN PO 04/15/25 06:15 Acetaminophen/ Hydrocodone Bitart 1 tab Q4HP PRN PO 04/15/25 06:15 04/16/25 05:37 1 TAB Temazepam 15 mg QHSP PRN PO 04/15/25 06:15 Ondansetron HCl 4 mg Q4HP PRN IV 04/15/25 06:15 Docusate Sodium 100 mg BIDPRN PRN PO 04/15/25 06:15 Enoxaparin Sodium 40 mg DAILY SC 04/15/25 10:00 04/15/25 10:42 40 MG Morphine Sulfate 2 mg Q4HPRN PRN IV 04/15/25 06:15 Nitroglycerin 0.4 mg Q5MINP PRN SL 04/15/25 06:15 Morphine Sulfate 2 mg Q30M PRN IV 04/15/25 06:15 Gabapentin 300 mg TID PO 04/15/25 14:00 04/16/25 05:36 300 MG Losartan Potassium 100 mg DAILY PO 04/16/25 10:00 Oxcarbazepine 300 mg BID PO 04/15/25 22:00 04/15/25 21:37 300 MG Risperidone 1 mg BID PO 04/15/25 22:00 Famotidine 40 mg DAILY PO 04/16/25 10:00 Hydrochlorothiazide 25 mg DAILY PO 04/16/25 10:00 laboratory and microbiology Test 04/16/25 05:51 Range/Units Serum Glucose Pending Assessment/Plan Patient is a 54-year-old female who presented with few days of atypical chest pain. It was accompanied by nausea and vomiting. There was no shortness of breath. There was no exertional component to the discomfort. Cardiology is involved for cardiac aspects of care. Patient is known to our practice from outside and before. She actually had a nuclear stress test in December 2024 in [facility] which the result was no ischemia (normal perfusion) and good systolic function. Not in acute distress. Not using accessory muscles of breathing. Mucosa is pink and wet. No carotid bruit. Lungs are clear to auscultation. Cardiac: Regular, no thrill/gallop. There is tenderness to the left side. Abdomen is soft. Complains of tenderness in the right flank and lower abdomen. Bowel sound is positive. No gross mass. Extremities do not reveal edema. Dorsalis pedis is 2+ bilateral. Past medical history includes hypertension, hyperlipidemia, diabetes mellitus, COPD/Asthma, degenerative disc disease, obesity, anxiety disorder, history of sciatica, history of hernia, old history of /tubal ligation and debbie ulder/knee surgeries. She was diagnosed with obstructive sleep apnea recently. She does not use CPAP consistently (has not got used to it). She smokes cigarettes. Brother of MD at age of 45. Father of MD at age of 67. Echocardiogram performed in the office on December 15, 2023 revealed technically limited study, ejection fraction of 65 to 70%, no wall motion abnormality, trace MR/TR and right ventricular systolic pressure of less than 35 mm Hg. Echocardiogram of 12/27/2023 (performed in [facility]) revealed: LVEF of 60 to 65%, no wall motion abnormality, normal diastolic function, trace MR/TR and RVSP of 28 mmHg. Echocardiogram of April 03, 2024 reported mild concentric left ventricular hypertrophy, ejection fraction of 60-65%, normal diastolic, mild MR/TR and right ventricular systolic pressure of 39 mm Hg Echocardiogram of November 26, 2024 revealed mild concentric left ventricular hypertrophy, ejection fraction of 65%, normal diastolic, trace TR/MR and right ventricular systolic pressure of 32 mm Hg Nuclear stress test of December 25, 2024 revealed normal perfusion, normal ejection fraction and no evidence for ischemia. Creatinine: 0.88 - today's pending Potassium: 3.5 - today's pending Troponin (high sensitive): 3 - 3 - <3 Chest x-ray reported: IMPRESSION: 1. No acute cardiopulmonary disease. EKG was normal. Tele reveals sinus rhythm Patient is a 54-year-old female who presented with atypical chest discomfort. Serial high sensitive troponin has been negative. EKG has been nonrevealing. Patient has recent nuclear stress test was normal. Presentation itself was atypical. Acute coronary syndrome is not considered. Recognizing the above, repeat ischemic workup is not indicated at this point. Did have episodes of nausea and vomiting and its evaluation by primary team can be justified. URI to be considered Atypical chest pain Nausea/vomiting Anxiety disorder Obesity Diabetes mellitus Fatty Liver, history of Cardiac suggestion for management: Manage on telemetry Follow-up electrolytes and kidney function tests and correct abnormalities Keep potassium above 4 and magnesium above 2 Acute coronary syndrome is not considered. No repeat ischemic workup is indicated Evaluation of nausea/vomiting as per primary team URI to be considered. Cardiac quintana is stable and can be followed as outpatient Lifestyle and risk factor modifications. Patient was counseled to stop/quit smoking Further evaluation and management depends on the above and clinical course A total of 55 minutes was spent reviewing the patient record, examining the patient, making a diagnostic and therapeutic plan, discussing this plan with medical personnel, following up on diagnostic studies and following the patient for clinical stability excluding any and all procedures. At least 50% of this time was spent in direct, [id number] contact. Thank you for allowing me to participate in this patient's care. Further recommendations will depend on patient's clinical course. Please do not hesitate to contact me if you have any questions or concerns. This medical document was created using electronic medical record system with [employer] computerized dictation system. Although this document has been carefully reviewed, there may still be some phonetic and typographical errors. These areas are purely typographical due to the imperfection of the software programs, and do not reflect any compromise in the patient's medical care. Plan discussed with: Patient, Other (nurse) JOSE FLAHERTY MD Apr 16, 2025 07:23
[2025-04-16 07:29] LABS: Hematocrit 40.4 % (36.0-46.0); Hemoglobin 13.7 g/dL (12.2-16.2); Mean Corpuscular Hemoglobin 31.5 pg (28.0-32.0); Mean Corpuscular Volume 93.0 fL (80.0-100.0); Nucleated Red Blood Cells % 0.1 %
[2025-04-16 07:44] LABS: Alanine Aminotransferase 22 U/L (7-40); Albumin 4.1 g/dL (3.2-4.8); Alkaline Phosphatase 95 U/L (46-116); Anion Gap 6 (5-15); BUN/Creatinine Ratio 8.1 (10.0-20.0); Bilirubin, Total 0.6 mg/dL (0.2-1.0); Blood Urea Nitrogen 6 mg/dL (9-23); Calcium 9.4 mg/dL (8.7-10.4); Carbon Dioxide 27 mmol/L (20-31); Chloride 107 mmol/L (98-107); Glucose 89 mg/dL (74-106); Potassium 4.0 mmol/L (3.5-5.1); Sodium 140 mmol/L (136-145); Total Protein 6.8 g/dL (5.7-8.2)
[2025-04-16] MEDS: LOSARTAN POTASSIUM 50 MG TAB PO SCH (08:57)
[2025-04-16] MEDS: FAMOTIDINE 20 MG TAB PO SCH (08:58)
[2025-04-16] MEDS: hydroCHLOROthiazide 25 MG TAB PO SCH (08:58)
--- NOTE | 2025-04-16 10:56 | ECG ---
[facility] Test Date: 2025-04-15 Test Time: 09:18:10 Pat Name: EDUAR HERRERA Department: Room: 0280T B Gender: F Organization Development Consultant: : 1970 Requested By: JOSE FLAHERTY Order Number: [id number] Reading MD: Jorge Perry Measurements Intervals [place] Rate: 73 P: 53 [place]: 194 QRS: 30 QRSD: 100 T: 19 QT: 400 QTc: 440 Interpretive Statements Normal sinus rhythm Electronically Signed On 04-23-2025 12:47:08 PST by Jorge Perry Please click the below link to view image of tracing.
[2025-04-16] MEDS: ALBUTEROL SULF 2.5 MG/0.5ML(0.5%) NEB SOLN NEB SCH (14:00)
[2025-04-16] MEDS: IPRATROPIUM BROM 0.5 MG/2.5ML INH SOL NEB SCH (14:00)
[2025-04-16] MEDS ORDERED: ALBU108A5 IN (14:36)
[2025-04-16] MEDS ORDERED: AZIT-43 PO (14:36)
--- NOTE | 2025-04-16 14:38 | DVHDS2 ---
Discharge Summary Date of Admission Apr 15, 2025 at 06:07 Date of Discharge: Apr 16, 2025 Labs/Diagnostic Data: Laboratory Results Test 04/16/25 05:51 04/15/25 05:00 White Blood Count 6.6 10^3/uL (4.4-10.8) Red Blood Count 4.34 10^6/uL (4.0-5.20) Hemoglobin 13.7 g/dL (12.2-16.2) Hematocrit 40.4 % (36.0-46.0) Mean Corpuscular Volume 93.0 fL (80.0-100.0) Mean Corpuscular Hemoglobin 31.5 pg (28.0-32.0) Mean Corpuscular Hemoglobin Concent 33.9 g/dL (32.0-36.0) Red Cell Distribution Width 13.0 % (11.8-14.3) Platelet Count 292 10^3/uL (140-450) Mean Platelet Volume 8.0 fL (6.9-10.8) Neutrophils (%) (Auto) 35.6 % (37.0-80.0) Lymphocytes (%) (Auto) 54.9 % (10.0-50.0) Monocytes (%) (Auto) 5.8 % (0.0-12.0) Eosinophils (%) (Auto) 2.8 % (0.0-7.0) Basophils (%) (Auto) 0.9 % (0.0-2.0) Neutrophils # (Auto) 2.4 10 ^3/uL (1.6-8.6) Lymphocytes # (Auto) 3.6 10 ^3/uL (0.4-5.4) Monocytes # (Auto) 0.4 10 ^3/uL (0-1.3) Eosinophils # (Auto) 0.2 10 ^3/uL (0-0.8) Basophils # (Auto) 0.1 10 ^3/uL (0-0.2) Nucleated Red Blood Cells 0.1 % Sodium Level 140 mmol/L (136-145) Potassium Level 4.0 mmol/L (3.5-5.1) Chloride Level 107 mmol/L (98-107) Carbon Dioxide Level 27 mmol/L (20-31) Anion Gap 6 (5-15) Blood Urea Nitrogen 6 mg/dL (9-23) Creatinine 0.74 mg/dL (0.550-1.02) Glomerular Filtration Rate Calc 96 mL/min (>90) BUN/Creatinine Ratio 8.1 (10.0-20.0) Serum Glucose 89 mg/dL (74-106) Calcium Level 9.4 mg/dL (8.7-10.4) Total Bilirubin 0.6 mg/dL (0.2-1.0) Aspartate Amino Transferase (AST) 25 U/L (13-40) Alanine Aminotransferase (ALT) 22 U/L (7-40) Alkaline Phosphatase 95 U/L (46-116) Total Protein 6.8 g/dL (5.7-8.2) Albumin 4.1 g/dL (3.2-4.8) Troponin I High Sensitivity < 3 ng/L (</=34) Other Laboratory Tests 04/16/25 05:51 Brief Hx & Hospital Course: 54 y/o female patient with history of hypertension, COPD presents with c/o left- sided chest pain. Patient also c/o nausea and vomiting. Patient states she is having outpatient cardiac workup for bradycardia and had a stress test 1 month ago. While in the emergency department the patient was evaluated by the provider, As per provider: Labs, vital signs, and imagining monitored. Patient was admitted on 04/15/2025 for chest pain. Patient was seen by cardiology. Chest pain was described as atypical. Patient has underlying anxiety. Patient most likely also has upper viral syndrome. Patient was sent home with azithromycin and an inhaler. Patient states she has a nebulizer machine at home with medication. I did instruct her to follow-up with her PCP in 1 week. The patient received proper medical treatment and medications. Vital signs, Imaging and Laboratory Work was monitored daily. All consults recommendations were followed as provided. There were no complaints or new complaints upon discharge, all questions and concerns were answered. Patient was advised to return to the ER or call 911 if any headaches, dizziness, shortness of breath, chest pain, bleeding, fevers, or worsening of medical condition. Patient/Family was counseled about treatment plan, medications, possible side effects, patient verbalized understanding. All questions were answered to the best of my ability. The patient symptoms improved and they are okay to be DC. Condition at Discharge: Good Final Diagnosis/Problems List CP-atypical upper viral syndrome Atypical chest pain (from nausea and vomiting) Obesity COPD HLD Smoker Discharge Disposition: Home Discharge Instruct/Medications Diet: Cardiac 2g Na,low cholest Activity: No Restrictions, As Tolerated Follow Up/Referral: pcp 1 week Scheduled Azithromycin (Azithromycin), 250 MG PO DAILY Cholecalciferol (Vitamin D-3 Super Strengt), 1 TAB PO DAILY, (Reported) Cyclobenzaprine Hcl (Cyclobenzaprine Hcl), 1 TAB PO QHSP Losartan Potassium & Hydrochlo (Losartan Potassium/Hydroc), 1 TAB PO DAILY, (Reported) Oxcarbazepine (Trileptal), 0.5 TAB PO BID, (Reported) Risperidone (Risperidone), 1 TAB BID, (Reported) Semaglutide (Rybelsus), PO QAM, (Reported) Tizanidine Hydrochloride (Tizanidine Hcl), 1 TAB PO TID, (Reported) Scheduled PRN Albuterol Sulfate (Albuterol Sulfate Hfa), 108 MCG IN Q4HPRN PRN Fluticasone Propionate (Fluticasone Propionate), 110 MCG MARTIN BID PRN for NASAL CONGESTION, (Reported) Gabapentin (Gabapentin), 1 CAP PO TID PRN Hydrocodone-Acetaminophen (Hydrocodone/Acetaminophen 10-325 mg), 1 TAB PO Q6HP PRN for PAIN SCALE 7 THRU 10, (Reported) Discontinued Medications Nitrofurantoin Monohydrate Mac (Macrobid), 100 MG PO BID Discharge Statement: "Patient was advised to return to the ER or call 911 if any headaches, dizziness, shortness of breath, chest pain, abdominal pain, bleeding, fevers, or worsening of medical condition. Patient was counseled about treatment plan, medications, possible side effects, patientverbalized understanding. All questions were answered to the best of my ability. This discharge took greater then 30 minutes in planning, reviewing documentation, counseling the patient, and discussing with other team members." ASSESSMENT ASSESSMENT Assessment CP-atypical upper viral syndrome JAVY BOSE COSMETIC SURGEON Apr 16, 2025 14:37
== END 2025-04-16 16:25 | disposition home or self-care (01) | DRG 203 ==
LOC: ER 01:02 → OVERFLOW 06:07 → TELE-WESTW 16:13
PROVIDERS: ADMIT Internal Medicine; ATTEND Internal Medicine
DX: M94.0 Chondrocostal junction syndrome [Tietze] (principal); B34.9 Viral infection, unspecified; E11.9 Type 2 diabetes mellitus without complications; E66.9 Obesity, unspecified; J44.89 Other specified chronic obstructive pulmonary disease; K76.0 Fatty (change of) liver, not elsewhere classified; I10 Essential (primary) hypertension; E78.5 Hyperlipidemia, unspecified; F41.9 Anxiety disorder, unspecified; G47.33 Obstructive sleep apnea (adult) (pediatric); F17.210 Nicotine dependence, cigarettes, uncomplicated; Z68.34 Body mass index [BMI] 34.0-34.9, adult; Z82.49 Family history of ischemic heart disease and other diseases of the circulatory system; Z79.899 Other long term (current) drug therapy; Z82.5 Family history of asthma and other chronic lower respiratory diseases; Z98.891 History of uterine scar from previous surgery
CPT/HCPCS: 36415; 71045; 80053; 84484; 85025; 87081; 93005; 96372; G0378; J2405

== ENCOUNTER 2025-04-29 00:04 | Emergency (ER) | payer MEDICAID ==
[~2025-04-29] VITALS: Ht 160 cm; Wt 88.8 kg
[~2025-04-29 00:04] MED LIST changes: +ALBU108A5 IN; +AZIT-43 PO; +FLUT0.05 NAS; -NITR-87 PO; +OXCA600T3 PO
[2025-04-29] MEDS: ACETAMINOPHEN 325 MG TAB PO ONE (03:15)
--- NOTE | 2025-04-29 03:31 | ED.PDOC ---
History of Present Illness HPI Comments 54-year-old female who presents with chief complaint of nonradiating, lower back pain. Significant history for sciatica, asthma, COPD, HTN, and pre DM. Patient endorses on most recent sciatica flare-up mother this morning, being severely worse and having no relief or improvement with [id number] ibuprofen medication use. No endorsed recent ailments, strenuous activities, or injuries. She comments on still pending spine surgery for her chronic back pain at [facility]. Patient denies on having any further acute symptoms. Patient denies associated weight loss, fever, incontinence, loss of use of limb. REVIEW OF SYSTEMS: General: No fever, no chills, HEENT: No neck pain, no blurred vision Cardiac: No chest pain. No palpitations. Lungs: No shortness of breath, GI: No abdominal pain, no vomiting Musculoskeletal: Lower back pain. No joint pain Skin: No rash, no wound Neuro: No headache, no dizziness, no syncope PHYSICAL EXAM: General: Awake, alert and oriented. No acute distress. Skin: Skin in warm, dry and intact without rashes or lesions. HEENT: The head is normocephalic and atraumatic. Conjunctivae are clear without exudates or hemorrhage. Sclera is non-icteric. Neck: Normal range of motion. No JVD. Cardiac: Regular rate Respiratory: No signs of respiratory distress. No Stridor. Musculoskeletal: Generalized lower back tenderness. She is able to stand without difficulty. Extremities: Upper and lower extremities are atraumatic in appearance without deformity. Neurological: The patient is awake, alert and oriented to person, place, and time with normal speech. Speech is clear. There is no facial asymmetry. Psychiatric: Appropriate mood and affect. Good judgement and insight. Chief Complaint: Back Pain Time Seen by MD: 03:00 Primary Care Provider: MANDI Wei Notes: Nurses Notes, Medications, Allergies Allergies: Coded Allergies: No Known Drug Allergy (Verified Allergy, Unknown, 12/27/23) Home Meds Active Scripts Lidocaine (Lidocaine Patch 5%) 5 % Pad, 5 % EX DAILY PRN for 10 Days, #10 PAD Prov:MODESTO BALDWIN MD 04/29/25 Albuterol Sulfate (Albuterol Sulfate Hfa) 108 Mcg/Act Aer, 108 MCG IN Q4HPRN PRN for 30 Days, #1 AER Prov:JAVY BOSE AUTO REPAIR SHOP MANAGER 04/16/25 Azithromycin (Azithromycin) 250 Mg Tab, 250 MG PO DAILY MDD 500 for 5 Days, #6 TAB 0 Refills 2 TABLETS ORALLY ON DAY ONE, THEN 1 TABLET ORALLY DAILY FOR 4 DAYS Prov:JAVY BOSE AUT[employer] REPAIR SHOP MANAGER 04/16/25 Cyclobenzaprine Hcl (Cyclobenzaprine Hcl) 5 Mg Tab, 1 TAB PO QHSP, #14 TAB 0 Refills Prov:CHARLINE NIEVES 03/06/25 Gabapentin (Gabapentin) 300 Mg Cap, 1 CAP PO TID PRN, #30 CAP prn sciatic nerve pain Prov:YEHUDA CONTRERAS MD 07/04/24 Reported Medications Fluticasone Propionate (Fluticasone Propionate) 0.05 % Cre, 110 MCG MARTIN BID PRN for NASAL CONGESTION for 30 Days, MCG 04/15/25 Oxcarbazepine (Trileptal) 600 Mg Tab, 0.5 TAB PO BID, #60 TAB 1 Refill 04/15/25 Tizanidine Hydrochloride (Tizanidine Hcl) 4 Mg Tab, 1 TAB PO TID 11/26/24 Losartan Potassium & Hydrochlo (Losartan Potassium/Hydroc) 1 Tab Tab, 1 TAB PO DAILY, TAB 100-25mg tab 11/26/24 Semaglutide (Rybelsus) 7 Mg Tab, PO QAM 11/26/24 Hydrocodone-Acetaminophen (Hydrocodone/Acetaminophen 10-325 mg) 1 Tab Tab, 1 TAB PO Q6HP PRN for PAIN SCALE 7 THRU 10 11/26/24 Cholecalciferol (Vitamin D-3 Super Strengt) 2,000 Unit Tab, 1 TAB PO DAILY 12/27/23 Risperidone (Risperidone) 2 Mg Tab, 1 TAB BID 12/27/23 Information Source: Patient Mode of Arrival: Ambulatory Severity: Moderate Timing: Hours Duration: Since onset Prehospital treatment: Pain Meds Past Medical History PAST MEDICAL HISTORY: Asthma, COPD, HTN Past Medical History (Other): Sciatica Pre DM Surgical History: , Tubal Ligation WATCH DIAL MAKER History: No Pertinent WATCH DIAL MAKER History Family History Family History: No family hx of Cancer, No family hx of DM, No family hx of HTN, No family hx ofKidney veronica, No family hx of Liver veronica, No family hx of Lung veronica, No family hx of Stroke, Family hx of heart veronica Social History Smoker: Cigarettes, Less Than 1 Pack/Day Alcohol: Denies ETOH Use Drugs: Denies Drug Use Lives In: Home Was a procedure done? Was a procedure done?: No Differential Dx Considerations may include: Differential diagnoses considered include but are not limited to back strain or sprain, degenerative disc disease, herniated disc, spinal stenosis, cauda equina syndrome, spinal epidural abscess, spinal fracture, metastatic cancer, aortic dissection, AAA rupture, epidural hematoma, osteomyelitis, pyelonephritis, nephrolithiasis, other X-Ray, Labs, Meds, VS Vital Signs Date Time Temp Pulse Resp B/P (MAP) Pulse Ox O2 Delivery O2 Flow Rate FiO2 04/29/25 00:06 98.9 89 20 118/89 98 98.9 Time of 1ST Reevaluation: 03:23 Reevaluation 1ST: Unchanged Patient Education/Counseling: Need For Follow Up Family Education/Counseling: No Family Present SEPSIS Sepsis Screen Date sepsis recognized/suspect: Apr 29, 2025 Time Sepsis recognized/suspect: 0008 Recent Procedure: No On Antibiotic Therapy: No Respiratory Rate >20: No Heart Rate >90: No Temp<36 C (96.8 F) or >38.3 C: No SBP <90 or MAP <65 mmHG: No New Acute Mental Status Change: No Is the patient on CPAP, BIPAP,: No Vital Signs Date Time Temp Pulse Resp B/P (MAP) Pulse Ox O2 Delivery O2 Flow Rate FiO2 04/29/25 00:06 98.9 89 20 118/89 98 98.9 Departure 1 Departure Time of Disposition: 03:40 Impression: Primary Impression: Acute exacerbation of chronic low back pain Disposition: 01 HOME / SELF CARE / HOMELESS Condition: Stable Additional Instructions: ED DISCHARGE INSTRUCTIONS Instructions: Please read all instructions provided in this packet carefully. Although you have been discharged from the Emergency Department, this does not mean that you have a "clean bill of health". No definitive diagnosis for your symptoms has been made today. It is possible that you are in the process of developing a serious illness. This is why you must return to the ED without fail if any new or worsening symptoms (especially if your symptoms include chest pain, trouble breathing, abdominal pain, fever, headache, confusion, trouble seeing, or trouble walking) It is also very important that you see a primary care provider (PCP) within the next 3-5 days to follow up. If you are unable to get an appointment, return to the ED for re-evaluation. Back Pain: Care Instructions Table of Contents Overview How can you care for yourself at home? When should you call for help? Credits Overview In most cases, there isn't a clear cause for back pain. It may be related to problems with muscles and ligaments of the back. It may also be related to problems with the nerves, discs, or bones of the back. Moving, lifting, standing, sitting, or sleeping in an awkward way can strain the back. Arthritis is another cause of back pain. Although it may hurt a lot, back pain usually improves on its own within several weeks. Most people recover in 12 weeks or less. Using self-care, such as ice or heat and light activity (like walking) may help you feel better sooner. Follow-up care is a dorsey part of your treatment and safety. Be sure to make and go to all appointments, and call your doctor if you are having problems. It's also a good idea to know your test results and keep a list of the medicines you take. How can you care for yourself at home? Sit or lie in positions that are most comfortable and reduce your pain. Try one of these positions when you lie down: Lie on your back with your knees bent and supported by pillows. Lie on the floor with your legs on the seat of a sofa or chair. Lie on your side with your knees and hips bent and a pillow between your legs. Lie on your stomach if it does not make pain worse. Do not sit up in bed, and avoid soft couches and twisted positions. Bed rest can help relieve pain at first, but it delays healing. Avoid bed rest after the first day of back pain. Change positions every 30 minutes. If you must sit for long periods of time, take breaks from sitting. Get up and walk around, or lie in a comfortable position. Try using a heating pad on a low or medium setting for 15 to 20 minutes every 2 or 3 hours. Try a warm shower in place of one session with the heating pad. You can also try an ice pack for 10 to 15 minutes every 2 to 3 hours. Put a thin cloth between the ice pack and your skin. Take pain medicines exactly as directed. If the doctor gave you a prescription medicine for pain, take it as prescribed. If you are not taking a prescription pain medicine, ask your doctor if you can take an [id number] medicine. Take short walks several times a day. You can start with 5 to 10 minutes, 3 or 4 times a day, and work up to longer walks. Walk on level surfaces and avoid hills and stairs until your back is better. Return to work and other activities as soon as you can. Continued rest without activity is usually not good for your back. To prevent future back pain, do exercises to stretch and strengthen your back an d stomach. Learn how to use good posture, safe lifting techniques, and proper body mechanics. When should you call for help? Call your doctor now or seek immediate medical care if: You have new or worsening numbness in your legs. You have new or worsening weakness in your legs. (This could make it hard to stand up.) You lose control of your bladder or bowels. Watch closely for changes in your health, and be sure to contact your doctor if: You have a fever, lose weight, or don't feel well. You do not get better as expected. Credits for Back Pain: Care Instructions Current as of: January 03, 2023 Author: [employer] Staff Clinical Review Board All [employer] education is reviewed by a team that includes physicians, nurses, advanced practitioners, registered dieticians, and other healthcare professionals. e-Prescriptions Lidocaine (Lidocaine Patch 5%) 5 % Pad 5 % EX DAILY PRN for 10 Days, #10 PAD Prov: MODESTO BALDWIN MD 04/29/25 Comments MDM: 54-year-old female who presents to the emergency department with back pain more consistent with a lumbar radiculopathy. Differential diagnoses includes lumbago versus musculoskeletal spasm / strain versus sciatica. No back pain red flags on history or physical. Presentation not consistent with malignancy (lack of history of malignancy, lack of B symptoms), fracture (no trauma, no bony tenderness to palpation), cauda equina (no bowel or urinary incontinence/retention, no saddle anesthesia, no distal weakness), AAA, viscus perforation , pulmonary embolism, renal colic, pyelonephritis (afebrile, no CVAT, no urinary symptoms). Given the clinical picture, no indication for imaging at this time. I reviewed the following notes from the pt's past medical encounters: N/A The following tests were ordered, and results were reviewed by me: (See diagnostic results section) The following test were independently interpreted by me: N/A Additional information was gathered from interviewing the following independent historians: N/A I reviewed and agreed with the following test results read by other providers: N/A I discussed treatments and results with patient Decision regarding hospitalization or escalation of hospital level of care: Risks and benefits of admission for further treatment of patient's condition was considered however due to patient's stable condition patient will be discharged to follow up closely or return to care for worsening of condition or inability to follow up. Critical Care Note Critical Care Time?: No Stability Stability form required: No Heart Score Heart Score: Heart Score Response (Comments) Value History N/A 0 EKG N/A 0 Age N/A 0 Risk Factors N/A 0 Troponin N/A 0 Total 0 I personally scribed for MODESTO BALDWIN MD ([email or web address]) on 04/29/25 at 03:31. Electronically submitted by Orlin Chua ([email or web address]). MODESTO BALDWIN MD Apr 29, 2025 03:31
[2025-04-29] MEDS ORDERED: LIDO5PAD12 EX (03:43)
[2025-04-29] MEDS: KETOROLAC TROMETH 30 MG/ML 1ML VIAL IM ONE (03:44)
[2025-04-29 04:00] VITALS: BP 122/85; PULSE 81; RESP 20; TEMP 98; O2SAT 99
== END 2025-04-29 04:08 | disposition home or self-care (01) ==
LOC: ER 00:04
DX: G89.29 Other chronic pain (principal); M54.50 Low back pain, unspecified; I10 Essential (primary) hypertension; F17.210 Nicotine dependence, cigarettes, uncomplicated; J44.89 Other specified chronic obstructive pulmonary disease; Z79.899 Other long term (current) drug therapy; Z98.51 Tubal ligation status; Z98.890 Other specified postprocedural states
CPT/HCPCS: 96372; 99283; J1885